=== PATIENT | female | born 1955 | race Caucasian/White ===

== ENCOUNTER 2017-09-07 23:30 | Inpatient (IN) | payer MEDICARE, OTHER ==
[~2017-09-07] VITALS: Ht 152.4 cm; Wt 50.9 kg
--- NOTE | 2017-09-07 23:50 | NUR ---
bbra 102 from home c/o "feeling weak". Pt states "while walking,I became weak and called 911". per EMS, "during transport to [facility] had 2 more episodes of feeling weakness" moving all extremities freely at this time. Able to speak in clear full sentences. States she feels "stronger now". pt able to ambulate with steady gait to restroom to give urine sample. pt is aaox4. vss. skin wnl. resp even and unlabored. no s/s of acute distress noted. pt denies n/v/d. -dizziness or blurred vission. pt safety and comfort measures in place. pt placed on residential monitor and pox. awaiting md for eval.
[2017-09-08] VITALS (9 sets, daily range): BP systolic 144–187; BP diastolic 71–76
[2017-09-08] MEDS ORDERED: IV NS 0.9% 500 ML BAG IV ONE
[2017-09-08 00:14] LABS: BASOPHILS % (AUTO) 0.5 % (0.0-2.0); HEMATOCRIT 30 % (33-45); HEMOGLOBIN 10.4 g/dL (11.5-14.8); LYMPHOCYTES # (AUTO) 0.8 /CMM (0.8-4.8); LYMPHOCYTES % (AUTO) 24.1 % (20.0-44.0); MEAN CORPUSCULAR HGB CONC 35 g/dl (31.0-36.0); MEAN CORPUSCULAR VOLUME 99 fL (82-100); MONOCYTES # (AUTO) 0.5 /CMM (0.1-1.30); MONOCYTES % (AUTO) 14.6 % (2.0-12.0); NEUTROPHILS # (AUTO) 1.3 /CMM (1.8-8.9); NEUTROPHILS % (AUTO) 36.8 % (43.0-81.0); PLATELET COUNT (AUTO) 182 /CMM (150-450); RDW COEFFICIENT OF VARIATION 13.7 (11.5-15.0); WHITE BLOOD COUNT (AUTO) 3.4 K/uL (4.3-11.0)
[2017-09-08 00:17] LABS: BILIRUBIN,URINE NEGATIVE (NEGATIVE); BLOOD, URINE TRACE-INTA Ery/uL (NEGATIVE); KETONES,URINE NEGATIVE (NEGATIVE); LEUKOCYTE ESTERASE ,URINE TRACE (NEGATIVE); NITRITE, URINE NEGATIVE (NEGATIVE); PROTEIN,URINE 3+ mg/dl (NEGATIVE); UGLUCOSE NEGATIVE (NEGATIVE); UROBILINOGEN,URINE 0.2 EU/dL (0.2)
[2017-09-08 00:23] LABS: APPEARANCE,URINE CLEAR (CLEAR); COLOR,URINE STRAW (YELLOW)
[2017-09-08 00:25] LABS: BACTERIA,URINE None seen /HPF (None Seen)
[2017-09-08 00:26] LABS: CALCIUM, SERUM 9.4 mg/dL (8.5-10.1); CARBON DIOXIDE 29 mmol/L (21-32); CHLORIDE 90 mmol/L (98-107); CREATININE 5.3 mg/dL (0.6-1.3); GLUCOSE 91 mg/dL (74-106); POTASSIUM 5.1 mmol/L (3.5-5.1); SODIUM SERUM 130 mmol/L (136-145); UREA NITROGEN, BLOOD 52 mg/dL (7-18)
[2017-09-08 00:26] LABS: SQUAMOUS EPITHELIAL CELL,UR Few /HPF (None Seen)
[2017-09-08 00:31] LABS: INR 1.06 (0.87-1.13)
--- NOTE | 2017-09-08 00:33 | NUR ---
TELE 311-2
[2017-09-08 00:36] LABS: TROPONIN I < 0.017 ng/mL (0.00-0.056)
[2017-09-08 00:39] LABS: EOSINOPHILS % (MANUAL) 25 % (0-4); LYMPHOCYTES % (MANUAL) 25 % (16-48); MONOCYTES % (MANUAL) 15 % (0-11.0); NEUTROPHILS % (MANUAL) 35 (42-76)
[2017-09-08 00:41] LABS: ALANINE AMINOTRANSFERASE 25 U/L (12-78); ALBUMIN 3.9 g/dL (3.4-5.0); ALKALINE PHOSPHATASE 201 U/L (46-116); ASPARTATE AMINOTRANSFERASE 17 U/L (15-37); BILIRUBIN,DIRECT 0.1 mg/dL (0.0-0.2); BILIRUBIN,TOTAL 0.4 mg/dL (0.2-1.0); TOTAL PROTEIN, SERUM 6.9 g/dL (6.4-8.2)
[2017-09-08] MEDS ORDERED: CEPHALEXIN MONOHYDRATE 500 MG CAPSULE PO ONE (00:51)
[2017-09-08] MEDS ORDERED: AZITHROMYCIN 500 MG in IV D5W 250 ML IV ONE (01:00)
[2017-09-08] MEDS ORDERED: CEFTRIAXONE 2 G in IV D5W 50 ML IV ONE (01:00)
[2017-09-08] MEDS ORDERED: AZITHROMYCIN 500 MG VIAL ONE (01:05)
[2017-09-08] MEDS ORDERED: CEFTRIAXONE 1GM BAG (ER ONLY) 100 ML IV ONE (01:05)
--- NOTE | 2017-09-08 01:13 | NUR ---
TELECOMMUNICATIONS SALES REPRESENTATIVE OCTAVIO BEDSIDE FOR BLOOD CULTURE DRAW.
--- NOTE | 2017-09-08 01:40 | NUR ---
REPORT GIVEN TO MEDICAL CHEMISTHERBERT CANALES FOR RICHARD
[2017-09-08] MEDS ORDERED: QUET400T PO (01:45)
[2017-09-08] MEDS ORDERED: CARV6.25 PO (01:55)
[2017-09-08] MEDS ORDERED: LOSA50TA3 PO (01:55)
[2017-09-08] MEDS ORDERED: ROSU5TAB PO (01:55)
[2017-09-08] MEDS ORDERED: CARV12.5 PO (01:55)
[2017-09-08] MEDS ORDERED: CLON1TAB PO (01:55)
[2017-09-08] MEDS ORDERED: CLON0.1T14 PO (01:55)
[2017-09-08] MEDS ORDERED: NIFE30TA2 PO (01:55)
[2017-09-08] MEDS ORDERED: FOLI1TAB16 PO (01:55)
[2017-09-08] MEDS ORDERED: ASPI-1100 PO (01:55)
[2017-09-08] MEDS ORDERED: LAMO100T2 PO (01:55)
[2017-09-08] MEDS ORDERED: ZOLPIDEM TARTRATE 5 MG TABLET PO PRN (02:00)
[2017-09-08] MEDS ORDERED: MAGNESIUM HYDROXIDE 30 ML UDC PO PRN (02:00)
[2017-09-08] MEDS ORDERED: ONDANSETRON HCL/PF 4 MG/2 ML VIAL IVP PRN (02:00)
[2017-09-08] MEDS ORDERED: Z GUARD REMEDY 2 OZ OINT TP PRN (02:00)
[2017-09-08] MEDS ORDERED: HYDROCODONE/APAP 5/325MG 1 EACH TABLET PO PRN (02:00)
--- NOTE | 2017-09-08 02:05 | NUR ---
QUALITY ASSURANCE ANALYST NOTES RECEIVED PT FROM THE ER, PT ABLE TO WALK WITH ASSISTANCE FROM LAURA OUTSIDE THE ROOM , TO THE PT'S BED. PT IS A/O X 4, VERBALLY RESPONSIVE. NO DISTRESS, NO SOB NOTED AT THIS TIME, IV SITE ON RIGHT HAND INTACT AND PATENT, NO S/S OF INFILTRATION NOTED, IV ATB INFUSING AT THIS TIME. DENIES ANY PAIN OR DISCOMFORT AT THIS TIME. BODY CHECK DONE. PT ABLE TO URINATE FREELY WITH YELLOW URINE, NO HEMATURIA NOTED. SAFETY PRECAUTIONS OBSERVED. ALL NEEDS ATTENDED AND MET. KEPT COMFORTABLE. CALL LIGHT WITHIN REACH. WILL CONT TO MONITOR.
--- NOTE | 2017-09-08 02:30 | NUR ---
PT ON SR 72 ON TELE MONITOR. DENIES ANY CHEST PAIN AT THIS TIME, ABLE TO MOVE ALL 4 EXTREMITIES FREELY, DENIES HITTING HEAD AT HOME WHEN SHE FELT WEAK WHILE WALKING AT HOME. WILL CONT TO MONITOR.
[2017-09-08 02:50] LABS: OSMOLALITY,SERUM 281 mOS/kg (278-305); OSMOLALITY,URINE 192 mOS/kg (340-1090)
--- NOTE | 2017-09-08 06:02 | NUR ---
PER PT , SHE GOES TO [facility] FOR DIALYSIS EVERY M, W, F.
--- NOTE | 2017-09-08 06:40 | NUR ---
CHIEF WARDEN NOTES PT IN BED, AWAKE, A/O X 4, VERBALLY RESPONSIVE. NO DISTRESS, NO SOB NOTED AT THIS TIME, IV SITE ON RIGHT HAND INTACT AND PATENT, NO S/S OF INFILTRATION NOTED. DENIES ANY PAIN OR DISCOMFORT AT THIS TIME. PT ABLE TO URINATE FREELY TO BEDSIDE COMMODE, WITH YELLOW URINE, NO HEMATURIA NOTED. SAFETY PRECAUTIONS OBSERVED. ALL NEEDS ATTENDED AND MET. KEPT COMFORTABLE. CALL LIGHT WITHIN REACH. WILL ENDORSE TO NEXT SHIFT FOR RICHARD.
[2017-09-08] MEDS ORDERED: AZITHROMYCIN 500 MG in IV D5W 250 ML IV SCH (08:00)
--- NOTE | 2017-09-08 08:00 | NUR ---
RN NOTES RECEIVED PATIENT THE BED A/O X4, NO ACUTE RESPIRATORY DISTRESS, NO SOB, V/S TAKEN AND FOLLOWED , SCHEDULED MEDICATION ADMINISTERED. PATIENT SELF CARE NEED MINIMALL ASSIST, PATIENT USING BED SIDE COMMODE. PATIENT HAS NO C/O PAIN AT THIS TIME. IV SHUNT ON LEFT UPPER ARM INTACT. IV ACCESS ON RIGHT HAND INTACT. NEEDS ATTENDED AND ANTICIPATED. PATIENT TURN AND REPOSTION SELF IN THE BED. CALL LIGHT WITHIN TO REACH. SAFETY PRECAUTION MAINTAINED ALL THE TIME.
[2017-09-08] MEDS ORDERED: CARVEDILOL 6.25 MG TABLET PO SCH (09:00)
[2017-09-08] MEDS ORDERED: CARVEDILOL 12.5 MG TABLET PO SCH (09:00)
--- NOTE | 2017-09-08 09:03 | NUR ---
RN NOTES PATIENT D/C TELE TO MED/SURGE PER Dr. LEÓN, CONTINUED MONITORING.
[2017-09-08 09:54] LABS: CALCIUM, SERUM 9.1 mg/dL (8.5-10.1); CREATININE 5.9 mg/dL (0.6-1.3); POTASSIUM 4.7 mmol/L (3.5-5.1)
[2017-09-08 09:55] LABS: BASOPHILS % (AUTO) 0.4 % (0.0-2.0); EOSINOPHILS % (AUTO) 16.4 % (0.0-6.0); HEMATOCRIT 30 % (33-45); HEMOGLOBIN 10.2 g/dL (11.5-14.8); LYMPHOCYTES # (AUTO) 0.6 /CMM (0.8-4.8); LYMPHOCYTES % (AUTO) 12.2 % (20.0-44.0); MEAN CORPUSCULAR HGB CONC 34 g/dl (31.0-36.0); MEAN CORPUSCULAR VOLUME 100 fL (82-100); MONOCYTES # (AUTO) 0.4 /CMM (0.1-1.30); MONOCYTES % (AUTO) 9.2 % (2.0-12.0); NEUTROPHILS # (AUTO) 2.9 /CMM (1.8-8.9); NEUTROPHILS % (AUTO) 61.8 % (43.0-81.0); PLATELET COUNT (AUTO) 162 /CMM (150-450); RDW COEFFICIENT OF VARIATION 13.6 (11.5-15.0); RED BLOOD CELL COUNT(AUTO) 2.98 MIL/uL (4.0-5.2); WHITE BLOOD COUNT (AUTO) 4.7 K/uL (4.3-11.0)
[2017-09-08 09:59] LABS: ALBUMIN 3.6 g/dL (3.4-5.0); BILIRUBIN,TOTAL 0.4 mg/dL (0.2-1.0); TOTAL PROTEIN, SERUM 6.5 g/dL (6.4-8.2)
[2017-09-08 10:13] LABS: THYROID STIMULATING HORMONE 9.296 uIU/mL (0.358-3.74)
[2017-09-08] MEDS: clonazePAM 1 MG TABLET PO SCH ×3 (10:17→18:40)
[2017-09-08] MEDS: LamoTRIgine 100 MG TABLET PO SCH (10:18)
[2017-09-08] MEDS: NIFEdipine XL (30MG) 30 MG TAB PO SCH (10:18)
[2017-09-08] MEDS: CLONIDINE HCL 0.1 MG TABLET PO SCH ×2 (10:19→18:42)
[2017-09-08] MEDS: LOSARTAN POTASSIUM 50 MG TABLET PO SCH (10:19)
[2017-09-08] MEDS: ASPIRIN EC 325 MG TABLET.DR PO SCH (10:20)
[2017-09-08] MEDS: FOLIC ACID 1 MG TABLET PO SCH (10:20)
[2017-09-08] MEDS ORDERED: hydrALAZINE HCL IV 20 MG VIAL IV PRN (11:00)
--- NOTE | 2017-09-08 11:53 | NUR ---
RN NOTES ADMINISTERED APRESOLINE 10 MG/ML IV PUSH FOR ELEVATED BP -176/80, P-72 PER PARAMETER OF >160, PATIENT TOLERATED WELL, NO ACUTE DISTRESS, CONTINUE MONITORING.
--- NOTE | 2017-09-08 12:41 | NUR ---
RN NOTES BP -148/78, P-72 . MEDICATION WERE ADMINISTERED EFFECTIVE. PATIENT ON HEMODIALYSIS AT THIS TIME, CALL LIGHT WITHIN TO REACH CONTINUED MONITORING.
--- NOTE | 2017-09-08 14:45 | NUR ---
RN NOTES HEMODIALYSIS DONE AT THIS TIME, FLUID WAS REMOVED 1000ML. V/S TAKEN STABLE BP -145/78, P-72, NO ACUTE DISTRESS AT THIS TIME. CALL LIGHT WITHIN TO REACH. UNABLE TO [id number] MEDICATION BECAUSE PATIENT WAS SLEEPING. CONTINUED MONITORING.
--- NOTE | 2017-09-08 18:45 | NUR ---
RN NOTES PATIENT IN THE BED NO ACUTE DISTRESS. SCHEDULED MEDICATION ADMINISTERED, V/S STABLE, NEEDS ATTENDED AND ANTICIPATED. CALL LIGHT WITHIN TO REACH. ENDORSED ONCOMING NURSE FOR PLAN OF CARE.
--- NOTE | 2017-09-08 19:41 | NUR ---
MS/RN OPENING NOTES PATIENT IN BED, ALERT, ORIENTED X3, RESTING COMFORTABLY IN BED, TALKING ON THE PHONE, CAN VERBALIZE NEEDS AT ALL TIMES, LEFT UA FISTULA DRESSING DRY AND INTACT, RESPIRATIONS EVEN AND UNLABORED, DENIES PAIN, SKIN WARM TO TOUCH, RECEIVED ENDORSEMENT FROM AM RN FOR RICHARD, WILL MONITOR, CALL LIGHTS WITHIN REACH, BED IN LOCK POSITION, WILL MONITOR.
--- NOTE | 2017-09-08 20:00 | NUR ---
MS/RN OPENING NOTES PATIENT IN BED, ALERT, ORIENTED X3, RESTING COMFORTABLY IN BED, DENIES PAIN, SKIN WARM TO TOUCH, B/P ELEVATED,WILL MONITOR, RECEIVED ENFORSEMENT FROM AM RN FOR RICHARD, BED IN LOCK POSITION, CALL LIGHTS WITHIN REACH, WILL CONTINUE TO MONIOR.
--- NOTE | 2017-09-08 20:04 | NUR ---
Met with patient, she is alert, stated lives alone on the second floor apartment. She ambulates with assistive device, requires assistance with adl's. Has [facility] caregiver Savita Abrams 89hrs/months [phone]. Has walker, cane and shower chair at home. Currently on service with [facility] [phone]. She gets her hemodialysis every MWF @ [facility] MWF 4:30pm . She is currently on kidney transplant list with [facility]. Caregiver Savita - [phone] will provide ride once discharge. Addendum: 09/08/17 at 2004 by RAJAN ROSADO RN Amended: Links added.
[2017-09-08] MEDS: LABETALOL HCL (100MG) 100 MG TABLET PO SCH (20:40)
[2017-09-08] MEDS: ATORVASTATIN 40 MG TABLET PO SCH (21:19)
[2017-09-08] MEDS: QUETIAPINE FUMARATE 100 MG TABLET PO SCH (21:20)
[2017-09-08] MEDS: AZITHROMYCIN 500 MG in IV D5W 250 ML IV SCH (21:47)
[2017-09-09 06:34] LABS: BASOPHILS % (AUTO) 0.6 % (0.0-2.0); HEMATOCRIT 29 % (33-45); HEMOGLOBIN 9.8 g/dL (11.5-14.8); LYMPHOCYTES # (AUTO) 0.8 /CMM (0.8-4.8); MEAN CORPUSCULAR HGB CONC 34 g/dl (31.0-36.0); MEAN CORPUSCULAR VOLUME 100 fL (82-100); MONOCYTES # (AUTO) 0.4 /CMM (0.1-1.30); NEUTROPHILS # (AUTO) 2.1 /CMM (1.8-8.9); NEUTROPHILS % (AUTO) 52.4 % (43.0-81.0); PLATELET COUNT (AUTO) 156 /CMM (150-450); RDW COEFFICIENT OF VARIATION 13.6 (11.5-15.0); RED BLOOD CELL COUNT(AUTO) 2.86 MIL/uL (4.0-5.2)
--- NOTE | 2017-09-09 06:43 | NUR ---
MS/RN CLOSING NOTES PATIENT IN BED, ALERT, ORIENTED DOING SELF CARE, COOPERATIVE TO CARE, ABLE TO SLEEP DURING THE NIGHT, RESPIRATIONS EVEN AND UNLABORED, COOPERATIVE TO CARE. DENIES PAIN, CALL LIGHTS WITHIN REACH, BED IN LOCK POSITION WILL ENDORSE TO AM RN FOR RICHARD.
[2017-09-09 06:48] LABS: ALANINE AMINOTRANSFERASE 20 U/L (12-78); ALBUMIN 3.3 g/dL (3.4-5.0); ALKALINE PHOSPHATASE 171 U/L (46-116); ASPARTATE AMINOTRANSFERASE 12 U/L (15-37); BILIRUBIN,TOTAL 0.4 mg/dL (0.2-1.0); CALCIUM, SERUM 8.9 mg/dL (8.5-10.1); CARBON DIOXIDE 29 mmol/L (21-32); CHLORIDE 95 mmol/L (98-107); CREATININE 5.4 mg/dL (0.6-1.3); GLUCOSE 88 mg/dL (74-106); MAGNESIUM 2.4 mg/dL (1.8-2.4); PHOSPHORUS 4.4 mg/dL (2.5-4.9); SODIUM SERUM 132 mmol/L (136-145); TROPONIN I < 0.017 ng/mL (0.00-0.056); UREA NITROGEN, BLOOD 44 mg/dL (7-18)
[2017-09-09 06:55] LABS: CHOLESTEROL 136 mg/dL (<200); HDL CHOLESTEROL 74 mg/dL (40-60); LDL 41 mg/dL (0-99); TRIGLYCERIDES 43 mg/dL (30-150)
[2017-09-09 08:00] VITALS: BP 180/88
[2017-09-09] MEDS: clonazePAM 1 MG TABLET PO SCH ×3 (08:19→17:18)
[2017-09-09] MEDS: FOLIC ACID 1 MG TABLET PO SCH (08:19)
[2017-09-09] MEDS: LABETALOL HCL (100MG) 100 MG TABLET PO SCH ×2 (08:20→20:55)
[2017-09-09] MEDS: LamoTRIgine 100 MG TABLET PO SCH (08:20)
[2017-09-09] MEDS: ASPIRIN EC 325 MG TABLET.DR PO SCH (08:20)
[2017-09-09] MEDS: NIFEdipine XL (30MG) 30 MG TAB PO SCH (08:21)
[2017-09-09] MEDS: CLONIDINE HCL 0.1 MG TABLET PO SCH (08:21)
[2017-09-09] MEDS: LOSARTAN POTASSIUM 50 MG TABLET PO SCH (08:21)
--- NOTE | 2017-09-09 09:30 | NUR ---
24 hr. urine started as per orders of emilia currie.
--- NOTE | 2017-09-09 10:00 | NUR ---
refused dvt pumps.
[2017-09-09] MEDS: hydrALAZINE HCL 50 MG TABLET PO SCH ×4 (10:40→19:11)
[2017-09-09] MEDS: CEFTRIAXONE 1 G in IV D5W 50 ML IV SCH (11:57)
[2017-09-09 16:00] VITALS: BP 158/71
[2017-09-09] MEDS ORDERED: CLONIDINE HCL 0.1 MG TABLET PO SCH (17:00)
--- NOTE | 2017-09-09 17:30 | NUR ---
pt. states iv looks messy and unsanitary-requests change of site. hep lock removed.restart rt. forearm #22. tolerated well.
--- NOTE | 2017-09-09 19:30 | NUR ---
RN NOTES RECEIVED PT. SLEEPING BUT AROUSABLE, DENIES PAIN, NO SOB, CALL LIGHT WITHIN REACH, SIDERAILSUPX2, BED IN LOCKED POSITION, WILL CONTINUE TO MONITOR
[2017-09-09 20:00] VITALS: BP_SYST 147; BP_SYST 157; BP_DIAS 72; BP_DIAS 77
[2017-09-09] MEDS ORDERED: SULFAMETH/TRIMETH 800/160 MG 1 UDTAB TABLET PO SCH (21:00)
[2017-09-09] MEDS: ATORVASTATIN 40 MG TABLET PO SCH (21:01)
[2017-09-09] MEDS: QUETIAPINE FUMARATE 100 MG TABLET PO SCH (22:09)
[2017-09-09] MEDS: AZITHROMYCIN 500 MG in IV D5W 250 ML IV SCH (22:09)
[2017-09-09] MEDS: ACETAMINOPHEN 325 MG TABLET PO PRN (22:36)
--- NOTE | 2017-09-09 22:39 | NUR ---
RN NOTES COMPLAINED OF HEADACHE- TYLENOL 650MG PO GIVEN ORDERED
--- NOTE | 2017-09-10 00:52 | NUR ---
RN NOTES SPOKE TO MOHIT REGARDING CLONIDINE 0.1MG PO q8H. INFORMED MOHIT EM-DECKHAND ENGINEER REGARDING PT BLOOD PRESSURE OF 131/70. MOHIT EM CHANGE IT TO PRN, ORDER NOTED AND CARRIED OUT
[2017-09-10] MEDS ORDERED: CLONIDINE HCL 0.1 MG TABLET PO PRN (01:00)
--- NOTE | 2017-09-10 06:39 | NUR ---
RN NOTES AWAKE, MORNING CARE RENDERED, DENIES PAIN, NO SOB, CALL LIGHT WITHIN REACH, SIDERAILSUPX2, PT. NEEDS ATTENDED
[2017-09-10 06:40] LABS: BASOPHILS % (AUTO) 0.4 % (0.0-2.0); EOSINOPHILS % (AUTO) 17.8 % (0.0-6.0); HEMATOCRIT 28 % (33-45); HEMOGLOBIN 9.5 g/dL (11.5-14.8); LYMPHOCYTES # (AUTO) 0.7 /CMM (0.8-4.8); MEAN CORPUSCULAR HGB CONC 34 g/dl (31.0-36.0); MEAN CORPUSCULAR VOLUME 99 fL (82-100); MONOCYTES # (AUTO) 0.6 /CMM (0.1-1.30); MONOCYTES % (AUTO) 11.3 % (2.0-12.0); NEUTROPHILS # (AUTO) 2.8 /CMM (1.8-8.9); NEUTROPHILS % (AUTO) 56.5 % (43.0-81.0); PLATELET COUNT (AUTO) 169 /CMM (150-450); RDW COEFFICIENT OF VARIATION 13.6 (11.5-15.0); RED BLOOD CELL COUNT(AUTO) 2.84 MIL/uL (4.0-5.2); WHITE BLOOD COUNT (AUTO) 4.9 K/uL (4.3-11.0)
[2017-09-10 06:41] VITALS: BP_SYST 160; BP_SYST 169; BP_SYST 173; BP_DIAS 73; BP_DIAS 74; BP_DIAS 81
[2017-09-10 07:08] LABS: CALCIUM, SERUM 9.1 mg/dL (8.5-10.1); MAGNESIUM 2.4 mg/dL (1.8-2.4); PHOSPHORUS 4.8 mg/dL (2.5-4.9); POTASSIUM 5.2 mmol/L (3.5-5.1)
--- NOTE | 2017-09-10 07:20 | NUR ---
RN OPENING NOTES PATIENT IN BED RESTING, A/OX3. NO ACUTE DISTRESS, NO SOB NOTED. DENIED PAIN OR DISCOMFORT. RCW PORTACATH INTACT AND PATENT. KEPT PATIENT SAFE AND COMFORTABLE. BED IN LOW/LOCKED POSITION, SIDERAILS UPX2, CALL LIGHT IN REACH. WILL CONTINUE TO MONITOR ACCORDINGLY Addendum: 09/10/17 at 0932 by DOUGLAS BERMAN CORRECTION: NO PORTACATH. PATIENT HAS RIGHT FOREARM IV GAUGE 22 S/L AND LEFT ARM FISTULA
[2017-09-10 08:00] VITALS: BP 166/71
[2017-09-10] MEDS: clonazePAM 1 MG TABLET PO SCH ×3 (08:24→16:28)
[2017-09-10] MEDS: LamoTRIgine 100 MG TABLET PO SCH (08:25)
[2017-09-10] MEDS: ASPIRIN EC 325 MG TABLET.DR PO SCH (08:26)
[2017-09-10] MEDS: NIFEdipine XL (30MG) 30 MG TAB PO SCH (08:28)
[2017-09-10] MEDS: LABETALOL HCL (100MG) 100 MG TABLET PO SCH ×2 (08:28→21:07)
[2017-09-10] MEDS: LOSARTAN POTASSIUM 50 MG TABLET PO SCH (08:29)
[2017-09-10] MEDS: FOLIC ACID 1 MG TABLET PO SCH (08:29)
[2017-09-10] MEDS: hydrALAZINE HCL 50 MG TABLET PO SCH ×3 (08:30→16:27)
[2017-09-10] MEDS: CEFTRIAXONE 1 G in IV D5W 50 ML IV SCH (10:16)
[2017-09-10] MEDS: ISOSORBIDE DINITRATE (20MG) 20 MG TABLET PO SCH ×2 (10:21→16:28)
[2017-09-10] MEDS: ACETAMINOPHEN 325 MG TABLET PO PRN (14:31)
[2017-09-10 14:45] VITALS: BP 134/69
--- NOTE | 2017-09-10 14:58 | NUR ---
RN NOTES PATIENT JUST FINISH HEMODIALYSIS, 200 ML OUTPUT. PATIENT IN STABLE CONDITION. JV=033/69 , HR= 73, T= 98.6
[2017-09-10 16:00] VITALS: BP 158/71
--- NOTE | 2017-09-10 17:00 | NUR ---
RN NOTES PATIENT REFUSED KLONOPIN, RETURNED TO [facility], WITNESSED BY HERBERT TOVAR
--- NOTE | 2017-09-10 19:25 | NUR ---
RN CLOSING NOTES PATIENT IN STABLE CONDITION. ALL NEEDS ATTENDED AND PROVIDED. KEPT PATIENT SAFE AND COMFORTABLE. BED IN LOW/LOCKED POSITION, SIDERAILS UPX2, CALL LIGHT IN REACH. ENDORSED TO NIGHT RN FOR RICHARD.
--- NOTE | 2017-09-10 19:30 | NUR ---
RN NOTES RECEIVED PT. AWAKE ON BED, A/OX3, COMPLAINED OF HEADACHE BUT JUST HAD TYLENOL, ASKED FOR ICE PACK INSTEAD., NO SOB, CALL LIGHT WITHIN REACH, SIDERAILSUPX2, CONTINUE TO MONITOR
[2017-09-10 20:00] VITALS: BP 155/77
[2017-09-10] MEDS: ATORVASTATIN 40 MG TABLET PO SCH (21:07)
--- NOTE | 2017-09-10 21:31 | NUR ---
RN NOTES PT. IS FEELING NAUSEOUS- ZOFRAN 4MG IV GIVEN ORDERED, V/S STABLE
[2017-09-10] MEDS: AZITHROMYCIN 500 MG in IV D5W 250 ML IV SCH (22:14)
[2017-09-10] MEDS: QUETIAPINE FUMARATE 100 MG TABLET PO SCH (22:14)
[2017-09-11 06:17] LABS: BASOPHILS % (AUTO) 0.7 % (0.0-2.0); EOSINOPHILS % (AUTO) 15.2 % (0.0-6.0); HEMATOCRIT 26 % (33-45); HEMOGLOBIN 8.9 g/dL (11.5-14.8); LYMPHOCYTES # (AUTO) 0.8 /CMM (0.8-4.8); LYMPHOCYTES % (AUTO) 19.7 % (20.0-44.0); MEAN CORPUSCULAR HGB CONC 34 g/dl (31.0-36.0); MEAN CORPUSCULAR VOLUME 100 fL (82-100); MONOCYTES # (AUTO) 0.5 /CMM (0.1-1.30); MONOCYTES % (AUTO) 12.1 % (2.0-12.0); NEUTROPHILS # (AUTO) 2.2 /CMM (1.8-8.9); NEUTROPHILS % (AUTO) 52.3 % (43.0-81.0); PLATELET COUNT (AUTO) 160 /CMM (150-450); RDW COEFFICIENT OF VARIATION 13.9 (11.5-15.0); RED BLOOD CELL COUNT(AUTO) 2.62 MIL/uL (4.0-5.2); WHITE BLOOD COUNT (AUTO) 4.3 K/uL (4.3-11.0)
[2017-09-11 06:49] LABS: CALCIUM, SERUM 8.8 mg/dL (8.5-10.1); CREATININE 4.9 mg/dL (0.6-1.3); MAGNESIUM 2.3 mg/dL (1.8-2.4); PHOSPHORUS 4.6 mg/dL (2.5-4.9)
--- NOTE | 2017-09-11 07:20 | NUR ---
RN NOTES PT IS LAYING DOWN IN BED, SLEEPING. PT ON RA, RESPIRATIONS ARE EVEN AND UNLABORED. IV ON RFA INTACT AND SL. NO SIGNS OF DISTRESS NOTED. SAFETY MEASURES ARE IN PLACE, CALL LIGHT IS IN REACH. WILL CONTINUE TO MONITOR.
[2017-09-11 08:00] VITALS: BP 157/76
[2017-09-11] MEDS: clonazePAM 1 MG TABLET PO SCH (09:00)
[2017-09-11] MEDS: hydrALAZINE HCL 50 MG TABLET PO SCH ×3 (09:03→17:05)
[2017-09-11] MEDS: LOSARTAN POTASSIUM 50 MG TABLET PO SCH (09:05)
[2017-09-11] MEDS: LamoTRIgine 100 MG TABLET PO SCH (09:05)
[2017-09-11] MEDS: ASPIRIN EC 325 MG TABLET.DR PO SCH (09:05)
[2017-09-11] MEDS: FOLIC ACID 1 MG TABLET PO SCH (09:05)
[2017-09-11] MEDS: LABETALOL HCL (100MG) 100 MG TABLET PO SCH ×2 (09:05→22:05)
[2017-09-11] MEDS: ISOSORBIDE DINITRATE (20MG) 20 MG TABLET PO SCH ×2 (09:06→17:06)
[2017-09-11] MEDS: NIFEdipine XL (30MG) 30 MG TAB PO SCH (09:06)
[2017-09-11] MEDS: CEFTRIAXONE 1 G in IV D5W 50 ML IV SCH (09:06)
--- NOTE | 2017-09-11 12:19 | NUR ---
RN NOTES 1300 APRESOLINE DOSE HELD. PT RECEIVING HEMODIALYSIS AT THIS TIME.
[2017-09-11 16:00] VITALS: BP 136/72
--- NOTE | 2017-09-11 18:44 | NUR ---
RN NOTES PT IS LAYING DOWN IN BED, RESTING COMFORTABLY. PT ON RA, RESPIRATIONS ARE EVEN AND UNLABORED. IV ON RFA INTACT AND SL. HEMODIALYSIS DONE TODAY, L ARM AV FISTULA HAS TIGHT DRESSING INTACT, NO SIGNS OF BLEEDING. ALL MEDS WERE GIVEN ORDERED AND PT NEEDS MET. NO SIGNS OF DISTRESS NOTED. SAFETY MEASURES ARE IN PLACE, CALL LIGHT IS IN REACH. WILL ENDORSE TO PROOFER BLACK AND WHITE RN FOR CONTINUITY OF CARE.
--- NOTE | 2017-09-11 19:32 | NUR ---
MS RN INITIL NOTE PT IS IN BED SLEEPING, EASILY AROUSED. NO SIGNS OF SOB OR DISTRESS, BREATHING EVENLY AND UNLABORED ON RA. DENIES PAIN AT THIS TIME. IV ACCESS IS INTACT AND PATENT. BED IS IN LOW AND LOCKED POSITION, CALL LIGHT WITHIN REACH, WILL CONTINUE TO MONITOR PT
[2017-09-11 20:00] VITALS: BP 144/72
[2017-09-11] MEDS: ACETAMINOPHEN 325 MG TABLET PO PRN (20:14)
[2017-09-11] MEDS ORDERED: clonazePAM 1 MG TABLET PO SCH (22:00)
[2017-09-11] MEDS ORDERED: POLYETHYLENE GLYCOL 3350 17 GM POWD.PACK PO SCH (22:00)
[2017-09-11] MEDS: ATORVASTATIN 40 MG TABLET PO SCH (22:04)
[2017-09-11] MEDS: QUETIAPINE FUMARATE 100 MG TABLET PO SCH (22:04)
[2017-09-11] MEDS ORDERED: AZITHROMYCIN 250 MG TABLET PO SCH (23:00)
[2017-09-12 06:18] LABS: BASOPHILS % (AUTO) 0.8 % (0.0-2.0); EOSINOPHILS % (AUTO) 17.7 % (0.0-6.0); HEMATOCRIT 25 % (33-45); HEMOGLOBIN 8.6 g/dL (11.5-14.8); LYMPHOCYTES % (AUTO) 20.6 % (20.0-44.0); MEAN CORPUSCULAR HGB CONC 34 g/dl (31.0-36.0); MEAN CORPUSCULAR VOLUME 100 fL (82-100); MONOCYTES # (AUTO) 0.6 /CMM (0.1-1.30); MONOCYTES % (AUTO) 11.5 % (2.0-12.0); NEUTROPHILS # (AUTO) 2.5 /CMM (1.8-8.9); NEUTROPHILS % (AUTO) 49.4 % (43.0-81.0); PLATELET COUNT (AUTO) 160 /CMM (150-450); RDW COEFFICIENT OF VARIATION 14.1 (11.5-15.0); RED BLOOD CELL COUNT(AUTO) 2.54 MIL/uL (4.0-5.2)
[2017-09-12 06:34] LABS: CALCIUM, SERUM 8.8 mg/dL (8.5-10.1); CREATININE 5.1 mg/dL (0.6-1.3); MAGNESIUM 2.1 mg/dL (1.8-2.4); PHOSPHORUS 4.2 mg/dL (2.5-4.9); POTASSIUM 4.9 mmol/L (3.5-5.1)
--- NOTE | 2017-09-12 06:57 | NUR ---
MS RN CLOSING NOTE PT IS IN BED SLEEPING, EASILY AROUSED. NO SIGNS OF SOB OR DISTRESS, BREATHING EVENLY AND UNLABORED ON RA. NO ACUTE CHANGES THROUGHOUT THE SHIFT. ALL NEEDS WERE ANTICIPATED AND MET. WILL ENDORSE TO DAYSHIFT
[2017-09-12 08:00] VITALS: BP 159/73
--- NOTE | 2017-09-12 08:01 | NUR ---
MS RN NOTES Patient received is bed, awake and verbally responsive. A&Ox3. AV Fistula on left upper arm noted. IV site on right distal forearm: patent and intact. Safety measures in place. Bed in lowest position. Call light within reach. Advised patient to use call light if assistance needed. Will continue to monitor.
[2017-09-12] MEDS ORDERED: LOSARTAN POTASSIUM 50 MG TABLET PO SCH (09:00)
[2017-09-12] MEDS: LamoTRIgine 100 MG TABLET PO SCH (09:00)
[2017-09-12] MEDS: LABETALOL HCL (100MG) 100 MG TABLET PO SCH (09:01)
[2017-09-12] MEDS: ISOSORBIDE DINITRATE (20MG) 20 MG TABLET PO SCH (09:01)
[2017-09-12] MEDS: FOLIC ACID 1 MG TABLET PO SCH (09:01)
[2017-09-12] MEDS: NIFEdipine XL (30MG) 30 MG TAB PO SCH (09:02)
[2017-09-12] MEDS: ASPIRIN EC 325 MG TABLET.DR PO SCH (09:04)
[2017-09-12] MEDS: hydrALAZINE HCL 50 MG TABLET PO SCH ×2 (10:29→12:22)
[2017-09-12] MEDS: CEFTRIAXONE 1 G in IV D5W 50 ML IV SCH (10:40)
[2017-09-12 12:22] VITALS: BP 129/59
[2017-09-12] MEDS ORDERED: HYDR-4077 PO (12:30)
[2017-09-12] MEDS ORDERED: NIFE30TA89 PO (12:30)
[2017-09-12] MEDS ORDERED: ISOS20TA8 PO (12:30)
[2017-09-12] MEDS ORDERED: LOSA50TA3 PO (12:30)
--- NOTE | 2017-09-12 14:30 | NUR ---
MS TAPPER BALANCE WHEEL SCREW HOLE NOTES Patient remained stable during shift. Skin intact. IV cath on right forearm removed. Gauzed applied and no bleeding noted. Patient has been cleared for discharge to home by MD. Discharge instruction given to patient with length period of time. Verbalized understanding. Patient was seen by Dr. Currie prior to discharge. Instructed patient to follow up with PCP in one week. Personal belongings and home medications given to patient upon discharge. Patient left hospital in stable condition by a private care accompanied by bullet maker.
== END 2017-09-12 15:00 | disposition home or self-care (01) | DRG 682 ==
LOC: ER 23:32 → TELE 09-08 01:02 → MED 09-08 08:47
PROVIDERS: ADMIT Nurse Practitioner Acute Care; ATTEND Nurse Practitioner Acute Care
DX: I12.0 Hypertensive chronic kidney disease with stage 5 chronic kidney disease or end stage renal disease (principal); J15.9 Unspecified bacterial pneumonia; D70.9 Neutropenia, unspecified; N18.6 End stage renal disease; N39.0 Urinary tract infection, site not specified; E87.1 Hypo-osmolality and hyponatremia; E86.0 Dehydration; E86.1 Hypovolemia; Y92.009 Unspecified place in unspecified non-institutional (private) residence as the place of occurrence of the external cause; Z99.2 Dependence on renal dialysis; Z86.73 Personal history of transient ischemic attack (TIA), and cerebral infarction without residual deficits; Z95.5 Presence of coronary angioplasty implant and graft; I25.10 Atherosclerotic heart disease of native coronary artery without angina pectoris; F31.9 Bipolar disorder, unspecified; Z79.82 Long term (current) use of aspirin; Z79.899 Other long term (current) drug therapy; R50.81 Fever presenting with conditions classified elsewhere; T43.595A Adverse effect of other antipsychotics and neuroleptics, initial encounter; M85.9 Disorder of bone density and structure, unspecified
CPT/HCPCS: 36415; 70450-TC; 71045-TC; 76770-TC; 80048-TC; 80053-TC; 80061-TC; 80076-TC; 81000-TC; 82306; 82728-TC; 83540-TC; 83605-TC; 83735-TC; 83835; 83935-TC; 84100-TC; 84300-TC; 84439-TC; 84443-TC; 84484-TC; 85025-TC; 85730-TC; 87040-TC; 87081-TC; 90935-TC; A4606; A6403; J0360; J0456; J0696; J2405; J7040; J7050; J7060; Z7610

== ENCOUNTER 2017-12-13 23:19 | Emergency (ER) | payer MEDICARE, OTHER ==
[~2017-12-13] VITALS: Ht 157.5 cm; Wt 50.8 kg
[~2017-12-13 23:19] MED LIST: ASPI-1100 PO; CLON0.1T14 PO; CLON1TAB PO; FOLI1TAB16 PO; HYDR-4077 PO; ISOS20TA8 PO; LAMO100T2 PO; LOSA50TA3 PO; NIFE30TA89 PO; QUET400T PO; ROSU5TAB PO
--- NOTE | 2017-12-13 23:34 | NUR ---
BBRA FROM HOME C/O HIGH BP AND HEADACHE X 20 MIN GRAPHIC COORDINATOR RECENTLY DIALYZED X 2 HOURS GRAPHIC COORDINATOR. PT AOX3 RR EVEN AND UNLABORED. NO SOB NOTED. PT DENIES NVD AT THIS TIME. PT PLACED ON MONITOR WAITING FOR MD REYES. PT NOTED WITH JERRY HD SITE. BRUIT AND THRILL NOTED. PT STATES COMPLETED HD AT 10PM.
--- NOTE | 2017-12-13 23:45 | NUR ---
DR. CAMARENA AT BEDSIDE FOR EVAL.
[2017-12-13] MEDS ORDERED: BUTALB/APAP/CAFFEINE 1 EACH TABLET PO STA (23:49)
--- NOTE | 2017-12-13 23:50 | NUR ---
PT TO CT.
--- NOTE | 2017-12-13 23:56 | NUR ---
PT RETURNED FROM CT.
--- NOTE | 2017-12-14 00:06 | NUR ---
CALLED RN SUP FOR MEDICATION. WAITING FOR CALL BACK.
[2017-12-14] MEDS ORDERED: BUTALB/APAP/CAFFEINE 1 EACH TABLET ONE (00:15)
--- NOTE | 2017-12-14 00:21 | NUR ---
RECEIVED MEDICATION FROM HERBERT LEONARD NIGHT LOCKER.
--- NOTE | 2017-12-14 01:02 | NUR ---
PT STATES SHE CALLED PT EXTRUDER OPERATOR, WILL PICK PT UP UPON D/C
--- NOTE | 2017-12-14 01:10 | NUR ---
DR. CAMARENA MADE AWARE OF PT CURRENT BP.
[2017-12-14] MEDS ORDERED: ONDANSETRON 4 MG TAB.RAPDIS ONE (01:42)
[2017-12-14] MEDS ORDERED: ONDANSETRON 4 MG TAB.RAPDIS SL ONE (02:00)
[2017-12-14 02:14] VITALS: BP 185/84
--- NOTE | 2017-12-14 02:14 | NUR ---
Patient discharged to home in stable condition. Written and verbal after care instructions given. Patient verbalizes understanding of instruction. ambulatory with a steady gait. Pt accompanied with student career development specialist. w/c to car per pt request.
== END 2017-12-14 02:15 | disposition home or self-care (01) ==
LOC: ER 23:22
DX: I12.0 Hypertensive chronic kidney disease with stage 5 chronic kidney disease or end stage renal disease (principal); N18.6 End stage renal disease; R51 Headache; F31.9 Bipolar disorder, unspecified; Z60.2 Problems related to living alone; Z86.73 Personal history of transient ischemic attack (TIA), and cerebral infarction without residual deficits; Z95.9 Presence of cardiac and vascular implant and graft, unspecified; Z99.2 Dependence on renal dialysis; Z79.82 Long term (current) use of aspirin
CPT/HCPCS: 70450; 99284; A4606; Q0162; Z7610

== ENCOUNTER 2017-12-17 23:40 | Emergency (ER) | payer MEDICARE, OTHER ==
[~2017-12-17] VITALS: Ht 160 cm; Wt 62.6 kg
[2017-12-17 23:42] VITALS: BP 178/91
[2017-12-18] MEDS ORDERED: HYDR100T27 PO (19:52)
[2017-12-18] MEDS ORDERED: LOSA100T15 PO (19:52)
[2017-12-18] MEDS ORDERED: LABE100T5 PO (20:51)
== END 2017-12-18 02:15 | disposition home or self-care (01) ==
LOC: ER 23:45
DX: Z00.00 Encounter for general adult medical examination without abnormal findings (principal); Z86.73 Personal history of transient ischemic attack (TIA), and cerebral infarction without residual deficits; I12.9 Hypertensive chronic kidney disease with stage 1 through stage 4 chronic kidney disease, or unspecified chronic kidney disease; N18.9 Chronic kidney disease, unspecified; Z99.2 Dependence on renal dialysis; F31.9 Bipolar disorder, unspecified; Z79.82 Long term (current) use of aspirin; Z95.9 Presence of cardiac and vascular implant and graft, unspecified; Z60.2 Problems related to living alone
CPT/HCPCS: 99283; A4606; J7030; Z7610

== ENCOUNTER 2017-12-18 16:34 | Inpatient (IN) | payer MEDICARE, OTHER ==
[~2017-12-18] VITALS: Ht 152.4 cm; Wt 52.6 kg
--- NOTE | 2017-12-18 17:23 | NUR ---
PT TO ER BED 09 ACCOMPANIED BY CAREGIVER. PER REPORT, INCREASING CONFUSION AND BLE WEAKNESS. STATES USUALLY DOES NOT USE WALKER BUT FELT REALLY WEEK THE PAST COUPLE OF DAYS. DIALYSIS PT USUALLY M/W/F. NO DIALYSIS TODAY PER PT. GOWNED AND PLACED ON MONITOR. HYPERTENSIVE ARCADE GAME TECHNICIAN. AWAITING MD REYES.
--- NOTE | 2017-12-18 17:34 | NUR ---
PAULO SANIZ AT BEDSIDE FOR EVAL.
--- NOTE | 2017-12-18 17:40 | NUR ---
DRAPERY ROD ASSEMBLER AT BEDSIDE FOR BLOOD DRAW.
[2017-12-18 18:05] LABS: BASOPHILS % (AUTO) 0.5 % (0.0-2.0); EOSINOPHILS % (AUTO) 22.1 % (0.0-6.0); HEMATOCRIT 34 % (33-45); HEMOGLOBIN 11.6 g/dL (11.5-14.8); LYMPHOCYTES # (AUTO) 0.3 /CMM (0.8-4.8); LYMPHOCYTES % (AUTO) 7.9 % (20.0-44.0); MEAN CORPUSCULAR HEMOGLOBIN 36 PG (26.0-33.0); MEAN CORPUSCULAR HGB CONC 34 g/dl (31.0-36.0); MEAN CORPUSCULAR VOLUME 106 fL (82-100); MONOCYTES # (AUTO) 0.4 /CMM (0.1-1.30); MONOCYTES % (AUTO) 8.8 % (2.0-12.0); NEUTROPHILS # (AUTO) 2.4 /CMM (1.8-8.9); NEUTROPHILS % (AUTO) 60.7 % (43.0-81.0); PLATELET COUNT (AUTO) 178 /CMM (150-450); RDW COEFFICIENT OF VARIATION 14.7 (11.5-15.0); RED BLOOD CELL COUNT(AUTO) 3.18 MIL/uL (4.0-5.2)
[2017-12-18 18:24] LABS: ALANINE AMINOTRANSFERASE 17 U/L (12-78); ALBUMIN 3.8 g/dL (3.4-5.0); ALKALINE PHOSPHATASE 172 U/L (46-116); ASPARTATE AMINOTRANSFERASE 20 U/L (15-37); BILIRUBIN,DIRECT 0.2 mg/dL (0.0-0.2); BILIRUBIN,TOTAL 0.8 mg/dL (0.2-1.0); CALCIUM, SERUM 9.1 mg/dL (8.5-10.1); CARBON DIOXIDE 29 mmol/L (21-32); CREATININE 6.9 mg/dL (0.6-1.3); GLUCOSE 116 mg/dL (74-106); LIPASE 227 U/L (73-393); POTASSIUM 5.5 mmol/L (3.5-5.1); TOTAL PROTEIN, SERUM 6.7 g/dL (6.4-8.2); UREA NITROGEN, BLOOD 67 mg/dL (7-18)
[2017-12-18 18:26] LABS: TROPONIN I < 0.017 ng/mL (0.00-0.056)
[2017-12-18] MEDS ORDERED: CLONIDINE HCL 0.1 MG TABLET PO ONE (18:30)
[2017-12-18 18:31] LABS: CHLORIDE 87 mmol/L (98-107); SODIUM SERUM 123 mmol/L (136-145)
[2017-12-18 18:32] LABS: INR 1.06 (0.85-1.15)
[2017-12-18 18:45] LABS: EOSINOPHILS % (MANUAL) 24 % (0-4); LYMPHOCYTES % (MANUAL) 1 % (16-48); MONOCYTES % (MANUAL) 1 % (0-11.0); NEUTROPHILS % (MANUAL) 74 (42-76)
[2017-12-18] MEDS ORDERED: CLONIDINE HCL 0.1 MG TABLET ONE (18:58)
--- NOTE | 2017-12-18 19:25 | NUR ---
REPORT TO YOSEF GODINEZ FOR RICHARD.
--- NOTE | 2017-12-18 19:30 | NUR ---
PT RESTING QUIETLY IN BED WITH PRIVATE CAREGIVER AT BEDSIDE; ALL NEEDS ATTENDED TO. NAD NOTED. ON MONITOR IN ER BED .
[2017-12-18] MEDS ORDERED: HYDR100T27 PO (19:52)
[2017-12-18] MEDS ORDERED: LOSA100T15 PO (19:52)
[2017-12-18] MEDS ORDERED: IV NS 0.9% 500 ML BAG IV ONE (20:00)
[2017-12-18 20:11] LABS: APPEARANCE,URINE Clear (CLEAR); BILIRUBIN,URINE Negative (NEGATIVE); BLOOD, URINE Trace-lysed Ery/uL (NEGATIVE); COLOR,URINE Yellow (YELLOW); KETONES,URINE Negative (NEGATIVE); LEUKOCYTE ESTERASE ,URINE Trace (NEGATIVE); NITRITE, URINE Negative (NEGATIVE); PH,URINE 8.5 (5.0-8.0); PROTEIN,URINE >=300 mg/dl (NEGATIVE); UGLUCOSE Negative (NEGATIVE); UROBILINOGEN,URINE 0.2 EU/dL (0.2)
--- NOTE | 2017-12-18 20:11 | NUR ---
PAGED EPIC FOR PANEL - PRINCIPAL CYBER ENGINEER SHANNA SUAZO
[2017-12-18 20:22] LABS: BACTERIA,URINE Few /HPF (None Seen)
[2017-12-18 20:23] LABS: SQUAMOUS EPITHELIAL CELL,UR Few /HPF (None Seen)
[2017-12-18 20:24] LABS: MUCUS,URINE Few /LPF (None Seen)
--- NOTE | 2017-12-18 20:26 | NUR ---
NOTIFIED EMELI VALERO OF HTN; NNO
--- NOTE | 2017-12-18 20:27 | NUR ---
CALLED NURSE SUP FOR TELE BED
[2017-12-18] MEDS ORDERED: LABE100T5 PO (20:51)
[2017-12-18] MEDS ORDERED: LABETALOL HCL (100MG) 100 MG TABLET PO ONE ×2 (21:00→22:00)
[2017-12-18] MEDS ORDERED: hydrALAZINE HCL 10 MG TABLET PO ONE (21:00)
--- NOTE | 2017-12-18 21:25 | NUR ---
PAGED EPIC FOR PANEL - SIGN HANGER SHANNA SUAZO
[2017-12-18] MEDS ORDERED: ONDANSETRON HCL/PF - ER 4 MG/2 ML VIAL IV ONE (21:30)
[2017-12-18] MEDS ORDERED: ONDANSETRON HCL/PF 4 MG/2 ML VIAL ONE (21:34)
[2017-12-18] MEDS ORDERED: LABETALOL HCL (100MG) 100 MG TABLET ONE ×2 (21:43→21:57)
[2017-12-18] MEDS ORDERED: hydrALAZINE HCL IV 20 MG VIAL IV ONE (22:00)
[2017-12-18] MEDS ORDERED: hydrALAZINE HCL IV 20 MG VIAL ONE (22:00)
--- NOTE | 2017-12-18 22:15 | NUR ---
RESTING QUIETLY, NAD NOTED. ALL NEEDS ATTENDED TO. CONTINUE TO MONITOR VS.
--- NOTE | 2017-12-18 23:45 | NUR ---
111-2, REPORT GIVEN TO JOSÉ MIGUEL GODINEZ. ALL NEEDS ATTENDED TO. NAD NOTED.
--- NOTE | 2017-12-18 23:50 | NUR ---
PT TRANSPORTED TO 111-2 IN GUARDED CONDITION VIA ACLS PROTOCOL.
[2017-12-19] VITALS (7 sets, daily range): BP systolic 157–171; BP diastolic 60–80
--- NOTE | 2017-12-19 | NUR ---
TELE/SECURITY PUBLIC SAFETY OFFICER NOTES: RECEIVED PT. IN [facility] PT. WALKED W/ WALKER W/ STEADY GAIT TO BED. A/O X 4. NO S/S OF ANY RESPIRATORY DISTRESS. DENIES ANY C/O CHEST PAIN OR SOB AT PRESENT. ON TELE MONITOR W/ ST 121. HAS JERRY AV FISTULA . PER PT. SHE HAS BEEN ON DIALYSIS FOR LAST 10 YRS MONDAY, MONDAY AND MONDAY. SHE MISSED HER MONDAY SESSION ON 12/18/17. HAS RH G 20 PATENT AND INTACT W/ NO S/S OF INFECTION/INFILTRATION NOTED. HAS NS 3% AT 20 ML/HR . CONTINENT OF B/B. CALL LIGHT W/ REACH. WILL CONTINUE TO MONITOR.
[2017-12-19] MEDS ORDERED: ACETAMINOPHEN 325 MG TABLET PO PRN (01:00)
[2017-12-19] MEDS ORDERED: ZOLPIDEM TARTRATE 5 MG TABLET PO PRN (01:00)
[2017-12-19] MEDS ORDERED: Z GUARD REMEDY 2 OZ OINT TP PRN (01:00)
[2017-12-19] MEDS ORDERED: IV Sodium Chloride 3% 500 ML 500 ML IV ONE ×2 (01:00→01:45)
[2017-12-19] MEDS: ONDANSETRON HCL/PF 4 MG/2 ML VIAL IVP PRN ×2 (01:44→20:24)
[2017-12-19] MEDS: clonazePAM 1 MG TABLET PO PRN ×2 (03:16→21:23)
[2017-12-19 07:32] LABS: BASOPHILS % (AUTO) 0.3 % (0.0-2.0); EOSINOPHILS % (AUTO) 22.6 % (0.0-6.0); HEMATOCRIT 33 % (33-45); LYMPHOCYTES # (AUTO) 0.4 /CMM (0.8-4.8); LYMPHOCYTES % (AUTO) 7.8 % (20.0-44.0); MEAN CORPUSCULAR HEMOGLOBIN 37 PG (26.0-33.0); MEAN CORPUSCULAR HGB CONC 34 g/dl (31.0-36.0); MEAN CORPUSCULAR VOLUME 109 fL (82-100); MONOCYTES # (AUTO) 0.5 /CMM (0.1-1.30); MONOCYTES % (AUTO) 9.9 % (2.0-12.0); NEUTROPHILS # (AUTO) 2.8 /CMM (1.8-8.9); NEUTROPHILS % (AUTO) 59.4 % (43.0-81.0); PLATELET COUNT (AUTO) 185 /CMM (150-450); RDW COEFFICIENT OF VARIATION 15.3 (11.5-15.0); RED BLOOD CELL COUNT(AUTO) 3.01 MIL/uL (4.0-5.2); WHITE BLOOD COUNT (AUTO) 4.7 K/uL (4.3-11.0)
[2017-12-19 07:46] LABS: ALBUMIN 3.5 g/dL (3.4-5.0); BILIRUBIN,TOTAL 0.8 mg/dL (0.2-1.0); CALCIUM, SERUM 8.9 mg/dL (8.5-10.1); CREATININE 7.3 mg/dL (0.6-1.3); MAGNESIUM 3.9 mg/dL (1.8-2.4); POTASSIUM 5.7 mmol/L (3.5-5.1); TOTAL PROTEIN, SERUM 6.4 g/dL (6.4-8.2)
--- NOTE | 2017-12-19 07:53 | NUR ---
RN/TELE NOTES: REPORT GIVEN TO AM NURSE FOR RICHARD.
--- NOTE | 2017-12-19 08:00 | NUR ---
AIR QUALITY MANAGER NOTES RECEIVED PATIENT IN BED, A&O, VERY ANXIOUS AND WORRIED ABOUT AV FISTULA ON L ARM SWOLLEN AND PROTRUDING. BRUIT AND THRILL NOTED. PATIENT ON TELE SR 65. R HAND IV HEP LOCK NO S/SX OF INFECTION. CONTINUING IVF ORDERED. ASSISTED PATIENT TO BATHROOM. ASSISTED PATIENT BACK TO BED. BED IN LOCKED AND LOWEST POSITION. CALL LIGHT IN REACH. DISCUSSED POC WITH PATIENT. WILL CONTINUE TO MONITOR.
[2017-12-19 08:49] LABS: BAND % (MANUAL) 2 % (0.0-5.0); EOSINOPHILS % (MANUAL) 22 % (0-4); LYMPHOCYTES % (MANUAL) 5 % (16-48); MONOCYTES % (MANUAL) 7 % (0-11.0); NEUTROPHILS % (MANUAL) 64 (42-76)
[2017-12-19] MEDS: LamoTRIgine 100 MG TABLET PO SCH (09:15)
[2017-12-19] MEDS: hydrALAZINE HCL 50 MG TABLET PO SCH ×3 (09:16→16:48)
[2017-12-19] MEDS: CLONIDINE HCL 0.1 MG TABLET PO SCH ×2 (09:17→16:50)
[2017-12-19] MEDS: FOLIC ACID 1 MG TABLET PO SCH (09:18)
[2017-12-19] MEDS: LABETALOL HCL (100MG) 100 MG TABLET PO SCH ×2 (09:19→16:50)
[2017-12-19] MEDS: LOSARTAN POTASSIUM 50 MG TABLET PO SCH ×2 (09:19→16:49)
--- NOTE | 2017-12-19 09:25 | NUR ---
FLAT SURFACER JEWEL NOTES DR HATCH NOTIFIED AND AWARE OF ENLARGED FISTULA.STATED WILL SEE PATIENT.
--- NOTE | 2017-12-19 11:20 | NUR ---
AUTO ELECTRICAL TECHNICIAN NOTE SEEN BY DR SCHAEFER WITH ORDER CT HEAD , ORDER CARRIED OUT, ALL NEEDS ATTENDED
--- NOTE | 2017-12-19 11:51 | NUR ---
CARPENTER APPRENTICE NOTE SPOKE WITH DR SALEEM ABOUT AV FISTULA ,STATED OK TO DO HD AWARE BUN 83 ON IVF ,NA 124 TODAY ,ON HD AT THIS MAR[place] ,WILL F\U
--- NOTE | 2017-12-19 13:14 | NUR ---
STATE COMPTROLLER NOTE PER DR STIVEN LA TO ORDER RENVELA PER PATIENT REQUEST
--- NOTE | 2017-12-19 13:45 | NUR ---
MOVER HELPER NNOTE HD COMPLETED REMOVED.1.5 L BP128/65 NOT IN ACUTE DISTRESS
--- NOTE | 2017-12-19 14:52 | NUR ---
PT. HAVING DIALYSIS, WILL TRY AGAIN AROUND 1600.
--- NOTE | 2017-12-19 16:55 | NUR ---
CHANGE COORDINATOR NOTES PT INSISTING ON GETTING AN ULTRASOUND OF FISTULA. DR EVANS SAW FISTULA. NOTIFIED PCP DR SALEEM, HE SAID NO.
--- NOTE | 2017-12-19 17:30 | NUR ---
COMPUTER SCIENCE INSTRUCTOR NOTE CALLD T DR EVANS NOTIFIED THAT PATENT LT ARM SWOLLEN IV FISTULA ORDER US LT ARM ORDER CARRIED OUT
[2017-12-19] MEDS: SEVELAMER CARBONATE 800 MG TABLET PO SCH (17:33)
--- NOTE | 2017-12-19 18:03 | NUR ---
NURSE ADMINISTRATOR NOTE TAKEN TO DO CT HEAD
--- NOTE | 2017-12-19 18:34 | NUR ---
WASTE/MATERIALS EXCHANGE SPECIALIST NOTES PATIENT EATING FOOD. ALL NEEDS ATTENDED. ON IV FLUIDS. NOT IN DISTRESS. CONTINUE TO MONITOR
[2017-12-19] MEDS: ATORVASTATIN 40 MG TABLET PO SCH (21:14)
[2017-12-19] MEDS: QUETIAPINE FUMARATE 100 MG TABLET PO SCH (21:15)
--- NOTE | 2017-12-19 21:29 | NUR ---
TELE/RN NOTES: RECEIVED PT. IN BED W/ HOB ELEVATED. A/O X 4. DENIES ANY C/O CHEST PAIN OR SOB AT PRESENT. ON TELE MONITOR W/ SR 64 W/ FIRST DEGREE AV BLOCK. HAS JERRY AV FISTULA. HAD DIALYSIS TODAY. RH G 20 PATENT AND INTACT W/ NS 3% GOING ON TOLERATING WELL. CALL LIGHT W/REACH. ALL DUE MEDS GIVEN. REPORT GIVEN TO HERBERT NEWELL TO CONTINUE RICHARD.
--- NOTE | 2017-12-19 21:30 | NUR ---
CIVIL ATTORNEY NOTES RECEIVED REPORT FROM HERBERT VALDEZ FOR CONTINUITY OF CARE. PT IN BED, IN NO ACUTE DISTRESS. PLACED CALL LIGHT WITHIN EASY REACH. WILL CONTINUE TO MONITOR.
[2017-12-19] MEDS: HYDROCODONE/APAP 5/325MG 1 EACH TABLET PO PRN (22:12)
[2017-12-20] VITALS: BP_SYST 115; BP_SYST 160; BP_DIAS 52; BP_DIAS 69
[2017-12-20 04:00] VITALS: BP 164/73
--- NOTE | 2017-12-20 06:23 | NUR ---
SERVICE CENTER COORDINATOR CLOSING NOTES PATIENT IN BED, ASLEEP THROUGHOUT THE SHIFT BUT EASILY AROUSABLE. NO NOTED SOB, BREATHING EVEN AND UNLABORED. PT IN NO ACUTE DISTRESS. ALL PATIENT'S NEEDS ATTENDED TO, IVF INFUSING ORDERED. WILL ENDORSE TO AM SHIFT NURSE FOR CONTINUITY OF CARE. ON TELE MONITORING SR @ 60S.
[2017-12-20 07:04] LABS: ALBUMIN 3.2 g/dL (3.4-5.0); BILIRUBIN,TOTAL 0.6 mg/dL (0.2-1.0); CALCIUM, SERUM 8.5 mg/dL (8.5-10.1); CREATININE 6.4 mg/dL (0.6-1.3); MAGNESIUM 3.4 mg/dL (1.8-2.4); PHOSPHORUS 4.7 mg/dL (2.5-4.9); POTASSIUM 4.7 mmol/L (3.5-5.1); TOTAL PROTEIN, SERUM 5.9 g/dL (6.4-8.2)
[2017-12-20 07:21] LABS: THYROID STIMULATING HORMONE 16.978 uIU/mL (0.358-3.74); URIC ACID 4.5 mg/dL (2.6-7.2)
[2017-12-20 08:00] VITALS: BP 177/74
--- NOTE | 2017-12-20 08:00 | NUR ---
Patient awake and alert, oriented x 4. No co pain. Left upper arm fistula is somewhat bulky looking, however has a good bruit, and thrill. SR on monitor, blood pressure increased this morning and will receive her routine bp meds. Victorino Hayes RN
[2017-12-20] MEDS: FOLIC ACID 1 MG TABLET PO SCH (08:14)
[2017-12-20] MEDS: SEVELAMER CARBONATE 800 MG TABLET PO SCH ×3 (08:14→17:47)
[2017-12-20] MEDS: CLONIDINE HCL 0.1 MG TABLET PO SCH ×2 (08:16→17:53)
[2017-12-20] MEDS: LABETALOL HCL (100MG) 100 MG TABLET PO SCH ×2 (08:16→17:50)
[2017-12-20] MEDS: LOSARTAN POTASSIUM 50 MG TABLET PO SCH ×2 (08:17→17:52)
[2017-12-20] MEDS: LamoTRIgine 100 MG TABLET PO SCH (08:18)
[2017-12-20 12:00] VITALS: BP 163/71
--- NOTE | 2017-12-20 12:00 | NUR ---
Patient resting quietly in bed, eating lunch. She has no co pain. Did get oob with family member at bedside walk the length of the cazares with assist. No distress noted. Victorino Hayes RN
[2017-12-20 12:25] LABS: BASOPHILS % (AUTO) 0.6 % (0.0-2.0); EOSINOPHILS % (AUTO) 14.3 % (0.0-6.0); HEMATOCRIT 45 % (33-45); HEMOGLOBIN 10.6 g/dL (11.5-14.8); LYMPHOCYTES # (AUTO) 0.7 /CMM (0.8-4.8); LYMPHOCYTES % (AUTO) 21.1 % (20.0-44.0); MEAN CORPUSCULAR HEMOGLOBIN 26 PG (26.0-33.0); MEAN CORPUSCULAR HGB CONC 24 g/dl (31.0-36.0); MEAN CORPUSCULAR VOLUME 109 fL (82-100); MONOCYTES # (AUTO) 0.6 /CMM (0.1-1.30); MONOCYTES % (AUTO) 18.8 % (2.0-12.0); NEUTROPHILS # (AUTO) 1.4 /CMM (1.8-8.9); NEUTROPHILS % (AUTO) 45.2 % (43.0-81.0); PLATELET COUNT (AUTO) 264 /CMM (150-450); RDW COEFFICIENT OF VARIATION 16.1 (11.5-15.0); RED BLOOD CELL COUNT(AUTO) 4.08 MIL/uL (4.0-5.2); WHITE BLOOD COUNT (AUTO) 3.2 K/uL (4.3-11.0)
[2017-12-20] MEDS: hydrALAZINE HCL 50 MG TABLET PO SCH ×3 (12:51→17:54)
[2017-12-20 13:18] LABS: EOSINOPHILS % (MANUAL) 5 % (0-4); LYMPHOCYTES % (MANUAL) 16 % (16-48); MONOCYTES % (MANUAL) 11 % (0-11.0); NEUTROPHILS % (MANUAL) 68 (42-76)
[2017-12-20 16:00] VITALS: BP 157/69
--- NOTE | 2017-12-20 18:00 | NUR ---
Patient co shortness of breath, and I called Dr Townsend, updated on present condition, and orders written. Victorino Hayes RN
[2017-12-20 20:00] VITALS: BP 129/72
--- NOTE | 2017-12-20 20:05 | NUR ---
Rn notes Received bedside report from am nurse. Patient awake, alert, oriented x 4. No co pain. Left upper arm fistula is somewhat bulky looking, however has a good bruit, and thrill. SR on monitor with 1st degree AV block. Right hand G 20 IV line is intact, patient and patient is refusing her IV fluids. all safety measures are implemented, bed is locked, lowest position, call light in reach. will cont. to monitor.
[2017-12-20 20:41] LABS: ABG BASE EXCESS 1.3 mmol/L; ABG OXYGEN SATURATION 95.5 % (92.0-98.5); ABG PH 7.514 (7.350-7.450); ABG PO2 84.3 mmHg (75.0-100.0); AaDO2 29.5 mmHg; COHb 0.3 % (0.5-1.5); MetHb 0.3 % (0.0-1.5); O2Hb 94.9 % (94.0-97.0); SITE, ABG Right Radial; VENT MODE, BG RM AIR
[2017-12-20] MEDS: ATORVASTATIN 40 MG TABLET PO SCH (22:18)
[2017-12-20] MEDS: QUETIAPINE FUMARATE 100 MG TABLET PO SCH (22:18)
[2017-12-20] MEDS: clonazePAM 1 MG TABLET PO PRN (22:23)
[2017-12-21] VITALS: BP 183/76
--- NOTE | 2017-12-21 00:45 | NUR ---
RN NOTES PATIENT 'S B/P IS 183/76 AND LEFT BREAST IS BIGGER THAN RIGHT ONE AND SHE IS CONCERNED ABOUT IT. PATIENT HAD STENT PLACEMENT AND NOW SHE IS CONCERNED THAT HER STENT IS COLLAPSING WHICH IS CAUSING LEFT BREAST SWELLING. MD AFIA STRANGE NOTIFIED. NO NEW ORDERS FOR NOW. WILL CONTINUE TO MONITOR .
[2017-12-21 04:00] VITALS: BP_SYST 145; BP_SYST 174; BP_DIAS 85; BP_DIAS 97
--- NOTE | 2017-12-21 06:20 | NUR ---
RN NOTES PATIENT IN BED, A/OX4, ON 2L O2 VIA NC WITH SPO2 >97%, AMBULATORY. NO ACUTE CHANGES DURING MY SHIFT. RIGHT HAND 20G IV LINE IS INTACT, PATIENT AND. PATIENT WILL HAVE HD TODAY MORNING.PATIENT SLEPT WELL THROUGHOUT THE NIGHT. ALL NEEDS ARE ATTENDED, BED IN LOW, LOCKED POSITION, CALL LIGHT IN REACH. PATIENT CARE WILL BE ENDORSED TO AM NURSE FOR LABORATORY CLERK.
--- NOTE | 2017-12-21 07:50 | NUR ---
RN NOTE RECEIVED PATIENT AWAKE ALERT AND ORIENTED X3. SHE IS ABLE TO MAKE THINGS KNOWN AND VERBALIZE NEEDS. BREATHING EVEN AND UNLABORED WITH NO DISTRESS NOTED. ON MACHINE CEMENTER AND FOLDER OF SINUS RHYTHM HR OF 65.VERY ANXIOUS AND WORRIED ABOUT AV FISTULA ON L ARM SWOLLEN AND PROTRUDING. BRUIT AND THRILL NOTED. ALL SAFETY MEASURES DONE. BED LOW AND LOCKED POSITION. PLACED CALL LIGHT WITH IN REACH. WILL CONTINUE TO MONITOR.
[2017-12-21 08:00] VITALS: BP 188/76
[2017-12-21] MEDS: LEVOTHYROXINE SODIUM 100 MCG TABLET PO SCH (08:19)
[2017-12-21] MEDS: FOLIC ACID 1 MG TABLET PO SCH (08:19)
[2017-12-21] MEDS: SEVELAMER CARBONATE 800 MG TABLET PO SCH ×3 (08:19→17:25)
[2017-12-21] MEDS: LamoTRIgine 100 MG TABLET PO SCH (08:20)
[2017-12-21] MEDS: LOSARTAN POTASSIUM 50 MG TABLET PO SCH ×2 (08:21→17:26)
[2017-12-21] MEDS: LABETALOL HCL (100MG) 100 MG TABLET PO SCH ×2 (08:21→17:27)
[2017-12-21] MEDS: CLONIDINE HCL 0.1 MG TABLET PO SCH ×3 (08:22→17:26)
[2017-12-21] MEDS: hydrALAZINE HCL 50 MG TABLET PO SCH ×3 (08:26→17:26)
[2017-12-21 12:00] VITALS: BP 147/70
[2017-12-21 16:00] VITALS: BP 159/77
--- NOTE | 2017-12-21 17:00 | NUR ---
RN NOTE EXPLAINED AND MADE AWARE TO PATIENT SHE MAYBE DISCHARGED HOME AFTER DIALYSIS TODAY. D/C ORDER IN PLACE.
--- NOTE | 2017-12-21 17:50 | NUR ---
RN NOTE DIALYSIS NURSE AT BEDSIDE FOR PATIENT TO BE DIALYZED
--- NOTE | 2017-12-21 18:30 | NUR ---
RN NOTE OK TO D/C HOME PATIENT AFTER DIALYSIS
--- NOTE | 2017-12-21 19:15 | NUR ---
RN NOTE PATIENT REMAINED STABLE THROUGHOUT SHIFT. NO ACUTE CHANGES OR DISTRESS NOTED. PATIENT CONTINUES TO BE DIALYZED. WILL ENDORSE TO NEXT SHIFT TO CONTINUE CONTINUITY OF CARE.
--- NOTE | 2017-12-21 19:20 | NUR ---
RN NOTES RECEIVED PATIENT IN BED, NO DISTRESS. CURRENTLY UNDERGOING HD ORDERED. VSS. HD NURSE AT BEDSIDE.
[2017-12-21 20:00] VITALS: BP_SYST 175; BP_SYST 176; BP_DIAS 80
--- NOTE | 2017-12-21 20:50 | NUR ---
RN NOTES S/P HD, VSS, 1.5L OUTPUT. JERRY AV FISTULA DRESSED BY HD NURSE, WILL MONITOR FOR ANY BLEEDING.
--- NOTE | 2017-12-21 22:00 | NUR ---
RN NOTES APPROACHED PATIENT AND REMINDED PATIENT OF THE PLAN FOR D/C ORDERED AND ENDORSED. PATIENT WITH MULTIPLE CONCERNS REGARDING HER DISCHARGE PLAN, PATIENT OBSERVED TO BE RESISTANT WITH THE PLANNED DISCHARGE. ATTEMPTED TO UPDATE PATIENT ON HER CURRENT HEALTH CONDITION AND THE PLAN OF CARE WITH F/UP WITH HER PMD, HOWEVER PATIENT WAS OBSERVED TO BE IRRITABLE, UPSET, AND HYPERVERBAL AND NURSE WAS NOT ABLE TO TALK. CHARGE NURSE AND NURSING VISUAL MERCHANDISING COORDINATOR ALSO HAS ATTEMPTED TO TALK TO THE PATIENT, HOWEVER, PATIENT JUST BECAME MORE AGITATED AND IRRITATED. DR. STRANGE, MADE AWARE OF THE PATIENT'S REFUSAL FOR DISCHARGE. WILL ENDORSE ACCORDINGLY.
[2017-12-21] MEDS: ATORVASTATIN 40 MG TABLET PO SCH (22:49)
[2017-12-21] MEDS: clonazePAM 1 MG TABLET PO PRN (22:50)
[2017-12-21] MEDS: QUETIAPINE FUMARATE 100 MG TABLET PO SCH (22:50)
[2017-12-21] MEDS: HYDROCODONE/APAP 5/325MG 1 EACH TABLET PO PRN (23:02)
[2017-12-22 04:00] VITALS: BP 157/73
--- NOTE | 2017-12-22 06:29 | NUR ---
RN NOTES NO ACUTE DISTRESS OBSERVED OVERNIGHT. NEEDS ANTICIPATED AND MET. PLAN FOR DISCHARGE THIS AM. NO ADVERSE BLEEDING ON JERRY AV FISTULA. WILL ENDORSE ACCORDINGLY FOR CONTINUITY OF CARE.
[2017-12-22] MEDS ORDERED: NIFEdipine XL 60 MG TAB PO SCH (09:00)
[2017-12-22] MEDS: LEVOTHYROXINE SODIUM 100 MCG TABLET PO SCH (09:07)
[2017-12-22] MEDS: SEVELAMER CARBONATE 800 MG TABLET PO SCH (09:07)
[2017-12-22] MEDS: FOLIC ACID 1 MG TABLET PO SCH (09:07)
[2017-12-22] MEDS: LOSARTAN POTASSIUM 50 MG TABLET PO SCH (09:08)
[2017-12-22] MEDS: LABETALOL HCL (100MG) 100 MG TABLET PO SCH (09:09)
[2017-12-22] MEDS: LamoTRIgine 100 MG TABLET PO SCH (09:10)
[2017-12-22] MEDS: hydrALAZINE HCL 50 MG TABLET PO SCH (09:10)
[2017-12-22] MEDS: CLONIDINE HCL 0.1 MG TABLET PO SCH (09:10)
[2017-12-22 10:52] VITALS: BP 181/81
[2017-12-22] MEDS ORDERED: CLONIDINE HCL 0.1 MG TABLET PO ONE (11:00)
--- NOTE | 2017-12-22 11:05 | NUR ---
RN NOTES PATIENT'S BP 181/[address] SALEEM AND GAVE AN ORDER FOR CLONIDINE 0.2MG X1 NOW. ORDER NOTED AND CARRIED OUT.
--- NOTE | 2017-12-22 11:19 | NUR ---
RN NOTES PATIENT A/OX4, NO DISTRESS NOTED, PATIENT ASYMPTOMATIC, DENIES CHEST PAIN OR DISCOMFORT. PATIENT RECEIVED DISCHARGE INSTRUCTIONS AND VERBALIZED UNDERSTANDING. PAPERWORKS SIGNED. GAVE A REMINDER FOR F/U APPT ON MONDAY. SKIN ASSESSMENT DONE, SKIN CLEAR AND INTACT. BELONGINGS RECONCILED AND COMPLETE. CAREGIVER AT BEDSIDE. PERIPHERAL IV REMOVED, APPLIED GAUZE AND TAPE. PATIENT REFUSES TO RECHECK BP, WAS JUST GIVEN CLONIDINE 0.2MG, ASYMPTOMATIC, NO COMPLAINTS. EXPLAINED RISKS, PATIENT VERBALIZED UNDERSTANDING. PER PATIENT, HER BP IS UNCONTROLLABLE FOR A FEW MONTHS NOW. DR. STIVEN PRIDE MADE AWARE, AND PER MD, NO NEW MEDICATION TO BE PRESCRIBED AT THIS TIME. PATIENT STATED SHE STILL HAVE SOME MEDICATIONS AT HOME. PATIENT LEFT THE FACILITY IN STABLE CONDITION.
--- NOTE | 2017-12-22 14:00 | NUR ---
RECEIVED A CALL FROM AMANDA, PATIENT'S CAREGIVER, PATIENT'S RECENT BP AT HOME IS 160/79.
== END 2017-12-22 11:19 | disposition home or self-care (01) | DRG 640 ==
LOC: ER 16:40 → TELE-TD 23:13 → TELE1 12-19 00:47 → MEDSG1 12-21 17:48
PROVIDERS: ADMIT Nurse Practitioner Acute Care; ATTEND Nurse Practitioner Acute Care
PROC: 5A1D70Z Performance of Urinary Filtration, Intermittent, Less than 6 Hours Per Day (ICD-10-PCS; principal; 2017-12-19)
PROC: 5A1D70Z Performance of Urinary Filtration, Intermittent, Less than 6 Hours Per Day (ICD-10-PCS; 2017-12-21)
DX: E87.1 Hypo-osmolality and hyponatremia (principal); N18.6 End stage renal disease; G92 Toxic encephalopathy; N39.0 Urinary tract infection, site not specified; I12.0 Hypertensive chronic kidney disease with stage 5 chronic kidney disease or end stage renal disease; E87.5 Hyperkalemia; D72.1 Eosinophilia; D75.89 Other specified diseases of blood and blood-forming organs; E78.5 Hyperlipidemia, unspecified; E86.0 Dehydration; F41.9 Anxiety disorder, unspecified; I25.10 Atherosclerotic heart disease of native coronary artery without angina pectoris; Z86.73 Personal history of transient ischemic attack (TIA), and cerebral infarction without residual deficits; Z99.2 Dependence on renal dialysis; Z95.5 Presence of coronary angioplasty implant and graft; F31.9 Bipolar disorder, unspecified; R53.81 Other malaise; Q78.9 Osteochondrodysplasia, unspecified
CPT/HCPCS: 36415; 36600; 70450-TC; 71045-TC; 80048-TC; 80053-TC; 80061-TC; 80076-TC; 81000-TC; 82746; 82803-TC; 83690-TC; 83735-TC; 84100-TC; 84443-TC; 84484-TC; 84550-TC; 85025-TC; 85730-TC; 87081-TC; 87086-TC; 90935-TC; 93307-TC; 93971-TC; A4606; A6402; J0360; J2405; J3490; J7040; Z7610

== ENCOUNTER 2018-04-17 00:05 | Emergency (ER) | payer OTHER ==
[~2018-04-17] VITALS: Ht 165.1 cm; Wt 55.3 kg
[~2018-04-17 00:05] MED LIST changes: -ASPI-1100 PO; +ASPI-992 PO; +DOCU-141 PO; -HYDR-4077 PO; +HYDR100T27 PO; -ISOS20TA8 PO; +LABE100T5 PO; +LACT10SO PO; +LEVO137T2 PO; +LOSA100T31 PO; -LOSA50TA3 PO; -NIFE30TA89 PO; +QUET100T PO; +SENN8.6T19 PO
[2018-04-17] MEDS ORDERED: AMOX/CLAVULANATE 875 MG TABLET PO ONE (01:30)
[2018-04-17] MEDS ORDERED: AMOX/CLAVULANATE 875 MG TABLET ONE (01:38)
[2018-04-17 02:24] VITALS: BP 148/78
== END 2018-04-17 02:24 | disposition home or self-care (01) ==
LOC: ER 00:06
DX: R04.0 Epistaxis (principal); I12.0 Hypertensive chronic kidney disease with stage 5 chronic kidney disease or end stage renal disease; N18.6 End stage renal disease; F41.9 Anxiety disorder, unspecified; E23.2 Diabetes insipidus; E03.9 Hypothyroidism, unspecified; I77.0 Arteriovenous fistula, acquired; Z86.73 Personal history of transient ischemic attack (TIA), and cerebral infarction without residual deficits; Z60.2 Problems related to living alone; Z79.82 Long term (current) use of aspirin
CPT/HCPCS: A4606; Z7610

== ENCOUNTER 2018-04-18 18:05 | Emergency (ER) | END 2018-04-18 19:06 | disposition home or self-care (01) | DX: Z48.00 Encounter for change or removal of nonsurgical wound dressing (principal); I10 Essential (primary) hypertension; N18.6 End stage renal disease; F41.9 Anxiety disorder, unspecified; E23.2 Diabetes insipidus; E03.9 Hypothyroidism, unspecified; I77.0 Arteriovenous fistula, acquired; Z60.2 Problems related to living alone; Z86.73 Personal history of transient ischemic attack (TIA), and cerebral infarction without residual deficits; Z79.82 Long term (current) use of aspirin ==

== ENCOUNTER 2018-05-15 16:30 | Emergency (ER) | payer OTHER ==
[~2018-05-15] VITALS: Ht 152.4 cm; Wt 51.7 kg
[2018-05-15] MEDS ORDERED: TDAP [DIPH/PERTUSSIS/TET] 0.5 ML VIAL IM ONE ×2 (17:00→17:13)
--- NOTE | 2018-05-15 17:00 | NUR ---
PATIENT CAME IN AFTER SUFFERING A MECHANICAL FALL AND RESULTED IN SKIN TEAR ON LEFT FA. NO KO. MINIMAL BLEEDING NOTED.
--- NOTE | 2018-05-15 17:30 | NUR ---
WOUND CARE PER MD ORDER. +CMS BELOW DRESSING. Patient discharged to home in stable condition. Written and verbal after care instructions given. Patient verbalizes understanding of instruction.
[2018-05-15 17:38] VITALS: BP 170/84
[2018-07-13] MEDS ORDERED: NIFE60TA73 PO (13:02)
== END 2018-05-15 17:39 | disposition home or self-care (01) ==
LOC: ER 16:32
DX: S51.812A Laceration without foreign body of left forearm, initial encounter (principal); I12.0 Hypertensive chronic kidney disease with stage 5 chronic kidney disease or end stage renal disease; N18.6 End stage renal disease; Z99.2 Dependence on renal dialysis; F41.9 Anxiety disorder, unspecified; E03.9 Hypothyroidism, unspecified; F31.9 Bipolar disorder, unspecified; E23.2 Diabetes insipidus; Z98.890 Other specified postprocedural states; Z60.2 Problems related to living alone; Z79.82 Long term (current) use of aspirin; Z79.899 Other long term (current) drug therapy; Z86.73 Personal history of transient ischemic attack (TIA), and cerebral infarction without residual deficits; W18.09XA Striking against other object with subsequent fall, initial encounter; Y93.89 Activity, other specified; Y92.89 Other specified places as the place of occurrence of the external cause; Y99.8 Other external cause status
CPT/HCPCS: 90715; A6402

== ENCOUNTER 2018-05-17 01:50 | Inpatient (IN) | payer OTHER ==
[~2018-05-17] VITALS: Ht 152.4 cm; Wt 57.2 kg
--- NOTE | 2018-05-17 02:02 | NUR ---
Pt BIBRA complaining of generalized weakness. PT had a witnessed ground level fall today. Pt is AAXO4. Respirations are even and unlabored. Pt put on the monitor and pending eval from ER .
--- NOTE | 2018-05-17 02:03 | NUR ---
KAMRON RENEE at bedside for eval.
[2018-05-17 02:27] LABS: BASOPHILS % (AUTO) 1.3 % (0.0-2.0); HEMATOCRIT 28 % (33-45); HEMOGLOBIN 9.7 g/dL (11.5-14.8); LYMPHOCYTES # (AUTO) 0.6 /CMM (0.8-4.8); LYMPHOCYTES % (AUTO) 20.3 % (20.0-44.0); MEAN CORPUSCULAR HGB CONC 34 g/dl (31.0-36.0); MEAN CORPUSCULAR VOLUME 114 fL (82-100); MONOCYTES # (AUTO) 0.5 /CMM (0.1-1.30); MONOCYTES % (AUTO) 15.7 % (2.0-12.0); NEUTROPHILS # (AUTO) 1.4 /CMM (1.8-8.9); NEUTROPHILS % (AUTO) 48.7 % (43.0-81.0); PLATELET COUNT (AUTO) 164 /CMM (150-450); RED BLOOD CELL COUNT(AUTO) 2.47 MIL/uL (4.0-5.2); WHITE BLOOD COUNT (AUTO) 2.9 K/uL (4.3-11.0)
[2018-05-17 02:35] LABS: CALCIUM, SERUM 9.4 mg/dL (8.5-10.1); CREATININE 3.5 mg/dL (0.6-1.3); POTASSIUM 4.9 mmol/L (3.5-5.1)
--- NOTE | 2018-05-17 02:38 | NUR ---
Pt is refusing to have a CT scan.
[2018-05-17 02:40] LABS: ALBUMIN 3.6 g/dL (3.4-5.0); BILIRUBIN,DIRECT 0.3 mg/dL (0.0-0.2); TOTAL PROTEIN, SERUM 6.8 g/dL (6.4-8.2)
--- NOTE | 2018-05-17 02:41 | NUR ---
XRAY at bedside.
--- NOTE | 2018-05-17 02:51 | NUR ---
Urine sample obtained and sent to Lab.
[2018-05-17 02:57] LABS: APPEARANCE,URINE SL CLOUDY (CLEAR); BILIRUBIN,URINE NEGATIVE (NEGATIVE); BLOOD, URINE TRACE Ery/uL (NEGATIVE); COLOR,URINE YELLOW (YELLOW); KETONES,URINE NEGATIVE (NEGATIVE); LEUKOCYTE ESTERASE ,URINE TRACE (NEGATIVE); NITRITE, URINE NEGATIVE (NEGATIVE); PH,URINE 8.5 (5.0-8.0); PROTEIN,URINE 2+ mg/dl (NEGATIVE); UGLUCOSE NEGATIVE (NEGATIVE); UROBILINOGEN,URINE 0.2 EU/dL (0.2)
[2018-05-17 03:03] LABS: BACTERIA,URINE Few /HPF (None Seen); SQUAMOUS EPITHELIAL CELL,UR Few /HPF (None Seen)
[2018-05-17] MEDS ORDERED: hydrALAZINE HCL IV 20 MG VIAL ONE ×2 (03:37→04:27)
--- NOTE | 2018-05-17 03:43 | NUR ---
Pt being monitored.
[2018-05-17 03:45] LABS: EOSINOPHILS % (MANUAL) 10 % (0-4); NEUTROPHILS % (MANUAL) 51 (42-76)
[2018-05-17 03:46] LABS: LYMPHOCYTES % (MANUAL) 26 % (16-48); MONOCYTES % (MANUAL) 13 % (0-11.0)
[2018-05-17] MEDS ORDERED: hydrALAZINE HCL IV 20 MG VIAL IV ONE (04:00)
[2018-05-17] MEDS ORDERED: CEFTRIAXONE 1GM BAG (ER ONLY) 50 ML IV ONE ×2 (04:10→04:30)
--- NOTE | 2018-05-17 04:17 | NUR ---
Family [employer] Social Work Professor at bedside drawing blood cultures.
[2018-05-17] MEDS ORDERED: AZITHROMYCIN 500 MG in IV D5W 250 ML IV ONE (04:30)
[2018-05-17] MEDS ORDERED: hydrALAZINE HCL IV 20 MG VIAL IV PRN (04:30)
--- NOTE | 2018-05-17 04:36 | NUR ---
Report given to Nazario George for RICHARD.
[2018-05-17] MEDS ORDERED: AZITHROMYCIN 500 MG VIAL ONE (04:44)
[2018-05-17 05:23] VITALS: BP 170/74
[2018-05-17] MEDS ORDERED: ONDANSETRON HCL/PF 4 MG/2 ML VIAL IVP PRN (05:30)
[2018-05-17] MEDS ORDERED: HYDROCODONE/APAP 5/325MG 1 EACH TABLET PO PRN (05:30)
[2018-05-17] MEDS ORDERED: ACETAMINOPHEN 325 MG TABLET PO PRN (05:30)
[2018-05-17] MEDS ORDERED: ZOLPIDEM TARTRATE 5 MG TABLET PO PRN (05:30)
[2018-05-17] MEDS ORDERED: Z GUARD REMEDY 2 OZ OINT TP PRN (05:30)
[2018-05-17] MEDS ORDERED: LACTULOSE 10 G/15 ML UDC (PYXIS) PO PRN (07:00)
[2018-05-17 08:00] VITALS: BP 162/82
[2018-05-17] MEDS: DOCUSATE SODIUM 100 MG CAPSULE PO SCH ×2 (08:07→16:37)
[2018-05-17] MEDS: CLONIDINE HCL 0.1 MG TABLET PO SCH ×3 (08:07→16:37)
[2018-05-17] MEDS: ASPIRIN 325 MG TABLET PO SCH (08:07)
[2018-05-17] MEDS: LOSARTAN POTASSIUM 50 MG TABLET PO SCH ×2 (08:07→16:37)
[2018-05-17] MEDS: LABETALOL HCL (100MG) 100 MG TABLET PO SCH ×3 (08:07→16:36)
[2018-05-17] MEDS: SENNOSIDES 8.6 MG TABLET PO SCH (08:08)
[2018-05-17] MEDS: LEVOTHYROXINE SODIUM 137 MCG TABLET PO SCH (08:08)
--- NOTE | 2018-05-17 09:03 | NUR ---
received pt from glass ribbon machine operator assistant, a/o x4, SR, on 2L 02 sat well, lungs partially congested, no edema, tolerates diet, anuric, HD pt, v/s stable, no pain, pt tuns and repositions by herself.
[2018-05-17 12:00] VITALS: BP 156/72
[2018-05-17] MEDS ORDERED: SEVE800T8 PO (12:55)
[2018-05-17] MEDS: hydrALAZINE HCL 50 MG TABLET PO SCH ×2 (13:01→22:15)
[2018-05-17 16:00] VITALS: BP 166/79
[2018-05-17] MEDS: QUETIAPINE FUMARATE 100 MG TABLET PO SCH ×2 (17:40→22:18)
[2018-05-17] MEDS: LamoTRIgine 100 MG TABLET PO SCH (17:40)
[2018-05-17] MEDS: NEPRO VAN 237 ML CAN PO SCH (17:53)
--- NOTE | 2018-05-17 18:45 | NUR ---
RN NOTE: PATIENT REMAINS ALERT AWAKE ORIENTED X 4. ON 2LPM O2 VIA NC, NO BREATHING DISTRESS NOTED. DENIES PAIN/DISCOMFORT. NO SIGNIFICANT CHANGES NOTED DURING SHIFT. CONTINUE WITH ANTIBIOTIC THERAPY ORDERED. ENCOURAGE PATIENT USE CALL FOR ASSISTANCE.
[2018-05-17 20:00] VITALS: BP 164/74
--- NOTE | 2018-05-17 20:00 | NUR ---
OFFICE MANAGER INITIAL NOTE: PATIENT ALERT AWAKE ORIENTED X 4. ON 2LPM O2 VIA NC, NO BREATHING DISTRESS NOTED. DENIES PAIN/DISCOMFORT. NO SIGNIFICANT CHANGES NOTED DURING SHIFT. CONTINUE WITH ANTIBIOTIC THERAPY ORDERED. ENCOURAGE PATIENT USE CALL FOR ASSISTANCE.
--- NOTE | 2018-05-17 22:00 | NUR ---
HAD TO PULL OUT AN EXTRA PILL OF SEROQUEL BECAUSE 1 FELL ON THE FLOOR TOTAL 400MG HS.
[2018-05-17] MEDS: ATORVASTATIN 10 MG TABLET PO SCH (22:16)
[2018-05-17] MEDS: FOLIC ACID 1 MG TABLET PO SCH (22:18)
[2018-05-18] VITALS (8 sets, daily range): BP systolic 122–166; BP diastolic 68–101
[2018-05-18] MEDS: AZITHROMYCIN 500 MG in IV D5W 250 ML IV SCH (03:32)
[2018-05-18] MEDS: CEFTRIAXONE 1 G in IV D5W 50 ML IV SCH (05:16)
[2018-05-18] MEDS: hydrALAZINE HCL 50 MG TABLET PO SCH ×3 (05:23→21:04)
--- NOTE | 2018-05-18 06:36 | NUR ---
WEB SITE SPECIALIST CLOSING NOTE: ENDORSED PATIENT ALERT AWAKE ORIENTED X 4. ON 2LPM O2 VIA NC, NO BREATHING DISTRESS NOTED. DENIES PAIN/DISCOMFORT. NO SIGNIFICANT CHANGES NOTED DURING SHIFT. CONTINUE WITH ANTIBIOTIC THERAPY ORDERED. ENCOURAGE PATIENT USE CALL FOR ASSISTANCE.
[2018-05-18 07:10] LABS: BASOPHILS % (AUTO) 1.1 % (0.0-2.0); EOSINOPHILS % (AUTO) 10.2 % (0.0-6.0); HEMATOCRIT 29 % (33-45); HEMOGLOBIN 9.9 g/dL (11.5-14.8); LYMPHOCYTES # (AUTO) 0.6 /CMM (0.8-4.8); LYMPHOCYTES % (AUTO) 15.5 % (20.0-44.0); MEAN CORPUSCULAR HGB CONC 34 g/dl (31.0-36.0); MEAN CORPUSCULAR VOLUME 114 fL (82-100); MONOCYTES # (AUTO) 0.5 /CMM (0.1-1.30); MONOCYTES % (AUTO) 11.8 % (2.0-12.0); NEUTROPHILS # (AUTO) 2.4 /CMM (1.8-8.9); NEUTROPHILS % (AUTO) 61.4 % (43.0-81.0); PLATELET COUNT (AUTO) 160 /CMM (150-450); RED BLOOD CELL COUNT(AUTO) 2.55 MIL/uL (4.0-5.2); WHITE BLOOD COUNT (AUTO) 3.9 K/uL (4.3-11.0)
[2018-05-18 07:25] LABS: CALCIUM, SERUM 8.9 mg/dL (8.5-10.1); MAGNESIUM 2.6 mg/dL (1.8-2.4); POTASSIUM 5.1 mmol/L (3.5-5.1)
[2018-05-18] MEDS: ASPIRIN 325 MG TABLET PO SCH (08:04)
[2018-05-18] MEDS: LEVOTHYROXINE SODIUM 137 MCG TABLET PO SCH (08:04)
[2018-05-18] MEDS: DOCUSATE SODIUM 100 MG CAPSULE PO SCH ×2 (08:04→17:22)
[2018-05-18] MEDS: LABETALOL HCL (100MG) 100 MG TABLET PO SCH ×3 (08:05→17:23)
[2018-05-18] MEDS: SENNOSIDES 8.6 MG TABLET PO SCH (08:05)
[2018-05-18] MEDS: LOSARTAN POTASSIUM 50 MG TABLET PO SCH ×2 (08:06→17:23)
[2018-05-18] MEDS: CLONIDINE HCL 0.1 MG TABLET PO SCH ×3 (08:06→17:23)
[2018-05-18] MEDS: ALBUTEROL FS 2.5 MG/0.5 ML VIAL.NEB NEB PRN (08:15)
[2018-05-18] MEDS: IPRATROPIUM NEB FS 0.5 MG/2.5 ML AMPUL.NEB NEB PRN (08:15)
--- NOTE | 2018-05-18 09:47 | NUR ---
WOUND CARE CONSULT: PT PRESENTS WITH LEFT ARM CLOSED SKIN TEAR WITH STERI STRIPS, AND SACRAL SCARRING, PRESENT ON ADMISSION. PT ABLE TO ASSIST WITH TURNING AND REPOSITIONING IN BED. RECOMMENDATIONS MADE FOR SKIN PROTECTION AND DISCUSSED WITH NURSING STAFF. WILL SEE PRN. RENEE IN AGREEMENT WITH PLAN OF CARE. CURRENT SHIRAZ SCORE IS 16. PT IS CONTINENT. Addendum: 05/18/18 at 0949 by CHANTAL MAYFIELD WNDNU Amended: Links added.
[2018-05-18] MEDS: LamoTRIgine 100 MG TABLET PO SCH (17:19)
[2018-05-18] MEDS: LACTOBACILLUS RHAMNOSUS GG 1 EACH CAP.SPRINK PO SCH (17:23)
[2018-05-18] MEDS: QUETIAPINE FUMARATE 100 MG TABLET PO SCH ×2 (17:26→22:00)
[2018-05-18] MEDS: NEPRO VAN 237 ML CAN PO SCH (17:37)
[2018-05-18] MEDS: SEVELAMER CARBONATE 800 MG TABLET PO SCH (18:32)
--- NOTE | 2018-05-18 20:17 | NUR ---
GLASS SANDER NOTES RECEIVED PT ON BED. A/O X 4. ON TELE MONITOR SB 59. ON NASAL CANNULA 2LPM NO RESPIRATORY DISTRESS NOTED. IV ACCESS ON RFA G20 PATENT AND INTACT. HD ACCESS ON JERRY AV FISTULA. HEAD OF BED ELEVATED. SIDE RAILS UP. CALL LIGHT WITHIN REACH. BED ALARM ON. WILL CONTINUE TO MONITOR PT CLOSELY.
[2018-05-18] MEDS: FOLIC ACID 1 MG TABLET PO SCH (21:04)
[2018-05-18] MEDS: ATORVASTATIN 10 MG TABLET PO SCH (21:05)
--- NOTE | 2018-05-18 22:15 | NUR ---
CAST ASSOCIATE NOTES PT NOT GIVEN SEREQUEL. PT IS SLEEPY AND HR IS ON 59-62. CN INFORMED
--- NOTE | 2018-05-18 23:52 | NUR ---
STONEWORK SUPERVISOR NOTES PAGED [employer] [place] FOR BLOOD PRESSURE OF 175/78. AWAITING ORDERS.
[2018-05-19] VITALS (7 sets, daily range): BP systolic 147–175; BP diastolic 40–86
[2018-05-19] MEDS: AMLODIPINE BESYLATE 5 MG TABLET PO ONE ×2 (00:03→00:25)
[2018-05-19] MEDS ORDERED: CLONIDINE HCL 0.1 MG TABLET PO PRN (00:30)
[2018-05-19] MEDS: AZITHROMYCIN 500 MG in IV D5W 250 ML IV SCH (02:20)
[2018-05-19] MEDS: ALBUTEROL FS 2.5 MG/0.5 ML VIAL.NEB NEB PRN (03:33)
[2018-05-19] MEDS: IPRATROPIUM NEB FS 0.5 MG/2.5 ML AMPUL.NEB NEB PRN (03:33)
[2018-05-19] MEDS: CEFTRIAXONE 1 G in IV D5W 50 ML IV SCH (03:33)
[2018-05-19] MEDS: hydrALAZINE HCL 50 MG TABLET PO SCH ×3 (04:20→20:17)
--- NOTE | 2018-05-19 04:39 | NUR ---
STRUCTURAL ENGINEERING PROJECT MANAGER NOTES PT REQUESTED CLONAZEPAM 1MG FOR ANXIETY. PAGED FUR JOINER. PER FUR JOINER 1MG KLONOPIN Q8H PRN FOR ANXIETY. WILL MONITOR PT CLOSELY .
[2018-05-19] MEDS ORDERED: clonazePAM 1 MG TABLET PO PRN (05:00)
--- NOTE | 2018-05-19 06:36 | NUR ---
OFFICE SERVICES MANAGER NOTES NO ACUTE CHANGES NOTED DURING THE SHIFT. PROVIDED COMFORT AND SAFETY. DUE MEDS GIVEN. WILL ENDORSE TO THE AM NURSE FOR CONTINUITY OF CARE.
[2018-05-19] MEDS: LEVOTHYROXINE SODIUM 137 MCG TABLET PO SCH (07:51)
[2018-05-19] MEDS: SEVELAMER CARBONATE 800 MG TABLET PO SCH ×3 (07:51→17:46)
[2018-05-19] MEDS: ASPIRIN 325 MG TABLET PO SCH (08:14)
[2018-05-19] MEDS: DOCUSATE SODIUM 100 MG CAPSULE PO SCH ×2 (08:15→17:42)
[2018-05-19] MEDS: LABETALOL HCL (100MG) 100 MG TABLET PO SCH ×3 (08:16→17:43)
[2018-05-19] MEDS: LACTOBACILLUS RHAMNOSUS GG 1 EACH CAP.SPRINK PO SCH ×2 (08:16→17:43)
[2018-05-19] MEDS: CLONIDINE HCL 0.1 MG TABLET PO SCH ×3 (08:17→17:43)
[2018-05-19] MEDS: SENNOSIDES 8.6 MG TABLET PO SCH (08:18)
[2018-05-19] MEDS: LOSARTAN POTASSIUM 50 MG TABLET PO SCH ×2 (08:18→17:44)
[2018-05-19 08:52] LABS: CALCIUM, SERUM 8.9 mg/dL (8.5-10.1); CREATININE 5.4 mg/dL (0.6-1.3); POTASSIUM 5.4 mmol/L (3.5-5.1)
[2018-05-19] MEDS ORDERED: EPOETIN ALFA (10,000 UNIT) 10,000 UNIT/ML VIAL IV ONE (15:00)
[2018-05-19] MEDS: LamoTRIgine 100 MG TABLET PO SCH (17:44)
[2018-05-19] MEDS: QUETIAPINE FUMARATE 100 MG TABLET PO SCH ×2 (17:46→21:44)
[2018-05-19] MEDS: NEPRO VAN 237 ML CAN PO SCH (17:47)
--- NOTE | 2018-05-19 19:22 | NUR ---
TILE SHADER NOTES RECEIVED PT ON BED. A/O X 4. ON TELE MONITOR SB 67. ON NASAL CANNULA 2LPM NO RESPIRATORY DISTRESS NOTED. IV ACCESS ON RFA G20 PATENT AND INTACT. HD ACCESS ON JERRY AV FISTULA. HEAD OF BED ELEVATED. SIDE RAILS UP. CALL LIGHT WITHIN REACH. BED ALARM ON. WILL CONTINUE TO MONITOR PT CLOSELY
[2018-05-19] MEDS: FOLIC ACID 1 MG TABLET PO SCH (21:40)
[2018-05-19] MEDS: clonazePAM 0.5 MG TABLET PO SCH (21:40)
[2018-05-19] MEDS: ATORVASTATIN 10 MG TABLET PO SCH (21:40)
--- NOTE | 2018-05-19 21:44 | NUR ---
PIANO TECHNICIAN NOTES PT INFORMED THAT SEREQUEL WILL BE HELD DUE TO LOW HR, PT DROWSY. PER PT SHE DOES NOT WANT TO TAKE SEREQUEL TOO. WILL MONITOR PT CLOSELY.
[2018-05-20] VITALS (8 sets, daily range): BP systolic 143–182; BP diastolic 67–96
[2018-05-20] MEDS: AZITHROMYCIN 500 MG in IV D5W 250 ML IV SCH (02:10)
[2018-05-20] MEDS: CEFTRIAXONE 1 G in IV D5W 50 ML IV SCH (03:17)
[2018-05-20] MEDS: hydrALAZINE HCL 50 MG TABLET PO SCH ×3 (04:13→21:14)
--- NOTE | 2018-05-20 06:42 | NUR ---
CUSTOMER EXPERIENCE ANALYST NOTES NO ACUTE CHANGES NOTED DURING THE SHIFT. PROVIDED COMFORT AND SAFETY. DUE MEDS GIVEN. WILL ENDORSE TO THE AM NURSE FOR CONTINUITY OF CARE.
--- NOTE | 2018-05-20 07:00 | NUR ---
RENAL TECHNICIAN OPENING NOTES RECEIVED PT LYING IN BED, WITH HOB ELEVATED, PT IS ALERT AND ORIENTED X4. PT IS ON 2L OXYGEN VIA NC, SATURATING WELL. RR EVEN AND UNLABORED, NO SOB NOTED, PT ON TELE SR WITH HR 70s, IV SITES ARE INTACT TO R FOREARM 20G AND L AU FISTULA with POSITIVE BRUIT AND THRILL, NO INFILTRATION NOTED, DRESSING KEPT CLEAN AND DRY, BED LOCKED AND LOW, CALL LIGHT WITHIN REACH, WILL MONITOR THROUGHOUT SHIFT FOR CONTINUITY OF CARE.
[2018-05-20] MEDS: ASPIRIN 325 MG TABLET PO SCH (08:07)
[2018-05-20] MEDS: LACTOBACILLUS RHAMNOSUS GG 1 EACH CAP.SPRINK PO SCH ×2 (08:07→17:34)
[2018-05-20] MEDS: LEVOTHYROXINE SODIUM 137 MCG TABLET PO SCH (08:07)
[2018-05-20] MEDS: DOCUSATE SODIUM 100 MG CAPSULE PO SCH ×2 (08:08→17:34)
[2018-05-20] MEDS: LABETALOL HCL (100MG) 100 MG TABLET PO SCH ×3 (08:08→17:36)
[2018-05-20] MEDS: LOSARTAN POTASSIUM 50 MG TABLET PO SCH ×2 (08:08→17:34)
[2018-05-20] MEDS: CLONIDINE HCL 0.1 MG TABLET PO SCH ×3 (08:09→17:35)
[2018-05-20] MEDS: SENNOSIDES 8.6 MG TABLET PO SCH (08:09)
[2018-05-20] MEDS: SEVELAMER CARBONATE 800 MG TABLET PO SCH ×3 (08:09→17:34)
[2018-05-20 11:50] LABS: BASOPHILS # (AUTO) 0.1 /CMM (0.0-0.2); BASOPHILS % (AUTO) 1.7 % (0.0-2.0); EOSINOPHILS % (AUTO) 10.1 % (0.0-6.0); HEMATOCRIT 28 % (33-45); HEMOGLOBIN 9.6 g/dL (11.5-14.8); LYMPHOCYTES # (AUTO) 0.5 /CMM (0.8-4.8); LYMPHOCYTES % (AUTO) 15.7 % (20.0-44.0); MEAN CORPUSCULAR HGB CONC 34 g/dl (31.0-36.0); MEAN CORPUSCULAR VOLUME 114 fL (82-100); MONOCYTES # (AUTO) 0.4 /CMM (0.1-1.30); MONOCYTES % (AUTO) 11.3 % (2.0-12.0); NEUTROPHILS # (AUTO) 1.9 /CMM (1.8-8.9); NEUTROPHILS % (AUTO) 61.2 % (43.0-81.0); PLATELET COUNT (AUTO) 155 /CMM (150-450); RED BLOOD CELL COUNT(AUTO) 2.45 MIL/uL (4.0-5.2); WHITE BLOOD COUNT (AUTO) 3.1 K/uL (4.3-11.0)
[2018-05-20 12:01] LABS: CALCIUM, SERUM 8.8 mg/dL (8.5-10.1); CREATININE 4.8 mg/dL (0.6-1.3); POTASSIUM 4.7 mmol/L (3.5-5.1)
[2018-05-20] MEDS: LamoTRIgine 100 MG TABLET PO SCH (17:35)
[2018-05-20] MEDS: QUETIAPINE FUMARATE 100 MG TABLET PO SCH ×2 (17:36→21:15)
[2018-05-20] MEDS: NEPRO VAN 237 ML CAN PO SCH (17:37)
--- NOTE | 2018-05-20 18:55 | NUR ---
PALM GATHERER CLOSING NOTES PT SITTING ON A CHAIR AT BEDSIDE, PT ON 2L OXYGEN VIA NC, SATURATING WELL. RR EVEN AND UNLABORED, NO SOB NOTED. IV SITES ARE INTACT TO R FOREARM 20G SALINE LOCK, NO INFILTRATION NOTED, L UPPER ARM FISTULA, BRUIT AND THRILL PRESENT AND NOTED, DRESSING KEPT CLEAN AND DRY. CALL LIGHT WITHIN REACH, VITAL SIGNS CHECKED AND RECORDED, ALL PM MEDS WERE GIVEN, WILL ENDORSE TO MACHINE STONE POLISHER APPRENTICE NURSE FOR CONTINUITY OF CARE.
--- NOTE | 2018-05-20 20:00 | NUR ---
WHISTLE PUNK NOTE PT IN BED FALLING ASLEEP. EASILY AROUSABLE. NO SOB, NO DISTRESS OR DISCOMFORT NOTED. DENIES PAIN. ON O2 2L VIA N/C O2 SAT 100%. ON TELE MONITOR SR 60 WITH 1ST DEGREE AV BLOCK. JERRY WITH AV FISTULA BRUIT AND THRILL PRESENT, RFA # 20 G S/L INTACT AND PATENT. SIDE RAILS UP X 2 AND CALL LIGHT WITHIN REACH. VSS. CONTINUE TO MONITOR HER.
[2018-05-20] MEDS: clonazePAM 0.5 MG TABLET PO SCH (21:15)
[2018-05-20] MEDS: ATORVASTATIN 10 MG TABLET PO SCH (21:15)
[2018-05-20] MEDS: FOLIC ACID 1 MG TABLET PO SCH (21:15)
[2018-05-20] MEDS: AZITHROMYCIN 250 MG TABLET PO SCH (21:18)
[2018-05-21] VITALS (8 sets, daily range): BP systolic 135–171; BP diastolic 69–82
[2018-05-21] MEDS: CEFTRIAXONE 1 G in IV D5W 50 ML IV SCH (04:09)
[2018-05-21] MEDS: hydrALAZINE HCL 50 MG TABLET PO SCH ×3 (04:10→21:18)
[2018-05-21 06:50] LABS: EOSINOPHILS % (AUTO) 12.7 % (0.0-6.0); HEMATOCRIT 28 % (33-45); HEMOGLOBIN 9.4 g/dL (11.5-14.8); LYMPHOCYTES # (AUTO) 0.6 /CMM (0.8-4.8); LYMPHOCYTES % (AUTO) 17.6 % (20.0-44.0); MEAN CORPUSCULAR HGB CONC 34 g/dl (31.0-36.0); MEAN CORPUSCULAR VOLUME 114 fL (82-100); MONOCYTES # (AUTO) 0.4 /CMM (0.1-1.30); MONOCYTES % (AUTO) 12.8 % (2.0-12.0); NEUTROPHILS # (AUTO) 1.9 /CMM (1.8-8.9); NEUTROPHILS % (AUTO) 55.9 % (43.0-81.0); PLATELET COUNT (AUTO) 144 /CMM (150-450); RED BLOOD CELL COUNT(AUTO) 2.42 MIL/uL (4.0-5.2); WHITE BLOOD COUNT (AUTO) 3.5 K/uL (4.3-11.0)
--- NOTE | 2018-05-21 06:52 | NUR ---
LINKING MACHINE OPERATOR NOTE. PT IN BED ASLEEP, AROUSABLE. NO DISTRESS OR DISCOMFORT NOTED. DENIES PAIN. KEPT HER DRY AND CLEAN. ON TELE MONITOR SR WITH 1ST DEGREE AV BLOCK HR 66. BILATERAL SIDE RAILS UP X 2 AND CALL LIGHT WITHIN REACH. WILL ENDORSE TO DAY SHIFT NURSE FOR CONTINUE TO CARE.
[2018-05-21 06:58] LABS: CALCIUM, SERUM 8.9 mg/dL (8.5-10.1); CREATININE 5.8 mg/dL (0.6-1.3); MAGNESIUM 2.5 mg/dL (1.8-2.4); PHOSPHORUS 4.4 mg/dL (2.5-4.9); POTASSIUM 5.8 mmol/L (3.5-5.1)
[2018-05-21] MEDS ORDERED: LEVOTHYROXINE SODIUM 75 MCG TABLET PO SCH (07:30)
--- NOTE | 2018-05-21 08:00 | NUR ---
CHILD CARE SUPERVISOR NOTES PATIENT IN BED RESTING NO SOB OR ACUTE DISTRESS NOTED. PATIENT ALERT, ORIENTED X3 DENIES ANY PAIN OR DISCOMFORT. PERIPHERAL IV INTACT PATENT. BED IN LOW LOCKED POSITION. CALL LIGHT WITHIN REACH. WILL CONTINUE TO MONITOR.
[2018-05-21 08:28] LABS: BAND % (MANUAL) 3 % (0.0-5.0); BASOPHILS % (MANUAL) 1 % (0.0-2.0); EOSINOPHILS % (MANUAL) 16 % (0-4); LYMPHOCYTES % (MANUAL) 19 % (16-48); MONOCYTES % (MANUAL) 10 % (0-11.0); NEUTROPHILS % (MANUAL) 51 (42-76)
[2018-05-21] MEDS: LOSARTAN POTASSIUM 50 MG TABLET PO SCH ×2 (08:38→17:19)
[2018-05-21] MEDS: DOCUSATE SODIUM 100 MG CAPSULE PO SCH (08:39)
[2018-05-21] MEDS: LABETALOL HCL (100MG) 100 MG TABLET PO SCH ×3 (08:40→17:18)
[2018-05-21] MEDS: SENNOSIDES 8.6 MG TABLET PO SCH (08:40)
[2018-05-21] MEDS: ASPIRIN 325 MG TABLET PO SCH (08:40)
[2018-05-21] MEDS: LACTOBACILLUS RHAMNOSUS GG 1 EACH CAP.SPRINK PO SCH ×2 (08:40→17:19)
[2018-05-21] MEDS: SEVELAMER CARBONATE 800 MG TABLET PO SCH ×3 (08:40→17:19)
[2018-05-21] MEDS: CLONIDINE HCL 0.1 MG TABLET PO SCH ×3 (08:42→17:19)
[2018-05-21] MEDS: DOCUSATE SODIUM 250 MG CAPSULE PO SCH ×2 (09:59→17:18)
--- NOTE | 2018-05-21 12:34 | NUR ---
CHARGE NOTES DC TELEMETRY PER DR. MASON
--- NOTE | 2018-05-21 14:00 | NUR ---
MS RN NOTES PATIENT SEEN AND EVALUATED BY DR. JOLLEY ORDERS TO BE DISCHARGED AFTER HD TODAY. ORDERS NOTED AND CARRIED OUT. HD NURSE CONTACTED WILL ARRIVE AT 1700.
--- NOTE | 2018-05-21 15:07 | NUR ---
Social work consult: carnival worker arrived to patient bedside and introduced self and role. Patient was accompanied by her IHSS caregiver, Savita. Patient provided consent for Savita to be present during consult. Patient lives at home in her apartment [[address] [place] [address]; ] and has her IHSS caregiver come Monday-Monday for 6-7 hours/day. Patient states that she wanted to speak with a addiction social worker regarding increasing her IHSS hours. carnival worker informed patient that she can do that by calling IHSS and requesting a reassessment. carnival worker offered patient IHSS number, but patient refused stating she already had the number. Patient states she will call and request a reassessment for more IHSS hours. carnival worker will remain available to patient should she need further assistance or resources.
[2018-05-21] MEDS: LamoTRIgine 100 MG TABLET PO SCH (17:18)
[2018-05-21] MEDS: QUETIAPINE FUMARATE 100 MG TABLET PO SCH ×2 (17:19→21:19)
[2018-05-21] MEDS: NEPRO VAN 237 ML CAN PO SCH (17:19)
--- NOTE | 2018-05-21 18:29 | NUR ---
MS RN NOTES PATIENT STARTED HD TOLERATING WELL WILL CONTINUE TO MONITOR.
--- NOTE | 2018-05-21 19:08 | NUR ---
MS RN NOTES PATIENT IN BED RECEIVING HD TOLERATING WELL. WILL D/C AFTER HD. ENDORSED DC TO PM NURSE. IN STABLE CONDITION. ALL MEDICATIONS ADMINISTERED. ALL NEEDS MET.
--- NOTE | 2018-05-21 19:15 | NUR ---
MS RN NOTES REPORT GIVEN BEDSIDE. PATIENT RECEIVED A/OX4 ON HEMO TREATMENT. PATIENT TOLERATING TREATMENT WELL, BP WNL. PT DENIES CHEST PAIN, NO S/S OF SOB/. D/C PLANS MADE AWARE OF. CAREGIVER CALLED TO PICK PATIENT UP POST HD. HD NURSE AT BEDSIDE. RN WILL CONTINUE TO MONITOR PATIENT.
[2018-05-21] MEDS: FOLIC ACID 1 MG TABLET PO SCH (21:18)
[2018-05-21] MEDS: clonazePAM 0.5 MG TABLET PO SCH (21:18)
[2018-05-21] MEDS: AZITHROMYCIN 250 MG TABLET PO SCH (21:18)
[2018-05-21] MEDS: ATORVASTATIN 10 MG TABLET PO SCH (21:18)
--- NOTE | 2018-05-21 22:15 | NUR ---
MS RN NOTE PATIENT COMPLETED DIALYSIS 1 L REMOVED , V/S STABLE. PATIENT HAS NO S/S OF DISTRESS OR RESP DISTRESS. PATIENT STABLE CAREGIVER AT BEDSIDE. PATIENT D/C TO HOME.
[2018-07-13] MEDS ORDERED: NIFE60TA73 PO (13:02)
== END 2018-05-21 22:30 | disposition home or self-care (01) | DRG 193 ==
LOC: ER 01:55 → TELE1 04:17 → MEDSG1 05-21 12:08
PROVIDERS: ADMIT Nurse Practitioner Acute Care
PROC: 5A1D70Z Performance of Urinary Filtration, Intermittent, Less than 6 Hours Per Day (ICD-10-PCS; principal; 2018-05-17)
PROC: 5A1D70Z Performance of Urinary Filtration, Intermittent, Less than 6 Hours Per Day (ICD-10-PCS; 2018-05-19)
PROC: 5A1D70Z Performance of Urinary Filtration, Intermittent, Less than 6 Hours Per Day (ICD-10-PCS; 2018-05-21)
DX: J15.9 Unspecified bacterial pneumonia (principal); N18.6 End stage renal disease; G93.41 Metabolic encephalopathy; N39.0 Urinary tract infection, site not specified; E44.1 Mild protein-calorie malnutrition; E87.1 Hypo-osmolality and hyponatremia; F31.64 Bipolar disorder, current episode mixed, severe, with psychotic features; N25.81 Secondary hyperparathyroidism of renal origin; I12.0 Hypertensive chronic kidney disease with stage 5 chronic kidney disease or end stage renal disease; Z99.2 Dependence on renal dialysis; Z86.73 Personal history of transient ischemic attack (TIA), and cerebral infarction without residual deficits; E03.9 Hypothyroidism, unspecified; B96.89 Other specified bacterial agents as the cause of diseases classified elsewhere; E78.5 Hyperlipidemia, unspecified; D50.9 Iron deficiency anemia, unspecified; I25.10 Atherosclerotic heart disease of native coronary artery without angina pectoris; G47.00 Insomnia, unspecified; G62.9 Polyneuropathy, unspecified; K59.00 Constipation, unspecified; W18.39XA Other fall on same level, initial encounter; Y92.89 Other specified places as the place of occurrence of the external cause; Z79.82 Long term (current) use of aspirin
CPT/HCPCS: 36415; 70450-TC; 71045-TC; 76700-TC; 80048-TC; 80061-TC; 80076-TC; 81000-TC; 82962-TC; 83605-TC; 83735-TC; 84100-TC; 84443-TC; 84484-TC; 85025-TC; 85730-TC; 87040-TC; 87081-TC; 87086-TC; 90935-TC; 94799-TC; 97110-TC; 97116-TC; 97530-TC; A6402; G0378; J0360; J0456; J0696; J0885; J3490; J7060

== ENCOUNTER 2018-05-25 17:45 | Emergency (ER) | payer OTHER ==
[~2018-05-25] VITALS: Ht 152.4 cm; Wt 56.2 kg
[~2018-05-25 17:45] MED LIST changes: +SEVE800T8 PO
[2018-05-25 17:57] VITALS: BP 156/68
--- NOTE | 2018-05-25 18:00 | NUR ---
the patient came to er for steri-strips removal - LFA
--- NOTE | 2018-05-25 18:01 | NUR ---
no acute distress; she came with her direct support professional caregiver
--- NOTE | 2018-05-25 18:01 | NUR ---
dialysis done today
[2018-05-25] MEDS ORDERED: BACI/NEOM/POLY B OINT PKT 1 UDPKT PACKET TP ONE (18:30)
[2018-05-25] MEDS ORDERED: BACI/NEOM/POLY B OINT PKT 1 UDPKT PACKET ONE (18:31)
[2018-07-13] MEDS ORDERED: NIFE60TA73 PO (13:02)
== END 2018-05-25 19:28 | disposition home or self-care (01) ==
LOC: ER 17:49
DX: S51.812D Laceration without foreign body of left forearm, subsequent encounter (principal); N18.6 End stage renal disease; E03.9 Hypothyroidism, unspecified; Z60.2 Problems related to living alone; Z99.2 Dependence on renal dialysis; Z86.73 Personal history of transient ischemic attack (TIA), and cerebral infarction without residual deficits; Z79.82 Long term (current) use of aspirin; W26.8XXD Contact with other sharp object(s), not elsewhere classified, subsequent encounter
CPT/HCPCS: 99282; A4606; A6402

== ENCOUNTER 2018-07-11 00:53 | Inpatient (IN) | payer OTHER ==
[~2018-07-11] VITALS: Ht 154.9 cm; Wt 57.2 kg
--- NOTE | 2018-07-11 01:00 | NUR ---
PT CHAPINCITO COMPLAINING OF BODY TREMORS. PT AXO4. RESPIRATIONS EVEN AND UNLABORED. PT PUT ON THE FLAT EXAMINER AND PULSE OX. PENDING EVAL FROM KAMRON RENEE. PT SATURATING 91% ON ROOM AIR, 96% ON 2LPM VIA N/C.
--- NOTE | 2018-07-11 01:09 | NUR ---
TRAIN EXAMINER AT BEDSIDE.
--- NOTE | 2018-07-11 01:15 | NUR ---
XRAY AT BESIDE.
[2018-07-11] MEDS ORDERED: clonazePAM 1 MG TABLET ONE (01:28)
[2018-07-11 01:29] LABS: BASOPHILS # (AUTO) 0.1 /CMM (0.0-0.2); BASOPHILS % (AUTO) 1.4 % (0.0-2.0); EOSINOPHILS % (AUTO) 30.2 % (0.0-6.0); HEMATOCRIT 35 % (33-45); HEMOGLOBIN 11.7 g/dL (11.5-14.8); LYMPHOCYTES # (AUTO) 0.7 /CMM (0.8-4.8); LYMPHOCYTES % (AUTO) 16.8 % (20.0-44.0); MEAN CORPUSCULAR HGB CONC 33 g/dl (31.0-36.0); MEAN CORPUSCULAR VOLUME 114 fL (82-100); MONOCYTES # (AUTO) 0.3 /CMM (0.1-1.30); MONOCYTES % (AUTO) 7.5 % (2.0-12.0); NEUTROPHILS # (AUTO) 1.8 /CMM (1.8-8.9); NEUTROPHILS % (AUTO) 44.1 % (43.0-81.0); PLATELET COUNT (AUTO) 153 /CMM (150-450); RED BLOOD CELL COUNT(AUTO) 3.08 MIL/uL (4.0-5.2)
[2018-07-11] MEDS ORDERED: clonazePAM 1 MG TABLET PO ONE ×2 (01:30)
[2018-07-11 01:33] LABS: CALCIUM, SERUM 9.5 mg/dL (8.5-10.1); POTASSIUM 4.6 mmol/L (3.5-5.1)
[2018-07-11 01:39] LABS: ALBUMIN 3.3 g/dL (3.4-5.0); BILIRUBIN,DIRECT 0.2 mg/dL (0.0-0.2); BILIRUBIN,TOTAL 0.8 mg/dL (0.2-1.0); TOTAL PROTEIN, SERUM 6.5 g/dL (6.4-8.2)
[2018-07-11 01:45] LABS: MAGNESIUM 2.4 mg/dL (1.8-2.4); PHOSPHORUS 3.7 mg/dL (2.5-4.9)
[2018-07-11] MEDS ORDERED: FUROSEMIDE 20 MG TABLET ONE (01:57)
[2018-07-11] MEDS ORDERED: CLONIDINE HCL 0.1 MG TABLET ONE ×2 (01:57→02:01)
[2018-07-11] MEDS ORDERED: CLONIDINE HCL 0.1 MG TABLET PO ONE (02:00)
[2018-07-11] MEDS ORDERED: FUROSEMIDE 20 MG TABLET PO ONE (02:00)
[2018-07-11 02:14] LABS: B-TYPE NATRIURETIC PEPTIDE 57191 PG/ML (0-125)
[2018-07-11 02:39] LABS: EOSINOPHILS % (MANUAL) 34 % (0-4); LYMPHOCYTES % (MANUAL) 19 % (16-48); MONOCYTES % (MANUAL) 5 % (0-11.0); NEUTROPHILS % (MANUAL) 42 (42-76)
--- NOTE | 2018-07-11 02:59 | NUR ---
Patient is resting comfortably in bed with eyes closed. Easily aroused. NAD NOTED.
--- NOTE | 2018-07-11 03:05 | NUR ---
REPORT GIVEN TO GABY GODINEZ FOR RICHARD.
[2018-07-11] MEDS ORDERED: MAGNESIUM HYDROXIDE 30 ML UDC PO PRN (03:30)
[2018-07-11] MEDS ORDERED: ONDANSETRON HCL/PF 4 MG/2 ML VIAL IVP PRN (03:30)
[2018-07-11] MEDS ORDERED: Z GUARD REMEDY 2 OZ OINT TP PRN (03:30)
[2018-07-11] MEDS ORDERED: HYDROCODONE/APAP 5/325MG 1 EACH TABLET PO PRN (03:30)
[2018-07-11] MEDS ORDERED: hydrALAZINE HCL 25 MG TABLET PO PRN (03:30)
[2018-07-11] MEDS ORDERED: MORPHINE SULFATE INJ 2 MG/ML DISP.SYRIN IV PRN (03:30)
[2018-07-11] MEDS ORDERED: ACETAMINOPHEN 325 MG TABLET PO PRN (03:30)
[2018-07-11] MEDS ORDERED: MAG HYDROX/AL HYDROX/SIMETH 30 ML UDC PO PRN (03:30)
[2018-07-11] MEDS ORDERED: ALBUTEROL FS 2.5 MG/3 ML VIAL.NEB NEB PRN (03:30)
[2018-07-11] MEDS ORDERED: LORAZEPAM INJ 2 MG/ML VIAL IV PRN (03:30)
[2018-07-11] MEDS ORDERED: ZOLPIDEM TARTRATE 5 MG TABLET PO PRN (03:30)
--- NOTE | 2018-07-11 03:30 | NUR ---
FIELD CHECKERBOTTOM PAINTER NOTES Received patient from ER via [facility], accompanied by 2 ER staff. Admitted to TELE 315-1 due to SOB under the service of Dr. Blunt. Assisted to bed comfortably. Admission routine done. Kept patient on O2 inhalation via NC @ 2LPM, saturating well, no SOB/respiratory distress noted. Initial skin assessment done, photos taken and documented. All nursing needs attended. Kept patient clean, dry and comfortable. Call light at bedside. On tele monitoring - SR. Will continue to monitor accordingly.
[2018-07-11 04:00] VITALS: BP 176/76
--- NOTE | 2018-07-11 06:45 | NUR ---
HUMANITIES TEACHER CLOSING NOTES Patient asleep at this time, easily awaken. With O2 inhalation via NC @ 2LPM, no SOB/respiratory distress noted. No complaints noted. Kept on NPO per protocol for consult. All nursing needs attended. Kept on bed low and locked, call light at bedside. Endorsed to the next shift.
--- NOTE | 2018-07-11 07:10 | NUR ---
RN OPENING NOTES PT RESTING IN BED, NO APPARENT S/S OF PAIN, DISTRESS OR SOB AT THIS TIME. PT ON 2L VIA NASAL CANNULA. PT TELE MONITORED AT SR WITH A RATE IN THE 60S. PT HAS A RIGHT HAND #20 INTACT AND PATENT. SAFETY PRECAUTIONS IN PLACE, BED IN LOWEST LOCKED POSITION, X2 SIDE RAILS UP AND CALL LIGHT WITHIN REACH. WILL CONTINUE TO MONITOR.
[2018-07-11 08:00] VITALS: BP 182/77
[2018-07-11] MEDS: LEVOTHYROXINE SODIUM 137 MCG TABLET PO SCH (08:30)
[2018-07-11] MEDS: SEVELAMER CARBONATE 800 MG TABLET PO SCH ×3 (08:39→17:04)
[2018-07-11] MEDS: CLONIDINE HCL 0.1 MG TABLET PO SCH ×3 (08:39→17:06)
[2018-07-11] MEDS: LOSARTAN POTASSIUM 50 MG TABLET PO SCH ×2 (08:40→17:05)
[2018-07-11] MEDS: DOCUSATE SODIUM 100 MG CAPSULE PO SCH ×2 (08:40→17:06)
[2018-07-11] MEDS: hydrALAZINE HCL 50 MG TABLET PO SCH ×3 (08:40→17:06)
[2018-07-11] MEDS: SENNOSIDES 8.6 MG TABLET PO SCH (08:40)
[2018-07-11] MEDS: ASPIRIN 325 MG TABLET PO SCH (08:41)
[2018-07-11] MEDS ORDERED: Medication Not On Formulary EA (Sevelamer Carbonate (Renvela) 1 TAB) PO SCH (09:00)
[2018-07-11] MEDS: LABETALOL HCL (100MG) 100 MG TABLET PO SCH ×3 (09:22→17:05)
--- NOTE | 2018-07-11 10:27 | NUR ---
WOUND CARE CONSULT: PT PRESENTS WITH SACRAL SCAR, PRESENT ON ADMISSION. RECOMMENDATIONS MADE FOR SKIN PROTECTION. DISCUSSED WITH NURSING STAFF. WILL SEE PRN. CURRENT SHIRAZ SCORE IS 14. Addendum: 07/11/18 at 1027 by CHANTAL MAYFIELD WNDNU Amended: Links added.
[2018-07-11] MEDS: LACTULOSE 10 G/15 ML UDC (PYXIS) PO SCH ×2 (12:49→17:04)
[2018-07-11 16:00] VITALS: BP 166/66
[2018-07-11] MEDS: QUETIAPINE FUMARATE 100 MG TABLET PO SCH ×2 (17:04→21:35)
--- NOTE | 2018-07-11 18:35 | NUR ---
RN CLOSING NOTES PT RESTING IN BED CURRENTLY UNDERGOING HEMODIALYSIS. NO APPARENT S/S OF PAIN, DISTRESS OR SOB AT THIS TIME. PT ON 2L VIA NASAL CANNULA. PT HAS A RIGHT HAND #20 INTACT AND PATENT. ALL PATIENT NEEDS MET DURING SHIFT. SAFETY PRECAUTIONS IN PLACE, BED IN LOWEST LOCKED POSITION, X2 SIDE RAILS UP AND CALL LIGHT WITHIN REACH. WILL ENDORSE TO CLINICAL MOLECULAR GENETICIST NURSE FOR CONTINUITY OF CARE.
--- NOTE | 2018-07-11 19:30 | NUR ---
MS RN INITIAL NOTES Patient in bed, awake. Dialysis treatment in progress, dialysis nurse at the bedside. Patient appears anxious, on oxygen at 2L via NC, denies shortness of breath. Call light within reach, will cont to monitor.
[2018-07-11 20:00] VITALS: BP 100/65
[2018-07-11 21:30] VITALS: BP 114/77
[2018-07-11] MEDS: clonazePAM 1 MG TABLET PO PRN (21:35)
[2018-07-11] MEDS: ATORVASTATIN 10 MG TABLET PO SCH (21:35)
[2018-07-11] MEDS: FOLIC ACID 1 MG TABLET PO SCH (21:36)
--- NOTE | 2018-07-12 06:42 | NUR ---
MS RN CLOSING NOTES Patient in bed, stable oxygen saturation on RA. Had dialysis treatment this shift with 1500ml fluid output, patient tolerated well. Patient is anxious at times, controlled with PRN Clonazepam, denies pain. Seen by Dr. Allen/Neuro this shift. Slept well, no acute events overnight. Maintained safety, will endorse to oncoming RN.
[2018-07-12 08:00] VITALS: BP 165/77
--- NOTE | 2018-07-12 08:00 | NUR ---
RN OPENING NOTES PT RECEIVED AWAKE RESTING IN BED, AOX4. PATIENT DENIES PAIN OR DISCOMFORT AT THIS TIME. BREATHING EVEN AND UNLABORED AT ROOM AIR SPO2 WNL. PT HAS A RIGHT HAND #20 INTACT, PATENT, FLUSHED. SAFETY PRECAUTIONS IN PLACE, BED IN LOWEST LOCKED POSTION, X2 SIDE RAILS UP AND CALL LIGHT WITHIN REACH. WILL CONTINUE TO MONITOR.
[2018-07-12 08:11] LABS: ALBUMIN 3.2 g/dL (3.4-5.0); BILIRUBIN,TOTAL 0.8 mg/dL (0.2-1.0); CALCIUM, SERUM 9.2 mg/dL (8.5-10.1); CREATININE 4.7 mg/dL (0.6-1.3); MAGNESIUM 2.4 mg/dL (1.8-2.4); PHOSPHORUS 3.4 mg/dL (2.5-4.9); POTASSIUM 4.6 mmol/L (3.5-5.1); TOTAL PROTEIN, SERUM 6.3 g/dL (6.4-8.2)
[2018-07-12 08:15] LABS: BASOPHILS # (AUTO) 0.1 /CMM (0.0-0.2); BASOPHILS % (AUTO) 1.4 % (0.0-2.0); EOSINOPHILS % (AUTO) 24.9 % (0.0-6.0); HEMATOCRIT 34 % (33-45); HEMOGLOBIN 11.6 g/dL (11.5-14.8); LYMPHOCYTES # (AUTO) 0.8 /CMM (0.8-4.8); LYMPHOCYTES % (AUTO) 18.4 % (20.0-44.0); MEAN CORPUSCULAR HGB CONC 34 g/dl (31.0-36.0); MEAN CORPUSCULAR VOLUME 112 fL (82-100); MONOCYTES # (AUTO) 0.3 /CMM (0.1-1.30); MONOCYTES % (AUTO) 8.1 % (2.0-12.0); NEUTROPHILS % (AUTO) 47.2 % (43.0-81.0); PLATELET COUNT (AUTO) 126 /CMM (150-450); RED BLOOD CELL COUNT(AUTO) 2.99 MIL/uL (4.0-5.2); WHITE BLOOD COUNT (AUTO) 4.2 K/uL (4.3-11.0)
[2018-07-12 08:49] LABS: EOSINOPHILS % (MANUAL) 21 % (0-4); LYMPHOCYTES % (MANUAL) 14 % (16-48); MONOCYTES % (MANUAL) 4 % (0-11.0); NEUTROPHILS % (MANUAL) 61 (42-76)
[2018-07-12] MEDS: DOCUSATE SODIUM 100 MG CAPSULE PO SCH ×2 (09:01→16:17)
[2018-07-12] MEDS: LACTULOSE 10 G/15 ML UDC (PYXIS) PO SCH ×3 (09:01→16:16)
[2018-07-12] MEDS: hydrALAZINE HCL 50 MG TABLET PO SCH ×3 (09:02→16:15)
[2018-07-12] MEDS: CLONIDINE HCL 0.1 MG TABLET PO SCH ×3 (09:02→16:15)
[2018-07-12] MEDS: SEVELAMER CARBONATE 800 MG TABLET PO SCH ×3 (09:03→18:41)
[2018-07-12] MEDS: ASPIRIN 325 MG TABLET PO SCH (09:03)
[2018-07-12] MEDS: LOSARTAN POTASSIUM 50 MG TABLET PO SCH ×2 (09:03→16:16)
[2018-07-12] MEDS: SENNOSIDES 8.6 MG TABLET PO SCH (09:04)
[2018-07-12] MEDS: LABETALOL HCL (100MG) 100 MG TABLET PO SCH ×3 (09:04→16:15)
[2018-07-12] MEDS: LEVOTHYROXINE SODIUM 137 MCG TABLET PO SCH (09:15)
--- NOTE | 2018-07-12 12:20 | NUR ---
Tube Former Operator Consult: SW received consult regarding pt wanting to speak with a Costing Analyst. SW consulted with pt's RN, Emma and Mars HYDE regarding patient's concerns. Per RN, pt did not disclose the reason for speaking with a Costing Analyst. Patient is a 62-year-old female with Past Medical History of TIA, seizures, HTN, ESRD (HD: MWF), hypothyroidism, anxiety, bipolar disorder, who presented to the ED with complains of feeling tremulous. SW presented to pt's bedside to assess needs and discuss her concerns. Pt's caregiver, Savita Abrams ([phone]) was also present. Patient expressed concerns about her frequent hospitalizations. Pt voiced frustration that she has been hospitalized 8 times over the past 8 months. SW provided opportunity for pt to express concerns and ventilate feelings. Patient is alert and oriented x3 and her mood seemed anxious and depressed with a flat affect. Patient's thought process was disorganized and required redirection throughout the interview. Patient required much prompting to state what her request is from this SW. Patient requested a letter of Hospital Verification, and stated that she plans to get her discharge papers together as well. Patient verbalized several medical complaints, and SW alerted Scot Espitia NP. Patient also reported that she is interested in receiving more care from her In-Home Supportive Services. Per pt and caregiver, the pt receives caregiving 6 hours per day. Pt stated she knows the name of her [place] Costing Analyst, and this SW encouraged her to contact [facility] to ask for re-evaluation of SS hours. SW will continue to be available to provide support to the patient throughout her stay in the hospital. SW will provide patient with Hospital Verification Letter.
[2018-07-12] MEDS ORDERED: AMLODIPINE BESYLATE 10 MG TABLET PO SCH (16:00)
[2018-07-12 16:06] VITALS: BP 191/77
[2018-07-12] MEDS ORDERED: CLONIDINE HCL 0.1 MG TABLET PO SCH (17:00)
[2018-07-12] MEDS: QUETIAPINE FUMARATE 100 MG TABLET PO SCH ×2 (18:41→21:44)
--- NOTE | 2018-07-12 19:29 | NUR ---
RN CLOSING NOTES PT REMAINS ALERT AND RESTING IN BED, AOX4. PATIENT DENIES PAIN OR DISCOMFORT AT THIS TIME. BREATHING EVEN AND UNLABORED AT ROOM AIR SPO2 WNL. PT HAS A RIGHT HAND #20 INTACT, SALINE FLUSHED PATENT. SAFETY PRECAUTIONS IN PLACE, BED IN LOWEST LOCKED POSITION, X2 SIDE RAILS UP AND CALL LIGHT WITHIN REACH. PT BP HIGH, PRODUCT ENGINEER AWARE AND MEDS ADMINISTERED, ENDORSED TO NIGHT NURSE TO RE ASSESS. ENDORSED TO NIGHT NURSE AT BEDSIDE FOR RICHARD.
--- NOTE | 2018-07-12 19:40 | NUR ---
MS RN NOTES RECEIVED ON BED A/O X4,BREATHING REGULAR,NOT IN ANY FORM OF DISTRESS.APPEARS ANXIOUS ABOUT HER POSITION,REPOSITION WITH MARY ELLEN SANCHEZ.WILL CHANGE THE BED FROM REGULAR BED TO GEL BED FOR COMFORT.NOTED RIGHT UPPER ARM HD ACCESS. SALINE LOCKRIGHT HAND INTACT AND PATENT.CALL LIGHT IN REACH,NEEDS ANTICIPATED.
[2018-07-12 20:00] VITALS: BP 158/78
[2018-07-12 20:36] VITALS: BP 158/78
[2018-07-12] MEDS: FOLIC ACID 1 MG TABLET PO SCH (21:45)
[2018-07-12] MEDS: ATORVASTATIN 10 MG TABLET PO SCH (21:45)
--- NOTE | 2018-07-13 05:57 | NUR ---
MS RN NOTES SLEPT WELL WITH GEL BED,CLAIMED SHE FEELS BETTER.POSSIBLE D/C HOME TODAY WITH CAREGIVER.IN NO ACUTE DISTRESS.WILL ENDORSE TO DAY NURSE FOR RICHARD.
[2018-07-13 07:10] LABS: BASOPHILS # (AUTO) 0.1 /CMM (0.0-0.2); BASOPHILS % (AUTO) 1.7 % (0.0-2.0); HEMATOCRIT 35 % (33-45); HEMOGLOBIN 12.1 g/dL (11.5-14.8); LYMPHOCYTES # (AUTO) 0.9 /CMM (0.8-4.8); LYMPHOCYTES % (AUTO) 19.7 % (20.0-44.0); MEAN CORPUSCULAR HGB CONC 35 g/dl (31.0-36.0); MEAN CORPUSCULAR VOLUME 111 fL (82-100); MONOCYTES # (AUTO) 0.4 /CMM (0.1-1.30); MONOCYTES % (AUTO) 8.7 % (2.0-12.0); NEUTROPHILS # (AUTO) 1.9 /CMM (1.8-8.9); NEUTROPHILS % (AUTO) 42.5 % (43.0-81.0); PLATELET COUNT (AUTO) 139 /CMM (150-450); RED BLOOD CELL COUNT(AUTO) 3.16 MIL/uL (4.0-5.2); WHITE BLOOD COUNT (AUTO) 4.5 K/uL (4.3-11.0)
[2018-07-13 07:15] LABS: EOSINOPHILS % (AUTO) 27.4 % (0.0-6.0)
[2018-07-13 07:18] LABS: CALCIUM, SERUM 9.3 mg/dL (8.5-10.1); CREATININE 5.7 mg/dL (0.6-1.3); POTASSIUM 5.1 mmol/L (3.5-5.1)
--- NOTE | 2018-07-13 07:18 | NUR ---
INITIAL PT RECEIVED AWAKE RESTING IN BED, AOX4. PATIENT DENIES PAIN OR DISCOMFORT AT THIS TIME. BREATHING EVEN AND UNLABORED AT ROOM AIR SPO2 WNL. PT HAS A RIGHT HAND #20 INTACT, PATENT, FLUSHED. SAFETY PRECAUTIONS IN PLACE, BED IN LOWEST LOCKED POSITION, X2 SIDE RAILS UP AND CALL LIGHT WITHIN REACH. WILL CONTINUE TO MONITOR.
[2018-07-13] MEDS ORDERED: LEVOTHYROXINE SODIUM 75 MCG TABLET PO SCH (07:30)
[2018-07-13] MEDS: SEVELAMER CARBONATE 800 MG TABLET PO SCH ×3 (07:49→17:23)
[2018-07-13 08:00] VITALS: BP 185/84
[2018-07-13 08:55] LABS: EOSINOPHILS % (MANUAL) 27 % (0-4); LYMPHOCYTES % (MANUAL) 20 % (16-48); MONOCYTES % (MANUAL) 9 % (0-11.0); NEUTROPHILS % (MANUAL) 44 (42-76)
[2018-07-13] MEDS: LACTULOSE 10 G/15 ML UDC (PYXIS) PO SCH ×3 (08:58→17:22)
[2018-07-13] MEDS: ASPIRIN 325 MG TABLET PO SCH (08:59)
[2018-07-13] MEDS: SENNOSIDES 8.6 MG TABLET PO SCH (08:59)
[2018-07-13] MEDS: DOCUSATE SODIUM 100 MG CAPSULE PO SCH ×2 (08:59→17:24)
[2018-07-13] MEDS: hydrALAZINE HCL 50 MG TABLET PO SCH ×3 (09:01→17:22)
[2018-07-13] MEDS: LOSARTAN POTASSIUM 50 MG TABLET PO SCH ×2 (09:01→17:24)
[2018-07-13] MEDS: CLONIDINE HCL 0.1 MG TABLET PO SCH ×3 (09:02→17:23)
[2018-07-13] MEDS: LABETALOL HCL (100MG) 100 MG TABLET PO SCH ×3 (09:02→17:23)
[2018-07-13] MEDS: NIFEdipine XL 60 MG TAB PO SCH ×2 (09:06→17:24)
[2018-07-13] MEDS ORDERED: NIFE60TA73 PO (13:02)
[2018-07-13] MEDS: clonazePAM 1 MG TABLET PO PRN ×2 (15:10→18:03)
--- NOTE | 2018-07-13 15:32 | NUR ---
AROUND 1500 PT STATES SHE IS HAVING A SEIZURE. PT WAS ALERT COHERENT ABLE TO SPEAK LOGICALLY EYES NORMAL OFFERED MEDICATION AND SHE BEGAN ASKING IF SHE WAS GOING TO GET THIS MEDICATION FOR HOME. PT CAME THROUGH EMERGENCY ROOM AND WAS NOTED TO HAVE SAME MEDICATION AT HOME. FURTHER MORE PT UNABLE TO GET A HOLD OF TURF MANAGER. THEORETICAL PHYSICS TEACHER SPOKE WITH PT ONCE WILL NOTIFY THEORETICAL PHYSICS TEACHER OF CURRENT CIRCUMSTANCES. CALLED NURSING SUPERVISOR PERSONNEL CLERKS TO SPEAK WITH PT WELL. ALL CARE AND MEDICATION HAS BEEN GIVEN PT SEIZURE PRECAUTION IMPLEMENTED UPON ADMITTANCE.
[2018-07-13 15:56] VITALS: BP 185/84
[2018-07-13 16:00] VITALS: BP 156/72
[2018-07-13] MEDS: QUETIAPINE FUMARATE 100 MG TABLET PO SCH (17:23)
--- NOTE | 2018-07-13 17:55 | NUR ---
POLITICAL SCIENCE CHAIR PRESENT TO TAKE PT HOME PT DRESSED AND PLACED IN WHEEL CHAIR PIV REMOVED WITH TIP INTACT, PT GIVEN ACI AND PRESCRIPTION PT WILL CALL PCP AND ARRANGE FOR NEUROLOGIST AND SALES COACH FOLLOW UP PT ATE 100% OF DINNER BEFORE LEAVING.
[2018-07-13 18:19] VITALS: BP 156/72
== END 2018-07-13 18:10 | disposition home health service (06) | DRG 291 ==
LOC: ER 00:55 → TELE 02:43 → MED 10:01
PROVIDERS: ADMIT Nurse Practitioner Acute Care; ATTEND Nurse Practitioner Acute Care
PROC: 5A1D70Z Performance of Urinary Filtration, Intermittent, Less than 6 Hours Per Day (ICD-10-PCS; principal; 2018-07-11)
PROC: 5A1D70Z Performance of Urinary Filtration, Intermittent, Less than 6 Hours Per Day (ICD-10-PCS; 2018-07-13)
DX: I13.2 Hypertensive heart and chronic kidney disease with heart failure and with stage 5 chronic kidney disease, or end stage renal disease (principal); J96.01 Acute respiratory failure with hypoxia; N18.6 End stage renal disease; I50.33 Acute on chronic diastolic (congestive) heart failure; J81.1 Chronic pulmonary edema; E44.1 Mild protein-calorie malnutrition; E87.1 Hypo-osmolality and hyponatremia; N25.81 Secondary hyperparathyroidism of renal origin; G25.3 Myoclonus; Z86.73 Personal history of transient ischemic attack (TIA), and cerebral infarction without residual deficits; Z99.2 Dependence on renal dialysis; E03.9 Hypothyroidism, unspecified; F31.9 Bipolar disorder, unspecified; F41.9 Anxiety disorder, unspecified; E78.5 Hyperlipidemia, unspecified; Z79.82 Long term (current) use of aspirin; D64.9 Anemia, unspecified
CPT/HCPCS: 36415; 71045-TC; 80048-TC; 80053-TC; 80076-TC; 82140-TC; 83735-TC; 83880; 84100-TC; 84443-TC; 84484-TC; 85025-TC; 86706; 87081-TC; 87340; 90935-TC; 97110-TC; 97116-TC; 97530-TC; G0378

== ENCOUNTER 2018-10-08 15:08 | Inpatient (IN) | payer MEDICARE, OTHER ==
[~2018-10-08] VITALS: Ht 154.9 cm; Wt 44.5 kg
[2018-10-08 06:00] VITALS: BP 150/63
[~2018-10-08 15:08] MED LIST changes: +NIFE60TA73 PO
--- NOTE | 2018-10-08 15:12 | NUR ---
CHAPINCITO FROM DIALYSIS FOR SOB, REPORT SOB X 1WEEK. FINISHED 1HR OF DIALYSIS. CAME IN VIA NON-REBREATHER MASK AT 15LPM. O2 SATURATION ROOM AIR AT 80%. TO ER BED 8, HOOKED TO MONITOR, PT REFUSES TO BE CHANGED TO GOWN, PROVIDED W WARM BLANKET, AWAITING MD REYES.
--- NOTE | 2018-10-08 15:20 | NUR ---
DR ELLIS AT BEDSIDE
[2018-10-08 15:34] LABS: BASOPHILS % (AUTO) 0.2 % (0.0-2.0); EOSINOPHILS % (AUTO) 1.9 % (0.0-6.0); HEMATOCRIT 25 % (33-45); HEMOGLOBIN 8.5 g/dL (11.5-14.8); LYMPHOCYTES # (AUTO) 0.3 /CMM (0.8-4.8); LYMPHOCYTES % (AUTO) 3.6 % (20.0-44.0); MEAN CORPUSCULAR HGB CONC 34 g/dl (31.0-36.0); MEAN CORPUSCULAR VOLUME 109 fL (82-100); MONOCYTES # (AUTO) 0.6 /CMM (0.1-1.30); NEUTROPHILS % (AUTO) 87.3 % (43.0-81.0); PLATELET COUNT (AUTO) 281 /CMM (150-450); RED BLOOD CELL COUNT(AUTO) 2.29 MIL/uL (4.0-5.2); WHITE BLOOD COUNT (AUTO) 9.2 K/uL (4.3-11.0)
[2018-10-08] MEDS ORDERED: LOSA50TA3 PO (15:40)
[2018-10-08] MEDS ORDERED: POLY17PO4 PO (15:40)
[2018-10-08] MEDS ORDERED: SEVE800T8 PO (15:40)
[2018-10-08] MEDS ORDERED: AMLO10TA4 PO (15:40)
[2018-10-08] MEDS ORDERED: KETO5DRO OP (15:40)
[2018-10-08] MEDS ORDERED: HYDR100T27 PO (15:40)
[2018-10-08] MEDS ORDERED: AZEL137S7 NS (15:40)
[2018-10-08] MEDS ORDERED: DOXA2TAB2 PO (15:40)
[2018-10-08] MEDS ORDERED: FLUT16SP NS (15:40)
[2018-10-08] MEDS ORDERED: CHOL400T11 PO (15:40)
[2018-10-08] MEDS ORDERED: UBID100C13 PO (15:40)
[2018-10-08] MEDS ORDERED: MAGN200T5 PO (15:40)
[2018-10-08] MEDS ORDERED: FOLI1TAB16 PO (15:40)
[2018-10-08] MEDS ORDERED: OLOP2.5D5 OP (15:40)
[2018-10-08] MEDS ORDERED: DULO30CA2 PO (15:40)
[2018-10-08] MEDS ORDERED: FOLI0.8T23 PO (15:40)
[2018-10-08] MEDS ORDERED: ZINC220C6 PO (15:40)
[2018-10-08] MEDS ORDERED: LEVO100T9 PO (15:40)
[2018-10-08 15:41] LABS: CALCIUM, SERUM 9.1 mg/dL (8.5-10.1); CARBON DIOXIDE 35 mmol/L (21-32); CHLORIDE 96 mmol/L (98-107); CREATININE 3.3 mg/dL (0.6-1.3); GLUCOSE 119 mg/dL (74-106); POTASSIUM 3.8 mmol/L (3.5-5.1); SODIUM SERUM 134 mmol/L (136-145); UREA NITROGEN, BLOOD 33 mg/dL (7-18)
[2018-10-08 15:47] LABS: ALANINE AMINOTRANSFERASE 13 U/L (12-78); ALBUMIN 2.8 g/dL (3.4-5.0); ALKALINE PHOSPHATASE 161 U/L (46-116); ASPARTATE AMINOTRANSFERASE 19 U/L (15-37); BILIRUBIN,DIRECT 0.3 mg/dL (0.0-0.2); BILIRUBIN,TOTAL 0.7 mg/dL (0.2-1.0); TOTAL PROTEIN, SERUM 6.7 g/dL (6.4-8.2)
--- NOTE | 2018-10-08 16:33 | NUR ---
CALLED NURSING SUP. FOR TELE BED
--- NOTE | 2018-10-08 16:36 | NUR ---
URINE SAMPLE SENT TO LAB
[2018-10-08 16:40] LABS: APPEARANCE,URINE Clear (CLEAR); BILIRUBIN,URINE Negative (NEGATIVE); BLOOD, URINE Negative Ery/uL (NEGATIVE); COLOR,URINE Yellow (YELLOW); KETONES,URINE Negative (NEGATIVE); LEUKOCYTE ESTERASE ,URINE Negative (NEGATIVE); NITRITE, URINE Negative (NEGATIVE); PROTEIN,URINE >=300 mg/dl (NEGATIVE); UGLUCOSE Negative (NEGATIVE); UROBILINOGEN,URINE 0.2 EU/dL (0.2)
--- NOTE | 2018-10-08 18:37 | NUR ---
REPORT GIVEN TO KARI GODINEZ OF [facility] BED
[2018-10-08 19:00] VITALS: BP 139/71
--- NOTE | 2018-10-08 19:00 | NUR ---
BULLDOZER MECHANIC NOTES RECEIVED PT FROM E.R. STAFF VIA CAITY, PT IS AWAKE, ALERT AND ORIENTED, DENIES PAIN, ASSISTED TO BED, MADE COMFORTABLE, ROOM SET UP ORIENTATION PROVIDED TO PT, VERBALIZED UNDERSTANDING, PT ON O2 MASK AT 6LPM, O2 SAT AT 96%, VITALS TAKEN AND RECORDED, NO BLEEDING NOTED AT LEFT UPPER ARM AV SHUNT, KEPT COMFORTABLE IN BED.
--- NOTE | 2018-10-08 19:35 | NUR ---
RN ADMITTING/OPENING NOTES RECEIVED REPORT FROM DAYSHIFT HERBERT CLIFTON. FOUND Pt AWAKE, RESTING IN BED. ON 6L O2 ON SIMPLE MASK. Pt IS A/OX3, VERBAL, ABLE TO MAKE NEEDS KNOWN, WITH SOME FORGETFULNESS. WHEN QUESTIONING Pt WHEN SHE LAST GOT HER DIALYSIS, SHE SAID YESTERDAY, WHEN ASKED IF SHE REMEMBERS THE DATE, SHE COULD NOT REMEMBER THE DATE, BUT WHEN ASKED WHAT CURRENT MONTH AND YEAR IT IS SHE WAS ABLE TO ANSWER CORRECTLY. UPON REPORT HOWEVER, Pt WAS GETTING DIALYSIS EARLIER TODAY, WHEN SHE WAS SHOWING SYMPTOMS OF SOB, WHICH IS WHY SHE WAS SENT TO THE ER FROM THE DIALYSIS CENTER TODAY. IV ACCESS ON RFA #20G, SL. SAFETY MEASURES IN PLACE. BED LOW, LOCKED, HOB ELEVATED, SIDE RAILS UP, CALL LIGHT AND BEDSIDE TABLE WITHIN REACH. WILL CONTINUE TO MONITOR Pt's CONDITION AND SAFETY THROUGHOUT THE NIGHT.
[2018-10-08] MEDS ORDERED: Z GUARD REMEDY 2 OZ OINT TP PRN (20:00)
--- NOTE | 2018-10-08 20:30 | NUR ---
RN NOTES Pt GETTING HD AT BEDSIDE AT THIS TIME.
[2018-10-08] MEDS ORDERED: Medication Not On Formulary EA (Rosuvastatin Calcium (Crestor) 5 MG) PO SCH (22:00)
[2018-10-08] MEDS: QUETIAPINE FUMARATE 100 MG TABLET PO SCH (22:18)
[2018-10-09] VITALS (28 sets, daily range): BP systolic 112–188; BP diastolic 47–92
[2018-10-09] MEDS ORDERED: FUROSEMIDE 20 MG/2 ML VIAL IV ONE (06:00)
--- NOTE | 2018-10-09 06:20 | NUR ---
RN NOTES ADMINISTERED LASIX 20MG IVP X1 DOSE PER PILO Seals NP ORDER.
--- NOTE | 2018-10-09 06:32 | NUR ---
RN CLOSING NOTES NO SIGNIFICANT CHANGES IN Pt's CONDITION. Pt's VS STABLE AT THIS TIME. ON 8L O2 VIA MASK SATING AT 96%. Pt IS AWAKE AT THIS TIME, RESTING IN BED. TELE READING SR 86. SAFETY MEASURES IN PLACE. BED LOW, LOCKED, HOB ELEVATED, SIDE RAILS UP, CALL LIGHT AND BEDSIDE TABLE WITHIN REACH. BSC AT BEDSIDE. WILL ENDORSE TO DAYSHIFT RN FOR Pt's RICHARD.
[2018-10-09 06:36] LABS: BASOPHILS % (AUTO) 0.2 % (0.0-2.0); EOSINOPHILS % (AUTO) 0.2 % (0.0-6.0); HEMATOCRIT 25 % (33-45); HEMOGLOBIN 8.5 g/dL (11.5-14.8); LYMPHOCYTES # (AUTO) 0.4 /CMM (0.8-4.8); MEAN CORPUSCULAR HGB CONC 34 g/dl (31.0-36.0); MEAN CORPUSCULAR VOLUME 110 fL (82-100); MONOCYTES # (AUTO) 0.8 /CMM (0.1-1.30); NEUTROPHILS # (AUTO) 7.9 /CMM (1.8-8.9); NEUTROPHILS % (AUTO) 86.6 % (43.0-81.0); PLATELET COUNT (AUTO) 266 /CMM (150-450); RED BLOOD CELL COUNT(AUTO) 2.24 MIL/uL (4.0-5.2); WHITE BLOOD COUNT (AUTO) 9.1 K/uL (4.3-11.0)
[2018-10-09 06:44] LABS: ALBUMIN 2.8 g/dL (3.4-5.0); BILIRUBIN,TOTAL 0.7 mg/dL (0.2-1.0); CALCIUM, SERUM 9.4 mg/dL (8.5-10.1); CREATININE 3.1 mg/dL (0.6-1.3); MAGNESIUM 2.3 mg/dL (1.8-2.4); PHOSPHORUS 3.4 mg/dL (2.5-4.9); POTASSIUM 3.9 mmol/L (3.5-5.1); TOTAL PROTEIN, SERUM 6.9 g/dL (6.4-8.2)
[2018-10-09 06:47] LABS: THYROID STIMULATING HORMONE 9.477 uIU/mL (0.358-3.74)
[2018-10-09] MEDS ORDERED: LEVOTHYROXINE SODIUM 100 MCG TABLET PO SCH (07:30)
[2018-10-09] MEDS: LEVOTHYROXINE INJ 100 MCG VIAL IV SCH (07:30)
--- NOTE | 2018-10-09 07:30 | NUR ---
pt. alert and oriented x3.on mask cont,when she removes mask pox to 85%.manager transportation petersen cont.rn in to rm. freq.denies pain.skin warm and dry.noc nurse stated pt. manager transportation light freq.vs stable.
[2018-10-09] MEDS: HYDROCODONE/APAP 5/325MG 1 EACH TABLET PO PRN (08:51)
--- NOTE | 2018-10-09 08:51 | NUR ---
med. for gen'l pain with norco.hooked up to cont. pox,ranging between 92% and 96%.
--- NOTE | 2018-10-09 08:59 | NUR ---
issa drawn and report to adina johnson here on floor and ordered transfer to icu rm 259.
[2018-10-09 09:02] LABS: ABG BASE EXCESS 6.3 mmol/L; ABG OXYGEN SATURATION 91.4 % (92.0-98.5); ABG PH 7.265 (7.350-7.450); ABG PO2 71.7 mmHg (75.0-100.0); AaDO2 270.3 mmHg; COHb 0.9 % (0.5-1.5); MetHb 0.4 % (0.0-1.5); O2Hb 90.2 % (94.0-97.0); SITE, ABG Right Radial; VENT MODE, BG SM
[2018-10-09] MEDS: DULOXETINE HCL 30 MG CAPSULE.DR PO SCH (09:03)
[2018-10-09] MEDS: FLUTICASONE PROPIONATE 16 GM BOTTLE NS SCH (09:03)
[2018-10-09] MEDS: AZELASTINE NASAL SPRAY 30 ML BOTTLE NS SCH (09:03)
[2018-10-09] MEDS: DOCUSATE SODIUM 100 MG CAPSULE PO SCH ×2 (09:04→19:50)
[2018-10-09] MEDS: CHOLECALCIFEROL (VITAMIN D 3) 400 UNIT TABLET PO SCH (09:04)
[2018-10-09] MEDS: VIT B CMPLX 3/FA/VIT C/BIOTIN 1 TAB TABLET PO SCH (09:05)
[2018-10-09] MEDS: AMLODIPINE BESYLATE 10 MG TABLET PO SCH (09:05)
[2018-10-09] MEDS: ASPIRIN 325 MG TABLET PO SCH (09:05)
[2018-10-09] MEDS: ZINC SULFATE 220 MG CAPSULE PO SCH (09:05)
--- NOTE | 2018-10-09 09:40 | NUR ---
transferred via bed to rm. 259 icu-report to [facility].
--- NOTE | 2018-10-09 10:00 | NUR ---
RN INITIAL NOTES RECEIVED PT FROM ROOM 306 VIA BED FOR RESPIRATORY DISTRESS. PT ON NON-REBREATHER MASK. HOB ELEVATED. PT A/OX2-3, AGITATED. C/O SOB. PT CONNECTED TO MONITOR. IV LINE IN PLACE. JERRY AV FISTULA PRESENT, POSITIVE FOR BRUIT AND THRILL. SEEN AND EXAMINED BY DR GERMAN. AWARE OF LATEST ABG RESULT. ORDERED TO PLACE ON BIPAP AND RPT ABG IN FEW HRS. PENDING EKG AND ECHO. WILL CLOSELY MONITOR.
--- NOTE | 2018-10-09 10:11 | NUR ---
PT. PLACED INTO BIPAP ORDER DUE TO INCREASED WOB WITH PARAMETERS BELOW: IPAP 15 EPAP 5 RATE 12 FIO2 30% Addendum: 10/09/18 at 1012 by ANTHONY KELLER RT Amended: Links added.
[2018-10-09] MEDS ORDERED: MINERAL OIL 133 ML (PYXIS) 1 EA ENEMA RC ONE (10:30)
[2018-10-09] MEDS: IPRATROPIUM NEB FS 0.5 MG/2.5 ML AMPUL.NEB NEB SCH ×3 (10:58→19:21)
--- NOTE | 2018-10-09 11:10 | NUR ---
PRELIMINARY RESULTS OF ECHO SHOWED EF 75%~ WITH LARGE PLEURAL EFFUSION AND LARGE CIRCUMFERENTIAL PERICARDIAL EFFUSION. ADVISED ATTENDING RN AND DR. MASON OF INITIAL FINDINGS.
--- NOTE | 2018-10-09 11:29 | NUR ---
FIO2 INCREASED FROM 30% TO 40% DUE TO 88% SPO2. Addendum: 10/09/18 at 1129 by ANTHONY KELLER RT Amended: Links added.
[2018-10-09 11:58] LABS: ABG BASE EXCESS 5.4 mmol/L; ABG OXYGEN SATURATION 87.6 % (92.0-98.5); ABG PCO2 64.9 mmHg (35.0-45.0); ABG PH 7.317 (7.350-7.450); ABG PO2 59.4 mmHg (75.0-100.0); AaDO2 151.2 mmHg; COHb 0.9 % (0.5-1.5); MetHb 0.6 % (0.0-1.5); O2Hb 86.3 % (94.0-97.0); SITE, ABG Right Radial; VENT MODE, BG BIPAP 15/5
[2018-10-09] MEDS: KETOROLAC EYE 0.5% 3 ML BOTTLE OP SCH ×2 (12:59→19:05)
[2018-10-09] MEDS: SEVELAMER CARBONATE 800 MG TABLET PO SCH ×2 (13:00→19:51)
[2018-10-09] MEDS: hydrALAZINE HCL 50 MG TABLET PO SCH ×2 (13:01→19:53)
[2018-10-09] MEDS: CLONIDINE HCL 0.1 MG TABLET PO SCH ×2 (13:01→19:52)
--- NOTE | 2018-10-09 13:30 | NUR ---
RN NOTES SEEN AND EXAMINED BY TAINA OSMAN NP. AWARE OF LAB VALUES AND IMAGING STUDIES. PT ON BIPAP. NO RESPIRATORY DISTRESS NOTED. NO SOB NOTED. HOB ELEVATED. PT A/OX3. PT FOR HD. WILL CLOSELY MONITOR
--- NOTE | 2018-10-09 14:06 | NUR ---
BIPAP CHANGES BELOW PER DR. GERMAN: IPAP 20 Addendum: 10/09/18 at 1406 by ANTHONY KELLER RT Amended: Links added.
[2018-10-09] MEDS ORDERED: BISACODYL SUPP (10 MG) 10 MG/SUPP.RECT SUPP.RECT RC PRN (16:00)
[2018-10-09 16:38] LABS: IRON, SERUM 18 ug/dl (50-175); TOTAL IRON BINDING CAPACITY 146 ug/dl (250-450)
[2018-10-09 17:14] LABS: FERRITIN 1513 ng/mL (8-388)
[2018-10-09] MEDS ORDERED: QUETIAPINE FUMARATE 100 MG TABLET PO SCH (18:00)
--- NOTE | 2018-10-09 18:39 | NUR ---
RN CLOSING NOTES PT REMAINS ON BIPAP. NO RESPIRATORY DISTRESS NOTED. NO SOB NOTED. KEPT HOB ELEVATED. PT ON HD, STARTED AT 1400. TOLERATING WELL. KEPT CLEAN AND DRY. REPOSITIONED Q2. BLE ELEVATED. KEPT COMFORTABLE.
[2018-10-09] MEDS: QUETIAPINE FUMARATE 100 MG TABLET PO SCH (19:50)
[2018-10-09] MEDS: LamoTRIgine 100 MG TABLET PO SCH (19:51)
--- NOTE | 2018-10-09 20:32 | NUR ---
OIL WELL GUN PERFORATOR OPERATOR OPENING NOTES RECEIVED REPORT FROM LEOENL GODINEZ. PATIENT A/A/O X2 W/ SOME CONFUSION & ANXIETY NOTED. BREATHING EVEN & UNLABORED W/ BIPAP IN PLACE & SATING WELL @ 97%. NO RESPIRATORY DISTRESS NOTED. ON TELE W/ SINUS RHYTHM, HR 80S. RIGHT FOREARM IV #20 INTACT & PATENT W/ DRESSING CDI, SALINE LOCKED. LEFT UPPER ARM AV FISTULA W/ NO COMPLICATIONS NOTED. DENIES ANY PAIN OR DISCOMFORT @ THIS TIME. SAFETY MEASURES IN PLACE W/ SIDE RAILS UP & BED ALARM ON. INSTRCUTED TO USE CALL LIGHT FOR ASSISTANCE. WILL CONTINUE TO MONITOR CLOSELY.
--- NOTE | 2018-10-09 20:38 | NUR ---
DIAMOND DIE MAKER NOTES ENDORSED BY AM RN LEONEL THAT 1700 & 1800 MEDS WERE HELD BECAUSE DIALYSIS WAS COMPLETED LATE & TO ADMINISTER MEDS DURING PM SHIFT. CHARGE NURSE AWARE. ALL DUE MEDS GIVEN.
[2018-10-09] MEDS: ATORVASTATIN 10 MG TABLET PO SCH (21:35)
[2018-10-09] MEDS: DOXAZOSIN MESYLATE (1 MG) 1 MG TABLET PO SCH (21:36)
[2018-10-09] MEDS: ACETAMINOPHEN 325 MG TABLET PO PRN (21:38)
--- NOTE | 2018-10-09 22:00 | NUR ---
CARD FOLDER NOTES PATIENT SEEN & EXAMINED BY AASHISH LINCOLN CHEF BROILER OR FRY. PER AASHISH, NO COLONOSCOPY @ THIS TIME UNTIL PATIENT IS CLINICALLY STABLE BUT OK TO GIVE GOLYTELY IF PATIENT CAN TOLERATE BEING OFF BIPAP. ALSO RECEIVED NEW ORDER FOR CEA SERUM STAT. NEW ORDER NOTED & CARRIED OUT.
[2018-10-10] VITALS (39 sets, daily range): BP systolic 121–177; BP diastolic 56–90
[2018-10-10] MEDS: IPRATROPIUM NEB FS 0.5 MG/2.5 ML AMPUL.NEB NEB SCH ×7 (00:01→23:29)
--- NOTE | 2018-10-10 07:30 | NUR ---
HOSPITAL MEDICAL BILLER INITIAL NOTE RECEIVED PATIENT ANXIOUS, ANSWERED ALL QUESTIONS AND REASSURED NEEDED. DENIES PAIN OR DISCOMFORT, RT AT BEDSIDE AND PLACED PATIENT ON HIGH FLOW OXYGEN VIA NC. ON MONITOR SR. WITH JERRY AVF +BRUIT AND THRILL. PATIENT HAD LARGE BM, SOFT BROWN. HOB ELEVATED. SIDE RAILS UP AND LOCKED. BED KEPT AT LOWEST POSITION. CALL LIGHT KEPT WITHIN EASY REACH. WILL CONTINUE TO MONITOR.
[2018-10-10] MEDS ORDERED: PEG 3350/NA SULF,BICARB,CL/KCL 4,000 ML BOTTLE PO ONE (08:00)
--- NOTE | 2018-10-10 08:30 | NUR ---
agricultural education instructor note dr. way at bedside, explained to patient regarding need for thoracentesis on right lung. patient verbalized understanding.
--- NOTE | 2018-10-10 08:30 | NUR ---
multicultural manager note patient anxious, md made aware, no medications at this time.
[2018-10-10] MEDS: LEVOTHYROXINE INJ 100 MCG VIAL IV SCH (08:54)
[2018-10-10] MEDS: ASPIRIN 325 MG TABLET PO SCH (08:54)
[2018-10-10] MEDS: FOLIC ACID 1 MG TABLET PO SCH ×2 (08:54→09:17)
[2018-10-10] MEDS: KETOROLAC EYE 0.5% 3 ML BOTTLE OP SCH ×2 (08:55→17:36)
[2018-10-10] MEDS: DOCUSATE SODIUM 100 MG CAPSULE PO SCH ×2 (08:55→17:36)
[2018-10-10] MEDS: SEVELAMER CARBONATE 800 MG TABLET PO SCH ×3 (08:55→17:36)
[2018-10-10] MEDS: DULOXETINE HCL 30 MG CAPSULE.DR PO SCH (08:55)
[2018-10-10] MEDS: FLUTICASONE PROPIONATE 16 GM BOTTLE NS SCH (08:55)
[2018-10-10] MEDS: CHOLECALCIFEROL (VITAMIN D 3) 400 UNIT TABLET PO SCH (08:55)
[2018-10-10] MEDS: AZELASTINE NASAL SPRAY 30 ML BOTTLE NS SCH (08:56)
[2018-10-10] MEDS: hydrALAZINE HCL 50 MG TABLET PO SCH ×3 (09:00→17:37)
[2018-10-10] MEDS: AMLODIPINE BESYLATE 10 MG TABLET PO SCH (09:00)
[2018-10-10] MEDS: CLONIDINE HCL 0.1 MG TABLET PO SCH ×3 (09:00→17:37)
[2018-10-10] MEDS: VIT B CMPLX 3/FA/VIT C/BIOTIN 1 TAB TABLET PO SCH (09:15)
[2018-10-10] MEDS: MAGNESIUM OXIDE 400 MG TABLET PO SCH ×2 (09:15→09:17)
[2018-10-10] MEDS: ZINC SULFATE 220 MG CAPSULE PO SCH (09:16)
--- NOTE | 2018-10-10 09:18 | NUR ---
GROOVING MACHINE OPERATOR NOTE HD NURSE AND PATRICIO AT BEDSIDE
--- NOTE | 2018-10-10 10:21 | NUR ---
rn cvicu note consent received by patient for thoracentesis of right lung. trustee advocate gabriel at bedside. per md patient ok to be started on clear liquid diet after thoracentesis. patient informed.
--- NOTE | 2018-10-10 11:09 | NUR ---
WOUND CARE CONSULT: UNABLE TO DO SKIN ASSESSMENT AT THIS TIME DUE TO PT HAVING DIALYSIS. PER ADMISSION PHOTO DOCUMENTATION AND NURSING REPORT, PT HAS SACRAL SCAR AND IS VERY THIN AND BONY. RECOMMENDATIONS MADE FOR SKIN PROTECTION. DISCUSSED WITH NURSING STAFF. WILL SEE PRN. RENEE IN AGREEMENT WITH PLAN OF CARE. CURRENT SHIRAZ SCORE IS 16.
--- NOTE | 2018-10-10 11:39 | NUR ---
OWNER PROFESSIONAL ENGINEER NOTE PER DR. GOOD HOLD OFF ON DOC TIL TOMORROW, PATIENT HAVING DIALYSIS AND THORACENTESIS TODAY. WILL CONTINUE TO MONITOR.
--- NOTE | 2018-10-10 11:50 | NUR ---
BLOCKER AND POLISHER NOTE HD NURSE COMPLETED DIALYSIS WITH 3L OUT, NO COMPLICATIONS NOTED. WILL CONTINUE TO MONITOR.
[2018-10-10 13:14] LABS: ABG BASE EXCESS 6.8 mmol/L; ABG OXYGEN SATURATION 92.9 % (92.0-98.5); ABG PCO2 48.9 mmHg (35.0-45.0); ABG PH 7.432 (7.350-7.450); ABG PO2 70.8 mmHg (75.0-100.0); AaDO2 194.4 mmHg; COHb 0.8 % (0.5-1.5); MetHb 0.9 % (0.0-1.5); O2Hb 91.3 % (94.0-97.0); SITE, ABG Right Radial
--- NOTE | 2018-10-10 13:40 | NUR ---
curriculum developer note US AT BEDSIDE TO DO THORACENTESIS
--- NOTE | 2018-10-10 14:32 | NUR ---
RN FIRST ASSIST NOTE S/P RIGHT THORACENTESIS 1.5L OUT, NO COMPLICATIONS NOTED, PLEURAL FLUID SENT TO LAB
--- NOTE | 2018-10-10 14:43 | NUR ---
RT POST THORACENTESES PATIENT REMOVED FROM [facility] AND PLACED ON 5L N/C MICHI WELL. TITRATE FIO2 TO MAINTAIN SPO2 ABOVE 92%. PATIENT HAS NO COMPLAINTS OF SOB AT THIS TIME.
--- NOTE | 2018-10-10 15:00 | NUR ---
EDITORIAL WRITER NOTE PATIENT MORE CALM, PRIVATE STEREOTYPER AT BEDSIDE, ON 5LPMO2 VIA NC, GRATEFUL FOR CARE. WAITING FOR DINNER TRAY. WILL CONTINUE TO MONITOR.
[2018-10-10] MEDS: LamoTRIgine 100 MG TABLET PO SCH (17:36)
[2018-10-10] MEDS: QUETIAPINE FUMARATE 100 MG TABLET PO SCH (17:36)
--- NOTE | 2018-10-10 19:10 | NUR ---
CISCO UNIFIED COMMUNICATIONS ENGINEER CLOSING NOTED NO RESPIRATORY DISTRESS NOTED. PRIVATE CAREGIVER AT BEDSIDE. DENIES SOB ON 5LPMO2 VIA NC. APPRECIATIVE WITH CARE. DENIES PAIN OR DISCOMFORT. SKIN WARM AND DRY TO TOUCH. KEPT CLEAN AND DRY. TURNED AND REPOSITIONED Q2 AND PRN. ALL NEEDS ANTICIPATED AND MET. HOB ELEVATED. SIDE RAILS UP AND LOCKED. BED KEPT AT LOWEST POSITION. CALL LIGHT KEPT WITHIN EASY REACH. CONTINUITY OF CARE ENDORSED TO PM NURSE.
--- NOTE | 2018-10-10 20:00 | NUR ---
RECEIVED PATIENT IN BED, PATIENT IS A&O X4, VERY ANXIOUS. VSS, AFEBRILE , NO DISTRESS NOTED- SATURATION 99% ON 5L VIA NC, DENIES PAIN. CALL LIGHT AT THE BED CHANELLE, INSTRUCTED TO CALL FOR ASSISTANCE
[2018-10-10] MEDS: ATORVASTATIN 10 MG TABLET PO SCH (21:25)
[2018-10-10] MEDS: DOXAZOSIN MESYLATE (1 MG) 1 MG TABLET PO SCH (21:25)
--- NOTE | 2018-10-10 21:30 | NUR ---
PATIENT HAS A PRIVATE CAREGIVER AT THE BEDSIDE. EDUCATION/ INSTRUCTIONS GIVEN TO PATIENT AND CAREGIVER BOTH VERBALIZE UNDERSTANDING. SAFETY MEASURES IMPLEMENTED. CONTINUE TO MONITOR
[2018-10-11] VITALS (23 sets, daily range): BP systolic 96–165; BP diastolic 54–76
[2018-10-11] MEDS: ACETAMINOPHEN 325 MG TABLET PO PRN ×2 (02:34→07:56)
[2018-10-11] MEDS: IPRATROPIUM NEB FS 0.5 MG/2.5 ML AMPUL.NEB NEB SCH ×6 (03:27→22:51)
[2018-10-11 04:18] LABS: BASOPHILS % (AUTO) 0.6 % (0.0-2.0); EOSINOPHILS % (AUTO) 1.1 % (0.0-6.0); HEMATOCRIT 22 % (33-45); HEMOGLOBIN 7.6 g/dL (11.5-14.8); LYMPHOCYTES # (AUTO) 0.5 /CMM (0.8-4.8); LYMPHOCYTES % (AUTO) 8.1 % (20.0-44.0); MEAN CORPUSCULAR HGB CONC 34 g/dl (31.0-36.0); MEAN CORPUSCULAR VOLUME 110 fL (82-100); MONOCYTES # (AUTO) 0.7 /CMM (0.1-1.30); MONOCYTES % (AUTO) 10.6 % (2.0-12.0); NEUTROPHILS # (AUTO) 4.9 /CMM (1.8-8.9); NEUTROPHILS % (AUTO) 79.6 % (43.0-81.0); PLATELET COUNT (AUTO) 258 /CMM (150-450); RED BLOOD CELL COUNT(AUTO) 2.03 MIL/uL (4.0-5.2); WHITE BLOOD COUNT (AUTO) 6.1 K/uL (4.3-11.0)
[2018-10-11 04:38] LABS: CALCIUM, SERUM 8.8 mg/dL (8.5-10.1); CREATININE 2.4 mg/dL (0.6-1.3); MAGNESIUM 2.3 mg/dL (1.8-2.4); POTASSIUM 4.8 mmol/L (3.5-5.1)
--- NOTE | 2018-10-11 05:49 | NUR ---
PATIENT REFUSED AM CARE INCLUDING BED BATH, WILL ENDORSE TO THE DAY SHIFT
--- NOTE | 2018-10-11 07:30 | NUR ---
VENTILATOR SPECIALIST INITIAL NOTE RECEIVED PATIENT AWAKE, A/OX4, FORGETFUL. DENIES PAIN OR DISCOMFORT, DENIES SOB, ON 2LPMO2 VIA NC DENIES N/V. SKIN WARM AND DRY TO TOUCH. ON MONITOR SR. WITH JERRY AVF +BRUIT AND THRILL. HOB ELEVATED. SIDE RAILS UP AND LOCKED. BED KEPT AT LOWEST POSITION. CALL LIGHT KEPT WITHIN EASY REACH. WILL CONTINUE TO MONITOR.
[2018-10-11] MEDS: LEVOTHYROXINE INJ 100 MCG VIAL IV SCH (07:56)
[2018-10-11] MEDS: SEVELAMER CARBONATE 800 MG TABLET PO SCH ×4 (07:56→17:39)
--- NOTE | 2018-10-11 09:00 | NUR ---
ACTIVITY ASSISTANT NOTE SEEN AND EXAMINED BY DR GERMAN
[2018-10-11] MEDS: AZELASTINE NASAL SPRAY 30 ML BOTTLE NS SCH (09:13)
[2018-10-11] MEDS: FLUTICASONE PROPIONATE 16 GM BOTTLE NS SCH (09:13)
[2018-10-11] MEDS: KETOROLAC EYE 0.5% 3 ML BOTTLE OP SCH ×2 (09:13→17:22)
[2018-10-11] MEDS: ASPIRIN 325 MG TABLET PO SCH (09:14)
[2018-10-11] MEDS: AMLODIPINE BESYLATE 10 MG TABLET PO SCH (09:14)
[2018-10-11] MEDS: CLONIDINE HCL 0.1 MG TABLET PO SCH ×3 (09:14→17:39)
[2018-10-11] MEDS: DULOXETINE HCL 30 MG CAPSULE.DR PO SCH (09:15)
[2018-10-11] MEDS: ZINC SULFATE 220 MG CAPSULE PO SCH (09:15)
[2018-10-11] MEDS: MAGNESIUM OXIDE 400 MG TABLET PO SCH (09:15)
[2018-10-11] MEDS: CHOLECALCIFEROL (VITAMIN D 3) 400 UNIT TABLET PO SCH (09:15)
[2018-10-11] MEDS: DOCUSATE SODIUM 100 MG CAPSULE PO SCH ×2 (09:15→17:39)
[2018-10-11] MEDS: FOLIC ACID 1 MG TABLET PO SCH (09:15)
[2018-10-11] MEDS: hydrALAZINE HCL 50 MG TABLET PO SCH ×3 (09:15→17:39)
[2018-10-11] MEDS: VIT B CMPLX 3/FA/VIT C/BIOTIN 1 TAB TABLET PO SCH (09:32)
--- NOTE | 2018-10-11 09:40 | NUR ---
WINDSHIELD TECHNICIAN NOTE SEEN AND EXAMINED BY CONTACT LENS BLOCKER AND CUTTER DAWSON, INFORMED BROTHER WANTS TO SPEAK WITH HIM.
--- NOTE | 2018-10-11 11:10 | NUR ---
VICE PRESIDENT COMPLIANCE NOTE SEEN AND EXAMINED BY DR. JOLLEY
[2018-10-11] MEDS: ONDANSETRON HCL/PF 4 MG/2 ML VIAL IVP PRN ×2 (11:16→17:22)
--- NOTE | 2018-10-11 11:17 | NUR ---
ESCALATOR OPERATOR NOTE PATIENT HAD ONE EPISODE OF EMESIS AFTER BREATHING TREATMENT. STILL FEELS NAUSEOUS, PRN ZOFRAN GIVEN. WILL CONTINUE TO MONITOR.
[2018-10-11] MEDS: CEFTRIAXONE 1 G in IV D5W 50 ML IV SCH (11:30)
--- NOTE | 2018-10-11 12:10 | NUR ---
WRAPPER DIPPER NOTE CALLED DIALYSIS NURSE RELL TO CONFIRM WHEN DIALYSIS WILL BE DONE. DIALYSIS WILL BE DONE TOMORROW.
--- NOTE | 2018-10-11 12:14 | NUR ---
VICE PRESIDENT BUSINESS DEVELOPMENT NOTE INFORMED PROFESSIONAL SKATER AASHISH REGARDING PATIENT REQUEST TO ADVANCE DIET AND PATIENT HAS BEEN HAVING SOFT BOWEL MOVEMENT. PER DARON OK TO ADVANCE DIET TO [facility] SOFT. NOTED AND CARRIED OUT.
[2018-10-11] MEDS: AZITHROMYCIN 500 MG in IV D5W 250 ML IV SCH (12:39)
[2018-10-11] MEDS: LABETALOL HCL (100MG) 100 MG TABLET PO SCH ×3 (12:52→17:39)
--- NOTE | 2018-10-11 13:30 | NUR ---
NAPPING MACHINE OPERATOR NOTE PATIENT REFUSED RENVELA AND LABETOLOL AT THIS TIME. STATES SHE FEELS NAUSEOUS AT THIS TIME. WILL CONTINUE TO MONITOR.
[2018-10-11] MEDS: SOD FERRIC GLUC 125 MG in IV NS 0.9% 100 ML IV SCH (15:11)
[2018-10-11] MEDS: OLOPATADINE HCL 0.1% OPHTH BOTTLE OP SCH (17:22)
[2018-10-11] MEDS: LamoTRIgine 100 MG TABLET PO SCH (17:39)
[2018-10-11] MEDS: QUETIAPINE FUMARATE 100 MG TABLET PO SCH (17:39)
--- NOTE | 2018-10-11 18:32 | NUR ---
FACTORY MAINTENANCE TECHNICIAN NOTE PATIENT C/O NAUSEA, PRN ZOFRAN WAS GIVEN, NAUSEA SLOWLY GOING AWAY, CAREGIVER SLOWLY FEEDING PATIENT REQUESTED BY PATIENT AT THIS TIME. WILL CONTINUE TO MONITOR.
--- NOTE | 2018-10-11 18:48 | NUR ---
FRAME WELDER CARGO UTILITY TRAILERS CLOSING NOTE INFORMED PATIENT AND CAREGIVER ABOUT TRANSFERRING OUT OF ICU. PATIENT STATES HER NAUSEA HAS SUBSIDED. NO C/O PAIN OR DISCOMFORT. NO C/O SOB. SKIN WARM AND DRY TO TOUCH. ALL DUE MEDS GIVEN. ALL NEEDS ANTICIPATED AND MET. KEPT CLEAN AND DRY. SEEN AND EXAMINED BY GI SCHOOL PATROL AASHISH. SIDE RAILS UP AND LOCKED. BED KEPT AT LOWEST POSITION. CALL LIGHT KEPT WITHIN EASY REACH. WILL ENDORSE CONTINUITY OF CARE TO PM NURSE.
--- NOTE | 2018-10-11 19:37 | NUR ---
ICU/BINDERY LIBRARY TECHNICAL ASSISTANT PT IS TRANSFERRED TO ROOM 117-1 WITH MONITOR AND ACLS PRECAUTIONS. REPORT WAS GIVEN TO NIGHT NURSE
[2018-10-11] MEDS: ATORVASTATIN 10 MG TABLET PO SCH (22:00)
[2018-10-11] MEDS: DOXAZOSIN MESYLATE (1 MG) 1 MG TABLET PO SCH (22:00)
[2018-10-12] VITALS: BP 115/52
[2018-10-12] MEDS: IPRATROPIUM NEB FS 0.5 MG/2.5 ML AMPUL.NEB NEB SCH ×7 (03:07→22:55)
[2018-10-12] MEDS: MAGNESIUM HYDROXIDE 30 ML UDC PO PRN (03:29)
[2018-10-12] MEDS: MAG HYDROX/AL HYDROX/SIMETH 30 ML UDC PO PRN (03:35)
[2018-10-12 04:00] VITALS: BP 137/68
--- NOTE | 2018-10-12 05:30 | NUR ---
RN NOTES' RECEIVED PT. FROM ANOTHER NURSE, AWAKE, NOT IN DISTRESS, CAREGIVER AT BEDSIDE, NO PAIN NOTED, CALL LIGHT FANNY SANTANA, SIDERAILSUPX2, CONTINUE TO MONITOR
--- NOTE | 2018-10-12 06:39 | NUR ---
RN NOTES' GOT AN ORDEROM MOHIT EM-DOROTHY, GAS X 1 TAB PO PRN , ORDER NOTED AND CARRIED OUT
--- NOTE | 2018-10-12 06:49 | NUR ---
RN NOTES AWAKE, MORNING CARE RENDERED, PT. NEEDS ATTENDED
[2018-10-12 07:05] LABS: BASOPHILS % (AUTO) 0.7 % (0.0-2.0); EOSINOPHILS % (AUTO) 3.1 % (0.0-6.0); HEMATOCRIT 23 % (33-45); HEMOGLOBIN 7.5 g/dL (11.5-14.8); LYMPHOCYTES # (AUTO) 0.5 /CMM (0.8-4.8); LYMPHOCYTES % (AUTO) 13.2 % (20.0-44.0); MEAN CORPUSCULAR HGB CONC 33 g/dl (31.0-36.0); MEAN CORPUSCULAR VOLUME 110 fL (82-100); MONOCYTES # (AUTO) 0.4 /CMM (0.1-1.30); MONOCYTES % (AUTO) 10.3 % (2.0-12.0); NEUTROPHILS # (AUTO) 2.7 /CMM (1.8-8.9); NEUTROPHILS % (AUTO) 72.7 % (43.0-81.0); PLATELET COUNT (AUTO) 252 /CMM (150-450); RED BLOOD CELL COUNT(AUTO) 2.07 MIL/uL (4.0-5.2); WHITE BLOOD COUNT (AUTO) 3.7 K/uL (4.3-11.0)
--- NOTE | 2018-10-12 07:15 | NUR ---
RN OPENING NOTES PATIENT IN BED AWAKE AND ALERT. DIALYSIS NURSE AT BEDSIDE SETTING UP THE DIALYSIS MACHINE. PER NOC SHIFT, PATIENT IS ALERT, BUT FORGETFUL. HAS A 24H CUTTING TORCH OPERATOR AT BEDSIDE. ON 2L NC, SATING WELL >90%. HAS A RIGHT FA #20 SL. AND LEFT UA FISTULA. PATIENT IS S/P THORACENTESIS ON 10/10. AND WAS DOWNGRADED FROM ICU THIS MORNING. NO COMPLAINS OF ANY PAIN OR SOB. BED LOCKED AND IN LOWEST POSITION. CALL LIGHT WITHIN REACH. WILL CONT TO MONITOR.
[2018-10-12 07:26] LABS: CALCIUM, SERUM 8.9 mg/dL (8.5-10.1); CREATININE 3.6 mg/dL (0.6-1.3); POTASSIUM 5.5 mmol/L (3.5-5.1)
[2018-10-12 08:00] VITALS: BP 136/70
[2018-10-12] MEDS: SEVELAMER CARBONATE 800 MG TABLET PO SCH ×3 (08:00→17:13)
--- NOTE | 2018-10-12 08:23 | NUR ---
RN NOTES CANDICE STEELE PHOS IS LOW 2.0 WILL ADMINISTER MEDS IN AN HOUR, PATIENT'S HAVING DIALYSIS AT THIS TIME
[2018-10-12 08:54] LABS: BAND % (MANUAL) 1 % (0.0-5.0); EOSINOPHILS % (MANUAL) 2 % (0-4); LYMPHOCYTES % (MANUAL) 10 % (16-48); MONOCYTES % (MANUAL) 9 % (0-11.0); NEUTROPHILS % (MANUAL) 78 (42-76)
[2018-10-12] MEDS: ASPIRIN EC 81 MG TABLET.DR PO SCH (09:30)
[2018-10-12] MEDS: LEVOTHYROXINE INJ 100 MCG VIAL IV SCH (09:30)
[2018-10-12] MEDS: FOLIC ACID 1 MG TABLET PO SCH (09:30)
[2018-10-12] MEDS: SIMETHICONE 80 MG TAB.CHEW PO PRN (09:30)
[2018-10-12] MEDS: VIT B CMPLX 3/FA/VIT C/BIOTIN 1 TAB TABLET PO SCH (09:30)
[2018-10-12] MEDS: MAGNESIUM OXIDE 400 MG TABLET PO SCH (09:30)
[2018-10-12] MEDS: CHOLECALCIFEROL (VITAMIN D 3) 400 UNIT TABLET PO SCH (09:30)
[2018-10-12] MEDS: ZINC SULFATE 220 MG CAPSULE PO SCH (09:30)
[2018-10-12] MEDS: DOCUSATE SODIUM 100 MG CAPSULE PO SCH ×2 (09:30→16:06)
[2018-10-12] MEDS: DULOXETINE HCL 30 MG CAPSULE.DR PO SCH (09:30)
[2018-10-12] MEDS: FLUTICASONE PROPIONATE 16 GM BOTTLE NS SCH (09:31)
[2018-10-12] MEDS: OLOPATADINE HCL 0.1% OPHTH BOTTLE OP SCH ×2 (09:31→16:07)
[2018-10-12] MEDS: KETOROLAC EYE 0.5% 3 ML BOTTLE OP SCH ×2 (09:31→16:07)
[2018-10-12] MEDS: AZELASTINE NASAL SPRAY 30 ML BOTTLE NS SCH (09:31)
[2018-10-12] MEDS: CLONIDINE HCL 0.1 MG TABLET PO SCH ×3 (09:37→16:06)
[2018-10-12] MEDS: AMLODIPINE BESYLATE 10 MG TABLET PO SCH (09:37)
[2018-10-12] MEDS: hydrALAZINE HCL 50 MG TABLET PO SCH ×3 (09:37→16:06)
[2018-10-12] MEDS: LABETALOL HCL (100MG) 100 MG TABLET PO SCH ×3 (09:37→16:06)
[2018-10-12] MEDS: CEFTRIAXONE 1 G in IV D5W 50 ML IV SCH (11:31)
[2018-10-12] MEDS: AZITHROMYCIN 500 MG in IV D5W 250 ML IV SCH (12:09)
--- NOTE | 2018-10-12 12:33 | NUR ---
ECHO STUDY SHOWED EF 60%~ W/ MODERATE TO LARGE CIRCUMFERENTIAL PERICARDIAL EFFUSION WITH LARGE LEFT PLEURAL EFFUSION. ADVSD CHARGE NURSE AND DR MASON OF RESULTS
[2018-10-12] MEDS: ONDANSETRON HCL/PF 4 MG/2 ML VIAL IVP PRN (12:34)
[2018-10-12] MEDS ORDERED: PEG 3350/NA SULF,BICARB,CL/KCL 4,000 ML BOTTLE PO ONE (15:00)
[2018-10-12] MEDS ORDERED: MAGNESIUM CITRATE 296 ML BOTTLE PO PRN (15:00)
[2018-10-12] MEDS ORDERED: MINERAL OIL 133 ML (PYXIS) 1 EA ENEMA RC ONE (15:00)
--- NOTE | 2018-10-12 15:18 | NUR ---
RN NOTES CALLED PHARMACY REGARDING FERRLECIT. WILL BRING DIDI EGD AND COLONOSCOPY SCHEDULED FOR MONDAY. MEDS TO BE GIVEN, PHARMACY AWARE. CONSENT PRINTED AND WILL BE SIGNED BY PATIENT
[2018-10-12] MEDS: SOD FERRIC GLUC 125 MG in IV NS 0.9% 100 ML IV SCH (15:55)
[2018-10-12 16:00] VITALS: BP 105/49
[2018-10-12] MEDS: QUETIAPINE FUMARATE 100 MG TABLET PO SCH (17:13)
[2018-10-12] MEDS: LamoTRIgine 100 MG TABLET PO SCH (17:14)
--- NOTE | 2018-10-12 18:39 | NUR ---
RN CLOSING NOTES PATIENT SITTING ON CHAIR, CAREGIVER AT BEDSIDE. ALERT AND ORIENTED X4. CONTINENT AND USES THE BEDSIDE COMMODE. PATIENT ANURIC, WENT TO URINATE ONCE. HAD DIALYSIS WITH 4L OUTPUT. ON CLEAR LIQUID DIET PER GI. PATIENT WILL HAVE COLONOSCOPY AND EGD ON MONDAY. CONSENT FORM SIGNED. PER DR MASON, DAILY HD UNTIL CXR CLEARS. GAVE GOLYTELY TO PATIENT, STARTING TO DRINK IT. BED LOCKED AND IN LOWEST POSITION. CALL LIGHT WITHIN REACH. WILL ENDORSE TO NOC SHIFT.
--- NOTE | 2018-10-12 19:34 | NUR ---
MS RN NOTES RECEIVED PT ON BED. WITH CAREGIVER AT BEDSIDE. A/O X 4 NO RESPIRATORY DISTRESS NOTED. IV ACCESS RFA G20 SL PATENT AND INTACT. HEAD OF BED ELEVATED. SIDE RAILS UP. CALL LIGHT WITHIN REACH. BED ALARM ON. WILL CONTINUE TO MONITOR PT CLOSELY.
[2018-10-12 20:00] VITALS: BP 131/63
[2018-10-12] MEDS: ATORVASTATIN 10 MG TABLET PO SCH (21:14)
[2018-10-12] MEDS: DOXAZOSIN MESYLATE (1 MG) 1 MG TABLET PO SCH (21:14)
--- NOTE | 2018-10-12 22:00 | NUR ---
MS RN NOTES PER AM RN, GIVE RC MED AFTER GOLYTELY IS FINISHED.
[2018-10-13] MEDS: IPRATROPIUM NEB FS 0.5 MG/2.5 ML AMPUL.NEB NEB SCH ×6 (03:14→23:26)
[2018-10-13 04:00] VITALS: BP 159/73
[2018-10-13 07:51] LABS: BASOPHILS % (AUTO) 0.9 % (0.0-2.0); HEMATOCRIT 25 % (33-45); HEMOGLOBIN 8.6 g/dL (11.5-14.8); LYMPHOCYTES # (AUTO) 0.5 /CMM (0.8-4.8); LYMPHOCYTES % (AUTO) 15.9 % (20.0-44.0); MEAN CORPUSCULAR HGB CONC 34 g/dl (31.0-36.0); MEAN CORPUSCULAR VOLUME 110 fL (82-100); MONOCYTES # (AUTO) 0.3 /CMM (0.1-1.30); MONOCYTES % (AUTO) 9.3 % (2.0-12.0); NEUTROPHILS # (AUTO) 2.3 /CMM (1.8-8.9); NEUTROPHILS % (AUTO) 69.9 % (43.0-81.0); PLATELET COUNT (AUTO) 266 /CMM (150-450); RED BLOOD CELL COUNT(AUTO) 2.31 MIL/uL (4.0-5.2); WHITE BLOOD COUNT (AUTO) 3.4 K/uL (4.3-11.0)
[2018-10-13 07:56] LABS: CALCIUM, SERUM 9.6 mg/dL (8.5-10.1); CREATININE 3.1 mg/dL (0.6-1.3)
[2018-10-13 08:00] VITALS: BP 152/74
[2018-10-13] MEDS: DOCUSATE SODIUM 100 MG CAPSULE PO SCH ×2 (08:27→17:14)
[2018-10-13] MEDS: CLONIDINE HCL 0.1 MG TABLET PO SCH ×3 (08:27→17:13)
[2018-10-13] MEDS: SEVELAMER CARBONATE 800 MG TABLET PO SCH ×4 (08:28→18:00)
[2018-10-13] MEDS: FOLIC ACID 1 MG TABLET PO SCH (08:29)
[2018-10-13] MEDS: ZINC SULFATE 220 MG CAPSULE PO SCH (08:29)
[2018-10-13] MEDS: ASPIRIN EC 81 MG TABLET.DR PO SCH (08:29)
[2018-10-13] MEDS: DULOXETINE HCL 30 MG CAPSULE.DR PO SCH (08:30)
[2018-10-13] MEDS: CHOLECALCIFEROL (VITAMIN D 3) 400 UNIT TABLET PO SCH (08:30)
[2018-10-13] MEDS: AMLODIPINE BESYLATE 10 MG TABLET PO SCH (08:31)
[2018-10-13] MEDS: hydrALAZINE HCL 50 MG TABLET PO SCH ×3 (08:32→17:14)
[2018-10-13] MEDS: MAGNESIUM OXIDE 400 MG TABLET PO SCH (08:33)
[2018-10-13] MEDS: VIT B CMPLX 3/FA/VIT C/BIOTIN 1 TAB TABLET PO SCH (08:33)
[2018-10-13] MEDS: LEVOTHYROXINE SODIUM 100 MCG TABLET PO SCH (08:33)
[2018-10-13] MEDS: LABETALOL HCL (100MG) 100 MG TABLET PO SCH ×3 (08:35→17:13)
[2018-10-13] MEDS: AZELASTINE NASAL SPRAY 30 ML BOTTLE NS SCH (08:37)
[2018-10-13] MEDS: FLUTICASONE PROPIONATE 16 GM BOTTLE NS SCH (08:39)
[2018-10-13] MEDS: KETOROLAC EYE 0.5% 3 ML BOTTLE OP SCH ×2 (08:40→17:20)
[2018-10-13] MEDS: OLOPATADINE HCL 0.1% OPHTH BOTTLE OP SCH ×2 (08:42→17:21)
[2018-10-13 09:00] LABS: BAND % (MANUAL) 3 % (0.0-5.0); EOSINOPHILS % (MANUAL) 4 % (0-4); LYMPHOCYTES % (MANUAL) 8 % (16-48); MONOCYTES % (MANUAL) 6 % (0-11.0); NEUTROPHILS % (MANUAL) 79 (42-76)
[2018-10-13] MEDS: CEFTRIAXONE 1 G in IV D5W 50 ML IV SCH (10:02)
[2018-10-13] MEDS: MAG HYDROX/AL HYDROX/SIMETH 30 ML UDC PO PRN (11:28)
[2018-10-13] MEDS: ACETYLCYSTEINE 10% SOLN 400 MG/4 ML VIAL NEB SCH ×3 (12:00→23:26)
--- NOTE | 2018-10-13 12:07 | NUR ---
MS RN NOTES REPORT GIVEN TO HERBERT MALDONADO FOR RICHARD.
--- NOTE | 2018-10-13 12:10 | NUR ---
MS RN NOTES RECEIVED PT MID SHIFT FROM HERBERT AGGARWAL. PATIENT ON BED AWAKE WITH CAREGIVER AT BEDSIDE. A/O X 4 NO, PAIN SOB OR ACUTE DISTRESS NOTED. RFA #20 INTACT AND PATENT. PATIENT ADHERING TO CLEAR LIQUID DIET ORDERED. HEAD OF BED ELEVATED. SIDE RAILS UP. BED IN LOW LOCKED POSITION, CALL LIGHT WITHIN REACH. BED ALARM ON. WILL CONTINUE TO MONITOR PT CLOSELY.
[2018-10-13] MEDS: AZITHROMYCIN 250 MG TABLET PO SCH (13:02)
[2018-10-13] MEDS: SOD FERRIC GLUC 125 MG in IV NS 0.9% 100 ML IV SCH (13:13)
[2018-10-13 16:00] VITALS: BP 145/75
[2018-10-13] MEDS: QUETIAPINE FUMARATE 100 MG TABLET PO SCH (17:11)
[2018-10-13] MEDS: LamoTRIgine 100 MG TABLET PO SCH (17:14)
--- NOTE | 2018-10-13 18:40 | NUR ---
MS RN NOTES PATIENT ADHERED TO PRE-OP CLEAR LIQUID DIET DURING DAY SHIFT. PATIENT APPROXIMATELY 2/3 FINISHED WITH GO-LYTELY SOLUTION. EGD AND COLONOSCOPY SCHEDULED FOR Monday10/15/18.
--- NOTE | 2018-10-13 18:59 | NUR ---
MS RN CLOSING NOTES PT IN BED AWAKE. A/O X 4 NO, PAIN, SOB OR ACUTE DISTRESS NOTED. RFA #20 INTACT AND PATENT. PATIENT ADHERING TO CLEAR LIQUID DIET ORDERED. HEAD OF BED ELEVATED. SIDE RAILS UP. BED IN LOW LOCKED POSITION, CALL LIGHT WITHIN REACH. BED ALARM ON. CARE ENDORSED TO DISABILITY COORDINATOR RN. .
--- NOTE | 2018-10-13 19:40 | NUR ---
MS/RN OPENING NOTES PT RECEIVED AWAKE, HOB ELEVATED FOR MAXIMUM LUNG EXPANSION. PT NOTED WITH SPO2 IN THE 80'S, PT ALERT AND ORIENTED C/O SOB. BREATHING IS EVEN AND UNLABORED. NASAL CANNULA NOTED TO BE DISCONNECTED FROM THE FLOW METER, INCREASED O2 TO 5L AND ENCOURAGED PT TO TAKE DEEP BREATHS. SPO2 INCREASED TO 93%, AND PT STATES SHE FEELS MUCH BETTER NOW. WILL TITRATE O2 PT TOLERATES. IV TO RFA PATENT AND INTACT AND JERRY FISTULA NOTED. NO NEEDS EXPRESSED AT THIS TIME. ENCOURAGED PT TO DRINK GOLYTELY, PLANNED EGD/COLONOSCOPY ON MONDAY, PT AWARE. BED IN LOW/LOCKED POSITION WITH CALL LIGHT IN REACH, BILAT. UPPER SIDE RAILS IN PLACE. WILL CONTINUE TO MONITOR
[2018-10-13 20:00] VITALS: BP 91/48
--- NOTE | 2018-10-13 20:10 | NUR ---
MS/RN NOTES AASHISH LINCOLN NP AT BEDSIDE TO ASSESS PT. WITH ORDERS FOR ANOTHER GOLYTELY JUG FOR TOMORROW IF SHE FINISHES HER CURRENT JUG TONIGHT. ORDERS NOTED AND WILL CARRY OUT.
[2018-10-13] MEDS: SIMETHICONE 80 MG TAB.CHEW PO PRN (21:48)
[2018-10-13] MEDS: ATORVASTATIN 10 MG TABLET PO SCH (21:48)
[2018-10-13] MEDS: DOXAZOSIN MESYLATE (1 MG) 1 MG TABLET PO SCH (21:56)
--- NOTE | 2018-10-13 22:15 | NUR ---
MS/RN NOTES NOTIFIED DOROTHY EM REGARDING PT C/O GAS PAIN. ABDOMEN IS DISTENDED, SOFT, NONTENDER. POSITIVE BOWEL SOUNDS. PT GIVEN 80MG OF SIMETHICONE AND PT IS REQUESTING FOR ANOTHER DOSE. INFORMED PT TO GIVE IT SOMETIME TO WORK. NO NEW ORDERS AT THIS TIME. WILL ENCOURAGE PT TO WALK.
[2018-10-13] MEDS ORDERED: PEG 3350/NA SULF,BICARB,CL/KCL 4,000 ML BOTTLE PO ONE (23:00)
--- NOTE | 2018-10-13 23:16 | NUR ---
MS/RN NOTES PT AMBULATED IN HALLWAY WITH WALKER AND STANDBY ASSIST AND PORTABLE O2. STEADY GAIT, NO C/O SOB. RETURNED TO ROOM AND SITTING IN THE CHAIR NOW, ALL LINENS CHANGED, NEW SOCKS PROVIDED. CALL LIGHT PLACED WITHIN REACH AND PT IS DRINKING GOLYTELY. NO ADDITIONAL NEEDS EXPRESSED AT THIS TIME. WILL CONTINUE TO MONITOR
--- NOTE | 2018-10-13 23:35 | NUR ---
MS/RN NOTES PT REFUSED BREATHING TX. RT AT BEDSIDE TO EXPLAIN MEDICATION ACTIONS. PT STATES IT SMELLS TERRIBLE AND DOES NOT WANT IT. ENCOURAGED ATROVENT ONLY SINCE MUCOMYST SMELLS UNPLEASANT HOWEVER PT STILL STRONGLY REFUSING BREATHING TX ALL TOGETHER. STATES SHE ALSO DOESNT WANT TO BE WAKEN UP IN THE MIDDLE OF THE NIGHT FOR BREATHING TX. PT IS NO IN RESPIRATORY DISTRESS, NO SOB. SPO2 94% ON 3L O2.
[2018-10-14] MEDS ORDERED: PEG 3350/NA SULF,BICARB,CL/KCL 4,000 ML BOTTLE ONE (00:43)
--- NOTE | 2018-10-14 02:00 | NUR ---
MS/RN NOTES PT ASLEEP, IN NO ACUTE RESPIRATORY DISTRESS. NO SOB NOTED. BREATHING EVEN AND UNLABORED. HOB ELEVATED.
[2018-10-14] MEDS: IPRATROPIUM NEB FS 0.5 MG/2.5 ML AMPUL.NEB NEB SCH ×5 (03:30→20:08)
[2018-10-14 04:00] VITALS: BP 138/62
--- NOTE | 2018-10-14 06:30 | NUR ---
MS/RN NOTES DIALYSIS NURSE AT BEDSIDE.
[2018-10-14 06:47] LABS: BASOPHILS % (AUTO) 1.3 % (0.0-2.0); EOSINOPHILS % (AUTO) 2.9 % (0.0-6.0); HEMATOCRIT 23 % (33-45); HEMOGLOBIN 7.6 g/dL (11.5-14.8); LYMPHOCYTES # (AUTO) 0.5 /CMM (0.8-4.8); LYMPHOCYTES % (AUTO) 18.1 % (20.0-44.0); MEAN CORPUSCULAR HGB CONC 33 g/dl (31.0-36.0); MEAN CORPUSCULAR VOLUME 110 fL (82-100); MONOCYTES # (AUTO) 0.3 /CMM (0.1-1.30); MONOCYTES % (AUTO) 10.7 % (2.0-12.0); NEUTROPHILS # (AUTO) 1.9 /CMM (1.8-8.9); PLATELET COUNT (AUTO) 228 /CMM (150-450); RED BLOOD CELL COUNT(AUTO) 2.08 MIL/uL (4.0-5.2); WHITE BLOOD COUNT (AUTO) 2.8 K/uL (4.3-11.0)
[2018-10-14 06:52] LABS: CALCIUM, SERUM 9.3 mg/dL (8.5-10.1); CREATININE 3.7 mg/dL (0.6-1.3); POTASSIUM 5.3 mmol/L (3.5-5.1)
--- NOTE | 2018-10-14 06:54 | NUR ---
MS/RN CLOSING NOTES PT AWAKE, RESTING IN BED. DIALYSIS ONGOING. ON 2L O2 VIA NC, BREATHING EVEN AND UNLABORED. DENIES SOB AND PAIN AT THIS TIME. NO C/O GAS PAIN AFTER SIMETHICONE AND AMBULATING IN HALLWAY WITH WALKER X2. NO N/V. USING BSC WITH ASSIST. STOOL COLLECTED AND SENT TO LAB. SECOND JUG OF GOLYTELY ENCOURAGED, PT STILL WITH LOOSE BROWN STOOL. JERRY AV FISTULA WITH POSITIVE BRUITT/THRILL. RFA PATENT AND INTACT. NO C/O SOB AT THIS TIME. CONSENTS SIGNED FOR EGD/COLONOSCOPY AND PLACED IN THE CHART. CHECKLIST TO BE COMPLETED. NO SIGNIFICANT CHANGES OVERNIGHT. ALL NEEDS MET AND ANTICIPATED. BED REMAINS IN LOW/LOCKED POSITION WITH CALL LIGHT IN REACH. HOB ELEVATED AND BILAT. UPPER SIDE RAILS IN PLACE WITH BED ALARM ON. WILL ENDORSE TO DAY SHIFT RN RICHARD.
[2018-10-14] MEDS: ACETYLCYSTEINE 10% SOLN 400 MG/4 ML VIAL NEB SCH ×3 (07:35→23:30)
--- NOTE | 2018-10-14 07:35 | NUR ---
RN NOTES RECEIVED PATIENT AWAKE, ALERT AND ABLE TO MAKE NEEDS KNOWN. NO PAIN OR ACUTE DISTRESS AT THIS TIME. RESPIRATION EVEN AND UNLABORED. SKIN IS DRY WARM TO TOUCH. PATIENT ON O2 THERAPY VIA NASAL CANNULA ABLE TO TOLERATE WELL. SAT AT 97%. PATIENT IS CURRENTLY BEING DIALIZED AT BEDSIDE. PATIENT ABLE TO TOLERATE IT WELL. IV TO RFA PATENT AND INTACT AND JERRY FISTULA NOTED. NO S/S OF INFECTION OR INFILTRATION. ENCOURAGED PT TO DRINK GOLYTELY, PLACED TO THE COMMODE IF NEEDED. PLANNED EGD/COLONOSCOPY ON MONDAY, PT AWARE. ALL NEEDS ANTICIPATED. KEPT CLEAN AND DRY. CALL LIGHT WITHIN REACHED. BED LOCKED AND IN LOWEST POSITION. SAFETY MAINTAINED. PLAN OF CARE DISCUSSED. WILL CONTINUE TO MONITOR.
[2018-10-14 08:00] VITALS: BP 142/55
[2018-10-14] MEDS: SEVELAMER CARBONATE 800 MG TABLET PO SCH ×4 (08:00→17:58)
--- NOTE | 2018-10-14 08:00 | NUR ---
RN NOTES WAS INFORMED BY THE PERSON THAT WAS DOING THE CXR THAT THE PATIENT REFUSED THE CXR AT THIS TIME. EXPLAINED RISK AND BENEFITS X3. STILL REFUSED. WILL CONTINUE TO MONITOR.
--- NOTE | 2018-10-14 08:08 | NUR ---
PT REFUSED AM CXR, HER NURSE WAS NOTIFIED.
[2018-10-14 08:19] LABS: OCCULT BLOOD STOOL NEGATIVE (NEGATIVE)
[2018-10-14] MEDS: DOCUSATE SODIUM 100 MG CAPSULE PO SCH ×2 (08:24→17:57)
[2018-10-14] MEDS: CHOLECALCIFEROL (VITAMIN D 3) 400 UNIT TABLET PO SCH (08:24)
[2018-10-14] MEDS: DULOXETINE HCL 30 MG CAPSULE.DR PO SCH (08:24)
[2018-10-14] MEDS: ASPIRIN EC 81 MG TABLET.DR PO SCH (08:24)
[2018-10-14] MEDS: LEVOTHYROXINE SODIUM 100 MCG TABLET PO SCH (08:25)
[2018-10-14] MEDS: VIT B CMPLX 3/FA/VIT C/BIOTIN 1 TAB TABLET PO SCH (08:25)
[2018-10-14] MEDS: MAGNESIUM OXIDE 400 MG TABLET PO SCH (08:25)
[2018-10-14] MEDS: ZINC SULFATE 220 MG CAPSULE PO SCH (08:25)
[2018-10-14] MEDS: FOLIC ACID 1 MG TABLET PO SCH (08:25)
[2018-10-14] MEDS: AZELASTINE NASAL SPRAY 30 ML BOTTLE NS SCH (08:26)
[2018-10-14] MEDS: FLUTICASONE PROPIONATE 16 GM BOTTLE NS SCH (08:26)
[2018-10-14] MEDS: OLOPATADINE HCL 0.1% OPHTH BOTTLE OP SCH ×2 (08:27→17:57)
[2018-10-14] MEDS: KETOROLAC EYE 0.5% 3 ML BOTTLE OP SCH ×2 (08:27→17:57)
[2018-10-14] MEDS: AMLODIPINE BESYLATE 10 MG TABLET PO SCH (08:44)
[2018-10-14] MEDS: hydrALAZINE HCL 50 MG TABLET PO SCH ×3 (08:44→17:00)
[2018-10-14] MEDS: CLONIDINE HCL 0.1 MG TABLET PO SCH ×3 (08:44→17:57)
[2018-10-14] MEDS: LABETALOL HCL (100MG) 100 MG TABLET PO SCH ×3 (08:45→17:00)
--- NOTE | 2018-10-14 08:45 | NUR ---
RN NOTES MORNING BLOOD PRESSURE MEDICATIONS HELD DUE TO PATIENT CURRENT[facility] BE[facility] AT [facility]. DIALYSIS NURSE AT BEDSIDE. PATIENT REMAINS IN STABLE CONDITION. WILL CONTINUE TO MONITOR.
[2018-10-14 09:20] LABS: EOSINOPHILS % (MANUAL) 2 % (0-4); LYMPHOCYTES % (MANUAL) 13 % (16-48); MONOCYTES % (MANUAL) 6 % (0-11.0); NEUTROPHILS % (MANUAL) 79 (42-76)
[2018-10-14] MEDS: CEFTRIAXONE 1 G in IV D5W 50 ML IV SCH (11:23)
[2018-10-14] MEDS: SIMETHICONE 80 MG TAB.CHEW PO PRN (12:05)
[2018-10-14] MEDS: AZITHROMYCIN 250 MG TABLET PO SCH (12:05)
--- NOTE | 2018-10-14 13:24 | NUR ---
RN NOTES MEDICATION RENAGEL WAS NOT GIVEN, PATIENT REFUSED X3. EXPLAINED RISK AND BENEFITS. STILL REFUSED. PATIENT REMAINS IN STABLE CONDITION. WILL CONTINUE TO MONITOR.
[2018-10-14] MEDS ORDERED: BISACODYL (5 MG) 5 MG TABLET.DR PO PRN (13:30)
[2018-10-14] MEDS: SOD FERRIC GLUC 125 MG in IV NS 0.9% 100 ML IV SCH (14:08)
[2018-10-14 16:00] VITALS: BP_SYST 133; BP_SYST 97; BP_DIAS 52; BP_DIAS 59
[2018-10-14] MEDS: QUETIAPINE FUMARATE 100 MG TABLET PO SCH (17:57)
[2018-10-14] MEDS: LamoTRIgine 100 MG TABLET PO SCH (17:57)
--- NOTE | 2018-10-14 18:07 | NUR ---
RN NOTES MEDICATION HYDRAZALINE AND LABETALOL WAS HELD DUE TO HR OF 54. PATIENT REMAINS IN STABLE CONDITION. WILL CONTINUE TO MONITOR.
--- NOTE | 2018-10-14 19:02 | NUR ---
RN CLOSING NOTES PATIENT CONTINUES TO REMAIN IN STABLE CONDITION. PROVIDED COMFORT AND SAFETY. NO PAIN OR ACUTE DISTRESS AT THIS TIME. RESPIRATION EVEN AND UNLABORED. SKIN IS DRY WARM TO TOUCH. IV ACCESS ON RFA INTACT AND PATENT. FLUSHING WELL. NO S/S OR INFECTION OR INFILTRATION. CONTINUE TO ENCOURAGE PATIENT TO DRINK HER GOLITELY. PATIENT WAS ABLE TO TOLERATE IT WELL. PATIENT WELL AWARE OF HER PROCEDURE TOMORROW. PATIENT WAS ABLE TO TOLERATE MEDS WELL. NO ADVERSE REACTIONS AT THIS TIME. ALL NEEDS ANTICIPATED. KEPT CLEAN AND DRY. CALL LIGHT WITHIN REACHED. PLAN OF CARE DISCUSSED. WILL CONTINUE TO MONITOR. ENDORSED TO PM NURSE FOR RICHARD.
--- NOTE | 2018-10-14 19:55 | NUR ---
RN INITIAL NOTES: RECEIVED REPORT FROM MARZENA GODINEZ. PT IN BED, AWAKE, A/O X3 ON 4L OXYGEN VIA NC. PT VERY PARTICULAR AND SPECIFIC, PER REPORT FROM DAY SHIFT. IV ACCESS PATENT AND FLUSHING WELL, ON HL. JERRY HD ACCESS IN PLACED. NO ACTIVE BLEEDING NOTED ON ARM. PT ON PREP, DRINKING GOLYTELY, FOR EGD AND COLONOSCOPY TOMORROW PER DIE PRESS OPERATOR AASHISH, CONSENT SECURED BY DAY RN. PT BEEN PREP FOR 2DAYS.? DISCUSSED PLAN OF CARE TO PT. SAFETY PRECAUTIONS FOR FALL INITIATED, CALL LIGHT IN REACH, WILL CONTINUE MONITORING PT.
[2018-10-14 20:00] VITALS: BP 147/65
--- NOTE | 2018-10-14 20:54 | NUR ---
RN NOTES: PT STATED SHE SPOKED WITH HIPOLITO DE LA CRUZ AND INFORMED SHE'S GOING TO RECEIVE ENEMA TONIGHT, BUT NO ORDERS IN CHART NOTED, EVEN ON GI'S NOTES. MEDICATION FOR PO AND SUPPOSIROTY IN CASE PT ISN'T CLEAR YET FOR PROCEDURE IN AM ARE POSTED IN ER, BUT PT DOESNT WANT IT, CONTACTED AASHISH DE LA CRUZ RELAYED SITUATION. AWAITING RESPONSE.
[2018-10-14] MEDS ORDERED: NA PHOS,M-B/NA PHOS,DI-BA 1 EA ENEMA RC STA (21:21)
--- NOTE | 2018-10-14 21:38 | NUR ---
RN NOTES: TRANSFERRED PT TO ROOM 120-1 WITH ALL BELONGINGS SENT WITH PT UPON TRANSFER. NOW PT WILL RECEIVED FLEET ENEMA REQUESTED BY PT
--- NOTE | 2018-10-14 21:58 | NUR ---
RN NOTES: PER PT SHE'S ALREADY EXHAUSTED WITH EVERYTHING GOING ON, JUST BY TAKING GOLYTELEY AND HAVE BEEN PREP FOR 2 DAYS, NOW ENEMA AND OTHER PO LAXATIVES,. PRIVACY ATTORNEY MADE AWARE. JUST FINISHED GIVING ENEMA (1) AND PER PT SHE WANTS TO HOLD OFF FROM THE OTHER ONE BECAUSE SHE WANTS TO KNOW FIRST IF SHE CAN BE CLEAR WITH ONE ENEMA, WILL MONITOR PT'S STOOL. SITTER AT BED SIDE. DOROTHY ZENDEJAS MADE AWARE OF PT'S BEHAVIOR AND RESPONSE, SITUATION
[2018-10-14] MEDS ORDERED: Z GUARD REMEDY 4 OZ OINT TP ONE (22:23)
[2018-10-14] MEDS ORDERED: Z GUARD REMEDY 4 OZ OINT TP PRN (22:30)
[2018-10-14 23:06] VITALS: BP 165/79
[2018-10-14] MEDS: DOXAZOSIN MESYLATE (1 MG) 1 MG TABLET PO SCH (23:07)
[2018-10-14] MEDS: ATORVASTATIN 10 MG TABLET PO SCH (23:07)
--- NOTE | 2018-10-14 23:08 | NUR ---
rn notes: offered bisacodyl dulcolax po but pt refused, also pt refused the other enema, education provided to pt, remelt furnace expediter made aware
[2018-10-15] MEDS: IPRATROPIUM NEB FS 0.5 MG/2.5 ML AMPUL.NEB NEB SCH ×7 (00:02→23:56)
--- NOTE | 2018-10-15 00:02 | NUR ---
RN NOTES: PT STATED SHE DOESNT WANT TO GO TO THE PROCEDURE IN AM, SHE SAID SHE'S WILLING TO TALK TO THE DOCTOR, SHE CLAIMED SHE'S TIRED OF GOING THRU ENEMA, GOLYTELY, AND SHE WILL JUST GO BACK TO REHAB IN AM, AND COME BACK OUTPT TO DO THE EGD COLONOSCOPY. ALSO SHE'S COMPLAINING OF SOB, RT AT BEDSIDE TO GIVE TREATMENT, ALSO PT WANTS HER DIALYSIS TO BE IN THE MORNING, AND WOULD LIKE TO EAT OATMEAL IN AM FOR BREAKFAST, ALL RELAYED TO IVÁN MCCURDY.
--- NOTE | 2018-10-15 00:15 | NUR ---
RN NOTES: BUILDING CONTRACTOR CALLI WENT TO SPEAK WITH THE PT, PT DECIDED TO NOT DO THE EGD AND COLONOSCOPY AND NOW REQUESTING TO EAT SHE CLAIMED SHE'S STARVING. ALSO PT HAS NO SCHEDULE HD TODAY BASED ON ORDER HISTORY IN CHART, NEPHRO FOLLOWING PT. PT KEPT CALLING [id number], COMPLAINING OF EVERYTHING, ASSIGNED RN AND BUILDING CONTRACTOR FOR TONIGHT KEPT GOING TO THE ROOM, ASSISTING PT, ANSWERING QUESTIONS AND CONCERN, EXPLAINING RISK AND BENEFITS, AND PT KEPT GOING ONTO SAME DISCUSSION/ISSUES OVER AGAIN.
--- NOTE | 2018-10-15 01:49 | NUR ---
RN NOTES: PT CALLED AGAIN AND WANTING TO HAVE HD IN EARLY AM, RELAYED TO STUDY LEAD CALLI, NO ORDERS FOR HD IN PT'S CHART,
[2018-10-15 03:54] LABS: ABG BASE EXCESS 3.9 mmol/L; ABG PCO2 47.6 mmHg (35.0-45.0); ABG PH 7.405 (7.350-7.450); ABG PO2 67.6 mmHg (75.0-100.0); AaDO2 133.9 mmHg; COHb 1.3 % (0.5-1.5); MetHb 0.7 % (0.0-1.5); O2Hb 89.2 % (94.0-97.0); SITE, ABG Left Radial; VENT MODE, BG Nasal Cannula
--- NOTE | 2018-10-15 03:58 | NUR ---
RN NOTES: RESULT OF ABG CAME BACK, PER RT NO INDICATIONS FOR BIPAP AT THIS TIME. PT IS ANXIOUS VS 96% ON 4L, STILL COMPLAINING SHE'S NOT FEELING WELL, AND WHAT SHE WANTED WAS HER DIALYSIS, NO ORDERS FOR HD NOTED, RELAYED TO MD SKI TOW OPERATOR, RELAYED SENIOR APPLICATION SOFTWARE ENGINEER CALLI, PT HAD DIALYSIS YESTERDAY 10/14 NO OUTPUT REMOVED, JUST CLEANING
[2018-10-15 04:00] VITALS: BP 184/80
--- NOTE | 2018-10-15 04:13 | NUR ---
RN NOTES: RELAYED PT'S REQUEST FOR ANXIETY PILL, AND REQUEST FOR HD, PER PROCESS SAFETY MANAGEMENT ENGINEER "HD CAN BE ORDER LATER THIS AM, AND PER PRN ANXIETY PILL, MD WILL PUT IN ORDER. ALSO PER MD TO MONITOR PT'S RESPIRATORY STATUS WHEN SLEEPING, CONNECT TO CONTINUOS PULSE OX.
--- NOTE | 2018-10-15 04:14 | NUR ---
RN NOTES: RELAYED PT'S REQUEST FOR ANXIETY PILL, AND REQUEST FOR HD, PER RETAIL FIELD REPRESENTATIVE "HD CAN BE ORDER LATER THIS AM, AND PER PRN ANXIETY PILL, MD WILL PUT IN ORDER. ALSO PER MD TO MONITOR PT'S RESPIRATORY STATUS WHEN SLEEPING, CONNECT TO CONTINUOS PULSE OX. ORDERED READ BACK AND VERIFIED, NOTED AND CARRIED OUT.
--- NOTE | 2018-10-15 04:20 | NUR ---
ONE TIME ORDER FOR XANAX: PT ANXIOUS, PER OKAY TO GIVE XANAX 1MG TAB PO, CONNECTED PT TO CONTINUOS PULSE OXIMETRY SPO2 NOW 97% ON 4L OXYGEN.
--- NOTE | 2018-10-15 04:25 | NUR ---
RN NOTES: NOTIFIED GI CURRICULUM DEVELOPER AASHISH FRASER THAT PT IS REFUSING EGD AND COLONOSCOPY
[2018-10-15] MEDS ORDERED: ALPRAZOLAM 1 MG TABLET PO ONE (04:30)
--- NOTE | 2018-10-15 05:28 | NUR ---
RN NOTES: PT REFUSED BP RECHECK STATED LET HER REST, EDUCATION PROVIDED TO PT. PT NOW CALM AND CONNECTED TO SPO2 MONITOR, SPO2 98%
--- NOTE | 2018-10-15 06:24 | NUR ---
RN NOTES: PT WROTE DOWN HER OWN MENU FOR EACH MEAL, CONTACTED DIETARY SPOKED WITH ROSIBEL RELAYED SITUATION, SENT PT'S OWN CHOICE OF MENU HANDED TO MS GLEASON.
--- NOTE | 2018-10-15 06:25 | NUR ---
RN NOTES: INFORMED MS GLEASON FROM DIETARY THAT PT CURRENTLY ON NPO SHE SUPPOSED TO GO FOR EGD COLONOSCOPY BUT SINCE SHE'S REFUSING TO DO IT AND REQUESTING IF SHE COULD EAT, PT WROTE DOWN HER OWN MENU FOR EACH MEAL. PT HANDWRITING IS NOT CLEAR AND DIFFICULT TO UNDERSTAND, ASSIGNED RN RE-WRITE WHAT PATIENT WISHES TO HAVE FOR EACH MEAL, READ BACK TO PT AND VERIFIED. PT AGREED EVERYTHING IS CORRECT. MARY ELLEN AGUAYO BROUGHT PAPER DOWN TO DIETARY AREA, CONTACTED MS GLEASON, STATED SHE RECEIVED THE PAPER.
--- NOTE | 2018-10-15 06:34 | NUR ---
RN CLOSING NOTES: PT REMAINS FIRM WITH HER DECISION OF NOT TO UNDERGO EGD AND COLONOSCOPY TODAY, EVEN WROTE DOWN HER WISHES TO HAVE FOR BREAKFAST. BASEBALL PITCHER CALLI SPOKED WITH PT TRY TO CONVINCE HER AND REEDUCATION PROVIDED, BUT PT STAND FIRM ON REFUSING FOR THE PROCEDURE. IV ACCESS REMAINS PATENT AND FLUSHING WELL, ON HL. BLE OFFLOADED. STOOL ISN'T CLEAR. VS REMAINS STABLE, NEEDS ATTENDED. SAFETY PRECAUTIONS FOR FALL INITIATED, CALL LIGHT IN REACH, WILL ENDORSE TO DAY RN FOR CONTINUITY OF CARE.
[2018-10-15 06:47] LABS: BASOPHILS % (AUTO) 1.5 % (0.0-2.0); EOSINOPHILS % (AUTO) 3.3 % (0.0-6.0); HEMATOCRIT 24 % (33-45); HEMOGLOBIN 8.2 g/dL (11.5-14.8); LYMPHOCYTES # (AUTO) 0.5 /CMM (0.8-4.8); LYMPHOCYTES % (AUTO) 19.2 % (20.0-44.0); MEAN CORPUSCULAR HGB CONC 34 g/dl (31.0-36.0); MEAN CORPUSCULAR VOLUME 109 fL (82-100); MONOCYTES # (AUTO) 0.3 /CMM (0.1-1.30); MONOCYTES % (AUTO) 9.9 % (2.0-12.0); NEUTROPHILS # (AUTO) 1.9 /CMM (1.8-8.9); NEUTROPHILS % (AUTO) 66.1 % (43.0-81.0); PLATELET COUNT (AUTO) 266 /CMM (150-450); RED BLOOD CELL COUNT(AUTO) 2.23 MIL/uL (4.0-5.2); WHITE BLOOD COUNT (AUTO) 2.8 K/uL (4.3-11.0)
[2018-10-15 07:15] LABS: CALCIUM, SERUM 9.1 mg/dL (8.5-10.1); POTASSIUM 3.6 mmol/L (3.5-5.1)
[2018-10-15 08:00] VITALS: BP 170/77
--- NOTE | 2018-10-15 08:00 | NUR ---
PATIENT HAS REFUSED TO CONTINUE HER BOWEL PREP FOR THE SCHEDULED PROCEDURES AND WANTS TO EAT, DESPITE EDUCATION ON THE RISKS. "I DON'T NEED A LECTURE, I WANT TO EAT OATMEAL, PEACHES AND NEPRO". LICENSING COORDINATOR AASHISH WITH GI AND LICENSING COORDINATOR TAINA OSMAN AWARE.
[2018-10-15] MEDS: ACETYLCYSTEINE 10% SOLN 400 MG/4 ML VIAL NEB SCH ×3 (08:25→23:30)
[2018-10-15] MEDS: LEVOTHYROXINE SODIUM 100 MCG TABLET PO SCH (12:05)
[2018-10-15] MEDS: LABETALOL HCL (100MG) 100 MG TABLET PO SCH ×3 (12:05→19:54)
[2018-10-15] MEDS: FOLIC ACID 1 MG TABLET PO SCH (12:05)
[2018-10-15] MEDS: CHOLECALCIFEROL (VITAMIN D 3) 400 UNIT TABLET PO SCH (12:05)
[2018-10-15] MEDS: ASPIRIN EC 81 MG TABLET.DR PO SCH (12:06)
[2018-10-15] MEDS: hydrALAZINE HCL 50 MG TABLET PO SCH ×3 (12:06→19:55)
[2018-10-15] MEDS: MAGNESIUM OXIDE 400 MG TABLET PO SCH (12:06)
[2018-10-15] MEDS: CLONIDINE HCL 0.1 MG TABLET PO SCH ×3 (12:06→19:55)
[2018-10-15] MEDS: AMLODIPINE BESYLATE 10 MG TABLET PO SCH (12:07)
[2018-10-15] MEDS: DULOXETINE HCL 30 MG CAPSULE.DR PO SCH (12:14)
[2018-10-15] MEDS: DOCUSATE SODIUM 100 MG CAPSULE PO SCH ×2 (12:14→19:53)
[2018-10-15] MEDS: SEVELAMER CARBONATE 800 MG TABLET PO SCH ×3 (12:22→19:54)
[2018-10-15] MEDS: CEFTRIAXONE 1 G in IV D5W 50 ML IV SCH (12:22)
[2018-10-15] MEDS: VIT B CMPLX 3/FA/VIT C/BIOTIN 1 TAB TABLET PO SCH (12:22)
[2018-10-15] MEDS: ZINC SULFATE 220 MG CAPSULE PO SCH (12:22)
[2018-10-15] MEDS: AZITHROMYCIN 250 MG TABLET PO SCH (12:22)
--- NOTE | 2018-10-15 13:00 | NUR ---
NO PROCEDURE TODAY PATIENT IS REFUSING. DIET ORDERED, TRAY AT BEDSIDE REQUESTED BY PATIENT. TUTORIAL LABORATORY SUPERVISOR TAINA OSMAN AWARE.
[2018-10-15] MEDS: ALPRAZOLAM 0.25 MG TABLET PO PRN ×2 (13:19→21:49)
[2018-10-15] MEDS: KETOROLAC EYE 0.5% 3 ML BOTTLE OP SCH ×2 (13:21→19:56)
[2018-10-15] MEDS: FLUTICASONE PROPIONATE 16 GM BOTTLE NS SCH (13:21)
[2018-10-15] MEDS: OLOPATADINE HCL 0.1% OPHTH BOTTLE OP SCH ×2 (13:21→19:56)
[2018-10-15] MEDS: AZELASTINE NASAL SPRAY 30 ML BOTTLE NS SCH (13:21)
--- NOTE | 2018-10-15 14:00 | NUR ---
REFUSED PICTURE OF SACRUM STATING SHE IS TOO SHORT OF BREATH Addendum: 10/15/18 at 1930 by LUBA DAMICO RN ENCOURAGED PATIENT TO TURN Q2HRS TO PREVENT SKIN BREAKDOWN. PATIENT ABLE TO TURN SELF.
[2018-10-15 16:00] VITALS: BP 110/82
--- NOTE | 2018-10-15 16:12 | NUR ---
PROOFER BLACK AND WHITE AT BEDSIDE. PATIENT'S BP BEFORE STARTING 143/65. A/OX4, NO SOB.
--- NOTE | 2018-10-15 18:31 | NUR ---
DIALYSIS COMPLETED. 2000 ML OUT. SBP 120'S PER [facility].
[2018-10-15] MEDS: QUETIAPINE FUMARATE 100 MG TABLET PO SCH (19:53)
[2018-10-15] MEDS: LamoTRIgine 100 MG TABLET PO SCH (19:55)
--- NOTE | 2018-10-15 20:00 | NUR ---
MS RN NOTE: PATIENT RESTING IN BED, NO ACUTE DISTRESS NOTED. BREATHING EVEN AND UNLABORED, NO SOB NOTED. IV TO RFA IN PLACE. HD SITE TO JERRY IN PLACE, NO BLEEDING NOTED. PATIENT JUST FINISHED HD WITH 20O0ML OUT. AFTERNOON MEDICATIONS GIVEN ORDERED. BED LOCKED AND IN LOWEST POSITION, CALL LIGHT IN REACH. WILL CONTINUE TO MONITOR.
[2018-10-15] MEDS: SIMETHICONE 80 MG TAB.CHEW PO PRN (20:12)
[2018-10-15 20:20] VITALS: BP 134/64
[2018-10-15] MEDS: SOD FERRIC GLUC 125 MG in IV NS 0.9% 100 ML IV SCH (20:37)
[2018-10-15] MEDS: ATORVASTATIN 10 MG TABLET PO SCH (21:49)
--- NOTE | 2018-10-15 21:55 | NUR ---
MS RN NOTE: PATIENT ANXIOUS AND REQUESTING FROM XANAX, XANAX 0.5MG ORAL GIVEN PER MD ORDER. WILL CONTINUE TO MONITOR.
[2018-10-15] MEDS: DOXAZOSIN MESYLATE (1 MG) 1 MG TABLET PO SCH (22:33)
[2018-10-16] MEDS: IPRATROPIUM NEB FS 0.5 MG/2.5 ML AMPUL.NEB NEB SCH ×5 (03:30→19:55)
[2018-10-16 04:30] VITALS: BP 142/67
[2018-10-16] MEDS: ALPRAZOLAM 0.25 MG TABLET PO PRN (05:45)
--- NOTE | 2018-10-16 06:15 | NUR ---
MS RN NOTE: PATIENT RESTING IN BED, NO ACUTE DISTRESS NOTED. BREATHING EVEN AND UNLABORED, NO SOB NOTED. IV TO RFA IN PLACE. HD SITE TO JERRY IN PLACE. PATIENT ANXIOUS AND REQUESTING MEDICATION, XANAX 0.5MG ORAL GIVEN PER MD ORDER. BED LOCKED AND IN LOWEST POSITION, CALL LIGHT IN REACH. WILL ENDORSE TO DAY NURSE TO CONTINUE WITH PLAN OF CARE.
--- NOTE | 2018-10-16 07:00 | NUR ---
MS RN OPENING NOTES RECEIVED PT LYING ON BED.ALERT/ORIENTED X3 WITH ANXIOUS BEHAVIOR.HEMODIALYSIS IS GOING ON.ON NC 4 L CONTINUOUSLY,NO SOB AND ACUTE DISTRESS NOTED FOR NOW.IV LINE IS ON RIGHT FA G20,SL AND LEFT UA FISTULA PRESENT.SITE IS CLEAN,DRY AND INTACT.SAFETY IS MAINTAINED AT ALL TIMES.BED IS IN LOW POSITION AND LOCKED.CALL LIGHT IS WITHIN REACH.WILL CONTINUE TO MONITOR THE PT CLOSELY.
[2018-10-16 07:09] LABS: BASOPHILS % (AUTO) 0.9 % (0.0-2.0); EOSINOPHILS % (AUTO) 4.7 % (0.0-6.0); HEMATOCRIT 24 % (33-45); HEMOGLOBIN 7.9 g/dL (11.5-14.8); LYMPHOCYTES # (AUTO) 0.6 /CMM (0.8-4.8); LYMPHOCYTES % (AUTO) 19.2 % (20.0-44.0); MEAN CORPUSCULAR HGB CONC 33 g/dl (31.0-36.0); MEAN CORPUSCULAR VOLUME 109 fL (82-100); MONOCYTES # (AUTO) 0.3 /CMM (0.1-1.30); MONOCYTES % (AUTO) 10.1 % (2.0-12.0); NEUTROPHILS % (AUTO) 65.1 % (43.0-81.0); PLATELET COUNT (AUTO) 261 /CMM (150-450); RED BLOOD CELL COUNT(AUTO) 2.18 MIL/uL (4.0-5.2); WHITE BLOOD COUNT (AUTO) 3.1 K/uL (4.3-11.0)
[2018-10-16] MEDS: ACETYLCYSTEINE 10% SOLN 400 MG/4 ML VIAL NEB SCH ×3 (07:19→23:30)
[2018-10-16 07:20] LABS: CALCIUM, SERUM 8.3 mg/dL (8.5-10.1); CREATININE 2.8 mg/dL (0.6-1.3); POTASSIUM 3.9 mmol/L (3.5-5.1)
[2018-10-16 08:00] VITALS: BP 147/72
[2018-10-16] MEDS: LEVOTHYROXINE SODIUM 100 MCG TABLET PO SCH (09:45)
[2018-10-16] MEDS: DULOXETINE HCL 30 MG CAPSULE.DR PO SCH (09:46)
[2018-10-16] MEDS: ASPIRIN EC 81 MG TABLET.DR PO SCH (09:46)
[2018-10-16] MEDS: DOCUSATE SODIUM 100 MG CAPSULE PO SCH ×2 (09:47→17:17)
[2018-10-16] MEDS: MAGNESIUM OXIDE 400 MG TABLET PO SCH (09:47)
[2018-10-16] MEDS: VIT B CMPLX 3/FA/VIT C/BIOTIN 1 TAB TABLET PO SCH (09:47)
[2018-10-16] MEDS: CHOLECALCIFEROL (VITAMIN D 3) 400 UNIT TABLET PO SCH (09:47)
[2018-10-16] MEDS: SEVELAMER CARBONATE 800 MG TABLET PO SCH ×3 (09:47→17:17)
[2018-10-16] MEDS: ZINC SULFATE 220 MG CAPSULE PO SCH (09:47)
[2018-10-16] MEDS: FOLIC ACID 1 MG TABLET PO SCH (09:47)
[2018-10-16] MEDS: KETOROLAC EYE 0.5% 3 ML BOTTLE OP SCH ×2 (09:48→17:15)
[2018-10-16] MEDS: OLOPATADINE HCL 0.1% OPHTH BOTTLE OP SCH ×2 (09:48→17:16)
[2018-10-16] MEDS: FLUTICASONE PROPIONATE 16 GM BOTTLE NS SCH (09:49)
[2018-10-16] MEDS: hydrALAZINE HCL 50 MG TABLET PO SCH ×3 (09:54→17:17)
[2018-10-16] MEDS: LABETALOL HCL (100MG) 100 MG TABLET PO SCH ×3 (09:55→17:16)
[2018-10-16] MEDS: CLONIDINE HCL 0.1 MG TABLET PO SCH ×3 (09:55→17:17)
[2018-10-16] MEDS: AZELASTINE NASAL SPRAY 30 ML BOTTLE NS SCH (10:05)
[2018-10-16] MEDS: AMLODIPINE BESYLATE 10 MG TABLET PO SCH (10:05)
[2018-10-16] MEDS: CEFTRIAXONE 1 G in IV D5W 50 ML IV SCH (11:37)
[2018-10-16] MEDS: AZITHROMYCIN 250 MG TABLET PO SCH (12:37)
[2018-10-16] MEDS: SIMETHICONE 80 MG TAB.CHEW PO PRN (14:42)
[2018-10-16 16:00] VITALS: BP 126/58
--- NOTE | 2018-10-16 16:00 | NUR ---
MS RN NOTES PT REFUSED TO GIVE CONSENT FOR CT ABDOMEN W CONTRAST FOR ABDOMINAL PAIN.DISTENTION.PT IS TELLING BEFORE GET SIGN SHE WANTS TO KNOW ABOUT THE CONTRAST IS DOING WELL FOR THE DIALYSIS.
--- NOTE | 2018-10-16 17:07 | NUR ---
MS RN NOTES PER PT REQUEST [facility]ERRY GROWER ANA Wells ORDERED PSYCH CONSULTATION FOR ANXIETY.NEW ORDERS NOTED AND CARRIED OUT.
[2018-10-16] MEDS: LACTOBACILLUS RHAMNOSUS GG 1 EACH CAP.SPRINK PO SCH (17:16)
[2018-10-16] MEDS: LamoTRIgine 100 MG TABLET PO SCH (17:16)
[2018-10-16] MEDS: QUETIAPINE FUMARATE 100 MG TABLET PO SCH (17:16)
--- NOTE | 2018-10-16 18:36 | NUR ---
MS RN CLOSING NOTES PT IS ON BED WITH O2 4L VIA NC CONTINUOUSLY,TOLERATING WELL.IV SITE IS CLEAN DRY AND INTACT.ALL DUE MEDS ARE GIVEN.RESPIRATION IS EVEN AND NONLABORED.ENDORSED TO STORE PERSON RN FOR RICHARD.
[2018-10-16 20:00] VITALS: BP 88/45
[2018-10-16] MEDS: ATORVASTATIN 10 MG TABLET PO SCH (21:03)
[2018-10-16] MEDS: DOXAZOSIN MESYLATE (1 MG) 1 MG TABLET PO SCH (21:03)
--- NOTE | 2018-10-16 22:30 | NUR ---
RN NOTES, endorsed patient in stable condition for continuation of care to [facility] espana.
--- NOTE | 2018-10-16 22:30 | NUR ---
RECEIVED REPORT FROM ELOISA GODINEZ,. PT STABLE AND COMFORTABLE, WILL CONTINUE CARE.
[2018-10-17] VITALS: BP 88/45
[2018-10-17] MEDS: IPRATROPIUM NEB FS 0.5 MG/2.5 ML AMPUL.NEB NEB SCH ×7 (00:16→22:40)
--- NOTE | 2018-10-17 06:18 | NUR ---
RN MS CLOSING NOTES PT REMAINS IN BED, AWAKE ALERT ORIENTEDX4, BREATHING EVEN AND UNLABORED ON ROOM AIR, NO SOB. NO COMPLAINT OF PAIN OR DISCOMFORT AT THIS TIME. R FA 20G. BED IN LOWEST LOCKED POSITION, CALL LIGHT WITHIN REACH AT ALL TIMES, MEPILEX PLACED ON THE SACRUM PER PT'S REQUEST. WILL ENDORSE TO DAY NURSE FOR RICHARD
[2018-10-17 06:56] LABS: BASOPHILS % (AUTO) 0.7 % (0.0-2.0); EOSINOPHILS % (AUTO) 5.1 % (0.0-6.0); HEMATOCRIT 23 % (33-45); HEMOGLOBIN 7.6 g/dL (11.5-14.8); LYMPHOCYTES # (AUTO) 0.6 /CMM (0.8-4.8); LYMPHOCYTES % (AUTO) 16.5 % (20.0-44.0); MEAN CORPUSCULAR HGB CONC 34 g/dl (31.0-36.0); MEAN CORPUSCULAR VOLUME 108 fL (82-100); MONOCYTES # (AUTO) 0.3 /CMM (0.1-1.30); NEUTROPHILS # (AUTO) 2.3 /CMM (1.8-8.9); NEUTROPHILS % (AUTO) 68.7 % (43.0-81.0); PLATELET COUNT (AUTO) 256 /CMM (150-450); RED BLOOD CELL COUNT(AUTO) 2.09 MIL/uL (4.0-5.2); WHITE BLOOD COUNT (AUTO) 3.4 K/uL (4.3-11.0)
[2018-10-17 07:07] LABS: CALCIUM, SERUM 8.3 mg/dL (8.5-10.1); CREATININE 3.6 mg/dL (0.6-1.3); POTASSIUM 4.5 mmol/L (3.5-5.1)
[2018-10-17] MEDS: ACETYLCYSTEINE 10% SOLN 400 MG/4 ML VIAL NEB SCH ×3 (07:35→22:41)
[2018-10-17 08:00] VITALS: BP 114/54
[2018-10-17] MEDS: KETOROLAC EYE 0.5% 3 ML BOTTLE OP SCH ×2 (08:24→16:19)
[2018-10-17] MEDS: OLOPATADINE HCL 0.1% OPHTH BOTTLE OP SCH ×2 (08:24→16:19)
[2018-10-17] MEDS: FOLIC ACID 1 MG TABLET PO SCH (08:25)
[2018-10-17] MEDS: FLUTICASONE PROPIONATE 16 GM BOTTLE NS SCH (08:25)
[2018-10-17] MEDS: VIT B CMPLX 3/FA/VIT C/BIOTIN 1 TAB TABLET PO SCH (08:25)
[2018-10-17] MEDS: AZELASTINE NASAL SPRAY 30 ML BOTTLE NS SCH (08:25)
[2018-10-17] MEDS: LEVOTHYROXINE SODIUM 100 MCG TABLET PO SCH (08:26)
[2018-10-17] MEDS: ZINC SULFATE 220 MG CAPSULE PO SCH (08:26)
[2018-10-17] MEDS: DOCUSATE SODIUM 100 MG CAPSULE PO SCH ×2 (08:26→16:18)
[2018-10-17] MEDS: CLONIDINE HCL 0.1 MG TABLET PO SCH ×3 (08:26→16:14)
[2018-10-17] MEDS: SEVELAMER CARBONATE 800 MG TABLET PO SCH ×3 (08:26→17:53)
[2018-10-17] MEDS: ASPIRIN EC 81 MG TABLET.DR PO SCH (08:26)
[2018-10-17] MEDS: CHOLECALCIFEROL (VITAMIN D 3) 400 UNIT TABLET PO SCH (08:27)
[2018-10-17] MEDS: DULOXETINE HCL 30 MG CAPSULE.DR PO SCH (08:27)
[2018-10-17] MEDS: LACTOBACILLUS RHAMNOSUS GG 1 EACH CAP.SPRINK PO SCH ×2 (08:27→16:18)
[2018-10-17] MEDS: LABETALOL HCL (100MG) 100 MG TABLET PO SCH ×4 (08:27→16:13)
[2018-10-17] MEDS: AMLODIPINE BESYLATE 10 MG TABLET PO SCH (08:27)
[2018-10-17] MEDS: MAGNESIUM OXIDE 400 MG TABLET PO SCH (08:27)
[2018-10-17] MEDS: hydrALAZINE HCL 50 MG TABLET PO SCH ×3 (08:28→16:14)
[2018-10-17 09:12] LABS: EOSINOPHILS % (MANUAL) 4 % (0-4); LYMPHOCYTES % (MANUAL) 19 % (16-48); MONOCYTES % (MANUAL) 6 % (0-11.0); NEUTROPHILS % (MANUAL) 71 (42-76)
[2018-10-17] MEDS ORDERED: CT SWABBABLE VALVE TRANS SET 1 EA INFUS.SET MC ONE (10:28)
[2018-10-17] MEDS ORDERED: IOHEXOL-300 100 ML VIAL IV ONE (10:28)
[2018-10-17] MEDS ORDERED: IV NS 0.9% 250 ML IV ONE (10:28)
[2018-10-17] MEDS: CEFTRIAXONE 1 G in IV D5W 50 ML IV SCH (11:14)
[2018-10-17] MEDS: AZITHROMYCIN 250 MG TABLET PO SCH (11:42)
--- NOTE | 2018-10-17 12:56 | NUR ---
RN NOTE PATIENT SCHEDULED FOR DIALYSIS, BLOOD PRESSURE MEDICATIONS HELD
[2018-10-17] MEDS ORDERED: PEG 3350/NA SULF,BICARB,CL/KCL 4,000 ML BOTTLE PO STA (13:59)
--- NOTE | 2018-10-17 14:37 | NUR ---
AT 1425 ATTEMPTED PROCEDURE, PATIENT STATED SHE HAS NOT SPOKEN TO DR. GERMAN, SHE WOULD LIKE TO SPEAK TO HIM BEFORE PROCEEDING WITH PROCEDURE. INFORMED CHARGE NURSE MARIA DE JESUS WILL F/U TOMORROW MORNING
--- NOTE | 2018-10-17 14:41 | NUR ---
PASTRY COOK HELPER AT BEDSIDE AND PATIENT WANTS TO TALK TO MUSIC JOURNALIST FIRST PRIOR TO THORACENTESIS ,PER DR. GERMAN HE WILL TALK TO PATIENT IN AM,AWARE THORACENTESIS ON HOLD FOR NOW.
[2018-10-17 16:00] VITALS: BP 115/55
[2018-10-17] MEDS: LamoTRIgine 100 MG TABLET PO SCH (16:18)
[2018-10-17] MEDS: QUETIAPINE FUMARATE 100 MG TABLET PO SCH (16:18)
--- NOTE | 2018-10-17 19:30 | NUR ---
MS RN NOTE FOLLOWED UP WITH PHARMACY ABOUT THE PATIENTS MISSING GOLYTELY, PATIENT WAS SUPPOSED TO START AT 1700. PHARMACY STATED THEY WILL BRING THE GOLYTELY TO THE MED ROOM.
[2018-10-17 19:50] VITALS: BP 112/45
--- NOTE | 2018-10-17 20:00 | NUR ---
MS RN NOTE MTLY JA.
--- NOTE | 2018-10-17 21:30 | NUR ---
MS RN NOTE KEY ATTENDANT AT BEDSIDE STARTING TREATMENT. UF GOAL IS 2700 ML
[2018-10-17] MEDS: DOXAZOSIN MESYLATE (1 MG) 1 MG TABLET PO SCH (22:00)
[2018-10-17] MEDS: ATORVASTATIN 10 MG TABLET PO SCH (22:00)
--- NOTE | 2018-10-17 22:35 | NUR ---
MS RN NOTE HOLD THE CARDURA PATIENT BP 128/56 WHILE ONE DIALYSIS PATIENT STILL HAD 2 L UF TO GO,FOR PATIENT SAFETY TO PREVENT HYPOTENSION, HOLDING CARDURA.
--- NOTE | 2018-10-17 23:39 | NUR ---
MS RN NOTE PATIENT COMPLETED DIALYSIS PATIENT BP STABLE 144/65 AFTER 300 ML RINSE BACK, AVF PATIENT BRUIT AND THRILL PRESENT NO S.S OF BLEEDING AT THIS TIME.
[2018-10-18] VITALS: BP 124/55
--- NOTE | 2018-10-18 01:30 | NUR ---
MS RN NOTE PATIENT COMPLETED ALL GOLYTELY AND WILL NPO FOR 8 HOURS BY 0930 THE TIME OF THE PROCEDURE.
[2018-10-18] MEDS: IPRATROPIUM NEB FS 0.5 MG/2.5 ML AMPUL.NEB NEB SCH ×6 (03:17→23:32)
[2018-10-18 04:00] VITALS: BP_SYST 154; BP_SYST 162; BP_DIAS 58; BP_DIAS 71
[2018-10-18] MEDS ORDERED: LEVOTHYROXINE SODIUM 100 MCG TABLET PO SCH (06:30)
--- NOTE | 2018-10-18 06:47 | NUR ---
MS RN NOTE PATIENT TOLERATED THE NIGHT WELL WITH MANY MULTIPLE BOWEL MOVEMENTS EXPECTED. ALL CONSENTS FOR R SIDED THORACENTESIS/ EGD/ COLONOSCOPY OBTAINED AND CHECKED FOR WILL ENDORSE POC TO AM FOR RICHARD.
[2018-10-18] MEDS: ACETYLCYSTEINE 10% SOLN 400 MG/4 ML VIAL NEB SCH ×3 (07:20→23:32)
[2018-10-18] MEDS: LEVOTHYROXINE SODIUM 100 MCG TABLET PO SCH (07:30)
--- NOTE | 2018-10-18 07:35 | NUR ---
RN OPENING NOTES RECEIVED PATIENT IN BED SLEEPING COMFORTABLY . EASILY AROUSABLE. PATIENT IS ALERT AND ORIENTED X3 WITH ANXIOUS BEHAVIOR. PATIENT ON NC 4 L CONTINUOUSLY, NO SOB. RESPIRATION EVEN AND UNLABORED. SKIN IS DRY WARM TO TOUCH. PATIENT NOTED WITH IV ACCESS ON RIGHT FA G20. INTACT AND PATENT. NO S/S OR INFILTRATION AND INFECTION. NOTED WITH LEFT UA FISTULA PRESENT. SITE IS CLEAN,DRY AND INTACT. ALL NEEDS ANTICIPATED. KEPT CLEAN AND DRY. BED LOCKED AND IN LOWEST POSITION. SAFETY IS MAINTAINED AT ALL TIMES. WILL CONTINUE TO MONITOR THE PATIENT CLOSELY.
[2018-10-18 08:00] VITALS: BP_SYST 108; BP_SYST 167; BP_DIAS 66; BP_DIAS 76
[2018-10-18] MEDS: SEVELAMER CARBONATE 800 MG TABLET PO SCH ×3 (08:00→17:59)
--- NOTE | 2018-10-18 08:29 | NUR ---
RN NOTES RECEIVED A CALL FROM MICKY AMIN REGARDING PATIENT FOR THORACENTESIS. SPOKE TO THE PATIENT IF SHE WOULD BE WILLING TO GO THRU THE PROCEDURE. PATIENT CONTINUES TO REFUSE. ULTRASOUND AWARE OF THE REFUSAL. WILL CONTINUE TO MONITOR PATIENT CLOSELY.
[2018-10-18] MEDS: MAGNESIUM OXIDE 400 MG TABLET PO SCH (09:00)
[2018-10-18] MEDS: hydrALAZINE HCL 50 MG TABLET PO SCH ×3 (09:00→17:00)
[2018-10-18] MEDS: ASPIRIN EC 81 MG TABLET.DR PO SCH (09:00)
[2018-10-18] MEDS: ZINC SULFATE 220 MG CAPSULE PO SCH (09:00)
[2018-10-18] MEDS: DULOXETINE HCL 30 MG CAPSULE.DR PO SCH (09:00)
[2018-10-18] MEDS: AZELASTINE NASAL SPRAY 30 ML BOTTLE NS SCH (09:00)
[2018-10-18] MEDS: CHOLECALCIFEROL (VITAMIN D 3) 400 UNIT TABLET PO SCH (09:00)
[2018-10-18] MEDS: DOCUSATE SODIUM 100 MG CAPSULE PO SCH ×2 (09:00→17:00)
[2018-10-18] MEDS: LACTOBACILLUS RHAMNOSUS GG 1 EACH CAP.SPRINK PO SCH ×2 (09:00→17:00)
[2018-10-18] MEDS: FOLIC ACID 1 MG TABLET PO SCH (09:00)
[2018-10-18] MEDS: VIT B CMPLX 3/FA/VIT C/BIOTIN 1 TAB TABLET PO SCH (09:00)
[2018-10-18] MEDS: AMLODIPINE BESYLATE 10 MG TABLET PO SCH (09:00)
[2018-10-18] MEDS: FLUTICASONE PROPIONATE 16 GM BOTTLE NS SCH (09:00)
[2018-10-18] MEDS: OLOPATADINE HCL 0.1% OPHTH BOTTLE OP SCH ×2 (09:00→17:52)
[2018-10-18] MEDS: LABETALOL HCL (100MG) 100 MG TABLET PO SCH ×3 (09:00→17:00)
[2018-10-18] MEDS: CLONIDINE HCL 0.1 MG TABLET PO SCH ×3 (09:00→17:00)
[2018-10-18] MEDS: KETOROLAC EYE 0.5% 3 ML BOTTLE OP SCH ×2 (09:00→17:52)
[2018-10-18] MEDS ORDERED: ETOMIDATE 2 MG/ML VIAL ONE (09:39)
[2018-10-18] MEDS ORDERED: MIDAZOLAM HCL 2 MG/2ML VIAL ONE (09:39)
--- NOTE | 2018-10-18 09:46 | NUR ---
RN NOTES PATIENT WAS PICKED UP BY NURSES FROM THE OR FOR HER PROCEDURE. PATIENT REMAINED IN STABLE CONDITION UPON LEAVING THE UNIT. AWAITING FOR PATIENT RETURN FROM EGD/COLONOSCOPY.
--- NOTE | 2018-10-18 11:30 | NUR ---
RN NOTES PATIENT CAME BACK TO THE UNIT AFTER HER PROCEDURE. ACCORDING TO HERBERT SALEEM THAT BROUGHT THE PATIENT BACK, PATIENT TOLERATED THE PROCEDURE WELL. PATIENT CAME BACK WITH ORDERS FROM DR. GREENE, ALL ORDER NOTED AND CARRIED. PATIENT REMAINS IN STABLE CONDITION. WILL CONTINUE TO MONITOR CLOSELY.
[2018-10-18] MEDS ORDERED: IV NS 0.9% 1,000 ML BAG IV PRN (12:30)
[2018-10-18] MEDS ORDERED: IV NS 0.9% 1,000 ML IV PRN (12:30)
[2018-10-18] MEDS: AZITHROMYCIN 250 MG TABLET PO SCH (12:47)
[2018-10-18 13:14] LABS: BASOPHILS % (AUTO) 0.7 % (0.0-2.0); EOSINOPHILS % (AUTO) 5.3 % (0.0-6.0); HEMATOCRIT 25 % (33-45); HEMOGLOBIN 8.4 g/dL (11.5-14.8); LYMPHOCYTES # (AUTO) 0.6 /CMM (0.8-4.8); LYMPHOCYTES % (AUTO) 20.1 % (20.0-44.0); MEAN CORPUSCULAR HGB CONC 34 g/dl (31.0-36.0); MEAN CORPUSCULAR VOLUME 107 fL (82-100); MONOCYTES # (AUTO) 0.3 /CMM (0.1-1.30); MONOCYTES % (AUTO) 8.6 % (2.0-12.0); NEUTROPHILS # (AUTO) 1.9 /CMM (1.8-8.9); NEUTROPHILS % (AUTO) 65.3 % (43.0-81.0); PLATELET COUNT (AUTO) 294 /CMM (150-450); RED BLOOD CELL COUNT(AUTO) 2.35 MIL/uL (4.0-5.2); WHITE BLOOD COUNT (AUTO) 2.9 K/uL (4.3-11.0)
[2018-10-18 13:24] LABS: CALCIUM, SERUM 8.5 mg/dL (8.5-10.1); CREATININE 3.3 mg/dL (0.6-1.3); POTASSIUM 4.5 mmol/L (3.5-5.1)
[2018-10-18 14:10] LABS: EOSINOPHILS % (MANUAL) 5 % (0-4); LYMPHOCYTES % (MANUAL) 26 % (16-48); MONOCYTES % (MANUAL) 3 % (0-11.0); NEUTROPHILS % (MANUAL) 66 (42-76)
--- NOTE | 2018-10-18 15:02 | NUR ---
SW received a call from pt's HERBERT Kellogg stating that pt. would like to speak with the SW. SW met with pt. bedside. Pt. is alert and oriented x 4. Pt. appears anxious. Pt. recently came back from a colonoscopy procedure. Pt. informed SW that she has been waiting to see a psychiatrist for the past few days and has not seen one as of yet. Per pt. she has psychotropic medications she takes on a regular basis but has not been given any since hospitalization. RAUL provided pt. with active listening and emotional support and informed her she will notify her HERBERT Kellogg to notify DOROTHY Kaplan regarding her request for her psychotropic medications. RAUL informed pt's HERBERT Kellogg along with pt. bedside regarding pt's concerns. HERBERT Kellogg informed pt. and SW he will contact pt's doctor Eusebio and follow up with the pt. No other social service needs are requested at this time. SW is available, if needed.
--- NOTE | 2018-10-18 15:10 | NUR ---
RN NOTES AFTER THE SW TALK TO THE PATIENT SHE INFORMED US ABOUT HER REQUEST TO SEE A PSYCHIATRISTS. CALLED [employer] AND THE [employer]UNDR[employer] HELPER DOCTOR WAS DR. ROLLE. CHARGE NURSE SOON WAS MADE AWARE WELL AND AN ORDER FOR PSYCH CONSULT WAS PLACED. PATIENT REMAINS IN STABLE CONDITION. WILL CONTINUE PLAN OF CARE.
[2018-10-18 16:00] VITALS: BP 119/56
[2018-10-18] MEDS: SUCRALFATE 1 G/10 ML UDC GT SCH ×2 (17:30→22:36)
[2018-10-18] MEDS: LamoTRIgine 100 MG TABLET PO SCH (17:58)
[2018-10-18] MEDS: QUETIAPINE FUMARATE 100 MG TABLET PO SCH (17:59)
--- NOTE | 2018-10-18 19:25 | NUR ---
RN CLOSING NOTES PATIENT IN BED RESTING COMFORTABLY. EASILY AROUSABLE. PATIENT IS A/O X3. NO PAIN OR ACUTE DISTRESS AT THIS TIME. RESPIRATION EVEN AND UNLABORED. PATIENT ON O2 THERAPY CONTINUOUSLY VIA NASAL CANNULA. NO SOB. SKIN IS DRY WARM TO TOUCH. PATIENT IS NPO FOR THE XR BARIUM ENEMA W/ AIR CONTRAST IN AM. PATIENT WILL ALSO HAVE DIALYSIS @ 7PM TONIGHT PER DIALYSIS NURSE CHAPIS. PATIENT NOTED WITH IV ACCESS ON RIGHT FA G20. INTACT AND PATENT. NO S/S OR INFILTRATION AND INFECTION. NOTED WITH LEFT UA FISTULA PRESENT. SITE IS CLEAN,DRY AND INTACT. ALL NEEDS ANTICIPATED. KEPT CLEAN AND DRY. BED LOCKED AND IN LOWEST POSITION. SAFETY IS MAINTAINED AT ALL TIMES. WILL CONTINUE TO MONITOR THE PATIENT CLOSELY.
[2018-10-18 20:00] VITALS: BP 139/61
[2018-10-18] MEDS: ATORVASTATIN 10 MG TABLET PO SCH (22:36)
[2018-10-18] MEDS: DOXAZOSIN MESYLATE (1 MG) 1 MG TABLET PO SCH (22:36)
--- NOTE | 2018-10-19 01:10 | NUR ---
[address] DUNCAN REGARDING PATIENT'S ANXIETY ATTACK BUT UNABLE TO GIVE XANAX ORDER DUE TO PATIENT NPO STATUS FOR COLONOSCOPY IN AM, PER DR. DUNCAN MAY GIVE XANAX PO ORDERED. ORDER NOTED AND CARRIED OUT.
[2018-10-19] MEDS: ALPRAZOLAM 0.25 MG TABLET PO PRN (01:16)
[2018-10-19] MEDS: IPRATROPIUM NEB FS 0.5 MG/2.5 ML AMPUL.NEB NEB SCH ×6 (03:27→23:30)
[2018-10-19 04:00] VITALS: BP 128/61
[2018-10-19 07:10] LABS: BASOPHILS # (AUTO) 0.1 /CMM (0.0-0.2); BASOPHILS % (AUTO) 2.5 % (0.0-2.0); EOSINOPHILS % (AUTO) 4.2 % (0.0-6.0); HEMATOCRIT 26 % (33-45); HEMOGLOBIN 8.5 g/dL (11.5-14.8); LYMPHOCYTES # (AUTO) 0.6 /CMM (0.8-4.8); LYMPHOCYTES % (AUTO) 18.3 % (20.0-44.0); MEAN CORPUSCULAR HGB CONC 33 g/dl (31.0-36.0); MEAN CORPUSCULAR VOLUME 109 fL (82-100); MONOCYTES # (AUTO) 0.2 /CMM (0.1-1.30); MONOCYTES % (AUTO) 6.6 % (2.0-12.0); NEUTROPHILS # (AUTO) 2.2 /CMM (1.8-8.9); NEUTROPHILS % (AUTO) 68.4 % (43.0-81.0); PLATELET COUNT (AUTO) 276 /CMM (150-450); RED BLOOD CELL COUNT(AUTO) 2.36 MIL/uL (4.0-5.2); WHITE BLOOD COUNT (AUTO) 3.2 K/uL (4.3-11.0)
[2018-10-19] MEDS: SUCRALFATE 1 G/10 ML UDC GT SCH ×5 (07:30→22:45)
[2018-10-19] MEDS: LEVOTHYROXINE SODIUM 100 MCG TABLET PO SCH (07:30)
[2018-10-19] MEDS: ACETYLCYSTEINE 10% SOLN 400 MG/4 ML VIAL NEB SCH ×3 (07:35→23:30)
[2018-10-19 07:41] LABS: CALCIUM, SERUM 8.5 mg/dL (8.5-10.1); POTASSIUM 4.7 mmol/L (3.5-5.1)
[2018-10-19 08:00] VITALS: BP 175/76
[2018-10-19] MEDS: SEVELAMER CARBONATE 800 MG TABLET PO SCH ×3 (08:00→18:00)
[2018-10-19] MEDS: LACTOBACILLUS RHAMNOSUS GG 1 EACH CAP.SPRINK PO SCH ×2 (09:00→17:00)
[2018-10-19] MEDS: CHOLECALCIFEROL (VITAMIN D 3) 400 UNIT TABLET PO SCH (09:00)
[2018-10-19] MEDS: hydrALAZINE HCL 50 MG TABLET PO SCH ×3 (09:00→17:00)
[2018-10-19] MEDS: ZINC SULFATE 220 MG CAPSULE PO SCH (09:00)
[2018-10-19] MEDS: NEXIUM 40 MG VIAL IV SCH ×2 (09:00→17:00)
[2018-10-19] MEDS: DOCUSATE SODIUM 100 MG CAPSULE PO SCH ×2 (09:00→17:00)
[2018-10-19] MEDS: AMLODIPINE BESYLATE 10 MG TABLET PO SCH (09:00)
[2018-10-19] MEDS: VIT B CMPLX 3/FA/VIT C/BIOTIN 1 TAB TABLET PO SCH (09:00)
[2018-10-19] MEDS: CLONIDINE HCL 0.1 MG TABLET PO SCH ×3 (09:00→17:00)
[2018-10-19] MEDS: FOLIC ACID 1 MG TABLET PO SCH (09:00)
[2018-10-19] MEDS: LABETALOL HCL (100MG) 100 MG TABLET PO SCH ×3 (09:00→17:00)
[2018-10-19] MEDS: MAGNESIUM OXIDE 400 MG TABLET PO SCH (09:00)
--- NOTE | 2018-10-19 09:00 | NUR ---
PATIENT REFUSING THORACENTESIS
[2018-10-19] MEDS ORDERED: OLANZAPINE 10 MG VIAL IM ONE (11:00)
--- NOTE | 2018-10-19 11:53 | NUR ---
BP 175/76, PATIENT NPO STATUS. TAINA OSMAN AWARE. NO FURTHER ORDERS.
[2018-10-19] MEDS: AZITHROMYCIN 250 MG TABLET PO SCH (12:00)
[2018-10-19] MEDS ORDERED: DIATR MEGLU/DIATRIZOATE SODIUM 120 ML BOTTLE (GASTROGRAPHIN) ONE ×5 (12:15→12:24)
--- NOTE | 2018-10-19 14:15 | NUR ---
PATIENT BACK FROM BARIUM STUDY. CURRENTLY ON COMMODE HAVING A BOWEL MOVEMENT. REQUESTING FOOD. BP 143/76.
[2018-10-19] MEDS: AZELASTINE NASAL SPRAY 30 ML BOTTLE NS SCH (14:38)
[2018-10-19] MEDS: FLUTICASONE PROPIONATE 16 GM BOTTLE NS SCH (14:38)
[2018-10-19] MEDS: KETOROLAC EYE 0.5% 3 ML BOTTLE OP SCH ×2 (14:39→17:00)
[2018-10-19] MEDS: OLOPATADINE HCL 0.1% OPHTH BOTTLE OP SCH ×2 (14:39→17:00)
--- NOTE | 2018-10-19 15:00 | NUR ---
PER DIALYSIS NURSE, WILL GET DIALYZED IN AFTERNOON.
--- NOTE | 2018-10-19 15:45 | NUR ---
PATIENT HAS REFUSED THORACENTESIS HERBERT DUVAL
[2018-10-19 16:00] VITALS: BP 153/74
[2018-10-19] MEDS: LamoTRIgine 100 MG TABLET PO SCH (17:00)
[2018-10-19] MEDS: ASPIRIN EC 81 MG TABLET.DR PO SCH (18:41)
--- NOTE | 2018-10-19 19:08 | NUR ---
RECEIVED CALL FROM SCRAP SEPARATOR WHO SAID SHE WILL BE HERE IN 30 MIN. NO MEDS WERE GIVEN DUE TO COMMUNICATION THAT DIALYSIS WAS GOING TO HAPPEN IN AFTERNOON.
--- NOTE | 2018-10-19 19:35 | NUR ---
MS RN NOTES RECEIVED PT ON BED. A/O X 3. ON NASAL CANNULA 3LPM NO RESPIRATORY DISTRESS NOTED. IV ACCESS ON RFA G20 PATENT AND INTACT SL. SITTER AT BEDSIDE. HEAD OF BED ELEVATED. SIDE RAILS UP. CALL LIGHT WITHIN REACH. BED ALARM ON. WILL CONT TO MONITOR PT CLOSELY.
[2018-10-19 19:37] VITALS: BP 153/74
[2018-10-19 20:00] VITALS: BP 164/78
--- NOTE | 2018-10-19 20:31 | NUR ---
MS RN NOTES ON GOING HD, HD NURSE @ BEDSIDE.
--- NOTE | 2018-10-19 22:38 | NUR ---
MS RN NOTES HD DONE, BLOOD PRESSURE 154/78. NO RESPIRATORY DISTRESS NOTED.
[2018-10-19] MEDS: clonazePAM 0.5 MG TABLET PO SCH (22:45)
[2018-10-19] MEDS: ATORVASTATIN 10 MG TABLET PO SCH (22:45)
[2018-10-19] MEDS: DOXAZOSIN MESYLATE (1 MG) 1 MG TABLET PO SCH (22:45)
[2018-10-19] MEDS: QUETIAPINE FUMARATE 100 MG TABLET PO SCH (22:45)
[2018-10-20] MEDS: IPRATROPIUM NEB FS 0.5 MG/2.5 ML AMPUL.NEB NEB SCH ×6 (03:30→23:24)
--- NOTE | 2018-10-20 07:02 | NUR ---
MS RN NOTES NO ACUTE CHANGES NOTED DURING THE SHIFT. NO RESPIRATORY DISTRESS NOTED. PROVIDED COMFORT AND SAFETY. WILL ENDORSE TO THE AM NURSE FOR CONTINUITY OF CARE.
[2018-10-20 07:17] LABS: BASOPHILS % (AUTO) 1.3 % (0.0-2.0); EOSINOPHILS % (AUTO) 3.2 % (0.0-6.0); HEMATOCRIT 24 % (33-45); LYMPHOCYTES # (AUTO) 0.7 /CMM (0.8-4.8); LYMPHOCYTES % (AUTO) 21.6 % (20.0-44.0); MEAN CORPUSCULAR HGB CONC 34 g/dl (31.0-36.0); MEAN CORPUSCULAR VOLUME 107 fL (82-100); MONOCYTES # (AUTO) 0.3 /CMM (0.1-1.30); MONOCYTES % (AUTO) 9.1 % (2.0-12.0); NEUTROPHILS # (AUTO) 2.2 /CMM (1.8-8.9); NEUTROPHILS % (AUTO) 64.8 % (43.0-81.0); PLATELET COUNT (AUTO) 295 /CMM (150-450); WHITE BLOOD COUNT (AUTO) 3.4 K/uL (4.3-11.0)
[2018-10-20 07:29] LABS: CALCIUM, SERUM 8.6 mg/dL (8.5-10.1); CREATININE 3.1 mg/dL (0.6-1.3); POTASSIUM 4.1 mmol/L (3.5-5.1)
[2018-10-20] MEDS: LEVOTHYROXINE SODIUM 100 MCG TABLET PO SCH (07:29)
[2018-10-20] MEDS: SUCRALFATE 1 G/10 ML UDC GT SCH ×5 (07:29→21:47)
[2018-10-20] MEDS: SEVELAMER CARBONATE 800 MG TABLET PO SCH ×3 (07:29→17:05)
[2018-10-20] MEDS: ACETYLCYSTEINE 10% SOLN 400 MG/4 ML VIAL NEB SCH ×3 (07:29→23:24)
[2018-10-20 08:00] VITALS: BP 165/81
--- NOTE | 2018-10-20 08:00 | NUR ---
PER MATERIAL CUTTER, PATIENT WILL BE DIALYZED IN A COUPLE HOURS.
[2018-10-20] MEDS: AZELASTINE NASAL SPRAY 30 ML BOTTLE NS SCH (08:54)
[2018-10-20] MEDS: FLUTICASONE PROPIONATE 16 GM BOTTLE NS SCH (08:54)
[2018-10-20] MEDS: LABETALOL HCL (100MG) 100 MG TABLET PO SCH ×3 (09:00→17:07)
[2018-10-20] MEDS: LamoTRIgine 100 MG TABLET PO SCH ×2 (09:00→17:06)
[2018-10-20] MEDS: KETOROLAC EYE 0.5% 3 ML BOTTLE OP SCH ×2 (09:00→17:04)
[2018-10-20] MEDS: AMLODIPINE BESYLATE 10 MG TABLET PO SCH (09:00)
[2018-10-20] MEDS: CLONIDINE HCL 0.1 MG TABLET PO SCH ×3 (09:00→17:07)
[2018-10-20] MEDS: hydrALAZINE HCL 50 MG TABLET PO SCH ×3 (09:00→17:06)
[2018-10-20] MEDS: DOCUSATE SODIUM 100 MG CAPSULE PO SCH ×2 (09:00→17:06)
[2018-10-20] MEDS: LACTOBACILLUS RHAMNOSUS GG 1 EACH CAP.SPRINK PO SCH ×2 (09:00→17:06)
[2018-10-20] MEDS: OLOPATADINE HCL 0.1% OPHTH BOTTLE OP SCH ×2 (09:00→17:04)
[2018-10-20] MEDS ORDERED: POLYETHYLENE GLYCOL 3350 17 GM POWD.PACK PO PRN (11:00)
--- NOTE | 2018-10-20 11:52 | NUR ---
BLACKJACK PIT BOSS AT BEDSIDE.
--- NOTE | 2018-10-20 15:00 | NUR ---
DR. GREENE AT BEDSIDE, PATIENT STATES SHE WANTS TO DO COLONOSCOPY OUTPATIENT. Addendum: 10/20/18 at 1629 by LUBA DAMICO RN DR. GREENE IN AGREEMENT.
[2018-10-20 16:00] VITALS: BP 161/81
--- NOTE | 2018-10-20 16:00 | NUR ---
PATIENT FINISHED WITH DIALYSIS. 3L OUT
[2018-10-20] MEDS: ASPIRIN EC 81 MG TABLET.DR PO SCH (17:05)
[2018-10-20] MEDS: ZINC SULFATE 220 MG CAPSULE PO SCH (17:05)
[2018-10-20] MEDS: CHOLECALCIFEROL (VITAMIN D 3) 400 UNIT TABLET PO SCH (17:05)
[2018-10-20] MEDS: PANTOPRAZOLE 40 MG TABLET.DR PO SCH (17:05)
[2018-10-20] MEDS: VIT B CMPLX 3/FA/VIT C/BIOTIN 1 TAB TABLET PO SCH (17:06)
[2018-10-20] MEDS: QUETIAPINE FUMARATE 100 MG TABLET PO SCH ×2 (17:06→21:49)
[2018-10-20] MEDS: MAGNESIUM OXIDE 400 MG TABLET PO SCH (17:07)
[2018-10-20] MEDS: FOLIC ACID 1 MG TABLET PO SCH (17:07)
[2018-10-20] MEDS: clonazePAM 0.5 MG TABLET PO SCH (21:47)
[2018-10-20] MEDS: LORAZEPAM 1 MG TABLET PO PRN (21:47)
[2018-10-20] MEDS: ATORVASTATIN 10 MG TABLET PO SCH (21:47)
[2018-10-20] MEDS: MAGNESIUM HYDROXIDE 30 ML UDC PO PRN (21:47)
[2018-10-20] MEDS: DOXAZOSIN MESYLATE (1 MG) 1 MG TABLET PO SCH (21:48)
--- NOTE | 2018-10-20 22:50 | NUR ---
RECEIVED REPORT FROM HERBERT MAYORGA FOR RICHARD.
[2018-10-21 00:39] VITALS: BP 130/53
[2018-10-21] MEDS: IPRATROPIUM NEB FS 0.5 MG/2.5 ML AMPUL.NEB NEB SCH ×6 (03:25→23:30)
--- NOTE | 2018-10-21 06:28 | NUR ---
RN MS INITIAL NOTES RECEIVED PATIENT ALERT AND ORIENTED X3 WITH ANXIOUS BEHAVIOR. PATIENT ON NC 4 L CONTINUOUSLY, NO SOB. RESPIRATION EVEN AND UNLABORED. SKIN IS DRY WARM TO TOUCH. PATIENT NOTED WITH IV ACCESS ON RIGHT FA G20. INTACT AND PATENT. NO S/S OR INFILTRATION AND INFECTION. NOTED WITH LEFT UA FISTULA PRESENT. SITE IS CLEAN,DRY AND INTACT. ALL NEEDS ANTICIPATED. KEPT CLEAN AND DRY. BED LOCKED AND IN LOWEST POSITION. SAFETY IS MAINTAINED AT ALL TIMES. WILL CONTINUE TO MONITOR THE PATIENT CLOSELY.
--- NOTE | 2018-10-21 06:31 | NUR ---
RN MS CLOSING NOTES ENDORSE PATIENT ALERT AND ORIENTED X3 WITH ANXIOUS BEHAVIOR. PATIENT ON NC 4 L CONTINUOUSLY, NO SOB. RESPIRATION EVEN AND UNLABORED. SKIN IS DRY WARM TO TOUCH. PATIENT NOTED WITH IV ACCESS ON RIGHT FA G20. INTACT AND PATENT. NO S/S OR INFILTRATION AND INFECTION. NOTED WITH LEFT UA FISTULA PRESENT. SITE IS CLEAN,DRY AND INTACT. ALL NEEDS ANTICIPATED. KEPT CLEAN AND DRY. BED LOCKED AND IN LOWEST POSITION. SAFETY IS MAINTAINED AT ALL TIMES. WILL CONTINUE TO MONITOR THE PATIENT CLOSELY.
[2018-10-21] MEDS: ACETYLCYSTEINE 10% SOLN 400 MG/4 ML VIAL NEB SCH ×3 (07:08→23:30)
[2018-10-21] MEDS: PANTOPRAZOLE 40 MG TABLET.DR PO SCH ×3 (07:30→15:16)
[2018-10-21] MEDS: SUCRALFATE 1 G/10 ML UDC GT SCH ×7 (07:30→22:05)
[2018-10-21 08:00] VITALS: BP 129/76
[2018-10-21] MEDS: SEVELAMER CARBONATE 800 MG TABLET PO SCH ×5 (08:00→16:57)
[2018-10-21] MEDS: KETOROLAC EYE 0.5% 3 ML BOTTLE OP SCH ×3 (08:36→15:15)
[2018-10-21] MEDS: OLOPATADINE HCL 0.1% OPHTH BOTTLE OP SCH ×3 (08:36→15:16)
[2018-10-21] MEDS: FLUTICASONE PROPIONATE 16 GM BOTTLE NS SCH ×2 (08:38→15:16)
[2018-10-21] MEDS: VIT B CMPLX 3/FA/VIT C/BIOTIN 1 TAB TABLET PO SCH ×2 (08:39→15:16)
[2018-10-21] MEDS: ASPIRIN EC 81 MG TABLET.DR PO SCH ×2 (08:39→15:18)
[2018-10-21] MEDS: AZELASTINE NASAL SPRAY 30 ML BOTTLE NS SCH ×2 (08:39→15:15)
[2018-10-21] MEDS: ZINC SULFATE 220 MG CAPSULE PO SCH ×2 (08:39→15:17)
[2018-10-21] MEDS: FOLIC ACID 1 MG TABLET PO SCH ×2 (08:39→15:18)
[2018-10-21] MEDS: LACTOBACILLUS RHAMNOSUS GG 1 EACH CAP.SPRINK PO SCH ×3 (08:39→15:17)
[2018-10-21] MEDS: MAGNESIUM OXIDE 400 MG TABLET PO SCH ×2 (08:39→15:17)
[2018-10-21] MEDS: SENNOSIDES/DOCUSATE SODIUM 1 TAB TABLET PO SCH ×2 (08:39→15:17)
[2018-10-21] MEDS: CHOLECALCIFEROL (VITAMIN D 3) 400 UNIT TABLET PO SCH ×2 (08:40→15:18)
[2018-10-21] MEDS: DOCUSATE SODIUM 100 MG CAPSULE PO SCH ×3 (08:40→15:17)
[2018-10-21] MEDS: LEVOTHYROXINE SODIUM 100 MCG TABLET PO SCH ×2 (08:40→15:18)
[2018-10-21] MEDS: hydrALAZINE HCL 50 MG TABLET PO SCH ×3 (09:00→16:57)
[2018-10-21] MEDS: AMLODIPINE BESYLATE 10 MG TABLET PO SCH (09:00)
[2018-10-21] MEDS: CLONIDINE HCL 0.1 MG TABLET PO SCH ×3 (09:00→16:56)
[2018-10-21] MEDS: LamoTRIgine 100 MG TABLET PO SCH ×2 (09:00→16:57)
[2018-10-21] MEDS: QUETIAPINE FUMARATE 100 MG TABLET PO SCH ×2 (09:00→22:05)
[2018-10-21] MEDS: LABETALOL HCL (100MG) 100 MG TABLET PO SCH ×3 (09:00→16:56)
--- NOTE | 2018-10-21 12:02 | NUR ---
RISK MANAGEMENT ANALYST AT BEDSIDE
--- NOTE | 2018-10-21 14:20 | NUR ---
DIALYSIS COMPLETE. 2L OUT, BP 130/68, HR 76 PER AUTOMOTIVE GLASS INSTALLER
--- NOTE | 2018-10-21 15:30 | NUR ---
PATIENT REFUSED PULSE OX
[2018-10-21 16:00] VITALS: BP 133/75
[2018-10-21 20:00] VITALS: BP 159/64
[2018-10-21] MEDS: clonazePAM 0.5 MG TABLET PO SCH (22:05)
[2018-10-21] MEDS: ATORVASTATIN 10 MG TABLET PO SCH (22:05)
[2018-10-21] MEDS: DOXAZOSIN MESYLATE (1 MG) 1 MG TABLET PO SCH (22:06)
--- NOTE | 2018-10-21 23:16 | NUR ---
MS RN NOTE PATIENT REFUSES TO TAKE PICTURES TONIGHT, BUT STATES SHE IS WILLING TO TAKE PHOTOS TOMORROW. PATIENT ALSO STATES SHE TOOK OFF HER MEPILEX ON HER SACRUM BECAUSE IT IS UNCOMFORTABLE IN HER SLEEP. RN EDUCATED PATIENT ON IMPORTANCE OF PROTECTING BONY PROMINENCES AND PREVENTING BED SORES. PATIENT VERBALIZES UNDERSTANDING AND STILL REFUSES. RN WILL ENDORSE TO DAY SHIFT.
[2018-10-22] VITALS (10 sets, daily range): BP systolic 117–156; BP diastolic 53–73
[2018-10-22] MEDS: IPRATROPIUM NEB FS 0.5 MG/2.5 ML AMPUL.NEB NEB SCH ×6 (03:30→23:11)
[2018-10-22 06:58] LABS: CALCIUM, SERUM 8.6 mg/dL (8.5-10.1); CREATININE 2.8 mg/dL (0.6-1.3); POTASSIUM 4.4 mmol/L (3.5-5.1)
--- NOTE | 2018-10-22 07:05 | NUR ---
MS RN OPENING NOTES RECEIVED PT LYING ON BED.ALERT/ORIENTED X4 WITH ANXIETY.ON 4L O2 VIA NC CONTINUOUSLY,NO SOB AND ACUTE DISTRESS NOTED.IV LINE IS ON RIGHT FA G20 AND LEFT UA FISTULA PRESENT,SITE IS CLEAN,DRY AND INTACT.NO INFILTRATION NOTED.BED IS IN LOW POSITION AND LOCKED,CALL LIGHT IS WITHIN REACH.WILL CONTINUE TO MONITOR THE PT CLOSELY.
[2018-10-22] MEDS: SUCRALFATE 1 G/10 ML UDC GT SCH ×5 (07:30→22:00)
[2018-10-22] MEDS: ACETYLCYSTEINE 10% SOLN 400 MG/4 ML VIAL NEB SCH ×3 (07:35→19:43)
[2018-10-22] MEDS: PANTOPRAZOLE 40 MG TABLET.DR PO SCH ×2 (07:35→17:31)
[2018-10-22] MEDS: SEVELAMER CARBONATE 800 MG TABLET PO SCH ×3 (07:35→17:31)
[2018-10-22] MEDS: LEVOTHYROXINE SODIUM 100 MCG TABLET PO SCH (07:35)
[2018-10-22 07:57] LABS: EOSINOPHILS % (AUTO) 6.8 % (0.0-6.0); LYMPHOCYTES # (AUTO) 0.8 /CMM (0.8-4.8); LYMPHOCYTES % (AUTO) 21.4 % (20.0-44.0); MEAN CORPUSCULAR HGB CONC 33 g/dl (31.0-36.0); MEAN CORPUSCULAR VOLUME 107 fL (82-100); MONOCYTES # (AUTO) 0.3 /CMM (0.1-1.30); MONOCYTES % (AUTO) 8.6 % (2.0-12.0); NEUTROPHILS # (AUTO) 2.4 /CMM (1.8-8.9); NEUTROPHILS % (AUTO) 62.2 % (43.0-81.0); PLATELET COUNT (AUTO) 218 /CMM (150-450); WHITE BLOOD COUNT (AUTO) 3.8 K/uL (4.3-11.0)
[2018-10-22 08:00] LABS: RED BLOOD CELL COUNT(AUTO) 1.78 MIL/uL (4.0-5.2)
[2018-10-22 08:03] LABS: HEMATOCRIT 19 % (33-45); HEMOGLOBIN 6.3 g/dL (11.5-14.8)
[2018-10-22 08:43] LABS: EOSINOPHILS % (MANUAL) 6 % (0-4); LYMPHOCYTES % (MANUAL) 27 % (16-48); MONOCYTES % (MANUAL) 5 % (0-11.0); NEUTROPHILS % (MANUAL) 62 (42-76)
[2018-10-22] MEDS: VIT B CMPLX 3/FA/VIT C/BIOTIN 1 TAB TABLET PO SCH (09:18)
[2018-10-22] MEDS: CHOLECALCIFEROL (VITAMIN D 3) 400 UNIT TABLET PO SCH (09:18)
[2018-10-22] MEDS: ASPIRIN EC 81 MG TABLET.DR PO SCH (09:18)
[2018-10-22] MEDS: LamoTRIgine 100 MG TABLET PO SCH ×2 (09:18→17:33)
[2018-10-22] MEDS: SENNOSIDES/DOCUSATE SODIUM 1 TAB TABLET PO SCH (09:18)
[2018-10-22] MEDS: FOLIC ACID 1 MG TABLET PO SCH (09:18)
[2018-10-22] MEDS: ZINC SULFATE 220 MG CAPSULE PO SCH (09:19)
[2018-10-22] MEDS: DOCUSATE SODIUM 100 MG CAPSULE PO SCH ×2 (09:19→17:31)
[2018-10-22] MEDS: LABETALOL HCL (100MG) 100 MG TABLET PO SCH ×3 (09:19→17:31)
[2018-10-22] MEDS: MAGNESIUM OXIDE 400 MG TABLET PO SCH (09:19)
[2018-10-22] MEDS: LACTOBACILLUS RHAMNOSUS GG 1 EACH CAP.SPRINK PO SCH ×2 (09:19→17:31)
[2018-10-22] MEDS: QUETIAPINE FUMARATE 100 MG TABLET PO SCH ×2 (09:19→22:37)
[2018-10-22] MEDS: CLONIDINE HCL 0.1 MG TABLET PO SCH ×3 (09:20→17:31)
[2018-10-22] MEDS: AMLODIPINE BESYLATE 10 MG TABLET PO SCH (09:20)
[2018-10-22] MEDS: hydrALAZINE HCL 50 MG TABLET PO SCH ×3 (09:20→17:32)
[2018-10-22] MEDS: KETOROLAC EYE 0.5% 3 ML BOTTLE OP SCH ×2 (09:21→17:32)
[2018-10-22] MEDS: OLOPATADINE HCL 0.1% OPHTH BOTTLE OP SCH ×2 (09:21→17:32)
[2018-10-22] MEDS: FLUTICASONE PROPIONATE 16 GM BOTTLE NS SCH (09:21)
[2018-10-22] MEDS: AZELASTINE NASAL SPRAY 30 ML BOTTLE NS SCH (09:23)
[2018-10-22] MEDS: SIMETHICONE 80 MG TAB.CHEW PO PRN (13:45)
--- NOTE | 2018-10-22 16:00 | NUR ---
MS RN NOTES SAID TO DO US GUIDED THORACENTESIS TOMORROW.PT MADE AWARE.
--- NOTE | 2018-10-22 17:24 | NUR ---
MS RN NOTES BLOOD TRANSFUSION HAS DONE,PT TOLERATING WELL.NO SIDE EFFECTS NOTED.VITAL SIGNS ARE CHECKED AND RECORDED.
--- NOTE | 2018-10-22 18:48 | NUR ---
MS RN CLOSING NOTES PT IS LYING ON BED.BLOOD TRANSFUSION HAS DONE.ALL DUE MEDS ARE GIVEN.RESPIRATION IS EVEN AND NONLABORED.ENDORSED TO ENGINE TEST CELL TECHNICIAN RN FOR RICHARD
[2018-10-22 19:16] LABS: HEMOGLOBIN 7.7 g/dL (11.5-14.8)
--- NOTE | 2018-10-22 19:31 | NUR ---
MS RN NOTE PATIENT IN BED SLEEP EASILY ABLE TO BE AWOKEN, NO S/S OF DISTRESS. LAB RESULTS POST BLOOD TRANSFUSION PENDING. PATIENT A/OX 3 NO S/S OF RESP OR CARDIAC DISTRESS. PATIENT ON 2 L TOLERATING WELL. BREATHING EVEN AND UNLABORED. 20 G IN RFA PATIENT INTACT.HOB HIGH, PATIENT REQUESTING TO SLEEP. AWARE PATIENT HAS HD TODAY SCHEDULED AT 10PM RN WILL CONTINUE TO MONITOR. SAFETY PRECAUTIONS IN PLACE.
[2018-10-22] MEDS: DOXAZOSIN MESYLATE (1 MG) 1 MG TABLET PO SCH (22:00)
[2018-10-22] MEDS: clonazePAM 0.5 MG TABLET PO SCH (22:36)
[2018-10-22] MEDS: ATORVASTATIN 10 MG TABLET PO SCH (22:36)
[2018-10-23] VITALS: BP 108/66
[2018-10-23] MEDS: IPRATROPIUM NEB FS 0.5 MG/2.5 ML AMPUL.NEB NEB SCH ×6 (03:30→23:30)
[2018-10-23] MEDS: LORAZEPAM 1 MG TABLET PO PRN (05:17)
[2018-10-23] MEDS: SUCRALFATE 1 G/10 ML UDC GT SCH ×4 (06:41→22:07)
[2018-10-23 07:21] LABS: BASOPHILS % (AUTO) 0.9 % (0.0-2.0); HEMATOCRIT 22 % (33-45); HEMOGLOBIN 7.8 g/dL (11.5-14.8); LYMPHOCYTES # (AUTO) 0.7 /CMM (0.8-4.8); LYMPHOCYTES % (AUTO) 17.7 % (20.0-44.0); MEAN CORPUSCULAR HGB CONC 35 g/dl (31.0-36.0); MEAN CORPUSCULAR VOLUME 102 fL (82-100); MONOCYTES # (AUTO) 0.3 /CMM (0.1-1.30); MONOCYTES % (AUTO) 8.3 % (2.0-12.0); NEUTROPHILS # (AUTO) 2.6 /CMM (1.8-8.9); NEUTROPHILS % (AUTO) 66.1 % (43.0-81.0); PLATELET COUNT (AUTO) 195 /CMM (150-450); RED BLOOD CELL COUNT(AUTO) 2.17 MIL/uL (4.0-5.2); WHITE BLOOD COUNT (AUTO) 3.9 K/uL (4.3-11.0)
[2018-10-23 07:28] LABS: CALCIUM, SERUM 8.7 mg/dL (8.5-10.1); CREATININE 2.6 mg/dL (0.6-1.3); POTASSIUM 4.6 mmol/L (3.5-5.1)
[2018-10-23] MEDS: ACETYLCYSTEINE 10% SOLN 400 MG/4 ML VIAL NEB SCH ×3 (07:35→23:30)
[2018-10-23] MEDS: SEVELAMER CARBONATE 800 MG TABLET PO SCH ×3 (07:39→17:47)
[2018-10-23] MEDS: PANTOPRAZOLE 40 MG TABLET.DR PO SCH ×2 (07:39→17:46)
[2018-10-23] MEDS: LEVOTHYROXINE SODIUM 100 MCG TABLET PO SCH (07:39)
[2018-10-23 08:00] VITALS: BP 120/54
[2018-10-23] MEDS: AMLODIPINE BESYLATE 10 MG TABLET PO SCH (09:00)
[2018-10-23] MEDS: CLONIDINE HCL 0.1 MG TABLET PO SCH ×3 (09:00→17:47)
[2018-10-23] MEDS: LABETALOL HCL (100MG) 100 MG TABLET PO SCH ×3 (09:00→17:46)
[2018-10-23] MEDS: hydrALAZINE HCL 50 MG TABLET PO SCH ×3 (09:00→17:47)
[2018-10-23] MEDS: FLUTICASONE PROPIONATE 16 GM BOTTLE NS SCH (09:03)
[2018-10-23] MEDS: AZELASTINE NASAL SPRAY 30 ML BOTTLE NS SCH (09:03)
[2018-10-23] MEDS: OLOPATADINE HCL 0.1% OPHTH BOTTLE OP SCH ×2 (09:04→17:48)
[2018-10-23] MEDS: KETOROLAC EYE 0.5% 3 ML BOTTLE OP SCH ×2 (09:04→17:48)
[2018-10-23] MEDS: ASPIRIN EC 81 MG TABLET.DR PO SCH (09:05)
[2018-10-23] MEDS: CHOLECALCIFEROL (VITAMIN D 3) 400 UNIT TABLET PO SCH (09:05)
[2018-10-23] MEDS: DOCUSATE SODIUM 100 MG CAPSULE PO SCH ×2 (09:05→17:46)
[2018-10-23] MEDS: QUETIAPINE FUMARATE 100 MG TABLET PO SCH ×2 (09:05→22:07)
[2018-10-23] MEDS: LACTOBACILLUS RHAMNOSUS GG 1 EACH CAP.SPRINK PO SCH ×2 (09:05→17:46)
[2018-10-23] MEDS: VIT B CMPLX 3/FA/VIT C/BIOTIN 1 TAB TABLET PO SCH (09:05)
[2018-10-23] MEDS: SENNOSIDES/DOCUSATE SODIUM 1 TAB TABLET PO SCH (09:05)
[2018-10-23] MEDS: ZINC SULFATE 220 MG CAPSULE PO SCH (09:05)
[2018-10-23] MEDS: FOLIC ACID 1 MG TABLET PO SCH (09:06)
[2018-10-23] MEDS: LamoTRIgine 100 MG TABLET PO SCH ×2 (09:06→17:47)
[2018-10-23] MEDS: MAGNESIUM OXIDE 400 MG TABLET PO SCH (09:06)
--- NOTE | 2018-10-23 11:31 | NUR ---
RN NOTE HELP BP MEDICATION. PATIENT IS TO RECEIVE HD TODAY. B/P 120/54 : HR ; 69
[2018-10-23 16:00] VITALS: BP 128/63
--- NOTE | 2018-10-23 19:19 | NUR ---
MS RN NOTE: RECEIVED PT ON BED ALERT AND ORIENTED X2. ABLE TO MAKE NEEDS KNOWN. NO ACUTE DISTRESS NOTED. NO COMPLAINTS OF PAIN OR DISCOMFORT AT THIS TIME. ON ROOM AIR, NO SOB NOTED. IV ON RIGHT FOREARM #20 INTACT AND PATENT, FLUSHING WELL. KEPT CLEAN, DRY AND COMFORTABLE. SIDE RAILS UP X3. BED ALARM ON. BED LOCKED AND IN LOWEST POSITION. WILL CONTINUE TO MONITOR PT.
[2018-10-23 20:00] VITALS: BP 135/61
[2018-10-23] MEDS: DOXAZOSIN MESYLATE (1 MG) 1 MG TABLET PO SCH (22:00)
--- NOTE | 2018-10-23 22:06 | NUR ---
MS RN NOTE: CARDURA DUE AT 2200 NOT GIVEN, ONGOING HD AT THIS TIME.
[2018-10-23] MEDS: ATORVASTATIN 10 MG TABLET PO SCH (22:07)
[2018-10-23] MEDS: clonazePAM 0.5 MG TABLET PO SCH (22:07)
[2018-10-24] MEDS: IPRATROPIUM NEB FS 0.5 MG/2.5 ML AMPUL.NEB NEB SCH ×6 (03:12→23:28)
[2018-10-24 04:00] VITALS: BP 115/56
--- NOTE | 2018-10-24 06:31 | NUR ---
MS RN NOTE: NO CHANGES NOTED THROUGHOUT THE SHIFT. NO APPARENT DISTRESS NOTED. DENIES PAIN AND DISCOMFORT AT THIS TIME. ON 4LPM NASAL CANNULA, NO SOB NOTED AT THIS TIME. IV ON RIGHT FOREARM #20 INTACT AND PATENT, FLUSHING WELL. CALL LIGHT PLACED WITHIN REACH. KEPT CLEAN, DRY AND COMFORTABLE. SAFETY AND FALL PRECAUTIONS OBSERVED AND MAINTAINED. WILL ENDORSE TO DAY SHIFT RN FOR CONTINUITY OF CARE.
[2018-10-24 07:32] LABS: BASOPHILS % (AUTO) 0.6 % (0.0-2.0); EOSINOPHILS % (AUTO) 4.6 % (0.0-6.0); HEMATOCRIT 23 % (33-45); HEMOGLOBIN 7.7 g/dL (11.5-14.8); LYMPHOCYTES # (AUTO) 0.7 /CMM (0.8-4.8); LYMPHOCYTES % (AUTO) 13.4 % (20.0-44.0); MEAN CORPUSCULAR HGB CONC 34 g/dl (31.0-36.0); MEAN CORPUSCULAR VOLUME 102 fL (82-100); MONOCYTES # (AUTO) 0.4 /CMM (0.1-1.30); MONOCYTES % (AUTO) 7.4 % (2.0-12.0); NEUTROPHILS # (AUTO) 3.9 /CMM (1.8-8.9); PLATELET COUNT (AUTO) 212 /CMM (150-450); WHITE BLOOD COUNT (AUTO) 5.3 K/uL (4.3-11.0)
[2018-10-24] MEDS: ACETYLCYSTEINE 10% SOLN 400 MG/4 ML VIAL NEB SCH ×3 (07:35→23:29)
[2018-10-24 07:49] LABS: CALCIUM, SERUM 8.9 mg/dL (8.5-10.1); CREATININE 2.4 mg/dL (0.6-1.3); MAGNESIUM 2.1 mg/dL (1.8-2.4); PHOSPHORUS 1.4 mg/dL (2.5-4.9); POTASSIUM 4.6 mmol/L (3.5-5.1)
[2018-10-24 08:00] VITALS: BP 127/55
--- NOTE | 2018-10-24 08:30 | NUR ---
PT REFUSED RESP TX ATT. NO S/S OF SOB NOTED. WILL CONT TO MONITOR
[2018-10-24] MEDS: SUCRALFATE 1 G/10 ML UDC GT SCH ×4 (08:44→21:19)
[2018-10-24] MEDS: SENNOSIDES/DOCUSATE SODIUM 1 TAB TABLET PO SCH (08:44)
[2018-10-24] MEDS: ZINC SULFATE 220 MG CAPSULE PO SCH (08:44)
[2018-10-24] MEDS: LEVOTHYROXINE SODIUM 100 MCG TABLET PO SCH (08:45)
[2018-10-24] MEDS: LABETALOL HCL (100MG) 100 MG TABLET PO SCH ×3 (08:45→18:03)
[2018-10-24] MEDS: FOLIC ACID 1 MG TABLET PO SCH (08:45)
[2018-10-24] MEDS: LACTOBACILLUS RHAMNOSUS GG 1 EACH CAP.SPRINK PO SCH ×2 (08:46→18:05)
[2018-10-24] MEDS: ASPIRIN EC 81 MG TABLET.DR PO SCH (08:46)
[2018-10-24] MEDS: CHOLECALCIFEROL (VITAMIN D 3) 400 UNIT TABLET PO SCH (08:46)
[2018-10-24] MEDS: DOCUSATE SODIUM 100 MG CAPSULE PO SCH ×2 (08:46→18:03)
[2018-10-24] MEDS: SEVELAMER CARBONATE 800 MG TABLET PO SCH ×3 (08:46→18:05)
[2018-10-24] MEDS: MAGNESIUM OXIDE 400 MG TABLET PO SCH (08:46)
[2018-10-24] MEDS: PANTOPRAZOLE 40 MG TABLET.DR PO SCH ×2 (08:46→18:04)
[2018-10-24] MEDS: VIT B CMPLX 3/FA/VIT C/BIOTIN 1 TAB TABLET PO SCH (08:46)
[2018-10-24] MEDS: AMLODIPINE BESYLATE 10 MG TABLET PO SCH (08:47)
[2018-10-24] MEDS: LamoTRIgine 100 MG TABLET PO SCH ×2 (08:53→18:03)
[2018-10-24] MEDS: QUETIAPINE FUMARATE 100 MG TABLET PO SCH ×2 (09:00→21:23)
[2018-10-24] MEDS: CLONIDINE HCL 0.1 MG TABLET PO SCH ×3 (09:00→18:05)
[2018-10-24] MEDS: hydrALAZINE HCL 50 MG TABLET PO SCH ×3 (09:00→18:03)
[2018-10-24] MEDS: AZELASTINE NASAL SPRAY 30 ML BOTTLE NS SCH (09:02)
[2018-10-24] MEDS: FLUTICASONE PROPIONATE 16 GM BOTTLE NS SCH (09:03)
[2018-10-24] MEDS: KETOROLAC EYE 0.5% 3 ML BOTTLE OP SCH ×2 (09:03→17:00)
[2018-10-24] MEDS: OLOPATADINE HCL 0.1% OPHTH BOTTLE OP SCH ×2 (09:03→17:00)
[2018-10-24] MEDS ORDERED: K PHOS NEUTRAL 250 MG TABLET PO ONE (12:30)
[2018-10-24] MEDS ORDERED: NEUTRA PHOS 1 POWD.PACKET PO ONE (14:00)
--- NOTE | 2018-10-24 15:58 | NUR ---
PT RESTING WHILE ON DIALYSIS. NO S/S OF SOB NOTED
[2018-10-24 16:00] VITALS: BP 128/63
--- NOTE | 2018-10-24 19:34 | NUR ---
MS RN OPENING NOTES RECEIVED PT A/O X 3. ON NASAL CANNULA NO RESPIRATORY DISTRESS NOTED. IV ACCESS ON RFA G20 PATENT AND INTACT SL.. SIDE RAILS UP. CALL LIGHT WITHIN REACH. BED ALARM ON. WILL CONT TO MONITOR PT CLOSELY. GOT ENDOSEMENT THAT DOCTOR IS AWARE OF LOW H &H OF 7.7 AND 23. WILL CONTINUE TO MONITER AND CARRY OUT PLAN OF CARE.
[2018-10-24 20:00] VITALS: BP 117/49
[2018-10-24] MEDS: MAG HYDROX/AL HYDROX/SIMETH 30 ML UDC PO PRN (21:20)
[2018-10-24] MEDS: DOXAZOSIN MESYLATE (1 MG) 1 MG TABLET PO SCH (21:21)
[2018-10-24] MEDS: clonazePAM 0.5 MG TABLET PO SCH (21:23)
[2018-10-24] MEDS: ATORVASTATIN 10 MG TABLET PO SCH (21:23)
--- NOTE | 2018-10-24 23:15 | NUR ---
PT REFUSED PRN BREATHING TREATMENTS FROM RT AND STATES SHE DOES NOT WANT TO BE DISTURBED.
[2018-10-25] MEDS: IPRATROPIUM NEB FS 0.5 MG/2.5 ML AMPUL.NEB NEB SCH ×6 (03:21→23:30)
[2018-10-25 04:00] VITALS: BP 118/56
[2018-10-25] MEDS: HYDROCODONE/APAP 5/325MG 1 EACH TABLET PO PRN (04:30)
[2018-10-25 06:38] LABS: BASOPHILS % (AUTO) 0.7 % (0.0-2.0); EOSINOPHILS % (AUTO) 5.1 % (0.0-6.0); HEMATOCRIT 21 % (33-45); LYMPHOCYTES # (AUTO) 0.8 /CMM (0.8-4.8); LYMPHOCYTES % (AUTO) 17.4 % (20.0-44.0); MEAN CORPUSCULAR HGB CONC 34 g/dl (31.0-36.0); MEAN CORPUSCULAR VOLUME 103 fL (82-100); MONOCYTES # (AUTO) 0.5 /CMM (0.1-1.30); MONOCYTES % (AUTO) 11.5 % (2.0-12.0); NEUTROPHILS # (AUTO) 2.9 /CMM (1.8-8.9); NEUTROPHILS % (AUTO) 65.3 % (43.0-81.0); PLATELET COUNT (AUTO) 186 /CMM (150-450); WHITE BLOOD COUNT (AUTO) 4.5 K/uL (4.3-11.0)
[2018-10-25 06:40] LABS: RED BLOOD CELL COUNT(AUTO) 1.99 MIL/uL (4.0-5.2)
--- NOTE | 2018-10-25 06:57 | NUR ---
MS RN CLOSING NOTES ALERT/ORIENTED X4 WITH PAIN OVERNIGHT FROM THE THOROCENTIS SITE. 4L O2 VIA NC CONTINUOUSLY,NO SOB AND ACUTE DISTRESS NOTED.IV LINE IS ON RIGHT FA G20 AND LEFT UA FISTULA PRESENT,SITE IS CLEAN,DRY AND INTACT. RECIEVED PHONE CALL FROM LAB THAT H/H IS LOW 7.0 &21. WILL ENDORSE TO AM SHIFT BED IS IN LOW POSITION AND LOCKED,CALL LIGHT IS WITHIN REACH.
[2018-10-25 07:02] LABS: CALCIUM, SERUM 8.8 mg/dL (8.5-10.1); CREATININE 2.6 mg/dL (0.6-1.3); MAGNESIUM 2.2 mg/dL (1.8-2.4); PHOSPHORUS 1.2 mg/dL (2.5-4.9); POTASSIUM 4.9 mmol/L (3.5-5.1)
[2018-10-25] MEDS: LEVOTHYROXINE SODIUM 100 MCG TABLET PO SCH (07:27)
[2018-10-25] MEDS: SUCRALFATE 1 G/10 ML UDC GT SCH ×4 (07:27→22:34)
[2018-10-25] MEDS: PANTOPRAZOLE 40 MG TABLET.DR PO SCH ×2 (07:27→18:12)
[2018-10-25] MEDS: SEVELAMER CARBONATE 800 MG TABLET PO SCH ×3 (07:27→18:12)
[2018-10-25] MEDS: ACETYLCYSTEINE 10% SOLN 400 MG/4 ML VIAL NEB SCH ×3 (07:35→23:30)
[2018-10-25 08:00] VITALS: BP 127/56
--- NOTE | 2018-10-25 08:25 | NUR ---
PT RESTING COMFORTABLY ON DIALYSIS. NO S/S OF SOB NOTED. WILL CONT TO MONITOR
[2018-10-25] MEDS: AZELASTINE NASAL SPRAY 30 ML BOTTLE NS SCH (08:30)
[2018-10-25] MEDS: FLUTICASONE PROPIONATE 16 GM BOTTLE NS SCH (08:31)
[2018-10-25] MEDS: KETOROLAC EYE 0.5% 3 ML BOTTLE OP SCH ×2 (08:31→18:14)
[2018-10-25] MEDS: ASPIRIN EC 81 MG TABLET.DR PO SCH (08:36)
[2018-10-25] MEDS: OLOPATADINE HCL 0.1% OPHTH BOTTLE OP SCH ×2 (08:36→18:14)
[2018-10-25] MEDS: hydrALAZINE HCL 50 MG TABLET PO SCH ×3 (08:36→17:00)
[2018-10-25] MEDS: LACTOBACILLUS RHAMNOSUS GG 1 EACH CAP.SPRINK PO SCH ×2 (08:37→18:12)
[2018-10-25] MEDS: ZINC SULFATE 220 MG CAPSULE PO SCH (08:37)
[2018-10-25] MEDS: VIT B CMPLX 3/FA/VIT C/BIOTIN 1 TAB TABLET PO SCH (08:37)
[2018-10-25] MEDS: CLONIDINE HCL 0.1 MG TABLET PO SCH ×3 (08:37→17:00)
[2018-10-25] MEDS: DOCUSATE SODIUM 100 MG CAPSULE PO SCH ×2 (08:37→18:11)
[2018-10-25] MEDS: MAGNESIUM OXIDE 400 MG TABLET PO SCH (08:37)
[2018-10-25] MEDS: SENNOSIDES/DOCUSATE SODIUM 1 TAB TABLET PO SCH (08:37)
[2018-10-25] MEDS: FOLIC ACID 1 MG TABLET PO SCH (08:38)
[2018-10-25] MEDS: CHOLECALCIFEROL (VITAMIN D 3) 400 UNIT TABLET PO SCH (08:38)
[2018-10-25] MEDS: LamoTRIgine 100 MG TABLET PO SCH ×2 (08:38→18:12)
[2018-10-25] MEDS: QUETIAPINE FUMARATE 100 MG TABLET PO SCH ×2 (08:38→22:34)
[2018-10-25] MEDS: AMLODIPINE BESYLATE 10 MG TABLET PO SCH (08:39)
[2018-10-25] MEDS: LABETALOL HCL (100MG) 100 MG TABLET PO SCH ×3 (08:39→17:00)
--- NOTE | 2018-10-25 09:00 | NUR ---
RN NOTES BLOOD PRESSURE MEDICATION NOT GIVEN DUE TO DIALYSIS. ASPIRIN NOT GIVEN DUE TO GASTRITIS
[2018-10-25] MEDS ORDERED: NEUTRA PHOS 1 POWD.PACKET PO ONE (11:30)
[2018-10-25 12:00] VITALS: BP 137/60
--- NOTE | 2018-10-25 15:51 | NUR ---
PT REFUSED RESP TX ATT. NO S/S OF SOB NOTED. WILL CONT TO MONITOR
[2018-10-25 16:00] VITALS: BP 94/61
--- NOTE | 2018-10-25 17:00 | NUR ---
RN NOTES BLOOD PRESSURE MEDICATION NOT GIVEN DUE TO BLOOD PRESSURE 94/61MMHG
--- NOTE | 2018-10-25 19:36 | NUR ---
MS RN NOTE PATIENT REPORT GIVEN BEDSIDE. PATIENT SITTING UP IN CHAIR WATCHING TV. PATIENT APPEARS IN NO S/S OF ACUTE DISTRESS. PATIENT DENIES PAIN OR DISCOMFORT AT THIS TIME. PATIENT JUST REQUESTS A COMB. COMB GIVEN. PATIENT WATCHING TV. CALL LIGHT IN HAND. RN WILL CONTINUE TO MONITOR FOR CHANGES. SAFETY PRECAUTIONS IN PLACE.
--- NOTE | 2018-10-25 19:50 | NUR ---
RN NOTES ENDORSED FOR CONTINUITY OF CARE. NOT ON ANY FORM OF DISTRESS. NO ACUTE CHANGES WITHIN THE SHIFT. ALL NURSING NEEDS ATTENDED AND MET. SAFETY MEASURES IN PLACE. CALL LIGHT WITHIN REACH
[2018-10-25 20:00] VITALS: BP 107/57
[2018-10-25] MEDS: clonazePAM 0.5 MG TABLET PO SCH (22:33)
[2018-10-25] MEDS: ATORVASTATIN 10 MG TABLET PO SCH (22:34)
[2018-10-25] MEDS: DOXAZOSIN MESYLATE (1 MG) 1 MG TABLET PO SCH (22:34)
[2018-10-25] MEDS: SIMETHICONE 80 MG TAB.CHEW PO PRN (22:47)
[2018-10-26] MEDS: IPRATROPIUM NEB FS 0.5 MG/2.5 ML AMPUL.NEB NEB SCH ×6 (03:30→22:56)
[2018-10-26 04:00] VITALS: BP 143/37
--- NOTE | 2018-10-26 07:20 | NUR ---
RN OPENING NOTES RECEIVED PATIENT SITTING BT THE EDGE OF THE BED.A/A/OX3, ABLE TO MAKE NEEDS KNOWN. NO ACUTE DISTRESS NOTED. NO COMPLAINTS OF PAIN OR DISCOMFORT AT THIS TIME. ON ROOM AIR, BREATHING EVEN AND UNLABORED. IV ON RIGHT FOREARM #20 INTACT PATENT AND FLUSHES WELL. PATIENT ENCOURAGE TO CALL FOR HELP OR ASSISTANCE. CALL LIGHT PLACED WITHIN REACH. SAFETY MEASURES ENSURES IN PLACE. BED ALARM ON. BED LOCKED AND IN LOWEST POSITION. WILL CONTINUE TO MONITOR AND ANTICIPATE NEEDS
[2018-10-26] MEDS: ACETYLCYSTEINE 10% SOLN 400 MG/4 ML VIAL NEB SCH ×3 (07:35→22:56)
[2018-10-26 08:00] VITALS: BP 144/70
[2018-10-26] MEDS: SUCRALFATE 1 G/10 ML UDC GT SCH ×4 (08:26→22:35)
[2018-10-26] MEDS: LEVOTHYROXINE SODIUM 100 MCG TABLET PO SCH (08:27)
[2018-10-26] MEDS: PANTOPRAZOLE 40 MG TABLET.DR PO SCH ×2 (08:27→17:21)
[2018-10-26] MEDS: SEVELAMER CARBONATE 800 MG TABLET PO SCH (09:19)
[2018-10-26] MEDS: LACTOBACILLUS RHAMNOSUS GG 1 EACH CAP.SPRINK PO SCH ×2 (09:19→17:22)
[2018-10-26] MEDS: DOCUSATE SODIUM 100 MG CAPSULE PO SCH ×2 (09:19→17:22)
[2018-10-26] MEDS: SENNOSIDES/DOCUSATE SODIUM 1 TAB TABLET PO SCH (09:19)
[2018-10-26] MEDS: LamoTRIgine 100 MG TABLET PO SCH ×2 (09:20→17:22)
[2018-10-26] MEDS: QUETIAPINE FUMARATE 100 MG TABLET PO SCH ×2 (09:20→22:35)
[2018-10-26] MEDS: CHOLECALCIFEROL (VITAMIN D 3) 400 UNIT TABLET PO SCH (09:20)
[2018-10-26] MEDS: ZINC SULFATE 220 MG CAPSULE PO SCH (09:20)
[2018-10-26] MEDS: MAGNESIUM OXIDE 400 MG TABLET PO SCH (09:20)
[2018-10-26] MEDS: ASPIRIN EC 81 MG TABLET.DR PO SCH (09:21)
[2018-10-26] MEDS: FOLIC ACID 1 MG TABLET PO SCH (09:21)
[2018-10-26] MEDS: VIT B CMPLX 3/FA/VIT C/BIOTIN 1 TAB TABLET PO SCH (09:21)
[2018-10-26] MEDS: CLONIDINE HCL 0.1 MG TABLET PO SCH ×3 (09:22→17:23)
[2018-10-26] MEDS: hydrALAZINE HCL 50 MG TABLET PO SCH ×3 (09:23→17:23)
[2018-10-26] MEDS: LABETALOL HCL (100MG) 100 MG TABLET PO SCH ×3 (09:24→17:23)
[2018-10-26] MEDS: AZELASTINE NASAL SPRAY 30 ML BOTTLE NS SCH (09:24)
[2018-10-26] MEDS: AMLODIPINE BESYLATE 10 MG TABLET PO SCH (09:24)
[2018-10-26] MEDS: OLOPATADINE HCL 0.1% OPHTH BOTTLE OP SCH ×2 (09:25→17:21)
[2018-10-26] MEDS: FLUTICASONE PROPIONATE 16 GM BOTTLE NS SCH (09:25)
[2018-10-26] MEDS: KETOROLAC EYE 0.5% 3 ML BOTTLE OP SCH ×2 (09:25→17:21)
[2018-10-26 14:00] LABS: BASOPHILS % (AUTO) 0.7 % (0.0-2.0); EOSINOPHILS % (AUTO) 6.6 % (0.0-6.0); HEMATOCRIT 21 % (33-45); HEMOGLOBIN 7.3 g/dL (11.5-14.8); LYMPHOCYTES # (AUTO) 0.6 /CMM (0.8-4.8); LYMPHOCYTES % (AUTO) 18.1 % (20.0-44.0); MEAN CORPUSCULAR HGB CONC 34 g/dl (31.0-36.0); MEAN CORPUSCULAR VOLUME 103 fL (82-100); MONOCYTES # (AUTO) 0.5 /CMM (0.1-1.30); MONOCYTES % (AUTO) 14.2 % (2.0-12.0); NEUTROPHILS # (AUTO) 2.2 /CMM (1.8-8.9); NEUTROPHILS % (AUTO) 60.4 % (43.0-81.0); PLATELET COUNT (AUTO) 190 /CMM (150-450); RED BLOOD CELL COUNT(AUTO) 2.07 MIL/uL (4.0-5.2); WHITE BLOOD COUNT (AUTO) 3.6 K/uL (4.3-11.0)
[2018-10-26 14:15] LABS: CALCIUM, SERUM 8.7 mg/dL (8.5-10.1); CREATININE 1.9 mg/dL (0.6-1.3); MAGNESIUM 1.9 mg/dL (1.8-2.4); PHOSPHORUS 1.5 mg/dL (2.5-4.9)
[2018-10-26 14:26] LABS: THYROID STIMULATING HORMONE 76.108 uIU/mL (0.358-3.74)
[2018-10-26 16:00] VITALS: BP 128/80
--- NOTE | 2018-10-26 19:46 | NUR ---
RN CLOSING NOTES GAVE REPORT TO BUSINESS CONTROLLER RN. PATIENT LAYING IN THE BED.A/OX3, ABLE TO MAKE NEEDS KNOWN. NO ACUTE DISTRESS NOTED. NO COMPLAINTS OF PAIN OR DISCOMFORT AT THIS TIME. ON ROOM AIR, BREATHING EVEN AND UNLABORED. IV ON RIGHT FOREARM #20 INTACT PATENT AND FLUSHES WELL. PATIENT ENCOURAGE TO CALL FOR HELP OR ASSISTANCE. CALL LIGHT PLACED WITHIN REACH. SAFETY MEASURES ENSURES IN PLACE. BED ALARM ON. BED LOCKED AND IN LOWEST POSITION. WILL ENDORSE CONTINUITY OF CARE TO BUSINESS CONTROLLER RN.
[2018-10-26 20:00] VITALS: BP 119/56
--- NOTE | 2018-10-26 20:15 | NUR ---
MS RN OPENING NOTES RECEIVED REPORT FROM SHON GODINEZ. PATIENT A/A/O X4, ABLE TO MAKE NEEDS KNOWN. BREATHING EVEN & UNLABORED, TOLERATING O2 @ 2LPM VIA NC. DENIES ANY SOB OR DIFFICULTY BREATHING. RADIAL PULSES PRESENT. RIGHT FOREARM IV #20 INTACT & PATENT W/ DRESSING CDI, SALINE LOCKED. LEFT UPPER ARM AV FISTULA W/ NO SIGNS INFECTION NOTED, BRUIT/THRILL PRESENT. DENIES ANY PAIN OR DISCOMFORT @ THIS TIME. SAFETY MEASURES IN PLACE W/ SIDE RAILS UP & BED ALARM ON. CALL LIGHT PLACE WITHIN REACH & INSTRUCTED TO CALL FOR ASSISTANCE. WILL CONTINUE TO MONITOR.
[2018-10-26] MEDS: ATORVASTATIN 10 MG TABLET PO SCH (22:35)
[2018-10-26] MEDS: clonazePAM 0.5 MG TABLET PO SCH (22:35)
[2018-10-26] MEDS: DOXAZOSIN MESYLATE (1 MG) 1 MG TABLET PO SCH (22:43)
[2018-10-27] MEDS: IPRATROPIUM NEB FS 0.5 MG/2.5 ML AMPUL.NEB NEB SCH ×6 (03:05→23:28)
[2018-10-27 04:00] VITALS: BP 115/60
[2018-10-27] MEDS: SIMETHICONE 80 MG TAB.CHEW PO PRN (04:47)
--- NOTE | 2018-10-27 07:10 | NUR ---
RN MS OPENING NOTES RECEIVED PATIENT SITTING BT THE EDGE OF THE BED.A/A/OX3, ABLE TO MAKE NEEDS KNOWN. NO ACUTE DISTRESS NOTED. NO COMPLAINTS OF PAIN OR DISCOMFORT AT THIS TIME. ON 2L O2 VIA NC, BREATHING EVEN AND UNLABORED. IV ON RIGHT FOREARM #20 INTACT PATENT AND FLUSHES WELL. PATIENT ENCOURAGE TO CALL FOR HELP OR ASSISTANCE. CALL LIGHT PLACED WITHIN REACH. SAFETY MEASURES ENSURES IN PLACE. BED ALARM ON. BED LOCKED AND IN LOWEST POSITION. WILL CONTINUE TO MONITOR.
[2018-10-27] MEDS: ACETYLCYSTEINE 10% SOLN 400 MG/4 ML VIAL NEB SCH ×3 (07:35→23:28)
[2018-10-27 08:00] VITALS: BP 109/58
[2018-10-27] MEDS: SUCRALFATE 1 G/10 ML UDC GT SCH ×4 (08:00→21:46)
[2018-10-27] MEDS: PANTOPRAZOLE 40 MG TABLET.DR PO SCH ×2 (08:00→17:25)
[2018-10-27] MEDS: LEVOTHYROXINE SODIUM 100 MCG TABLET PO SCH (08:00)
[2018-10-27] MEDS: LEVOTHYROXINE INJ 100 MCG VIAL IV SCH (08:30)
[2018-10-27] MEDS: LABETALOL HCL (100MG) 100 MG TABLET PO SCH ×3 (09:00→17:00)
[2018-10-27] MEDS: AMLODIPINE BESYLATE 10 MG TABLET PO SCH (09:00)
[2018-10-27] MEDS: CLONIDINE HCL 0.1 MG TABLET PO SCH ×3 (09:00→17:00)
[2018-10-27] MEDS: hydrALAZINE HCL 50 MG TABLET PO SCH ×3 (09:00→17:26)
[2018-10-27 09:48] LABS: CALCIUM, SERUM 8.3 mg/dL (8.5-10.1); CREATININE 2.4 mg/dL (0.6-1.3); MAGNESIUM 1.9 mg/dL (1.8-2.4); PHOSPHORUS 1.5 mg/dL (2.5-4.9); POTASSIUM 4.3 mmol/L (3.5-5.1)
[2018-10-27 10:21] LABS: BASOPHILS % (AUTO) 0.9 % (0.0-2.0); EOSINOPHILS % (AUTO) 8.9 % (0.0-6.0); LYMPHOCYTES # (AUTO) 0.6 /CMM (0.8-4.8); LYMPHOCYTES % (AUTO) 21.2 % (20.0-44.0); MEAN CORPUSCULAR HGB CONC 34 g/dl (31.0-36.0); MEAN CORPUSCULAR VOLUME 103 fL (82-100); MONOCYTES # (AUTO) 0.4 /CMM (0.1-1.30); MONOCYTES % (AUTO) 13.2 % (2.0-12.0); NEUTROPHILS # (AUTO) 1.6 /CMM (1.8-8.9); NEUTROPHILS % (AUTO) 55.8 % (43.0-81.0); PLATELET COUNT (AUTO) 175 /CMM (150-450); WHITE BLOOD COUNT (AUTO) 2.9 K/uL (4.3-11.0)
[2018-10-27 10:23] LABS: RED BLOOD CELL COUNT(AUTO) 1.75 MIL/uL (4.0-5.2)
[2018-10-27 10:27] LABS: HEMATOCRIT 18 % (33-45); HEMOGLOBIN 6.1 g/dL (11.5-14.8)
--- NOTE | 2018-10-27 10:30 | NUR ---
NOTIFIED SHANNA SUAZO OF CRITICAL VALUES. ORDERS RECEIVED AND CARRIED OUT.
[2018-10-27 11:38] LABS: BAND % (MANUAL) 2 % (0.0-5.0); EOSINOPHILS % (MANUAL) 8 % (0-4); LYMPHOCYTES % (MANUAL) 18 % (16-48); MONOCYTES % (MANUAL) 13 % (0-11.0); NEUTROPHILS % (MANUAL) 59 (42-76)
[2018-10-27] MEDS: FOLIC ACID 1 MG TABLET PO SCH (11:50)
[2018-10-27] MEDS: ZINC SULFATE 220 MG CAPSULE PO SCH (11:50)
[2018-10-27] MEDS: LACTOBACILLUS RHAMNOSUS GG 1 EACH CAP.SPRINK PO SCH ×2 (11:50→17:24)
[2018-10-27] MEDS: DOCUSATE SODIUM 100 MG CAPSULE PO SCH ×2 (11:50→17:25)
[2018-10-27] MEDS: SENNOSIDES/DOCUSATE SODIUM 1 TAB TABLET PO SCH (11:50)
[2018-10-27] MEDS: LamoTRIgine 100 MG TABLET PO SCH ×2 (11:51→17:25)
[2018-10-27] MEDS: OLOPATADINE HCL 0.1% OPHTH BOTTLE OP SCH ×2 (11:51→17:00)
[2018-10-27] MEDS: KETOROLAC EYE 0.5% 3 ML BOTTLE OP SCH ×2 (11:51→17:00)
[2018-10-27] MEDS: ASPIRIN EC 81 MG TABLET.DR PO SCH (11:51)
[2018-10-27] MEDS: VIT B CMPLX 3/FA/VIT C/BIOTIN 1 TAB TABLET PO SCH (11:51)
[2018-10-27] MEDS: QUETIAPINE FUMARATE 100 MG TABLET PO SCH ×2 (11:51→21:47)
[2018-10-27] MEDS: CHOLECALCIFEROL (VITAMIN D 3) 400 UNIT TABLET PO SCH (11:51)
[2018-10-27] MEDS: FLUTICASONE PROPIONATE 16 GM BOTTLE NS SCH (11:52)
[2018-10-27] MEDS: AZELASTINE NASAL SPRAY 30 ML BOTTLE NS SCH (11:52)
[2018-10-27] MEDS ORDERED: EPOETIN ALFA (20,000 UNIT) 20,000 UNIT/ML VIAL SQ ONE (13:00)
[2018-10-27] MEDS: SOD FERRIC GLUC 125 MG in IV NS 0.9% 100 ML IV SCH (14:20)
[2018-10-27 16:00] VITALS: BP 118/55
[2018-10-27] MEDS ORDERED: FERROUS SULFATE (325 MG) 325 MG/TAB TABLET PO SCH (18:00)
--- NOTE | 2018-10-27 18:35 | NUR ---
RN CLOSING NOTES PATIENT SITTING IN THE CHAIR. A/OX3, ABLE TO MAKE NEEDS KNOWN. NO ACUTE DISTRESS NOTED. NO COMPLAINTS OF PAIN OR DISCOMFORT AT THIS TIME. ON 2L O2 VIA NC, BREATHING EVEN AND UNLABORED. IV ON RIGHT FOREARM #20 INTACT PATENT AND FLUSHES WELL. PATIENT ENCOURAGE TO CALL FOR HELP OR ASSISTANCE. CALL LIGHT PLACED WITHIN REACH. SAFETY MEASURES ENSURES IN PLACE. BED ALARM ON. BED LOCKED AND IN LOWEST POSITION. WILL ENDORSE CONTINUITY OF CARE TO EQUINE VET RN.
--- NOTE | 2018-10-27 19:45 | NUR ---
RN OPENING NOTES: RECIEVED PT IN BED WITH FAMILY AT BEDSIDE A/OX2, . NO ACUTE DISTRESS NOTED. NO COMPLAINTS OF PAIN OR DISCOMFORT AT THIS TIME. E. BED ALARM ON. BED LOCKED AND IN LOWEST POSITION. WILL ENDORSE CONTINUITY OF CARE TO FIXER SUPERVISOR RN. AT THIS TIME. ON 2L O2 VIA NC, BREATHING EVEN AND UNLABORED. IV ON RIGHT FOREARM #20 INTACT PATENT AND FLUSHES WELL. CALL LIGHT IN PLACE, WILL CALL CONT TO MONITER. Addendum: 10/27/18 at 1953 by TYRA WHITING RN RN OPENING NOTES: RECIEVED PT IN BED A0*2, . NO ACUTE DISTRESS NOTED. NO COMPLAINTS OF PAIN OR DISCOMFORT AT THIS TIME. E. BED ALARM ON. BED LOCKED AND IN LOWEST POSITION. WILL ENDORSE CONTINUITY OF CARE TO FIXER SUPERVISOR RN. AT THIS TIME. ON 2L O2 VIA NC, BREATHING EVEN AND UNLABORED. IV ON RIGHT FOREARM #20 INTACT PATENT AND FLUSHES WELL. FISTULA IN TACT.SAFETY PRECAUTIONS IN PLACE. WILL CARRY OUT PLAN OF CARE AND WILL CALL CONT TO MONITER.
[2018-10-27] MEDS: clonazePAM 0.5 MG TABLET PO SCH (21:46)
[2018-10-27] MEDS: ATORVASTATIN 10 MG TABLET PO SCH (21:46)
[2018-10-27] MEDS: DOXAZOSIN MESYLATE (1 MG) 1 MG TABLET PO SCH (22:04)
[2018-10-28] VITALS: BP 138/68
[2018-10-28] MEDS: SIMETHICONE 80 MG TAB.CHEW PO PRN ×2 (00:29→12:21)
[2018-10-28] MEDS: IPRATROPIUM NEB FS 0.5 MG/2.5 ML AMPUL.NEB NEB SCH ×6 (03:01→22:37)
[2018-10-28 06:24] LABS: BASOPHILS # (AUTO) 0.1 /CMM (0.0-0.2); BASOPHILS % (AUTO) 2.6 % (0.0-2.0); EOSINOPHILS % (AUTO) 11.2 % (0.0-6.0); LYMPHOCYTES # (AUTO) 0.7 /CMM (0.8-4.8); LYMPHOCYTES % (AUTO) 24.6 % (20.0-44.0); MEAN CORPUSCULAR HGB CONC 34 g/dl (31.0-36.0); MEAN CORPUSCULAR VOLUME 104 fL (82-100); MONOCYTES # (AUTO) 0.4 /CMM (0.1-1.30); MONOCYTES % (AUTO) 13.8 % (2.0-12.0); NEUTROPHILS # (AUTO) 1.4 /CMM (1.8-8.9); NEUTROPHILS % (AUTO) 47.8 % (43.0-81.0); PLATELET COUNT (AUTO) 192 /CMM (150-450)
[2018-10-28 06:31] LABS: RED BLOOD CELL COUNT(AUTO) 1.92 MIL/uL (4.0-5.2)
[2018-10-28 06:37] LABS: HEMATOCRIT 20 % (33-45); HEMOGLOBIN 6.8 g/dL (11.5-14.8)
[2018-10-28 06:41] LABS: CALCIUM, SERUM 8.6 mg/dL (8.5-10.1); CREATININE 2.7 mg/dL (0.6-1.3); MAGNESIUM 2.1 mg/dL (1.8-2.4); PHOSPHORUS 1.8 mg/dL (2.5-4.9); POTASSIUM 4.9 mmol/L (3.5-5.1)
[2018-10-28] MEDS: ACETYLCYSTEINE 10% SOLN 400 MG/4 ML VIAL NEB SCH ×3 (07:23→23:30)
--- NOTE | 2018-10-28 07:35 | NUR ---
SENIOR SOFTWARE QA ANALYST NOTES PT ON 4 LTRS NASAL CANNULA. NO C/O PAIN. A/O X 3. NO ACUTE DISTRESS NOTED. NO BM DURING SHIFT.L . KEPT CLEAN AND DRY REPOSITIONED Q2 HRS. CRITICAL LAB VALUES OF H&H 6.8 NOTED AND - PT REFUSED BLOOD TRANSFUSION. MD AWARE. OF SAFETY PRECAUTIONS IN PLACE BED IN LOW POSITION CALL LIGHT WITHIN REACH. WILL ENDORSE TO AM NURSE TO CARRY OUT PLAN OF CARE.
--- NOTE | 2018-10-28 07:56 | NUR ---
RN NOTE RECEIVED PATIENT SLEEPING IN BED. RESPONSIE TO VERBAL STIMULI. A/A/OX3, ABLE TO MAKE NEEDS KNOWN. NO ACUTE DISTRESS NOTED. NO COMPLAINTS OF PAIN OR DISCOMFORT AT THIS TIME. ON ROOM AIR, BREATHING EVEN AND UNLABORED. IV ON RIGHT FOREARM #20 INTACT PATENT AND FLUSHES WELL. JERRY AV SHUNT. PATIENT ENCOURAGE TO CALL FOR HELP OR ASSISTANCE. CALL LIGHT PLACED WITHIN REACH. SAFETY MEASURES ENSURED IN PLACE. BED ALARM ON. BED LOCKED AND IN LOWEST POSITION. WILL CONTINUE TO MONITOR AND ANTICIPATE NEEDS
[2018-10-28 08:00] VITALS: BP_SYST 147; BP_DIAS 61; BP_DIAS 65
[2018-10-28] MEDS: LEVOTHYROXINE INJ 100 MCG VIAL IV SCH (08:03)
[2018-10-28] MEDS: PANTOPRAZOLE 40 MG TABLET.DR PO SCH ×2 (08:04→16:33)
[2018-10-28] MEDS: SUCRALFATE 1 G/10 ML UDC GT SCH ×4 (08:04→22:55)
[2018-10-28 08:46] LABS: BAND % (MANUAL) 1 % (0.0-5.0); EOSINOPHILS % (MANUAL) 11 % (0-4); LYMPHOCYTES % (MANUAL) 27 % (16-48); MONOCYTES % (MANUAL) 12 % (0-11.0); NEUTROPHILS % (MANUAL) 49 (42-76)
[2018-10-28] MEDS: AZELASTINE NASAL SPRAY 30 ML BOTTLE NS SCH (08:57)
[2018-10-28] MEDS: OLOPATADINE HCL 0.1% OPHTH BOTTLE OP SCH ×2 (08:58→16:33)
[2018-10-28] MEDS: KETOROLAC EYE 0.5% 3 ML BOTTLE OP SCH ×2 (08:58→16:32)
[2018-10-28] MEDS: FLUTICASONE PROPIONATE 16 GM BOTTLE NS SCH (08:58)
[2018-10-28] MEDS: LamoTRIgine 100 MG TABLET PO SCH ×2 (08:59→16:33)
[2018-10-28] MEDS: DOCUSATE SODIUM 100 MG CAPSULE PO SCH ×2 (08:59→16:33)
[2018-10-28] MEDS: LACTOBACILLUS RHAMNOSUS GG 1 EACH CAP.SPRINK PO SCH ×2 (08:59→16:33)
[2018-10-28] MEDS: QUETIAPINE FUMARATE 100 MG TABLET PO SCH ×2 (08:59→22:55)
[2018-10-28] MEDS: FOLIC ACID 1 MG TABLET PO SCH (08:59)
[2018-10-28] MEDS: CHOLECALCIFEROL (VITAMIN D 3) 400 UNIT TABLET PO SCH (09:00)
[2018-10-28] MEDS: ASPIRIN EC 81 MG TABLET.DR PO SCH (09:00)
[2018-10-28] MEDS: VIT B CMPLX 3/FA/VIT C/BIOTIN 1 TAB TABLET PO SCH (09:00)
[2018-10-28] MEDS: ZINC SULFATE 220 MG CAPSULE PO SCH (09:00)
[2018-10-28] MEDS: SENNOSIDES/DOCUSATE SODIUM 1 TAB TABLET PO SCH (09:00)
[2018-10-28] MEDS: AMLODIPINE BESYLATE 10 MG TABLET PO SCH (09:01)
[2018-10-28] MEDS: CLONIDINE HCL 0.1 MG TABLET PO SCH ×3 (09:02→16:34)
[2018-10-28] MEDS: LABETALOL HCL (100MG) 100 MG TABLET PO SCH ×3 (09:02→16:34)
[2018-10-28] MEDS: hydrALAZINE HCL 50 MG TABLET PO SCH ×3 (09:09→16:33)
--- NOTE | 2018-10-28 12:00 | NUR ---
RN NOTES BLOOD PRESSURE HELD DUE TO PATIENT ON DIALYSIS SCHEDULE FOR TODAY
--- NOTE | 2018-10-28 13:34 | NUR ---
RN NOTES SEEN AND EXAMINED BY DR. SHANNA SUAZO WITH ORDERS FOR ENEMA. ORDER NOTED AND CARRIED OUT
--- NOTE | 2018-10-28 14:00 | NUR ---
RN NOTES WENT TO BEDSIDE TO OFFER THE ENEMA ORDERED BY DR. SUAZO BUT PATIENT REFUSE "I'VE ALREADY USE THE RESTROOM TWICE TODAY MY PROBLEM IS THE GAS. INFORMED PATIENT I WILL CHECK IF THERE IS ANYTHING ORDERED AND ADMINISTER IF NEEDED. DR. OTERO MADE AWARE.
[2018-10-28] MEDS: SOD FERRIC GLUC 125 MG in IV NS 0.9% 100 ML IV SCH (15:22)
[2018-10-28 16:00] VITALS: BP 119/54
--- NOTE | 2018-10-28 18:15 | NUR ---
RN NOTES INFORMED DR. ANAHI FAITH THAT PATIENT IS ASKING FOR EPOGEN FOR CURRENT HGB LEVEL AT 6.8 BUT NO STANDING ORDER. ALSO INFORMED LATER THAT PATIENT REFUSED BLOOD TRANSFUSION YESTERDAY. OBTAINED ORDER FOR EPOGEN 90715 UNITS SQ ONE TIME DOSE. ORDER NOTED AND CARRIED OUT
--- NOTE | 2018-10-28 18:30 | NUR ---
RN NOTES PATIENT WITH TELEPHONE ORDER FOR DISCHARGE FROM DR. OTERO BUT PATIENT PREFERS TO BE DISCHARGE TOMORROW DUE TO " I STILL HAVE CONCERNS AND THAT I WANTED TO TALK TO THE DONOR RECRUITER" DR OTERO MADE AWARE AND LEANDRO WITH IT. FISCAL CLERK (MARIA ALEJANDRA) ALSO INFORMED
--- NOTE | 2018-10-28 19:30 | NUR ---
RN NOTES ENDORSED PATIENT FOR CONTINUITY OF CARE. CURRENTLY ON DIALYSIS TREATMENT. NO ACUTE CHANGES WITHIN THE SHIFT. PATIENT NOT ON ANY KIND OF DISTRESS. SAFETY MEASURES IN PLACE AT ALL TIMES. CALL LIGHT WITHIN REACH. ALL NURSING NEEDS ATTENDED AND MET
--- NOTE | 2018-10-28 19:31 | NUR ---
MS/RN OPENING NOTES PT RECEIVED ASLEEP, RESPONSIVE TO NAME. A/OX3. ON 2L O2 VIA NC, BREATHING EVEN AND UNLABORED. NO C/O PAIN OR SOB AT THIS TIME. ONGOING HEMODIALYSIS, SHOULD BE COMPLETED IN THE NEXT 40MINS. JERRY AV SHUNT. IV TO RFA PATENT AND INTACT. BED IN LOW/LOCKED POSITION WITH CALL LIGHT IN REACH. HOB ELEVATED. SIDE RAILS UPX3. BED ALARM ON FOR SAFETY. WILL CONTINUE TO MONITOR
[2018-10-28 19:51] VITALS: BP 107/54
[2018-10-28 20:00] VITALS: BP 107/54
--- NOTE | 2018-10-28 20:23 | NUR ---
MS/RN NOTES HD COMPLETED. 1700CC OUT. VITAL SIGNS STABLE. NO BLEEDING FROM HD SITE NOTED
[2018-10-28] MEDS: ATORVASTATIN 10 MG TABLET PO SCH (22:55)
[2018-10-28] MEDS: clonazePAM 0.5 MG TABLET PO SCH (22:55)
[2018-10-28] MEDS: DOXAZOSIN MESYLATE (1 MG) 1 MG TABLET PO SCH (22:56)
[2018-10-29] MEDS: IPRATROPIUM NEB FS 0.5 MG/2.5 ML AMPUL.NEB NEB SCH ×6 (03:31→23:05)
[2018-10-29] MEDS: LORAZEPAM 1 MG TABLET PO PRN (03:31)
[2018-10-29 04:00] VITALS: BP 140/54
--- NOTE | 2018-10-29 07:02 | NUR ---
MS/RN CLOSING NOTES PT ASLEEP, RESPONSIVE TO NAME. A/OX3. ON 3L O2 VIA NC, BREATHING EVEN AND UNLABORED. DENIES SOB AND PAIN AT THIS TIME. HD DONE YESTERDAY WITH 1700CC OUT FROM JERRY AV SHUNT. NO BLEEDING TO SITE. IV TO RFA PATENT AND INTACT. NO SIGNIFICANT CHANGES OVERNIGHT. ENCOURAGED TURNING/REPOSITIONING Q2H. BED REMAINS IN LOW/LOCKED POSITION WITH CALL LIGHT IN REACH. HOB ELEVATED. SIDE RAILS UPX2. WILL ENDORSE TO DAY SHIFT RN RICHARD.
--- NOTE | 2018-10-29 07:19 | NUR ---
MS/RN NOTES PT REFUSED AM LAB DRAW. WANTS IT TO BE DRAWN WITH HD THIS MORNING. DAY SHIFT RN INFORMED
--- NOTE | 2018-10-29 07:30 | NUR ---
RN NOTES RECEIVED PATIENT IN BED, COMFORTABLY SLEEPING IN BED. NOT ON ANY FORM OF DISTRESS. NO ACUTE CHANGES WITHIN SHIFT. WILL CONTINUE TO MONITOR AND ANTICIPATE NEEDS
[2018-10-29] MEDS: ACETYLCYSTEINE 10% SOLN 400 MG/4 ML VIAL NEB SCH ×3 (07:35→23:05)
[2018-10-29 08:00] VITALS: BP 155/75
[2018-10-29] MEDS: SUCRALFATE 1 G/10 ML UDC GT SCH ×4 (08:29→21:39)
[2018-10-29] MEDS: LACTOBACILLUS RHAMNOSUS GG 1 EACH CAP.SPRINK PO SCH ×2 (08:29→16:33)
[2018-10-29] MEDS: LamoTRIgine 100 MG TABLET PO SCH ×2 (08:29→16:33)
[2018-10-29] MEDS: ASPIRIN EC 81 MG TABLET.DR PO SCH (08:29)
[2018-10-29] MEDS: LEVOTHYROXINE SODIUM 125 MCG TABLET PO SCH (08:29)
[2018-10-29] MEDS: FOLIC ACID 1 MG TABLET PO SCH (08:30)
[2018-10-29] MEDS: PANTOPRAZOLE 40 MG TABLET.DR PO SCH ×2 (08:30→16:30)
[2018-10-29] MEDS: SENNOSIDES/DOCUSATE SODIUM 1 TAB TABLET PO SCH (08:30)
[2018-10-29] MEDS: VIT B CMPLX 3/FA/VIT C/BIOTIN 1 TAB TABLET PO SCH (08:30)
[2018-10-29] MEDS: FLUTICASONE PROPIONATE 16 GM BOTTLE NS SCH (08:30)
[2018-10-29] MEDS: DOCUSATE SODIUM 100 MG CAPSULE PO SCH ×2 (08:30→16:30)
[2018-10-29] MEDS: CHOLECALCIFEROL (VITAMIN D 3) 400 UNIT TABLET PO SCH (08:30)
[2018-10-29] MEDS: QUETIAPINE FUMARATE 100 MG TABLET PO SCH ×2 (08:30→21:40)
[2018-10-29] MEDS: ZINC SULFATE 220 MG CAPSULE PO SCH (08:30)
[2018-10-29] MEDS: AZELASTINE NASAL SPRAY 30 ML BOTTLE NS SCH (08:31)
[2018-10-29] MEDS: KETOROLAC EYE 0.5% 3 ML BOTTLE OP SCH ×2 (08:31→16:28)
[2018-10-29] MEDS: OLOPATADINE HCL 0.1% OPHTH BOTTLE OP SCH ×2 (08:31→16:29)
[2018-10-29] MEDS: LABETALOL HCL (100MG) 100 MG TABLET PO SCH ×3 (09:00→16:30)
[2018-10-29] MEDS: hydrALAZINE HCL 50 MG TABLET PO SCH ×3 (09:00→16:33)
[2018-10-29] MEDS: AMLODIPINE BESYLATE 10 MG TABLET PO SCH (09:00)
[2018-10-29] MEDS: CLONIDINE HCL 0.1 MG TABLET PO SCH ×3 (09:00→16:30)
[2018-10-29] MEDS: LIOTHYRONINE SODIUM (5 MCG/TA 5 MCG TABLET PO SCH (09:15)
[2018-10-29] MEDS: SIMETHICONE 80 MG TAB.CHEW PO PRN (09:15)
[2018-10-29 10:00] VITALS: BP 155/75
[2018-10-29 11:57] LABS: BASOPHILS # (AUTO) 0.1 /CMM (0.0-0.2); EOSINOPHILS % (AUTO) 11.6 % (0.0-6.0); LYMPHOCYTES # (AUTO) 0.6 /CMM (0.8-4.8); MEAN CORPUSCULAR HGB CONC 34 g/dl (31.0-36.0); MEAN CORPUSCULAR VOLUME 103 fL (82-100); MONOCYTES # (AUTO) 0.3 /CMM (0.1-1.30); MONOCYTES % (AUTO) 12.6 % (2.0-12.0); NEUTROPHILS # (AUTO) 1.4 /CMM (1.8-8.9); NEUTROPHILS % (AUTO) 50.8 % (43.0-81.0); PLATELET COUNT (AUTO) 181 /CMM (150-450); WHITE BLOOD COUNT (AUTO) 2.7 K/uL (4.3-11.0)
[2018-10-29 12:02] LABS: RED BLOOD CELL COUNT(AUTO) 1.84 MIL/uL (4.0-5.2)
[2018-10-29 12:04] LABS: HEMATOCRIT 19 % (33-45); HEMOGLOBIN 6.4 g/dL (11.5-14.8)
[2018-10-29 12:15] LABS: CALCIUM, SERUM 8.3 mg/dL (8.5-10.1); CREATININE 2.6 mg/dL (0.6-1.3); MAGNESIUM 2.1 mg/dL (1.8-2.4); PHOSPHORUS 1.8 mg/dL (2.5-4.9); POTASSIUM 4.1 mmol/L (3.5-5.1)
[2018-10-29] MEDS: EPOETIN ALFA (20,000 UNIT) 20,000 UNIT/ML VIAL IV SCH (12:35)
[2018-10-29 12:42] LABS: EOSINOPHILS % (MANUAL) 9 % (0-4); LYMPHOCYTES % (MANUAL) 23 % (16-48); MONOCYTES % (MANUAL) 5 % (0-11.0); NEUTROPHILS % (MANUAL) 63 (42-76)
[2018-10-29] MEDS: ONDANSETRON HCL/PF 4 MG/2 ML VIAL IVP PRN (12:48)
[2018-10-29] MEDS ORDERED: EPOETIN ALFA (20,000 UNIT) 20,000 UNIT/ML VIAL SQ SCH (13:00)
--- NOTE | 2018-10-29 13:00 | NUR ---
RN NOTES DR MASON SEEN AND EXAMINED PATIENT. PATIENT WITH CLAIMS THAT DR. MASON HAS VERBALIZED THAT SHE IS NOT READY TO GET DISCHARGE TODAY. PATIENT'S CLAIMED CONFIRMED WITH DR. MASON. INFORMED PATIENT AND CASE MANAGEMENT
--- NOTE | 2018-10-29 13:30 | NUR ---
RN NOTES PATIENT SEEN AND EXAMINED BY DR. MARTIN AFTER THE LATER HAD A BRIEF CONVERSATION WITH DR. MASON. WITH DR. MARTIN GIVING ORDERS FOR BOWEL PREPARATIONS FOR SCHEDULE COLONOSCOPY IN AM. ORDERS NOTED AND CARRIED OUT.
[2018-10-29] MEDS: SOD FERRIC GLUC 125 MG in IV NS 0.9% 100 ML IV SCH (14:47)
[2018-10-29 16:00] VITALS: BP 155/64
[2018-10-29] MEDS ORDERED: NEUTRA PHOS 1 POWD.PACKET PO ONE (16:30)
--- NOTE | 2018-10-29 18:00 | NUR ---
RN NOTES PATIENT WITH REQUEST TO HAVE THE PSYCHIATRIST BE INFORMED ABOUT HER INCOMING PROCEDURE AND THAT SHE'S GETTING ANXIOUS. I TRIED TO ADDRESSED PATIENT'S CONCERNS BUT STILL PREFER TO HAVE PSYCHIATRIST INFORMED. PAGED DR. ROLLE, AWAITING CALL BACK
--- NOTE | 2018-10-29 19:20 | NUR ---
RN NOTES ENDORSED PATIENT FOR CONTINUITY OF CARE. NO ACUTE CHANGES WITHIN THE SHIFT. PATIENT NOT ON ANY KIND OF DISTRESS. SAFETY MEASURES IN PLACE AT ALL TIMES. CALL LIGHT WITHIN REACH. ALL NURSING NEEDS ATTENDED AND MET
--- NOTE | 2018-10-29 19:30 | NUR ---
MS/RN OPENING NOTES PT RECEIVED, AWAKE. SITTING UP IN BED. AOX4. ON 3L O2 VIA NC, BREATHING EVEN AND UNLABORED. FRIEND AT BEDSIDE. DENIES SOB AND PAIN AT THIS TIME. IV TO RFA PATENT AND INTACT. JERRY + BRUIT/THRILL. BED IN LOW/LOCKED POSITION WITH CALL LIGHT IN REACH. HOB ELEVATED AND BILAT. UPPER SIDE RAILS IN PLACE. FOR BOWEL PREP TONIGHT FOR COLONOSCOPY. WILL CONTINUE TO MONITOR
[2018-10-29 20:00] VITALS: BP 162/66
[2018-10-29] MEDS ORDERED: PEG 3350/NA SULF,BICARB,CL/KCL 4,000 ML BOTTLE PO ONE (20:00)
--- NOTE | 2018-10-29 20:35 | NUR ---
MS/RN NOTES STILL WAITING FOR CXR RESULT FOR PLACEMENT OF NGT. PT WANTS TO START TAKING GOLYTELY PO UNTIL CXR RESULTS
--- NOTE | 2018-10-29 20:50 | NUR ---
MS/RN NOTES PAGED DR. ROLLE AND LEFT VOICEMAIL TO CALL BACK. PT WANTS TO SPEAK TO HIM STATING THIS IS AN "EMERGENCY SITUATION". EMOTIONAL SUPPORT PROVIDED, ANSWERED ALL QUESTIONS/CONCERNS. INFORMED PT AND CREATED PLAN TO GIVE SCHEDULE 2200 MEDS EARLY AND GIVE PRN ATIVAN BEFORE PT BECOMES NPO. PT AGREED.
--- NOTE | 2018-10-29 21:00 | NUR ---
MS/RN NOTES PAGED RADIOLOGY TO HAVE CXR READ. STILL WAITING FOR RESULT NO ANSWER. WILL TRY AGAIN SOON.
--- NOTE | 2018-10-29 21:15 | NUR ---
MS/RN NOTES CAME TO GIVE PT HER MEDICATIONS EARLY PT REQUESTED. NO PT DOES NOT WANT TO TAKE THEM NOW. WANTS TO WAIT ANOTHER 30 MINS TO SEE IF SHE CAN SPEAK TO THE PSYCHIATRIST. INFORMED HER THAT STEPHANIE CALLED TWICE ALREADY AND WAITING FOR A CALL BACK. STILL WANTS TO WAIT.
--- NOTE | 2018-10-29 21:20 | NUR ---
MS/RN NOTES ABLE TO GET IN TOUCH WITH DR. ROLLE. EXPLAINED SITUATION. WITH ORDER FOR ADDITIONAL 100MG SEROQUEL PO X1. ORDERS READBACK AND NOTED, WILL CARRY OUT
--- NOTE | 2018-10-29 21:30 | NUR ---
MS/RN NOTES CXR RESULTED. RECOMMENDS TO ADVANCE 10CM. ADVANCED NGT AT THE LEFT NARE TO THE 60CM LEON. PT TOLERATED WELL. SECURED NGT. POSITIVE PLACEMENT CONFIRMED WITH ANOTHER RN. WILL BEGIN GOLYTELY SOLUTION VIA NGT.
[2018-10-29] MEDS: ATORVASTATIN 10 MG TABLET PO SCH (21:40)
[2018-10-29] MEDS: clonazePAM 0.5 MG TABLET PO SCH (21:40)
[2018-10-29] MEDS: DOXAZOSIN MESYLATE (1 MG) 1 MG TABLET PO SCH (21:41)
[2018-10-29] MEDS: METOCLOPRAMIDE HCL 10 MG/2 ML VIAL IV PRN (21:55)
[2018-10-29] MEDS ORDERED: QUETIAPINE FUMARATE 100 MG TABLET PO ONE (22:00)
--- NOTE | 2018-10-29 22:10 | NUR ---
MS/RN NOTES ADDITIONAL 100MG SEROQUEL OFFERED TO PT. DOES NOT WANT TO TAKE IT RIGHT NOW. WANTS TO WAIT ANOTHER 30MINS.
[2018-10-30 01:33] LABS: THYROID STIMULATING HORMONE 61.699 uIU/mL (0.358-3.74)
[2018-10-30] MEDS: IPRATROPIUM NEB FS 0.5 MG/2.5 ML AMPUL.NEB NEB SCH ×6 (03:24→23:13)
[2018-10-30 04:00] VITALS: BP 175/76
[2018-10-30] MEDS: METOCLOPRAMIDE HCL 10 MG/2 ML VIAL IV PRN (05:50)
[2018-10-30] MEDS ORDERED: SORBITOL SOLUTION 30 ML PO ONE (06:00)
[2018-10-30] MEDS: ACETYLCYSTEINE 10% SOLN 400 MG/4 ML VIAL NEB SCH ×3 (07:00→23:13)
[2018-10-30 07:08] LABS: BASOPHILS # (AUTO) 0.1 /CMM (0.0-0.2); BASOPHILS % (AUTO) 2.4 % (0.0-2.0); EOSINOPHILS % (AUTO) 13.1 % (0.0-6.0); LYMPHOCYTES # (AUTO) 0.6 /CMM (0.8-4.8); MEAN CORPUSCULAR HGB CONC 34 g/dl (31.0-36.0); MEAN CORPUSCULAR VOLUME 105 fL (82-100); MONOCYTES # (AUTO) 0.5 /CMM (0.1-1.30); MONOCYTES % (AUTO) 14.6 % (2.0-12.0); NEUTROPHILS # (AUTO) 1.7 /CMM (1.8-8.9); NEUTROPHILS % (AUTO) 51.9 % (43.0-81.0); PLATELET COUNT (AUTO) 186 /CMM (150-450); WHITE BLOOD COUNT (AUTO) 3.3 K/uL (4.3-11.0)
[2018-10-30 07:21] LABS: ALBUMIN 2.5 g/dL (3.4-5.0); BILIRUBIN,TOTAL 0.5 mg/dL (0.2-1.0); CALCIUM, SERUM 8.8 mg/dL (8.5-10.1); CREATININE 2.6 mg/dL (0.6-1.3); MAGNESIUM 1.9 mg/dL (1.8-2.4); PHOSPHORUS 1.9 mg/dL (2.5-4.9); POTASSIUM 5.7 mmol/L (3.5-5.1); TOTAL PROTEIN, SERUM 6.5 g/dL (6.4-8.2)
[2018-10-30 07:26] LABS: RED BLOOD CELL COUNT(AUTO) 1.93 MIL/uL (4.0-5.2)
--- NOTE | 2018-10-30 07:30 | NUR ---
MS/RN CLOSING NOTES PT AWAKE, ON 4L O2 VIA NC, BREATHING EVEN AND UNLABORED. DENIES SOB AND PAIN AT THIS TIME. IV TO RFA PATENT AND INTACT. JERRY AV SHUNT WITH + BRUIT/THRILL, NO ACTIVE BLEEDING NOTED. NPO FOR EGD/COLONOSCOPY TODAY. PT IS NOT YET CLEAR, SURGERY AWARE. CONSENTS/CHECKLIST COMPLETED AND IN THE CHART. WITH EPISODES OF ANXIETY AND FRUSTRATION, EMOTIONAL SUPPORT PROVIDED AND ALL QUESTIONS/CONCERNS ANSWERED. ALL NEEDS MET AND ANTICIPATED. BED IN LOW/LOCKED POSITION WITH CALL LIGHT IN REACH. HOB ELEVATED AND BILAT. UPPER SIDE RAILS IN PLACE. ENDORSED TO DAY SHIFT RN RICHARD
[2018-10-30 07:33] LABS: HEMATOCRIT 20 % (33-45); HEMOGLOBIN 6.9 g/dL (11.5-14.8)
--- NOTE | 2018-10-30 07:56 | NUR ---
INITIAL RN NOTE RCVD PT AWAKE AND ALERT, SHOWING NO SIGNS OF DISTRESS, TOLERATING O2 VIA NASAL CANNULA, SOILED THIS AM, BED BATH WAS GIVEN. PT FINISHED PREP FOR COLONOSCOPY, STOOL NOT CLEAR YET. LAB CALLED FOR HGB 6.9 WHICH IS IMPROVED FROM BEFORE. WILL CONTINUE TO MONITOR PT FOR SAFETY AND COMFORT. BED IN LOW AND LOCKED POSITION, CALL LIGHT WITHIN REACH, HEAD OF BED ELEVATED.
[2018-10-30 08:00] VITALS: BP 141/72
[2018-10-30 08:54] LABS: EOSINOPHILS % (MANUAL) 15 % (0-4); LYMPHOCYTES % (MANUAL) 21 % (16-48); MONOCYTES % (MANUAL) 13 % (0-11.0); NEUTROPHILS % (MANUAL) 51 (42-76)
[2018-10-30] MEDS: hydrALAZINE HCL 50 MG TABLET PO SCH ×3 (10:30→17:00)
[2018-10-30] MEDS: SUCRALFATE 1 G/10 ML UDC GT SCH ×4 (10:30→22:34)
[2018-10-30] MEDS: CLONIDINE HCL 0.1 MG TABLET PO SCH ×3 (10:30→17:00)
--- NOTE | 2018-10-30 10:50 | NUR ---
RN NOTE PT'S CARE ENDORSED TO HERBERT CASTORENA FOR CONTINUITY OF CARE, BED IN LOW AND LOCKED POSITION, CALL LIGHT WITHIN REACH, HEAD OF BED ELEVATED. PT REFUSED ASSESSMENT OF LEFT UPPER ARM FISTULA.
[2018-10-30] MEDS: SENNOSIDES/DOCUSATE SODIUM 1 TAB TABLET PO SCH (12:41)
[2018-10-30] MEDS: LACTOBACILLUS RHAMNOSUS GG 1 EACH CAP.SPRINK PO SCH ×2 (12:41→18:26)
[2018-10-30] MEDS: QUETIAPINE FUMARATE 100 MG TABLET PO SCH ×2 (12:41→22:34)
[2018-10-30] MEDS: VIT B CMPLX 3/FA/VIT C/BIOTIN 1 TAB TABLET PO SCH (12:41)
[2018-10-30] MEDS: DOCUSATE SODIUM 100 MG CAPSULE PO SCH ×2 (12:41→18:26)
[2018-10-30] MEDS: LamoTRIgine 100 MG TABLET PO SCH ×2 (12:42→18:26)
[2018-10-30] MEDS: FOLIC ACID 1 MG TABLET PO SCH (12:42)
[2018-10-30] MEDS: PANTOPRAZOLE 40 MG TABLET.DR PO SCH ×2 (12:43→18:28)
[2018-10-30] MEDS: LEVOTHYROXINE SODIUM 125 MCG TABLET PO SCH (12:43)
[2018-10-30] MEDS: CHOLECALCIFEROL (VITAMIN D 3) 400 UNIT TABLET PO SCH (12:44)
[2018-10-30] MEDS: ZINC SULFATE 220 MG CAPSULE PO SCH (12:44)
[2018-10-30] MEDS: LIOTHYRONINE SODIUM (5 MCG/TA 5 MCG TABLET PO SCH (12:45)
[2018-10-30] MEDS: AZELASTINE NASAL SPRAY 30 ML BOTTLE NS SCH (12:46)
[2018-10-30] MEDS: FLUTICASONE PROPIONATE 16 GM BOTTLE NS SCH (12:46)
[2018-10-30] MEDS: KETOROLAC EYE 0.5% 3 ML BOTTLE OP SCH ×2 (12:46→18:27)
[2018-10-30] MEDS: OLOPATADINE HCL 0.1% OPHTH BOTTLE OP SCH ×2 (12:47→18:27)
[2018-10-30] MEDS: LABETALOL HCL (100MG) 100 MG TABLET PO SCH ×3 (13:00→17:00)
[2018-10-30] MEDS: ASPIRIN EC 81 MG TABLET.DR PO SCH (13:04)
[2018-10-30] MEDS: AMLODIPINE BESYLATE 10 MG TABLET PO SCH (13:05)
[2018-10-30] MEDS ORDERED: K PHOS NEUTRAL 250 MG TABLET PO ONE (13:30)
[2018-10-30] MEDS: SOD FERRIC GLUC 125 MG in IV NS 0.9% 100 ML IV SCH (14:30)
[2018-10-30 16:00] VITALS: BP_SYST 111; BP_SYST 127; BP_DIAS 57; BP_DIAS 68
--- NOTE | 2018-10-30 18:40 | NUR ---
RN NOTE: PATIENT REMAINS ALERT AWAKE ORIENTED X 4. ON 4LPM O2 VIA NC, NO BREATHING DISTRESS NOTED. DENIES PAIN & DISCOMFORT. NO FALL/INJURY NOTED. HD DONE TODAY, TOLERATED WELL. SAFETY MEASURES OBSERVED. CONTINUE WITH PLAN OF CARE. ENCOURAGE TO USE CALL LIGHT FOR ASSISTANCE.
--- NOTE | 2018-10-30 19:35 | NUR ---
MS RN NOTE: RECEIVED PT ON BED ALERT AND ORIENTED X3. ABLE TO MAKE NEEDS KNOWN. NO APPARENT DISTRESS NOTED. DENIES PAIN AND DISCOMFORT AT THIS TIME. ON 4LPM NASAL CANNULA, BREATHING EVEN AND UNLABORED WITH NORMAL RESPIRATIONS. IV ON RIGHT FOREARM #20 INTACT AND PATENT, FLUSHING WELL. CALL LIGHT PLACED WITHIN REACH. KEPT CLEAN, DRY AND COMFORTABLE. SAFETY AND FALL PRECAUTIONS OBSERVED AND MAINTAINED. WILL CONTINUE TO MONITOR PT.
[2018-10-30 20:00] VITALS: BP 135/58
[2018-10-30] MEDS: DOXAZOSIN MESYLATE (1 MG) 1 MG TABLET PO SCH (22:34)
[2018-10-30] MEDS: ATORVASTATIN 10 MG TABLET PO SCH (22:34)
[2018-10-30] MEDS: clonazePAM 0.5 MG TABLET PO SCH (22:34)
[2018-10-31] MEDS: IPRATROPIUM NEB FS 0.5 MG/2.5 ML AMPUL.NEB NEB SCH ×6 (03:14→23:24)
[2018-10-31 04:00] VITALS: BP 157/64
--- NOTE | 2018-10-31 06:51 | NUR ---
MS RN NOTE: NO CHANGES NOTED THROUGHOUT THE SHIFT. NO APPARENT DISTRESS NOTED. DENIES PAIN AND DISCOMFORT AT THIS TIME. ON 3.5LPM NASAL CANNULA, NO SOB NOTED AT THIS TIME. IV ON RIGHT FOREARM #20 INTACT AND PATENT, FLUSHING WELL. CALL LIGHT PLACED WITHIN REACH. KEPT CLEAN, DRY AND COMFORTABLE. SAFETY AND FALL PRECAUTIONS OBSERVED AND MAINTAINED. WILL ENDORSE TO DAY SHIFT RN FOR CONTINUITY OF CARE.
--- NOTE | 2018-10-31 07:30 | NUR ---
INITIAL PT AWAKE AND ALERT ORIENTED X 4, SHOWING NO SIGNS OF DISTRESS, TOLERATING O2 VIA NASAL CANNULA, BREAKSFAST WAS GIVEN. LAB CALLED FOR HGB 6.7 WHICH IS SLIGHTLY LESS THAN YESTERDAY MD LIMON AWARE. WILL CONTINUE TO MONITOR PT FOR SAFETY AND COMFORT. BED IN LOW AND LOCKED POSITION, CALL LIGHT WITHIN REACH, HEAD OF BED ELEVATED.
[2018-10-31] MEDS: ACETYLCYSTEINE 10% SOLN 400 MG/4 ML VIAL NEB SCH ×3 (07:35→23:24)
[2018-10-31] MEDS: SUCRALFATE 1 G/10 ML UDC GT SCH ×4 (07:46→22:35)
[2018-10-31] MEDS: PANTOPRAZOLE 40 MG TABLET.DR PO SCH ×2 (07:46→16:30)
[2018-10-31] MEDS: LEVOTHYROXINE SODIUM 125 MCG TABLET PO SCH (07:47)
[2018-10-31] MEDS: LIOTHYRONINE SODIUM (5 MCG/TA 5 MCG TABLET PO SCH (07:47)
[2018-10-31 08:00] VITALS: BP 137/65
[2018-10-31 08:00] LABS: BASOPHILS # (AUTO) 0.1 /CMM (0.0-0.2); BASOPHILS % (AUTO) 1.8 % (0.0-2.0); LYMPHOCYTES # (AUTO) 0.8 /CMM (0.8-4.8); LYMPHOCYTES % (AUTO) 21.6 % (20.0-44.0); MEAN CORPUSCULAR HGB CONC 34 g/dl (31.0-36.0); MEAN CORPUSCULAR VOLUME 104 fL (82-100); MONOCYTES # (AUTO) 0.5 /CMM (0.1-1.30); NEUTROPHILS # (AUTO) 1.9 /CMM (1.8-8.9); NEUTROPHILS % (AUTO) 50.6 % (43.0-81.0); PLATELET COUNT (AUTO) 203 /CMM (150-450); WHITE BLOOD COUNT (AUTO) 3.7 K/uL (4.3-11.0)
[2018-10-31 08:02] LABS: RED BLOOD CELL COUNT(AUTO) 1.92 MIL/uL (4.0-5.2)
[2018-10-31 08:06] LABS: HEMATOCRIT 20 % (33-45); HEMOGLOBIN 6.7 g/dL (11.5-14.8)
[2018-10-31 08:21] LABS: CREATININE 2.6 mg/dL (0.6-1.3); PHOSPHORUS 2.8 mg/dL (2.5-4.9); POTASSIUM 4.4 mmol/L (3.5-5.1)
[2018-10-31 09:08] LABS: EOSINOPHILS % (MANUAL) 16 % (0-4); LYMPHOCYTES % (MANUAL) 18 % (16-48); MONOCYTES % (MANUAL) 10 % (0-11.0); NEUTROPHILS % (MANUAL) 56 (42-76)
[2018-10-31] MEDS: ZINC SULFATE 220 MG CAPSULE PO SCH (09:10)
[2018-10-31] MEDS: hydrALAZINE HCL 50 MG TABLET PO SCH ×3 (09:11→17:00)
[2018-10-31] MEDS: SENNOSIDES/DOCUSATE SODIUM 1 TAB TABLET PO SCH (09:11)
[2018-10-31] MEDS: LACTOBACILLUS RHAMNOSUS GG 1 EACH CAP.SPRINK PO SCH ×2 (09:12→17:00)
[2018-10-31] MEDS: DOCUSATE SODIUM 100 MG CAPSULE PO SCH ×2 (09:13→17:00)
[2018-10-31] MEDS: AMLODIPINE BESYLATE 10 MG TABLET PO SCH (09:13)
[2018-10-31] MEDS: FOLIC ACID 1 MG TABLET PO SCH (09:14)
[2018-10-31] MEDS: ASPIRIN EC 81 MG TABLET.DR PO SCH (09:14)
[2018-10-31] MEDS: QUETIAPINE FUMARATE 100 MG TABLET PO SCH ×2 (09:14→22:35)
[2018-10-31] MEDS: CHOLECALCIFEROL (VITAMIN D 3) 400 UNIT TABLET PO SCH (09:14)
[2018-10-31] MEDS: LABETALOL HCL (100MG) 100 MG TABLET PO SCH ×3 (09:15→17:00)
[2018-10-31] MEDS: CLONIDINE HCL 0.1 MG TABLET PO SCH ×3 (09:15→17:00)
[2018-10-31] MEDS: LamoTRIgine 100 MG TABLET PO SCH ×2 (09:15→17:00)
[2018-10-31] MEDS: VIT B CMPLX 3/FA/VIT C/BIOTIN 1 TAB TABLET PO SCH (09:15)
--- NOTE | 2018-10-31 09:15 | NUR ---
HERBERT MS OPENING NOTES RECEIVED REPORT FROM BRANDON GODINEZ PT AWAKE AND ALERT ORIENTED X 4, NO SIGNS OR SYMPTOMS OF RESPIRATORY DISTRESS, TOLERATING O2 VIA NASAL CANNULA, PER REPORT LAB CALLED FOR HGB 6.7 WHICH IS SLIGHTLY LESS THAN YESTERDAY MD LIMON AWARE. TRANSFUSION CONSENT SIGNED BY PATIENT JERRY AV SHUNT RIGHT WRIST IV SL # 20 GAUGE. SAFETY AND FALL PRECAUTIONS IN PLACE WILL CONTINUE TO MONITOR . BED IN LOW AND LOCKED POSITION, CALL LIGHT WITHIN REACH, HEAD OF BED ELEVATED.
[2018-10-31] MEDS: FLUTICASONE PROPIONATE 16 GM BOTTLE NS SCH (09:16)
[2018-10-31] MEDS: OLOPATADINE HCL 0.1% OPHTH BOTTLE OP SCH ×2 (09:17→17:00)
[2018-10-31] MEDS: KETOROLAC EYE 0.5% 3 ML BOTTLE OP SCH ×2 (09:18→17:00)
[2018-10-31] MEDS: AZELASTINE NASAL SPRAY 30 ML BOTTLE NS SCH (09:19)
[2018-10-31] MEDS: EPOETIN ALFA (20,000 UNIT) 20,000 UNIT/ML VIAL IV SCH (12:50)
--- NOTE | 2018-10-31 13:51 | NUR ---
B/P MEDS HELD D/T HEMODIALYSIS
[2018-10-31] MEDS: SOD FERRIC GLUC 125 MG in IV NS 0.9% 100 ML IV SCH (14:59)
[2018-10-31 16:00] VITALS: BP 135/64
[2018-10-31] MEDS: LORAZEPAM 1 MG TABLET PO PRN (16:22)
[2018-10-31 16:57] VITALS: BP 134/60
--- NOTE | 2018-10-31 17:00 | NUR ---
ALL MEDS HELD D/T HD AND PT REFUSING
[2018-10-31 17:25] VITALS: BP 139/70
--- NOTE | 2018-10-31 17:29 | NUR ---
1 PRBC GIVEN VIA HD.
--- NOTE | 2018-10-31 19:49 | NUR ---
RN MS NOTES ALERT ORIENTED X 4, NO SIGNS OR SYMPTOMS OF RESPIRATORY DISTRESS, TOLERATING O2 VIA NASAL CANNULA NO C/O PAIN. HD DONE AND 2800 ML OUT.PER PILO SALINAS PATIENT OK TO DISCHARGE IF STABLE AFTER HD. WILL ENDORSE TO NOC. PATIENT JERRY AV SHUNT RIGHT WRIST IV SL # 20 GAUGE PATIENT C/O OF FEELING NOT WELL AND RELATED TO SYNTHROID INCREASE MD AWARE . ALSO STATES SHE NOW WANTS TO HAVE COLONOSCOPY DONE IN HOSPITAL BUT WAS INFORMED IT WILL BE DONE OUTPATIENT. SAFETY AND FALL PRECAUTIONS IN PLACE . BED IN LOW AND LOCKED POSITION, CALL LIGHT WITHIN REACH, HEAD OF BED ELEVATED WILL ENDORSE TO NOC.
[2018-10-31 20:00] VITALS: BP 142/82
--- NOTE | 2018-10-31 20:30 | NUR ---
MS RN OPENING NOTES RECEIVED REPORT FROM CHUN GODINEZ. PATIENT A/A/O X4, ABLE TO MAKE NEEDS KNOWN. BREATHING EVEN & UNLABORED, TOLERATING O2 @ 2LPM VIA NC. DENIES ANY SOB OR DIFFICULTY BREATHING. RADIAL PULSES PRESENT. RIGHT FOREARM IV #20 INTACT & PATENT W/ DRESSING CDI, SALINE LOCKED. LEFT UPPER ARM AV FISTULA W/ NO SIGNS INFECTION NOTED, BRUIT/THRILL PRESENT. DENIES ANY PAIN OR DISCOMFORT @ THIS TIME. SAFETY MEASURES IN PLACE W/ SIDE RAILS UP & BED ALARM ON. CALL LIGHT PLACE WITHIN REACH & INSTRUCTED TO CALL FOR ASSISTANCE. WILL CONTINUE TO MONITOR.
[2018-10-31] MEDS: ATORVASTATIN 10 MG TABLET PO SCH (22:35)
[2018-10-31] MEDS: clonazePAM 0.5 MG TABLET PO SCH (22:35)
[2018-10-31] MEDS: DOXAZOSIN MESYLATE (1 MG) 1 MG TABLET PO SCH (22:44)
[2018-11-01] MEDS: IPRATROPIUM NEB FS 0.5 MG/2.5 ML AMPUL.NEB NEB SCH ×4 (03:30→14:56)
[2018-11-01 04:00] VITALS: BP 173/80
[2018-11-01] MEDS: ACETYLCYSTEINE 10% SOLN 400 MG/4 ML VIAL NEB SCH ×2 (07:24→14:56)
[2018-11-01 07:34] LABS: CALCIUM, SERUM 9.5 mg/dL (8.5-10.1); CREATININE 0.7 mg/dL (0.6-1.3); PHOSPHORUS 2.7 mg/dL (2.5-4.9); POTASSIUM 3.8 mmol/L (3.5-5.1)
[2018-11-01 07:51] LABS: BASOPHILS # (AUTO) 0.1 /CMM (0.0-0.2); BASOPHILS % (AUTO) 2.3 % (0.0-2.0); EOSINOPHILS % (AUTO) 15.6 % (0.0-6.0); HEMATOCRIT 22 % (33-45); HEMOGLOBIN 7.6 g/dL (11.5-14.8); LYMPHOCYTES # (AUTO) 0.7 /CMM (0.8-4.8); LYMPHOCYTES % (AUTO) 18.3 % (20.0-44.0); MEAN CORPUSCULAR HGB CONC 34 g/dl (31.0-36.0); MEAN CORPUSCULAR VOLUME 101 fL (82-100); MONOCYTES # (AUTO) 0.5 /CMM (0.1-1.30); MONOCYTES % (AUTO) 13.1 % (2.0-12.0); NEUTROPHILS # (AUTO) 2.1 /CMM (1.8-8.9); NEUTROPHILS % (AUTO) 50.7 % (43.0-81.0); PLATELET COUNT (AUTO) 209 /CMM (150-450); RED BLOOD CELL COUNT(AUTO) 2.19 MIL/uL (4.0-5.2); WHITE BLOOD COUNT (AUTO) 4.1 K/uL (4.3-11.0)
[2018-11-01 08:00] VITALS: BP 162/85
[2018-11-01] MEDS: LACTOBACILLUS RHAMNOSUS GG 1 EACH CAP.SPRINK PO SCH (09:02)
[2018-11-01] MEDS: SUCRALFATE 1 G/10 ML UDC GT SCH ×2 (09:02→14:09)
[2018-11-01] MEDS: FOLIC ACID 1 MG TABLET PO SCH (09:02)
[2018-11-01] MEDS: QUETIAPINE FUMARATE 100 MG TABLET PO SCH (09:02)
[2018-11-01] MEDS: LEVOTHYROXINE SODIUM 125 MCG TABLET PO SCH (09:02)
[2018-11-01] MEDS: LABETALOL HCL (100MG) 100 MG TABLET PO SCH ×2 (09:03→14:11)
[2018-11-01] MEDS: CHOLECALCIFEROL (VITAMIN D 3) 400 UNIT TABLET PO SCH (09:04)
[2018-11-01] MEDS: CLONIDINE HCL 0.1 MG TABLET PO SCH ×2 (09:04→14:12)
[2018-11-01] MEDS: LamoTRIgine 100 MG TABLET PO SCH (09:04)
[2018-11-01] MEDS: SENNOSIDES/DOCUSATE SODIUM 1 TAB TABLET PO SCH (09:04)
[2018-11-01] MEDS: AMLODIPINE BESYLATE 10 MG TABLET PO SCH (09:04)
[2018-11-01] MEDS: ASPIRIN EC 81 MG TABLET.DR PO SCH (09:04)
[2018-11-01] MEDS: VIT B CMPLX 3/FA/VIT C/BIOTIN 1 TAB TABLET PO SCH (09:04)
[2018-11-01] MEDS: ZINC SULFATE 220 MG CAPSULE PO SCH (09:04)
[2018-11-01] MEDS: DOCUSATE SODIUM 100 MG CAPSULE PO SCH (09:04)
[2018-11-01] MEDS: hydrALAZINE HCL 50 MG TABLET PO SCH ×2 (09:05→14:12)
[2018-11-01] MEDS: LIOTHYRONINE SODIUM (5 MCG/TA 5 MCG TABLET PO SCH (09:05)
[2018-11-01] MEDS: FLUTICASONE PROPIONATE 16 GM BOTTLE NS SCH (09:06)
[2018-11-01] MEDS: KETOROLAC EYE 0.5% 3 ML BOTTLE OP SCH (09:06)
[2018-11-01] MEDS: AZELASTINE NASAL SPRAY 30 ML BOTTLE NS SCH (09:06)
[2018-11-01] MEDS: OLOPATADINE HCL 0.1% OPHTH BOTTLE OP SCH (09:07)
[2018-11-01] MEDS: PANTOPRAZOLE 40 MG TABLET.DR PO SCH (09:08)
[2018-11-01] MEDS: LORAZEPAM 1 MG TABLET PO PRN (09:25)
[2018-11-01] MEDS ORDERED: ATOR10TA PO (11:14)
[2018-11-01] MEDS ORDERED: LEVO125T PO (11:14)
[2018-11-01] MEDS ORDERED: SUCR1ORA6 GT (11:14)
[2018-11-01] MEDS ORDERED: LACT1CAP72 PO (11:14)
[2018-11-01] MEDS ORDERED: PANT40TA2 PO (11:14)
[2018-11-01] MEDS ORDERED: LIOT5TAB7 PO (11:14)
[2018-11-01] MEDS ORDERED: QUET100T PO (11:14)
[2018-11-01] MEDS ORDERED: EPOE200011 IV (11:14)
[2018-11-01] MEDS ORDERED: LAMO100T2 PO (11:14)
[2018-11-01] MEDS ORDERED: CLON0.5T12 PO (11:14)
[2018-11-01] MEDS ORDERED: ASPI-1152 PO (11:14)
[2018-11-01] MEDS ORDERED: [UNRECOGNIZED DRUG - CODE] PO (12:22)
[2018-11-01] MEDS ORDERED: SIME80TA15 PO (12:22)
[2018-11-01 14:00] VITALS: BP 154/84
[2018-11-01 14:12] VITALS: BP 154/84
[2018-11-01] MEDS ORDERED: CALCIUM CARBONATE 500 MG TAB.CHEW PO PRN (15:00)
--- NOTE | 2018-11-01 15:30 | NUR ---
RN D/C NOTE RECEIVED D/C ORDER TO SNF. PATIENT STABLE. NO SHORTNESS OF BREATH, ON 3L O2 VIA NC, REPORTS ANXIETY. REPORT GIVEN TO HOLLY GODINEZ AT [facility]. OUTPATIENT EGD & COLONOSCOPY, FOLLOW UP WITH PMD. DOCTOR'S OFFICE NUMBERS GIVEN. MEDICATION AND D/C EDUCATION PROVIDED. WOUND PICTURES TAKEN. BELONGINGS CHECKLIST SIGNED, BELONGINGS WITH PATIENT. IV CATHETER REMOVED, NO S/S BLEEDING NOTED. AMBULANCE PERSONNEL TOOK PATIENT @[id number].
--- NOTE | 2018-11-02 07:55 | NUR ---
ECHO REPORT IS DONE AWAITING FOR REPORT TO CROSS OVER TO [facility]
== END 2018-11-01 16:05 | DRG 291 ==
LOC: ER 15:08 → TELE 17:56 → ICU 10-09 09:38 → TELE1 10-11 19:40 → MEDSG1 10-12 09:50
PROVIDERS: ADMIT Internal Medicine; ATTEND Registered Nurse
PROC: 5A1D70Z Performance of Urinary Filtration, Intermittent, Less than 6 Hours Per Day (ICD-10-PCS; principal; 2018-10-08)
PROC: 5A09357 Assistance with Respiratory Ventilation, Less than 24 Consecutive Hours, Continuous Positive Airway Pressure (ICD-10-PCS; 2018-10-08)
PROC: 0W9930Z Drainage of Right Pleural Cavity with Drainage Device, Percutaneous Approach (ICD-10-PCS; 2018-10-10)
PROC: 0DB78ZX Excision of Stomach, Pylorus, Via Natural or Artificial Opening Endoscopic, Diagnostic (ICD-10-PCS; 2018-10-18)
PROC: 0DBN8ZZ Excision of Sigmoid Colon, Via Natural or Artificial Opening Endoscopic (ICD-10-PCS; 2018-10-18)
PROC: 30233N1 Transfusion of Nonautologous Red Blood Cells into Peripheral Vein, Percutaneous Approach (ICD-10-PCS; 2018-10-22)
DX: I13.2 Hypertensive heart and chronic kidney disease with heart failure and with stage 5 chronic kidney disease, or end stage renal disease (principal); J15.9 Unspecified bacterial pneumonia; J96.21 Acute and chronic respiratory failure with hypoxia; I50.33 Acute on chronic diastolic (congestive) heart failure; N18.6 End stage renal disease; J96.22 Acute and chronic respiratory failure with hypercapnia; K29.71 Gastritis, unspecified, with bleeding; E44.0 Moderate protein-calorie malnutrition; E87.1 Hypo-osmolality and hyponatremia; J90 Pleural effusion, not elsewhere classified; E87.2 Acidosis; I31.3 Pericardial effusion (noninflammatory); K56.7 Ileus, unspecified; I32 Pericarditis in diseases classified elsewhere; J98.11 Atelectasis; R18.8 Other ascites; F31.60 Bipolar disorder, current episode mixed, unspecified; G93.40 Encephalopathy, unspecified; E78.5 Hyperlipidemia, unspecified; Z99.2 Dependence on renal dialysis; F41.9 Anxiety disorder, unspecified; E03.9 Hypothyroidism, unspecified; Z86.73 Personal history of transient ischemic attack (TIA), and cerebral infarction without residual deficits; Z91.19 Patient's noncompliance with other medical treatment and regimen; Z79.82 Long term (current) use of aspirin; R56.9 Unspecified convulsions; D50.9 Iron deficiency anemia, unspecified; Z98.61 Coronary angioplasty status; G47.00 Insomnia, unspecified; Z79.899 Other long term (current) drug therapy; D63.8 Anemia in other chronic diseases classified elsewhere; F31.9 Bipolar disorder, unspecified; K59.00 Constipation, unspecified; Z90.5 Acquired absence of kidney; E83.39 Other disorders of phosphorus metabolism; I70.0 Atherosclerosis of aorta; K20.9 Esophagitis, unspecified; K44.9 Diaphragmatic hernia without obstruction or gangrene; N28.1 Cyst of kidney, acquired; K63.5 Polyp of colon; G25.3 Myoclonus
CPT/HCPCS: 36415; 36600; 71045-TC; 71250-TC; 74018; 74280-TC; 76604-TC; 76942-TC; 80048-TC; 80053-TC; 80061-TC; 80076-TC; 81000-TC; 82272-TC; 82378; 82728-TC; 82803-TC; 83540-TC; 83605-TC; 83615-TC; 83735-TC; 83880; 84100-TC; 84155-TC; 84439-TC; 84443-TC; 84484-TC; 85025-TC; 85027-TC; 85385-TC; 85610-TC; 85652-TC; 85730-TC; 86704; 86706; 86850-TC; 86921-TC; 87040-TC; 87045-TC; 87070-TC; 87075-TC; 87081-TC; 87086-TC; 87102-TC; 87340; 88112-TC; 88305-TC; 88312-TC; 88313-TC; 88342; 89051-TC; 89055; 90935-TC; 93307-TC; 94760-TC; 94762-TC; 94799-TC; 95819-TC; 97110-TC; 97116-TC; 97530-TC; A6402; A6403; G0378; J0456; J0696; J0885; J1940; J2250; J2405; J2704; J2765; J2916; J3490; J7030; J7050; J7060; P9016-BL; Q9963; Q9967

== ENCOUNTER 2019-05-29 14:51 | Emergency (ER) | payer MEDICARE, OTHER ==
[~2019-05-29] VITALS: Ht 152.4 cm; Wt 51.7 kg
[~2019-05-29 14:51] MED LIST changes: +AMLO10TA4 PO; +ASPI-1152 PO; +ATOR10TA PO; +AZEL137S7; +CHOL400T11 PO; +CLON0.5T4 PO; -CLON1TAB PO; +DOXA2TAB2 PO; +DULO30CA2 PO; +EPOE200011 IV; +FLUT16SP; +FOLI0.8T23 PO; +KETO5DRO OP; -LACT10SO PO; +LACT1CAP72 PO; +LEVO100T9 PO; +LEVO125T PO; -LEVO137T2 PO; +LIOT5TAB7 PO; -LOSA100T31 PO; +LOSA50TA3 PO; +MAGN200T5 PO; -NIFE60TA73 PO; +OLOP2.5D5 OP; +PANT40TA2 PO; +POLY17PO4 PO; -SENN8.6T19 PO; +SIME80TA15 PO; +SUCR1ORA6 GT; +UBID100C13 PO; +ZINC220C6 PO; +[UNRECOGNIZED DRUG - CODE] PO
--- NOTE | 2019-05-29 15:10 | NUR ---
bibcaregiver, c/o abd pain,"feels like im bloated and affects my breathing" x 2 weeks, worse today. Patient alert and oriented x4, breathing even and unlabored, no sob noted, kept comfortable.
[2019-05-29] MEDS ORDERED: DIATR MEGLU/DIATRIZOATE SODIUM 30 ML BOTTLE (GASTROGRAPHIN) PO ONE (15:30)
[2019-05-29] MEDS ORDERED: DIATR MEGLU/DIATRIZOATE SODIUM 30 ML BOTTLE (GASTROGRAPHIN) ONE (15:46)
[2019-05-29 15:51] LABS: BASOPHILS % (AUTO) 0.6 % (0.0-2.0); EOSINOPHILS % (AUTO) 11.2 % (0.0-6.0); HEMATOCRIT 27 % (33-45); HEMOGLOBIN 9.2 g/dL (11.5-14.8); LYMPHOCYTES # (AUTO) 0.3 /CMM (0.8-4.8); LYMPHOCYTES % (AUTO) 12.1 % (20.0-44.0); MEAN CORPUSCULAR HGB CONC 35 g/dl (31.0-36.0); MEAN CORPUSCULAR VOLUME 109 fL (82-100); MONOCYTES # (AUTO) 0.2 /CMM (0.1-1.30); MONOCYTES % (AUTO) 8.5 % (2.0-12.0); NEUTROPHILS # (AUTO) 1.8 /CMM (1.8-8.9); NEUTROPHILS % (AUTO) 67.6 % (43.0-81.0); PLATELET COUNT (AUTO) 206 /CMM (150-450); RED BLOOD CELL COUNT(AUTO) 2.46 MIL/uL (4.0-5.2); WHITE BLOOD COUNT (AUTO) 2.6 K/uL (4.3-11.0)
[2019-05-29 15:59] LABS: CARBON DIOXIDE 34 mmol/L (21-32); CHLORIDE 97 mmol/L (98-107); CREATININE 2.4 mg/dL (0.6-1.3); GLUCOSE 131 mg/dL (74-106); POTASSIUM 3.5 mmol/L (3.5-5.1); SODIUM SERUM 137 mmol/L (136-145); UREA NITROGEN, BLOOD 21 mg/dL (7-18)
[2019-05-29 16:04] LABS: ALANINE AMINOTRANSFERASE 16 U/L (12-78); ALBUMIN 3.4 g/dL (3.4-5.0); ALKALINE PHOSPHATASE 280 U/L (46-116); ASPARTATE AMINOTRANSFERASE 20 U/L (15-37); BILIRUBIN,DIRECT 0.2 mg/dL (0.0-0.2); BILIRUBIN,TOTAL 0.6 mg/dL (0.2-1.0); LIPASE 196 U/L (73-393); TOTAL PROTEIN, SERUM 7.4 g/dL (6.4-8.2)
[2019-05-29 16:15] LABS: BAND % (MANUAL) 1 % (0.0-5.0); EOSINOPHILS % (MANUAL) 9 % (0-4); LYMPHOCYTES % (MANUAL) 7 % (16-48); MONOCYTES % (MANUAL) 11 % (0-11.0); NEUTROPHILS % (MANUAL) 72 (42-76)
[2019-05-29 16:29] LABS: ABG BASE EXCESS 8.3 mmol/L; ABG OXYGEN SATURATION 91.7 % (92.0-98.5); ABG PCO2 40.8 mmHg (35.0-45.0); ABG PH 7.512 (7.350-7.450); ABG PO2 64.2 mmHg (75.0-100.0); AaDO2 36.7 mmHg; COHb 0.6 % (0.5-1.5); MetHb 0.2 % (0.0-1.5); SITE, ABG Right Radial; VENT MODE, BG RA
[2019-05-29] MEDS ORDERED: INUL1TAB4 PO (17:40)
[2019-05-29] MEDS ORDERED: [UNRECOGNIZED DRUG - CODE] PO (17:40)
[2019-05-29] MEDS ORDERED: ASPI1TAB2 PO (17:40)
[2019-05-29] MEDS ORDERED: LINA290C PO (17:40)
[2019-05-29] MEDS ORDERED: ZINC50TA65 PO (17:40)
[2019-05-29] MEDS ORDERED: KETO5DRO OP (17:40)
[2019-05-29] MEDS ORDERED: ATOR10TA PO (17:40)
[2019-05-29] MEDS ORDERED: OMEP20CA15 PO (17:40)
[2019-05-29] MEDS ORDERED: BISA5TAB10 PO (17:40)
[2019-05-29] MEDS ORDERED: CYCL30DR OP (17:40)
[2019-05-29] MEDS ORDERED: SIME80TA15 PO (17:40)
[2019-05-29] MEDS ORDERED: ONDA4TAB5 PO (17:40)
[2019-05-29] MEDS ORDERED: DEXT155P PO (17:40)
[2019-05-29] MEDS ORDERED: LACT1CAP72 PO (17:40)
[2019-05-29] MEDS ORDERED: SENN-261 PO (17:40)
[2019-05-29] MEDS ORDERED: CLON0.5T4 PO (17:40)
[2019-05-29] MEDS ORDERED: CLONIDINE HCL 0.1 MG TABLET ONE (17:55)
[2019-05-29] MEDS ORDERED: CLONIDINE HCL 0.1 MG TABLET PO ONE (18:00)
[2019-05-29 18:02] VITALS: BP 176/81
--- NOTE | 2019-05-29 18:02 | NUR ---
IV removed. Catheter intact and site benign. Pressure and 4x4 applied to site. No bleeding noted.Patient discharged to home in stable condition. Written and verbal after care instructions given. Patient verbalizes understanding of instruction.
== END 2019-05-29 18:03 | disposition home or self-care (01) ==
LOC: ER 15:00
DX: K59.00 Constipation, unspecified (principal); I13.2 Hypertensive heart and chronic kidney disease with heart failure and with stage 5 chronic kidney disease, or end stage renal disease; E11.22 Type 2 diabetes mellitus with diabetic chronic kidney disease; N18.6 End stage renal disease; R18.8 Other ascites; R56.9 Unspecified convulsions; E78.5 Hyperlipidemia, unspecified; G47.00 Insomnia, unspecified; E03.9 Hypothyroidism, unspecified; Z99.2 Dependence on renal dialysis; Z86.73 Personal history of transient ischemic attack (TIA), and cerebral infarction without residual deficits; Z95.5 Presence of coronary angioplasty implant and graft; Z98.890 Other specified postprocedural states; Z91.011 Allergy to milk products; Z60.2 Problems related to living alone; Z79.82 Long term (current) use of aspirin; Z79.4 Long term (current) use of insulin; Z79.899 Other long term (current) drug therapy
CPT/HCPCS: 36415; 36600; 71045; 74176; 80048; 80076; 82962; 83690; 84484; 85025; 85730; 93005; 99284; Q9963

== ENCOUNTER 2019-06-29 17:23 | Emergency (ER) | payer MEDICARE, OTHER ==
[~2019-06-29] VITALS: Ht 152.4 cm; Wt 54.0 kg
[~2019-06-29 17:23] MED LIST changes: +ASPI1TAB2 PO; +BISA5TAB10 PO; +CYCL30DR OP; +DEXT155P PO; -DOCU-141 PO; -DOXA2TAB2 PO; -DULO30CA2 PO; -EPOE200011 IV; +INUL1TAB4 PO; -LEVO125T PO; +LINA290C PO; +OMEP20CA15 PO; +ONDA4TAB5 PO; -PANT40TA2 PO; -ROSU5TAB PO; +SENN-261 PO; -ZINC220C6 PO; +ZINC50TA65 PO; +[UNRECOGNIZED DRUG - CODE] PO; -[UNRECOGNIZED DRUG - CODE] PO
[2019-06-29 17:25] VITALS: BP 139/68
--- NOTE | 2019-06-29 17:43 | NUR ---
SEEN AND EXAMINED BY .
--- NOTE | 2019-06-29 17:54 | NUR ---
CLIMATOLOGY PROFESSOR AT BEDSIDE FOR XRAY.
--- NOTE | 2019-06-29 19:05 | NUR ---
Patient discharged to home in stable condition. Written and verbal after care instructions given. Patient verbalizes understanding of instruction.
== END 2019-06-29 19:08 | disposition home or self-care (01) ==
LOC: ER 17:23
DX: M19.032 Primary osteoarthritis, left wrist (principal); M19.031 Primary osteoarthritis, right wrist; E11.22 Type 2 diabetes mellitus with diabetic chronic kidney disease; I13.2 Hypertensive heart and chronic kidney disease with heart failure and with stage 5 chronic kidney disease, or end stage renal disease; N18.6 End stage renal disease; R56.9 Unspecified convulsions; E78.5 Hyperlipidemia, unspecified; G47.00 Insomnia, unspecified; E03.9 Hypothyroidism, unspecified; Z99.2 Dependence on renal dialysis; Z86.73 Personal history of transient ischemic attack (TIA), and cerebral infarction without residual deficits; Z95.5 Presence of coronary angioplasty implant and graft; Z98.890 Other specified postprocedural states; Z60.2 Problems related to living alone; Z91.011 Allergy to milk products; Z79.82 Long term (current) use of aspirin; Z79.899 Other long term (current) drug therapy; Z79.4 Long term (current) use of insulin
CPT/HCPCS: 29125; 73110 ×2; 99283; L3763 ×2

== ENCOUNTER 2019-07-04 19:37 | Emergency (ER) | payer MEDICARE, OTHER ==
[~2019-07-04] VITALS: Ht 152.4 cm; Wt 52.2 kg
[~2019-07-04 19:37] MED LIST changes: +SENN-168 PO; -SENN-261 PO
--- NOTE | 2019-07-04 20:02 | NUR ---
AT THE BED SIDE
[2019-07-04 20:19] LABS: BASOPHILS % (AUTO) 0.3 % (0.0-2.0); EOSINOPHILS % (AUTO) 4.4 % (0.0-6.0); HEMATOCRIT 33 % (33-45); LYMPHOCYTES # (AUTO) 0.4 /CMM (0.8-4.8); LYMPHOCYTES % (AUTO) 10.5 % (20.0-44.0); MEAN CORPUSCULAR HGB CONC 33 g/dl (31.0-36.0); MEAN CORPUSCULAR VOLUME 110 fL (82-100); MONOCYTES # (AUTO) 0.1 /CMM (0.1-1.30); NEUTROPHILS # (AUTO) 2.9 /CMM (1.8-8.9); NEUTROPHILS % (AUTO) 80.8 % (43.0-81.0); PLATELET COUNT (AUTO) 246 /CMM (150-450); RED BLOOD CELL COUNT(AUTO) 2.99 MIL/uL (4.0-5.2); WHITE BLOOD COUNT (AUTO) 3.5 K/uL (4.3-11.0)
[2019-07-04] MEDS ORDERED: KETOROLAC TROMETHAMINE 15 MG/ML VIAL ONE (20:21)
[2019-07-04] MEDS ORDERED: LACTULOSE 10 G/15 ML UDC (PYXIS) ONE (20:22)
[2019-07-04] MEDS ORDERED: ONDANSETRON HCL/PF 4 MG/2 ML VIAL ONE (20:22)
[2019-07-04] MEDS ORDERED: METOCLOPRAMIDE HCL 10 MG/2 ML VIAL ONE (20:22)
[2019-07-04 20:29] LABS: CALCIUM, SERUM 9.7 mg/dL (8.5-10.1); CREATININE 4.2 mg/dL (0.6-1.3); POTASSIUM 4.6 mmol/L (3.5-5.1)
[2019-07-04] MEDS ORDERED: ONDANSETRON HCL/PF 4 MG/2 ML VIAL IVP ONE (20:30)
[2019-07-04] MEDS ORDERED: METOCLOPRAMIDE HCL 10 MG/2 ML VIAL IV ONE (20:30)
[2019-07-04] MEDS ORDERED: LACTULOSE 10 G/15 ML UDC (PYXIS) PO ONE (20:30)
[2019-07-04] MEDS ORDERED: IV NS 0.9% 500 ML BAG IV ONE (20:30)
[2019-07-04] MEDS ORDERED: IV NS 0.9% 1,000 ML BAG IV ONE (20:30)
[2019-07-04] MEDS ORDERED: KETOROLAC TROMETHAMINE INJ 30 MG/ML VIAL IV ONE (20:30)
--- NOTE | 2019-07-04 20:34 | NUR ---
URINE COLLECTED AND SENT TO THE LAB
[2019-07-04 20:35] LABS: ALBUMIN 3.3 g/dL (3.4-5.0); BILIRUBIN,DIRECT 0.2 mg/dL (0.0-0.2); BILIRUBIN,TOTAL 0.8 mg/dL (0.2-1.0); TOTAL PROTEIN, SERUM 7.8 g/dL (6.4-8.2)
--- NOTE | 2019-07-04 20:36 | NUR ---
PT WAS PICKED UP FOR CT
[2019-07-04 20:38] LABS: APPEARANCE,URINE Clear (CLEAR); BILIRUBIN,URINE Negative (NEGATIVE); BLOOD, URINE Trace-lysed Ery/uL (NEGATIVE); COLOR,URINE Yellow (YELLOW); KETONES,URINE Negative (NEGATIVE); LEUKOCYTE ESTERASE ,URINE Trace (NEGATIVE); NITRITE, URINE Negative (NEGATIVE); PH,URINE 8.5 (5.0-8.0); PROTEIN,URINE >=300 mg/dl (NEGATIVE); UGLUCOSE Negative (NEGATIVE); UROBILINOGEN,URINE 0.2 EU/dL (0.2)
[2019-07-04 20:53] LABS: EOSINOPHILS % (MANUAL) 4 % (0-4); LYMPHOCYTES % (MANUAL) 11 % (16-48); MONOCYTES % (MANUAL) 5 % (0-11.0); NEUTROPHILS % (MANUAL) 80 (42-76)
[2019-07-04 21:16] LABS: BACTERIA,URINE Few /HPF (None Seen); SQUAMOUS EPITHELIAL CELL,UR Few /HPF (None Seen)
--- NOTE | 2019-07-04 21:37 | NUR ---
IV removed. Catheter intact and site benign. Pressure and 4x4 applied to site. No bleeding noted.Patient discharged to home in stable condition. Rx and Written and verbal after care instructions given. Patient verbalizes understanding of instruction. CG provided ride to the pt.
[2019-07-04 22:20] VITALS: BP 145/70
== END 2019-07-04 21:37 | disposition home or self-care (01) ==
LOC: ER 19:43
DX: R10.12 Left upper quadrant pain (principal); K59.00 Constipation, unspecified; I13.2 Hypertensive heart and chronic kidney disease with heart failure and with stage 5 chronic kidney disease, or end stage renal disease; E11.22 Type 2 diabetes mellitus with diabetic chronic kidney disease; N18.6 End stage renal disease; I50.9 Heart failure, unspecified; E78.5 Hyperlipidemia, unspecified; G47.00 Insomnia, unspecified; F41.9 Anxiety disorder, unspecified; E03.9 Hypothyroidism, unspecified; Z99.2 Dependence on renal dialysis; Z98.890 Other specified postprocedural states; Z91.048 Other nonmedicinal substance allergy status; Z60.2 Problems related to living alone; Z79.899 Other long term (current) drug therapy; Z79.82 Long term (current) use of aspirin
CPT/HCPCS: 36415; 71045; 74176; 80048; 80076; 81001; 83690; 85025; 96374; 96375; 99285; J1885; J2405; J2765; J7040; 81000-TC

== ENCOUNTER 2019-09-03 06:20 | Emergency (ER) | payer MEDICARE, OTHER ==
[~2019-09-03] VITALS: Ht 154.9 cm; Wt 53.5 kg
[~2019-09-03 06:20] MED LIST changes: -SENN-168 PO; +SENN-261 PO
--- NOTE | 2019-09-03 06:40 | NUR ---
BIBS FOR C/O BLEEDING FROM FISTULA ON JERRY S/P HD ON MONDAY MORNING TO ER BED 2 AWAITNG MD REYES
--- NOTE | 2019-09-03 07:03 | NUR ---
PRESSURE DRESSING PLACED
[2019-09-03 07:09] LABS: BASOPHILS % (AUTO) 0.8 % (0.0-2.0); EOSINOPHILS % (AUTO) 1.1 % (0.0-6.0); HEMATOCRIT 35 % (33-45); LYMPHOCYTES # (AUTO) 0.7 /CMM (0.8-4.8); LYMPHOCYTES % (AUTO) 14.1 % (20.0-44.0); MEAN CORPUSCULAR HGB CONC 34 g/dl (31.0-36.0); MEAN CORPUSCULAR VOLUME 108 fL (82-100); MONOCYTES # (AUTO) 0.4 /CMM (0.1-1.30); NEUTROPHILS # (AUTO) 3.5 /CMM (1.8-8.9); PLATELET COUNT (AUTO) 227 /CMM (150-450); RED BLOOD CELL COUNT(AUTO) 3.27 MIL/uL (4.0-5.2); WHITE BLOOD COUNT (AUTO) 4.7 K/uL (4.3-11.0)
--- NOTE | 2019-09-03 07:10 | NUR ---
REPORT TO JOHN GODINEZ FOR RICHARD
--- NOTE | 2019-09-03 08:13 | NUR ---
CALLED Nathanael Tang Md [facility].
--- NOTE | 2019-09-03 08:18 | NUR ---
Undressed the lolly bandage, dressing still saturated but minimal. Addendum: 09/03/19 at 0820 by ROALCANCES addendum: Dr. Keys aware, waiting for Dr. Tang.
--- NOTE | 2019-09-03 08:30 | NUR ---
DRESSING RE-INFORCED.
[2019-09-03] MEDS ORDERED: GELATIN SPONGE,ABSORBABLE 1 SPONGE SPONGE TP ONE (09:03)
--- NOTE | 2019-09-03 09:22 | NUR ---
[facility] [phone] ETA IS 1020 PER BARRERA.
--- NOTE | 2019-09-03 10:51 | NUR ---
DRESSING RE-INFORCED, STILL NOTED WITH MINIMAL BLEEDING. DR. TAMEZ AWARE. REPORT GIVEN TO EMT. PATIENT A/OX4, BREATHING EVEN AND UNLABORED, NO SOB NOTED. NEEDS ATTENDED. Patient discharged to home in stable condition. Written and verbal after care instructions given. Patient verbalizes understanding of instruction.
[2019-09-03 10:55] VITALS: BP 167/65
== END 2019-09-03 10:55 | disposition home or self-care (01) ==
LOC: ER 06:25
DX: T82.511A Breakdown (mechanical) of surgically created arteriovenous shunt, initial encounter (principal); I13.2 Hypertensive heart and chronic kidney disease with heart failure and with stage 5 chronic kidney disease, or end stage renal disease; E11.22 Type 2 diabetes mellitus with diabetic chronic kidney disease; N18.6 End stage renal disease; R56.9 Unspecified convulsions; E78.5 Hyperlipidemia, unspecified; G47.00 Insomnia, unspecified; E03.9 Hypothyroidism, unspecified; Z99.2 Dependence on renal dialysis; Z86.73 Personal history of transient ischemic attack (TIA), and cerebral infarction without residual deficits; Z95.5 Presence of coronary angioplasty implant and graft; Z98.890 Other specified postprocedural states; Z60.2 Problems related to living alone; Z79.899 Other long term (current) drug therapy; Z79.82 Long term (current) use of aspirin; Z79.4 Long term (current) use of insulin; Z91.011 Allergy to milk products
CPT/HCPCS: 36415; 85025-TC; 85730-TC

== ENCOUNTER 2019-10-20 03:42 | Inpatient (IN) | payer MEDICARE, OTHER ==
[~2019-10-20] VITALS: Ht 152.4 cm; Wt 59.0 kg
[2019-10-20] VITALS (9 sets, daily range): BP systolic 130–198; BP diastolic 61–94
[~2019-10-20 03:42] MED LIST changes: +CYCL30DR EACHEYE; -CYCL30DR OP
[2019-10-20] MEDS ORDERED: ONDANSETRON HCL/PF 4 MG/2 ML VIAL IVP PRN (06:00)
[2019-10-20] MEDS ORDERED: Z GUARD REMEDY 2 OZ OINT TP PRN (06:00)
[2019-10-20] MEDS ORDERED: ACETAMINOPHEN 325 MG TABLET PO PRN (06:00)
[2019-10-20] MEDS ORDERED: SIMETHICONE 80 MG TAB.CHEW PO PRN (06:00)
--- NOTE | 2019-10-20 07:20 | NUR ---
warehouse helper: End of shift report 64 y/o female direct admit from [facility]. Patient is A/O x4, skin checked done. Left wrist skin tear, initiated dressing, place wound consult. Patient denies pain, 94% on RA but patient wants to be placed on oxygen. Sinus Tach in the Tele monitor, denies chest pain. Home medication send to pharmacy. Patient missed dialysis treatment last Monday per report, endorsed to HERBERT Matt/am primary nurse to follow up. Fall;skin; seizure precaution.
[2019-10-20] MEDS ORDERED: LEVOTHYROXINE SODIUM 125 MCG TABLET PO SCH (07:30)
--- NOTE | 2019-10-20 07:46 | NUR ---
ROCKET SCIENTIST OPENING NOTE RECEIVED PATIENT IN BED SLEEPING, RESTING COMFORTABLY. PATIENT IN NO ACUTE DISTRESS. NO SOB NOTED. PATIENT BREATHING IS EVEN AND UNLABORED. PATIENT ON CARDIAC MONITORING READING SINUS RHYTHM HR 86 WITH PVCS. PATIENT BED ALARM IS ON. PATIENT SAFETY PRECAUTIONS IN PLACE. PATIENT BED IS LOCKED AND IN LOWEST POSITION. CALL LIGHT WITHIN REACH. WILL CONTINUE TO MONITOR.
[2019-10-20] MEDS: OLOPATADINE HCL 0.1% OPHTH BOTTLE EACHEYE SCH (08:16)
[2019-10-20] MEDS: KETOROLAC EYE 0.5% 3 ML BOTTLE OP SCH ×2 (08:16→21:18)
[2019-10-20] MEDS: FLUTICASONE PROPIONATE 16 GM BOTTLE NS SCH (08:17)
[2019-10-20] MEDS: POLYETHYLENE GLYCOL 3350 17 GM POWD.PACK PO SCH (08:17)
[2019-10-20] MEDS: LIOTHYRONINE SODIUM (5 MCG/TA 5 MCG TABLET PO SCH (08:18)
[2019-10-20] MEDS: ASPIRIN EC 81 MG TABLET.DR PO SCH (08:18)
[2019-10-20] MEDS: FOLIC ACID 1 MG TABLET PO SCH (08:18)
[2019-10-20] MEDS: LABETALOL HCL (100MG) 100 MG TABLET PO SCH ×3 (08:19→16:33)
[2019-10-20] MEDS: SEVELAMER CARBONATE 800 MG TABLET PO SCH ×3 (08:19→17:25)
[2019-10-20] MEDS: SENNOSIDES 8.6 MG TABLET PO SCH (08:19)
[2019-10-20] MEDS: CHOLECALCIFEROL (VITAMIN D 3) 400 UNIT TABLET PO SCH (08:20)
[2019-10-20] MEDS: LOSARTAN POTASSIUM 50 MG TABLET PO SCH ×2 (08:20→16:33)
[2019-10-20] MEDS: QUETIAPINE FUMARATE 100 MG TABLET PO SCH ×2 (08:20→21:10)
[2019-10-20] MEDS: LACTOBACILLUS RHAMNOSUS GG 1 EACH CAP.SPRINK PO SCH ×2 (08:20→17:26)
[2019-10-20] MEDS: SUCRALFATE 1 G/10 ML UDC GT SCH ×4 (08:21→21:08)
[2019-10-20] MEDS: PANTOPRAZOLE 40 MG TABLET.DR PO SCH (08:21)
--- NOTE | 2019-10-20 08:42 | NUR ---
DIRECT MARKETING COORDINATOR NOTE PATIENT REFUSING AMLODIPINE AND HYDRALAZINE AM DOSE. EDUCATED RISKS VS BENEFITS BUT PATIENT CONTINUED TO REFUSE AND STATED " HYDRALAZINE GAVE ME MEDICATION INDUCED LUPUS AND AMLODIPINE MAKES MY LEGS SWELL, I DONT WANT TO TAKE THOSE MEDS".
[2019-10-20] MEDS ORDERED: hydrALAZINE HCL 50 MG TABLET PO SCH (09:00)
[2019-10-20] MEDS ORDERED: AMLODIPINE BESYLATE 10 MG TABLET PO SCH (09:00)
[2019-10-20] MEDS ORDERED: LamoTRIgine 100 MG TABLET PO SCH (09:00)
--- NOTE | 2019-10-20 11:37 | NUR ---
MS RN NOTE PATIENT SEEN AND EVALUATED BY DR. OLIVARES. INFORMED DR. OLIVARES THAT ON PATIENT MED RECON LIST SHE HAS AT BEDSIDE THAT SHE HAS BEEN TAKING LEVOTHYROXINE 225 MCG PO EVEN THOUGH HER LIST STATES 125MCG. PER DR. OLIVARES ORDER TO CHANGE CURRENT DOSE OF LEVOTHYROXINE 125MCG TO 200MCG PO. PER MD TO REMOVE MEDICATIONS IF NOT LISTED IN HER CURRENT LIST. AMLODIPINE NOT CURRENTLY LISTED AND DISCONTINUED MD MADE AWARE. PER MD PATIENT TO HAVE DIALYSIS TODAY.
--- NOTE | 2019-10-20 12:26 | NUR ---
MS RN NOTE SPOKE WITH DR. OLIVARES ABOUT PATIENT NOT WANTING TO TAKE HYDRALAZINE DUE TO HISTORY OF MEDICATION INDUCED LUPUS PER PATIENT. PER MD ORDER TO DISCONTINUE HYDRALAZINE. INFORMED DR. OLIVARES OF HISTORY WITH DIABETES, PER MD ORDER TO PLACE ON MODERATE SLIDING SCALE.
[2019-10-20] MEDS ORDERED: DEXTROSE 50%-WATER 50 ML DISP.SYRIN IV PRN (14:00)
--- NOTE | 2019-10-20 16:33 | NUR ---
MS RN NOTE PATIENT UNDERGOING DIALYSIS. HELD 1700 DOSE BP MEDICATIONS LOSARTAN AND LABETALOL.
--- NOTE | 2019-10-20 16:37 | NUR ---
MS RN NOTE PATIENT BLOOD SUGAR IS 93. NO INSULIN COVERAGE NEEDED PER PROTOCOL.
[2019-10-20] MEDS: BLOOD SUGAR DIAGNOSTIC 1 EACH STRIP VI SCH ×2 (16:38→21:21)
[2019-10-20] MEDS: LamoTRIgine 25 MG TABLET PO SCH (17:24)
[2019-10-20] MEDS: LamoTRIgine 100 MG TABLET PO SCH (17:24)
[2019-10-20] MEDS: AZELASTINE NASAL SPRAY 30 ML BOTTLE NS SCH (17:24)
--- NOTE | 2019-10-20 18:55 | NUR ---
MS RN CLOSING NOTE PATIENT IN BED RESTING COMFORTABLY. PATIENT IN NO ACUTE DISTRESS. NO SOB NOTED. PATIENT BREATHING IS EVEN AND UNLABORED. PATIENT STILL UNDERGOING DIALYSIS AT THIS TIME. PATIENT KEPT CLEAN, DRY AND COMFORTABLE THROUGHOUT SHIFT. PATIENT NEEDS AND CONCERNS ADDRESSED. PATIENT BED ALARM IS ON. SAFETY PRECAUTIONS IN PLACE. PATIENT BED IS LOCKED AND IN LOWEST POSITION. CALL LIGHT WITHIN REACH. WILL ENDORSE CARE TO PM SHIFT FOR RICHARD.
--- NOTE | 2019-10-20 20:00 | NUR ---
MS RN OPENING NOTE: Received patient laying in bed comfortably. She is AOx4. IV site noted at Right AC, 20 gauge. IV is patent, no redness, and no infiltration. Patient breathing is unlabored and even. No SOB. Safety precaution is in place, bed alarm is on, bed is locked, in lowest position, side rails x 2 are up, and call light within reach. Will continue care of plan.
--- NOTE | 2019-10-20 20:30 | NUR ---
rn notes: hd completed, 3L output
[2019-10-20] MEDS: ATORVASTATIN 10 MG TABLET PO SCH (21:10)
[2019-10-20] MEDS: CLONIDINE HCL 0.1 MG TABLET PO PRN (21:10)
--- NOTE | 2019-10-20 21:10 | NUR ---
MS RN NOTE: Patient blood pressure 198/70, heart rate 66. Administered PRN catapress per order. Will continue to monitor BP.
[2019-10-20] MEDS: *INSULIN REGULAR(HUMULIN R)HUM 100 UNIT/ML VIAL SQ PRN (21:22)
[2019-10-20] MEDS: clonazePAM 0.5 MG TABLET PO SCH (22:54)
--- NOTE | 2019-10-21 00:06 | NUR ---
MS RN NOTE: Rechecked blood pressure. Blood pressure is still elevated. Notified Epic contractor field hauling. No new orders at this time.
--- NOTE | 2019-10-21 06:00 | NUR ---
RN NOTES/AM CARE: ASSISTED EXTERMINATION INSPECTOR IN PROVIDING COMPLETE BED BATH AND LINEN CHANGE.
[2019-10-21] MEDS: CLONIDINE HCL 0.1 MG TABLET PO PRN ×3 (06:03→22:26)
--- NOTE | 2019-10-21 06:30 | NUR ---
RN NOTES/REFUSAL FOR ACCU CHECK: PT REFUSED BLOOD GLUCOSE CHECK SHE STATED SHE IS NOT DIABETIC. EDUCATION PROVIDED TO PT REGARDING RISK AND BENEFITS.
[2019-10-21] MEDS: LEVOTHYROXINE SODIUM 100 MCG TABLET PO SCH (06:33)
[2019-10-21] MEDS: LIOTHYRONINE SODIUM (5 MCG/TA 5 MCG TABLET PO SCH (06:33)
[2019-10-21] MEDS: SUCRALFATE 1 G/10 ML UDC GT SCH ×4 (06:33→21:22)
[2019-10-21] MEDS: PANTOPRAZOLE 40 MG TABLET.DR PO SCH (06:33)
--- NOTE | 2019-10-21 06:39 | NUR ---
MS RN CLOSING NOTE: Patient in bed sleeping comfortably. Patient does not show signs of pain or discomfort. Patient breathing is unlabored and even. No SOB. Safety precaution is in place, bed alarm is on, bed is locked, in lowest position, side rails x 2 are up, and call light within reach. Will endorse to next shift.
[2019-10-21] MEDS: BLOOD SUGAR DIAGNOSTIC 1 EACH STRIP VI SCH ×4 (06:55→21:56)
[2019-10-21 07:16] LABS: BASOPHILS % (AUTO) 1.2 % (0.0-2.0); EOSINOPHILS % (AUTO) 3.1 % (0.0-6.0); HEMATOCRIT 32 % (33-45); HEMOGLOBIN 10.9 g/dL (11.5-14.8); LYMPHOCYTES # (AUTO) 0.5 /CMM (0.8-4.8); LYMPHOCYTES % (AUTO) 16.4 % (20.0-44.0); MEAN CORPUSCULAR HGB CONC 34 g/dl (31.0-36.0); MEAN CORPUSCULAR VOLUME 106 fL (82-100); MONOCYTES # (AUTO) 0.4 /CMM (0.1-1.30); MONOCYTES % (AUTO) 12.7 % (2.0-12.0); NEUTROPHILS # (AUTO) 2.1 /CMM (1.8-8.9); NEUTROPHILS % (AUTO) 66.6 % (43.0-81.0); PLATELET COUNT (AUTO) 183 /CMM (150-450); RED BLOOD CELL COUNT(AUTO) 3.06 MIL/uL (4.0-5.2); WHITE BLOOD COUNT (AUTO) 3.2 K/uL (4.3-11.0)
--- NOTE | 2019-10-21 07:22 | NUR ---
MS/RN Opening note Patient received from night shift supervisor. A/O X4, no shortness of breath at this time, room air saturation 94%. Stating current plan level is 5/10 due to external hemorrhoid and friction from rubbing due to being in bed. Will inform MD and request cream. Heplock to left wrist flushing well with normal saline, no signs of infiltration. Call light within reach, side rails X2 in upright position, brakes locked. Will continue to monitor and ensure safety.
[2019-10-21 07:43] LABS: CALCIUM, SERUM 8.9 mg/dL (8.5-10.1); CREATININE 5.1 mg/dL (0.6-1.3); MAGNESIUM 2.2 mg/dL (1.8-2.4); PHOSPHORUS 5.3 mg/dL (2.5-4.9); POTASSIUM 4.4 mmol/L (3.5-5.1)
[2019-10-21 07:47] LABS: THYROID STIMULATING HORMONE 4.253 uIU/mL (0.358-3.74)
[2019-10-21 08:00] VITALS: BP_SYST 190; BP_DIAS 61; BP_DIAS 79
[2019-10-21] MEDS: LACTOBACILLUS RHAMNOSUS GG 1 EACH CAP.SPRINK PO SCH ×2 (08:24→17:02)
[2019-10-21] MEDS: POLYETHYLENE GLYCOL 3350 17 GM POWD.PACK PO SCH (08:24)
[2019-10-21] MEDS: SENNOSIDES 8.6 MG TABLET PO SCH (08:24)
[2019-10-21] MEDS: CHOLECALCIFEROL (VITAMIN D 3) 400 UNIT TABLET PO SCH (08:25)
[2019-10-21] MEDS: FOLIC ACID 1 MG TABLET PO SCH (08:25)
[2019-10-21] MEDS: ASPIRIN EC 81 MG TABLET.DR PO SCH (08:25)
[2019-10-21] MEDS: QUETIAPINE FUMARATE 100 MG TABLET PO SCH ×2 (08:26→21:22)
[2019-10-21] MEDS: LOSARTAN POTASSIUM 50 MG TABLET PO SCH ×2 (08:26→17:03)
[2019-10-21] MEDS: SEVELAMER CARBONATE 800 MG TABLET PO SCH ×3 (08:26→17:02)
[2019-10-21] MEDS: LABETALOL HCL (100MG) 100 MG TABLET PO SCH ×3 (08:27→17:03)
--- NOTE | 2019-10-21 08:30 | NUR ---
MS/RN Hypertension Blood pressure 190/70, will administered morning medications and recheck.
[2019-10-21] MEDS: FLUTICASONE PROPIONATE 16 GM BOTTLE NS SCH (08:44)
[2019-10-21] MEDS: KETOROLAC EYE 0.5% 3 ML BOTTLE OP SCH ×2 (08:44→21:22)
[2019-10-21] MEDS: OLOPATADINE HCL 0.1% OPHTH BOTTLE EACHEYE SCH (08:45)
[2019-10-21] MEDS ORDERED: HYDROCORTISONE CR 30 GM TUBE RC PRN (09:00)
[2019-10-21] MEDS ORDERED: NEPRO VAN 237 ML CAN PO PRN (09:00)
--- NOTE | 2019-10-21 09:08 | NUR ---
MS/RN S/B Dr Monsivais Seen by MD - hydrocortisone 1% ordered for external hemorrhoid, physical therapy evaluation for strength training and nephro protein drinks ordered.
[2019-10-21 10:00] VITALS: BP 152/76
--- NOTE | 2019-10-21 10:36 | NUR ---
WOUND CARE CONSULT: PT PRESENTS WITH LEFT WRIST SKIN TEAR AND SACRAL SCAR, PRESENT ON ADMISSION. RECOMMENDATIONS MADE FOR SKIN PROTECTION AND WOUND CARE. DISCUSSED WITH NURSING STAFF. WILL SEE PRN. RENEE IN AGREEMENT WITH PLAN OF CARE. CURRENT SHIRAZ SCORE IS 14. PT IS ON [facility] BED. Addendum: 10/21/19 at 1037 by CHANTAL MAYFIELD WNDNU Amended: Links added.
[2019-10-21] MEDS: ASPIRIN/ACETAMINOPHEN/CAFFEINE 1 EACH TABLET PO PRN (15:06)
--- NOTE | 2019-10-21 15:17 | NUR ---
MS/RN Hypertension Patient complaining of feeling light headed and dizzy. BP checked and found to be 189/82. Clonidine 0.1mg administered. Will recjeck.
--- NOTE | 2019-10-21 15:41 | NUR ---
MS/RN Bleeding fistula Fistula to left upper arm noted to be bleeding. Pressure dressing applied, will re-evaluate.
[2019-10-21 16:00] VITALS: BP 189/82
--- NOTE | 2019-10-21 16:30 | NUR ---
MS/RN Reassessment No further bleeding noted from fistula, dressing dry and intact.
[2019-10-21] MEDS: LamoTRIgine 100 MG TABLET PO SCH (17:02)
[2019-10-21] MEDS: LamoTRIgine 25 MG TABLET PO SCH (17:02)
[2019-10-21] MEDS: AZELASTINE NASAL SPRAY 30 ML BOTTLE NS SCH (17:10)
[2019-10-21 17:15] VITALS: BP 149/74
--- NOTE | 2019-10-21 18:36 | NUR ---
MS/RN End note Patient remains in stable condition. No new concerns. Seen by YARIEL Ryan to be arranged for this evening. All medications administered as ordered. Blood pressure now 149/76. Will endorse to alligator hunter.
--- NOTE | 2019-10-21 19:30 | NUR ---
MS/RN OPENING NOTES RECEIVED PATIENT IS BED RESTING ALERT AND ORIENTED X 3. PATIENT SHOWS NO SIGNS OF SOB, RESPIRATIONS ARE UNLABORED AND EQUAL. PATIENT IS COMPLAINING OF HEADACHE AT THE MOMENT. PATIENT IS ON ROOM AIR TOLERATING WELL. PATIENT HAS IV ACCESS ON RIGHT AC #22 G INTACT AND PATENT, JERRY AV FISTULA INTACT. SAFETY MEASURERS ARE IN PLACE, BED LOCKED AND PLACED IN LOW POSITION, WITH SIDE RAILS UP X 3, CALL LIGHT IS WITHIN REACH. WILL CONTINUE TO MONITOR PATIENT THROUGH OUT SHIFT.
[2019-10-21] MEDS: HYDROCODONE/APAP 5/325MG 1 EACH TABLET PO PRN ×2 (19:55→20:04)
[2019-10-21 20:00] VITALS: BP 209/78
[2019-10-21] MEDS: HYDROCORTISONE SOD SUCCINATE 100 MG/2 ML VIAL IV SCH (20:06)
[2019-10-21] MEDS: ATORVASTATIN 10 MG TABLET PO SCH (21:22)
[2019-10-21] MEDS: clonazePAM 0.5 MG TABLET PO SCH (21:22)
[2019-10-21] MEDS ORDERED: hydrALAZINE HCL IV 20 MG VIAL IV PRN (23:00)
[2019-10-21] MEDS: METOPROLOL TARTRATE INJ 5 MG/5 ML AMPUL IV PRN (23:17)
--- NOTE | 2019-10-21 23:17 | NUR ---
MS/RN NOTES PATIENT HAD SBP > 180, METOPROLOL 5 MG IV WAS GIVEN. WILL REASSESS BLOOD PRESSURE. PATIENT IS STABLE IN NO DISTRESS. WILL CONTINUE TO MONITOR.
[2019-10-22] VITALS (9 sets, daily range): BP systolic 192–213; BP diastolic 74–90
--- NOTE | 2019-10-22 06:27 | NUR ---
MS/RN CLOSING NOTES PATIENT IS IN BED SLEEPING, ALERT AND ORIENTED X 3. PATIENT SHOWS NO SIGNS OF SOB, RESPIRATIONS ARE UNLABORED AND EQUAL. PATIENT IS ON 2L OXYGEN SATURATING AT 100%. PATIENT HAS IV ACCESS ON RIGHT AC #22 G INTACT AND PATENT, JERRY AV FISTULA INTACT. SAFETY MEASURERS ARE IN PLACE, BED LOCKED AND PLACED IN LOW POSITION, WITH SIDE RAILS UP X 3, CALL LIGHT IS WITHIN REACH. WILL ENDORSE CARE TO DAY SHIFT NURSE.
[2019-10-22] MEDS: METOPROLOL TARTRATE INJ 5 MG/5 ML AMPUL IV PRN ×3 (06:46→20:54)
[2019-10-22] MEDS: BLOOD SUGAR DIAGNOSTIC 1 EACH STRIP VI SCH ×4 (07:55→22:00)
--- NOTE | 2019-10-22 08:00 | NUR ---
MS RN OPENING NOTES RECEIVED PT IN BED. AWAKE ALERT AND ORIENTED X4. NO CARDIAC OR RESPIRATORY DISTRESS NOTED AT THIS TIME. HOWEVER, DRY GOODS CLERK NURSES INFORMED ME THAT PT BP WAS HIGH LAST NIGHT. LAST BP TAKE ACCORDING TO THEM WAS 203/92. AND THAT METOPROLOL WAS ADMINISTERED AT 630 THIS MORNING. BP RECHECKED, NOTED AT 195/78. PT HAS NO COMPLAINTS OF CHEST PAIN OR HEADACHE AT THIS TIME. NO CARDIAC OR RESPIRATORY DISTRESS NOTED. NO SOB NOTED. PT IS SATURATING WELL ON ROOM AIR. BREATHING IS EVEN AND UNLABORED. IV ACCESS NOTED ON R AC G20. INTACT AND PATENT AND FLUSHING WELL. NO S/S OF INFECTION OR INFILTRATION NOTED. PT ALSO NOTED WITH A L UPPER ARM AV SHUNT. POSITIVE FOR BRUIT AND THRILL. SAFETY PRECAUTIONS IN PLACE. BED LOCKED AND IN LOW POSITION. SIDE RAILS UP X2. BED ALARM ON. CALL LIGHT WITHIN REACH. WILL CONT TO MONITOR.
[2019-10-22] MEDS: LOSARTAN POTASSIUM 50 MG TABLET PO SCH ×2 (08:29→17:10)
[2019-10-22] MEDS: SEVELAMER CARBONATE 800 MG TABLET PO SCH ×3 (08:29→17:09)
[2019-10-22] MEDS: HYDROCODONE/APAP 5/325MG 1 EACH TABLET PO PRN ×2 (08:29→17:42)
[2019-10-22] MEDS: SENNOSIDES 8.6 MG TABLET PO SCH (08:29)
[2019-10-22] MEDS: SUCRALFATE 1 G/10 ML UDC GT SCH ×4 (08:29→21:24)
[2019-10-22] MEDS: POLYETHYLENE GLYCOL 3350 17 GM POWD.PACK PO SCH (08:29)
[2019-10-22] MEDS: LACTOBACILLUS RHAMNOSUS GG 1 EACH CAP.SPRINK PO SCH ×2 (08:30→17:10)
[2019-10-22] MEDS: PANTOPRAZOLE 40 MG TABLET.DR PO SCH (08:30)
[2019-10-22] MEDS: HYDROCORTISONE SOD SUCCINATE 100 MG/2 ML VIAL IV SCH ×2 (08:30→17:10)
--- NOTE | 2019-10-22 08:30 | NUR ---
SEEN BY HOSPITALIST PT WAS SEEN BY DR. DUNCAN THIS AM. I ALSO INFORMED HIM OF PTS BP TRENDS LAST NIGHT. I ALSO INFORMED MD THAT PT HAD INFORMED ME THAT SHE USED TO BE ON THE FOLLOWING BP MEDS PRIOR TO ADMISSION TO HOSPITAL AND THIS WAS WHAT WAS CONTROLLING HER BP. ACCORDING TO PT SHE USED TO BE ON: LOSARTAN 50MG BOD, CLONIDINE0.1MG TID ROUTINELY, LABETALOL 400MG TID ROUTINELY, DOXASOSIN 2MG BID AND MINOXIDIL 2.5MG BID. PER PT ALREADY ON THE CORRECT DOSE OF LOSARTAN AND LABETALOL. PER DR. DUNCAN, TO GO AHEAD AND CHANGE CLONIDINE 0.1MG TID ROUTINE AND ADD DOXASOSIN 2MG BID AND MINOXIDIL 2.5MG BID AND TO D/C THE NORVASC THAT HE JUST ADDED. ORDERS WERE ALL NOTED AND CARRIED OUT.
[2019-10-22] MEDS: LABETALOL HCL (100MG) 100 MG TABLET PO SCH ×3 (08:31→17:09)
[2019-10-22] MEDS: CHOLECALCIFEROL (VITAMIN D 3) 400 UNIT TABLET PO SCH (08:31)
[2019-10-22] MEDS: LEVOTHYROXINE SODIUM 100 MCG TABLET PO SCH (08:31)
[2019-10-22] MEDS: CLONIDINE HCL 0.1 MG TABLET PO PRN (08:31)
[2019-10-22] MEDS: LIOTHYRONINE SODIUM (5 MCG/TA 5 MCG TABLET PO SCH (08:31)
[2019-10-22] MEDS: QUETIAPINE FUMARATE 100 MG TABLET PO SCH ×2 (08:31→22:39)
[2019-10-22] MEDS: ASPIRIN EC 81 MG TABLET.DR PO SCH (08:32)
[2019-10-22] MEDS: FOLIC ACID 1 MG TABLET PO SCH (08:32)
[2019-10-22] MEDS ORDERED: AMLODIPINE BESYLATE 5 MG TABLET PO SCH (09:00)
[2019-10-22] MEDS: OLOPATADINE HCL 0.1% OPHTH BOTTLE EACHEYE SCH (09:04)
[2019-10-22] MEDS: FLUTICASONE PROPIONATE 16 GM BOTTLE NS SCH (09:04)
[2019-10-22] MEDS: KETOROLAC EYE 0.5% 3 ML BOTTLE OP SCH ×2 (09:05→21:24)
[2019-10-22] MEDS: DOXAZOSIN MESYLATE (1 MG) 1 MG TABLET PO SCH ×2 (10:25→17:10)
[2019-10-22] MEDS: MINOXIDIL (2.5MG) 2.5 MG TABLET PO SCH ×3 (10:25→17:11)
[2019-10-22] MEDS: INSULIN REGULAR, HUMAN 100 UNIT/ML 3 ML VIAL SQ PRN (11:55)
--- NOTE | 2019-10-22 12:30 | NUR ---
CXRAY DR. MASON WAS NOTIFIED OF PTS C-XRAY RESULTS. NO NEW ORDERS GIVEN.
[2019-10-22] MEDS ORDERED: CLONIDINE HCL 0.1 MG TABLET PO SCH ×2 (13:00→14:46)
--- NOTE | 2019-10-22 14:30 | NUR ---
ELEVATED BP DR. DUNCAN CURRENTLY IN THE UNIT. MD WAS INFORMED OF PTS BLOOD PRESSURE TRENDS THIS SHIFT. CURRENT BP IS AT 199/74 AFTER PRN AND ROUTINE BP MEDS WERE ALREADY ADMINISTERED. PT HAS NO C/O OF CHEST PAIN, NO NOSE BLEED, NO HEADACHES NOTED. INFORMED MD THAT PT IS ALSO SCHEDULED TO HAVE A DIALYSIS TODAY. PER MD, RE-CHECK BP AFTER PT IS DIALYZED.
[2019-10-22] MEDS ORDERED: MINOXIDIL (2.5MG) 2.5 MG TABLET PO SCH (17:00)
[2019-10-22] MEDS ORDERED: DOXAZOSIN MESYLATE (1 MG) 1 MG TABLET PO SCH (17:00)
[2019-10-22] MEDS: LamoTRIgine 100 MG TABLET PO SCH (17:09)
[2019-10-22] MEDS: LamoTRIgine 25 MG TABLET PO SCH (17:10)
[2019-10-22] MEDS: AZELASTINE NASAL SPRAY 30 ML BOTTLE NS SCH (17:14)
--- NOTE | 2019-10-22 18:00 | NUR ---
DIALYSIS PT CURRENTLY BEING DIALYZED AT THIS TIME WITH THE DIALYSIS NURSE.
--- NOTE | 2019-10-22 18:51 | NUR ---
MS RN CLOSING NOTES MS RN OPENING NOTES PT IN BED. AWAKE ALERT AND ORIENTED X4. NO CARDIAC OR RESPIRATORY DISTRESS NOTED AT THIS TIME. PT HAS NO COMPLAINTS OF CPAIN AT THIS TIME. NO CARDIAC OR RESPIRATORY DISTRESS NOTED. NO SOB NOTED. PT IS SATURATING WELL ON ROOM AIR. BREATHING IS EVEN AND UNLABORED. DIALYSIS NURSE IS BY BEDSIDE. CURRENTLY BEING DIALYZED. WILL ENDORSE TO NEXT SHIFT TO RE-CHECK BP AFTER DIALYSIS IS DONE AND COMPLETED AND DETERMINE OF PRN BP MEDS MAY NEED TO BE ADMINISTERED. IV ACCESS NOTED ON R AC G20. INTACT AND PATENT AND FLUSHING WELL. NO S/S OF INFECTION OR INFILTRATION NOTED. PT ALSO NOTED WITH A L UPPER ARM AV SHUNT. POSITIVE FOR BRUIT AND THRILL. SAFETY PRECAUTIONS IN PLACE. BED LOCKED AND IN LOW POSITION. SIDE RAILS UP X2. BED ALARM ON. CALL LIGHT WITHIN REACH. WILL ENDORSE TO NEXT SHIFT.
--- NOTE | 2019-10-22 19:55 | NUR ---
RN NOTES RECEIVED PATIENT IN BED. AWAKE ALERT AND ORIENTED X4. ONGOING HEMODIALYSIS. NO CARDIAC OR RESPIRATORY DISTRESS NOTED AT THIS TIME. BREATHING IS EVEN AND UNLABORED. IV ACCESS NOTED ON R AC G20. INTACT AND PATENT AND FLUSHING WELL. NO S/S OF INFECTION OR INFILTRATION NOTED. PT ALSO NOTED WITH A L UPPER ARM AV SHUNT. POSITIVE FOR BRUIT AND THRILL. SAFETY MEASURES IN PLACE. BED LOCKED AND IN LOW POSITION. SIDE RAILS UP X2. BED ALARM ON. CALL LIGHT WITHIN REACH.KEEP CLEAN WARM AND DRY. WILL CONTINUE TO MONITOR ACCORDINGLY.
[2019-10-22] MEDS: ATORVASTATIN 10 MG TABLET PO SCH (21:24)
--- NOTE | 2019-10-22 22:00 | NUR ---
rn notes re assessed BP 194/86 HR 64. no sob, denies pain at this time.
[2019-10-22] MEDS: clonazePAM 0.5 MG TABLET PO SCH (22:38)
[2019-10-22] MEDS: CLONIDINE HCL 0.1 MG TABLET PO SCH (22:38)
--- NOTE | 2019-10-23 00:05 | NUR ---
rn notes re checked BP 217/85 HR 67. safety measures in place,denies any pain / discomfort at this time.
[2019-10-23] MEDS: CLONIDINE HCL 0.1 MG TABLET PO SCH ×4 (05:20→22:06)
--- NOTE | 2019-10-23 06:48 | NUR ---
RN NOTES ALL NEEDS ATTENDED AND MET, ABLE TO REST AND SLEPT AT INTERVALS, S/P HEMODIALYSIS 3,500 ML OUTPUT NOTED. SAFETY MEASURES IN PLACE, ASPIRATION PRECAUTION EMPHASIZED. LATEST BP 171/79 HR 68. SAFETY MEASURES INPLACE, WILL ENDORSE TO AM NURSE FOR CONTINUITY OF CARE.
[2019-10-23] MEDS: BLOOD SUGAR DIAGNOSTIC 1 EACH STRIP VI SCH ×4 (07:25→22:23)
[2019-10-23] MEDS: SUCRALFATE 1 G/10 ML UDC GT SCH ×4 (07:48→22:06)
[2019-10-23] MEDS: SEVELAMER CARBONATE 800 MG TABLET PO SCH ×3 (07:49→17:57)
[2019-10-23] MEDS: LEVOTHYROXINE SODIUM 100 MCG TABLET PO SCH (07:50)
[2019-10-23] MEDS: LIOTHYRONINE SODIUM (5 MCG/TA 5 MCG TABLET PO SCH (07:51)
[2019-10-23] MEDS: PANTOPRAZOLE 40 MG TABLET.DR PO SCH (07:51)
[2019-10-23 08:00] VITALS: BP 210/85
--- NOTE | 2019-10-23 08:00 | NUR ---
MS/RN - Assessment Patient in bed, A/O x 4, afebrile, no c/o SOB, denies pain, calm and cooperative with care. Patient verbalized concern regarding her uncontrolled blood pressure that started 2 days ago. Reviewed with patient the list of medications that she provided on admission and she told me that it was not the updated one. Home medications updated and copy placed in the chart. Will notify MD to review medications. Cardio/nephro is following. No labs ordered for today. Discussed plan of care with pt regarding BP management and in agreement. Will continue to monitor closely.
[2019-10-23] MEDS: FOLIC ACID 1 MG TABLET PO SCH (08:13)
[2019-10-23] MEDS: LABETALOL HCL (100MG) 100 MG TABLET PO SCH ×3 (08:14→16:19)
[2019-10-23] MEDS: SENNOSIDES 8.6 MG TABLET PO SCH (08:15)
[2019-10-23] MEDS: DOXAZOSIN MESYLATE (1 MG) 1 MG TABLET PO SCH ×2 (08:16→16:14)
[2019-10-23] MEDS: LACTOBACILLUS RHAMNOSUS GG 1 EACH CAP.SPRINK PO SCH ×2 (08:17→16:19)
[2019-10-23] MEDS: ASPIRIN EC 81 MG TABLET.DR PO SCH (08:18)
[2019-10-23] MEDS: LOSARTAN POTASSIUM 50 MG TABLET PO SCH ×2 (08:19→16:19)
[2019-10-23] MEDS: CHOLECALCIFEROL (VITAMIN D 3) 400 UNIT TABLET PO SCH (08:19)
[2019-10-23] MEDS: QUETIAPINE FUMARATE 100 MG TABLET PO SCH ×2 (08:20→21:57)
[2019-10-23] MEDS: MINOXIDIL (2.5MG) 2.5 MG TABLET PO SCH (08:21)
[2019-10-23] MEDS: POLYETHYLENE GLYCOL 3350 17 GM POWD.PACK PO SCH (08:28)
[2019-10-23] MEDS: HYDROCORTISONE SOD SUCCINATE 100 MG/2 ML VIAL IV SCH ×2 (08:36→16:22)
[2019-10-23] MEDS: OLOPATADINE HCL 0.1% OPHTH BOTTLE EACHEYE SCH (08:44)
[2019-10-23] MEDS: FLUTICASONE PROPIONATE 16 GM BOTTLE NS SCH (08:45)
[2019-10-23] MEDS: KETOROLAC EYE 0.5% 3 ML BOTTLE OP SCH ×2 (09:00→22:09)
[2019-10-23 09:08] VITALS: BP 210/85
--- NOTE | 2019-10-23 09:12 | NUR ---
MS RN OPENING NOTES Patient is AOx4. No signs of SOB or distress. Patient denies pain, N/V/C. Bilateral lung sounds clear, unlabored. Nasal cannula 2 L/min. Pulses 2+. No JVD. Patient c/o of blood pressure management regimen. Hospitalist notified and spoke with patient. Will follow up.
[2019-10-23] MEDS ORDERED: MINO2.5T PO (10:28)
[2019-10-23] MEDS ORDERED: OMEG1CAP PO (10:28)
[2019-10-23] MEDS ORDERED: DOXA2TAB2 PO (10:28)
[2019-10-23] MEDS ORDERED: FOLI0.8C PO (10:28)
[2019-10-23] MEDS ORDERED: PRED2.5T PO (10:28)
[2019-10-23 10:30] VITALS: BP 179/78
--- NOTE | 2019-10-23 12:35 | NUR ---
MS/RN - Notes Patient with BP 204/83, Clonidine 0.3 mg po and Labetalol Hcl 400 mg po given. Will reassess BP after one hour and will administer Lopressor IVP if needed.
[2019-10-23] MEDS ORDERED: CLONIDINE HCL 0.1 MG TABLET PO SCH (13:00)
[2019-10-23] MEDS ORDERED: LABETALOL HCL (100MG) 100 MG TABLET PO SCH (13:00)
[2019-10-23 13:45] VITALS: BP 175/82
[2019-10-23] MEDS: HYDROCODONE/APAP 5/325MG 1 EACH TABLET PO PRN ×2 (13:58→20:46)
[2019-10-23 16:00] VITALS: BP 195/74
--- NOTE | 2019-10-23 16:00 | NUR ---
MS/RN - Notes BP 195/74, Lopressor 5 mg IVP PRN for >SBP 180 not administered due to patient is scheduled for HD treatment today.
[2019-10-23] MEDS ORDERED: MINOXIDIL (2.5MG) 2.5 MG TABLET PO SCH (17:00)
--- NOTE | 2019-10-23 17:40 | NUR ---
MS/RN - Notes Called to the room, patient provided me the list of the blood pressure medications that she wants to take at a specific time. Spoke with Mike (pharmacy) and he'll adjust the time per pt's request.
[2019-10-23] MEDS: LamoTRIgine 100 MG TABLET PO SCH (17:58)
[2019-10-23] MEDS: LamoTRIgine 25 MG TABLET PO SCH (17:58)
[2019-10-23] MEDS: AZELASTINE NASAL SPRAY 30 ML BOTTLE NS SCH (18:02)
--- NOTE | 2019-10-23 18:19 | NUR ---
MS/RN - End of shift summary Patient in no acute distress, HD ongoing, per HD RN plan to remove 3 liters if able to tolerate. Blood pressure with minimal improvement but patient is happy at this time that it is trending down a little bit. All needs attended. Will endorse to night RN accordingly.
[2019-10-23] MEDS: INSULIN REGULAR, HUMAN 100 UNIT/ML 3 ML VIAL SQ PRN (18:51)
--- NOTE | 2019-10-23 19:30 | NUR ---
MS/RN OPENING NOTES RECEIVED PATIENT IN BED AWAKE, ALERT AND ORIENTED X 4. PATIENT IS RECEIVING HD AT THIS TIME. PATIENT IS IN NO SIGNS OF DISTRESS NO SOB NOTED. PATIENT STATES PAIN IN HEAD AT THE MOMENT. IV ACCESS IS ON THE RIGHT AC # 20 G SL AND AV SHUNT ON JERRY. SAFETY MEASURES ARE IN PLACE, BED IS LOCKED AND IN LOW POSITION SIDE RAILS UP X 2, WITH CALL LIGHT IN REACH. WILL CONTINUE TO MONITOR PATIENT THROUGH OUT SHIFT.
[2019-10-23 20:00] VITALS: BP 187/76
--- NOTE | 2019-10-23 20:00 | NUR ---
MS/RN NOTES CALLED PHARMACY IN REGARDS TO PATIENT TAKING SUCRALFATE 1G AT 1800 HRS IF IT IS OKAY TO GIVE PATIENT AT 2100HRS. PHARMACY SAID OKAY TO GIVEN SHOULD BE GIVEN FOUR TIMES A DAY.
--- NOTE | 2019-10-23 20:46 | NUR ---
MS/RN NOTES PATIENT WAS COMPLAINING OF HEAD PAIN 12/01, NOCRO 3-325 PO WAS GIVEN. PATIENT BP AT 163/69 HR 68. WILL CONTINUE TO MONITOR PATIENT.
[2019-10-23] MEDS: clonazePAM 0.5 MG TABLET PO SCH (22:06)
[2019-10-23] MEDS: ATORVASTATIN 10 MG TABLET PO SCH (22:06)
--- NOTE | 2019-10-23 22:15 | NUR ---
MS/RN NOTES PATIENT DID NOT EAT AT DINNER TIME DUE TO HD. PATIENT ATE LATE DINNER AT TIME OF ACCU CHECK AT 2214 PATIENT HAD JUST FINISHED EATING. GLUCOSE LEVEL AT 149, DID NOT ADMINISTER INSULIN SINCE PATIENT JUST ATE.
--- NOTE | 2019-10-24 06:10 | NUR ---
MS/RN CLOSING NOTES PATIENT IN BED RESTING, ALERT AND ORIENTED X 4. PATIENT IS RECEIVING HD 10/23/19 2300ML REMOVED. PATIENT IS IN NO SIGNS OF DISTRESS NO SOB NOTED.PATIENT ON 2L OF OXYGEN TOLERATING WELL. IV ACCESS IS ON THE RIGHT AC # 20 G SL AND AVF ON JERRY. SAFETY MEASURES ARE IN PLACE, BED IS LOCKED AND IN LOW POSITION SIDE RAILS UP X 2, WITH CALL LIGHT IN REACH. WILL ENDORSE CARE TO DAY SHIFT NURSE.
--- NOTE | 2019-10-24 07:42 | NUR ---
MS RN OPENING NOTES Patient is awake in bed. AO x 4. Breath sounds clear, even, unlabored. No signs of SOB of distress. Heart sounds S1s2. No JVD. Pedal pulses 2+. AV shunt in JERRY. IV in RAC 20g S/L. IV is clean, dry, intact. No signs of infiltration. Bed in low position, wheels locked, side rails up x2, call light within reach.
[2019-10-24] MEDS: BLOOD SUGAR DIAGNOSTIC 1 EACH STRIP VI SCH ×4 (07:43→22:31)
[2019-10-24 08:00] VITALS: BP 164/79
[2019-10-24] MEDS: PANTOPRAZOLE 40 MG TABLET.DR PO SCH (08:04)
[2019-10-24] MEDS: SEVELAMER CARBONATE 800 MG TABLET PO SCH ×3 (08:04→17:00)
[2019-10-24] MEDS: LIOTHYRONINE SODIUM (5 MCG/TA 5 MCG TABLET PO SCH (08:04)
[2019-10-24] MEDS: LEVOTHYROXINE SODIUM 100 MCG TABLET PO SCH (08:04)
[2019-10-24] MEDS: SUCRALFATE 1 G/10 ML UDC GT SCH ×4 (08:04→20:34)
[2019-10-24] MEDS: CLONIDINE HCL 0.1 MG TABLET PO SCH ×3 (08:15→20:37)
[2019-10-24] MEDS: LACTOBACILLUS RHAMNOSUS GG 1 EACH CAP.SPRINK PO SCH ×2 (08:15→17:00)
[2019-10-24] MEDS: FOLIC ACID 1 MG TABLET PO SCH (08:15)
[2019-10-24] MEDS: CHOLECALCIFEROL (VITAMIN D 3) 400 UNIT TABLET PO SCH (08:16)
[2019-10-24] MEDS: HYDROCORTISONE SOD SUCCINATE 100 MG/2 ML VIAL IV SCH ×2 (08:16→09:00)
[2019-10-24] MEDS: ASPIRIN EC 81 MG TABLET.DR PO SCH (08:16)
[2019-10-24] MEDS: LOSARTAN POTASSIUM 50 MG TABLET PO SCH ×2 (08:16→20:37)
[2019-10-24] MEDS: POLYETHYLENE GLYCOL 3350 17 GM POWD.PACK PO SCH (08:20)
[2019-10-24] MEDS: SENNOSIDES 8.6 MG TABLET PO SCH (08:20)
[2019-10-24] MEDS: LABETALOL HCL (100MG) 100 MG TABLET PO SCH ×3 (08:21→20:40)
[2019-10-24] MEDS: FLUTICASONE PROPIONATE 16 GM BOTTLE NS SCH (08:53)
[2019-10-24] MEDS: KETOROLAC EYE 0.5% 3 ML BOTTLE OP SCH ×2 (08:53→21:17)
[2019-10-24] MEDS: OLOPATADINE HCL 0.1% OPHTH BOTTLE EACHEYE SCH (08:53)
[2019-10-24] MEDS ORDERED: MINOXIDIL (2.5MG) 2.5 MG TABLET PO SCH (09:00)
[2019-10-24] MEDS ORDERED: DOXAZOSIN MESYLATE (1 MG) 1 MG TABLET PO SCH (09:00)
[2019-10-24] MEDS: QUETIAPINE FUMARATE 100 MG TABLET PO SCH ×2 (09:29→20:35)
[2019-10-24] MEDS: SPIRONOLACTONE 25 MG TABLET PO SCH (09:31)
[2019-10-24 09:55] LABS: CREATININE 5.2 mg/dL (0.6-1.3); POTASSIUM 5.2 mmol/L (3.5-5.1)
[2019-10-24 10:00] VITALS: BP 179/69
[2019-10-24 10:06] LABS: ALBUMIN 3.4 g/dL (3.4-5.0); BILIRUBIN,TOTAL 0.9 mg/dL (0.2-1.0); CALCIUM, SERUM 9.3 mg/dL (8.5-10.1); TOTAL PROTEIN, SERUM 6.9 g/dL (6.4-8.2)
[2019-10-24 11:42] VITALS: BP 158/77
[2019-10-24 16:00] VITALS: BP 172/75
--- NOTE | 2019-10-24 16:00 | NUR ---
MS RN NOTE BP 172/75 after given blood pressure medications. Hemodialysis began @ 1610. HD nurse will try to dialyze 2L.
[2019-10-24] MEDS: LamoTRIgine 100 MG TABLET PO SCH (17:00)
[2019-10-24] MEDS: LamoTRIgine 25 MG TABLET PO SCH (17:00)
[2019-10-24] MEDS: AZELASTINE NASAL SPRAY 30 ML BOTTLE NS SCH (17:06)
--- NOTE | 2019-10-24 18:17 | NUR ---
MS RN CLOSING NOTE Patient awake in bed. No SOB or acute distress. Patient denies pain, N/V/C. Continuing HD, per HD RN plan to remove 3 liters if able to tolerate. Minimal improvement in blood pressure but patient states she is happy at this time that it is trending down. Bed in low position, wheels locked, side rails up x2, call light within reach. Will endorse to night RN. Addendum: 10/24/19 at 1836 by EUGENIO UPTON RN HD output 2.5 L BP 154/67
--- NOTE | 2019-10-24 19:30 | NUR ---
MS/RN OPENING NOTES RECEIVED PATIENT IN BED RESTING, ALERT AND ORIENTED X 4. PATIENT RECEIVED HD TODAY 2.5L REMOVED. PATIENT IS IN NO SIGNS OF DISTRESS NO SOB NOTED.PATIENT ON 2L OF OXYGEN TOLERATING WELL. IV ACCESS IS ON THE RIGHT FA # 22 G SL AND AVF ON JERRY. SAFETY MEASURES ARE IN PLACE, BED IS LOCKED AND IN LOW POSITION SIDE RAILS UP X 2, WITH CALL LIGHT IN REACH. WILL CONTINUE TO MONITOR DURING SHIFT.
[2019-10-24 20:00] VITALS: BP 179/74
[2019-10-24] MEDS: ATORVASTATIN 10 MG TABLET PO SCH (20:33)
[2019-10-24] MEDS: MINOXIDIL (2.5MG) 2.5 MG TABLET PO SCH (20:34)
[2019-10-24] MEDS: DOXAZOSIN MESYLATE (1 MG) 1 MG TABLET PO SCH (20:36)
[2019-10-24] MEDS: clonazePAM 0.5 MG TABLET PO SCH (22:19)
[2019-10-25] MEDS: HYDROCODONE/APAP 5/325MG 1 EACH TABLET PO PRN (05:17)
--- NOTE | 2019-10-25 05:17 | NUR ---
MS/RN NOTES PATIENT WAS COMPLAINING OF BACK PAIN 12/01. PATIENT WAS GIVEN NORCO 5-325 PO. WILL CONTINUE TO MONITOR PATIENT.
--- NOTE | 2019-10-25 06:40 | NUR ---
MS/RN CLOSING NOTES PATIENT IN BED RESTING, ALERT AND ORIENTED X 4. PATIENT RECEIVED HD 10/24/19 2.5L REMOVED. PATIENT IN NO SIGN OF DISTRESS NO SOB NOTED. PATIENT ON 2L OF OXYGEN TOLERATING WELL. IV ACCESS IS ON THE RIGHT FA # 22 G SL AND AVF ON JERRY. PATIENTS NEEDS HAVE BEEN MET DURING SHIFT. SAFETY MEASURES ARE IN PLACE, BED IS LOCKED AND IN LOW POSITION SIDE RAILS UP X 2, WITH CALL LIGHT IN REACH. WILL ENDORSE CARE TO DAY SHIFT.
[2019-10-25] MEDS: BLOOD SUGAR DIAGNOSTIC 1 EACH STRIP VI SCH ×4 (07:30→21:24)
[2019-10-25 08:00] VITALS: BP 187/76
--- NOTE | 2019-10-25 08:00 | NUR ---
MS RN OPENING NOTE Pt awake in bed. A/O x4. Breath sounds clear, even, and unlabored. On 2 L/min. Heart sounds S1S2. No JVD. AV shunt on JERRY. IV site 22g RFA patent, intact. Thrill and bruit +. Bowel sounds hypoactive. Pulses 2+. No edema noted. Skin color warm, pink, dry, appropriate for ethnicity. Wound noted on left forearm wrapped with kerlix and silvadene. Redness on sacral region covered with mepilex. Bed in low position, wheels locked, side rails up x2, call light within reach.
[2019-10-25] MEDS: LACTOBACILLUS RHAMNOSUS GG 1 EACH CAP.SPRINK PO SCH ×2 (08:34→17:05)
[2019-10-25] MEDS: CLONIDINE HCL 0.1 MG TABLET PO SCH ×3 (08:36→21:01)
[2019-10-25] MEDS: FOLIC ACID 1 MG TABLET PO SCH (08:37)
[2019-10-25] MEDS: ASPIRIN EC 81 MG TABLET.DR PO SCH (08:37)
[2019-10-25] MEDS: LEVOTHYROXINE SODIUM 100 MCG TABLET PO SCH (08:37)
[2019-10-25] MEDS: MINOXIDIL (2.5MG) 2.5 MG TABLET PO SCH ×2 (08:38→21:01)
[2019-10-25] MEDS: SENNOSIDES 8.6 MG TABLET PO SCH (08:39)
[2019-10-25] MEDS: PANTOPRAZOLE 40 MG TABLET.DR PO SCH (08:39)
[2019-10-25] MEDS: DOXAZOSIN MESYLATE (1 MG) 1 MG TABLET PO SCH ×2 (08:40→21:02)
[2019-10-25] MEDS: LABETALOL HCL (100MG) 100 MG TABLET PO SCH ×3 (08:41→21:02)
[2019-10-25] MEDS: LOSARTAN POTASSIUM 50 MG TABLET PO SCH ×2 (08:42→21:00)
[2019-10-25] MEDS: SEVELAMER CARBONATE 800 MG TABLET PO SCH ×3 (08:43→17:05)
[2019-10-25] MEDS: QUETIAPINE FUMARATE 100 MG TABLET PO SCH ×2 (08:43→21:03)
[2019-10-25] MEDS: LIOTHYRONINE SODIUM (5 MCG/TA 5 MCG TABLET PO SCH (08:43)
[2019-10-25] MEDS: CHOLECALCIFEROL (VITAMIN D 3) 400 UNIT TABLET PO SCH (08:44)
[2019-10-25] MEDS: SPIRONOLACTONE 25 MG TABLET PO SCH (08:44)
[2019-10-25] MEDS: SUCRALFATE 1 G/10 ML UDC GT SCH ×4 (08:44→21:01)
[2019-10-25] MEDS: HYDROCORTISONE SOD SUCCINATE 100 MG/2 ML VIAL IV SCH (08:47)
[2019-10-25] MEDS: POLYETHYLENE GLYCOL 3350 17 GM POWD.PACK PO SCH ×2 (08:52→17:09)
[2019-10-25] MEDS: OLOPATADINE HCL 0.1% OPHTH BOTTLE EACHEYE SCH (08:55)
[2019-10-25] MEDS: KETOROLAC EYE 0.5% 3 ML BOTTLE OP SCH ×2 (08:56→21:24)
[2019-10-25] MEDS: FLUTICASONE PROPIONATE 16 GM BOTTLE NS SCH (08:56)
[2019-10-25 09:00] VITALS: BP 132/57
--- NOTE | 2019-10-25 09:46 | NUR ---
MS/RN NOTE PATIENT REFUSED 0730 BLOOD SUGAR CHECK STATING THAT HER BLOOD SUGAR WAS ALREADY CHECKED IN THE MORNING AND THE READING WAS 92. CHECKED THE RECORDS AND NOTED THAT THE PATIENT`S BLOOD SUGAR WAS CHECKED AT 0542 AND IT WAS 92. THE PATIENT IS IN NO APPARENT DISTRESS AT THIS TIME. WILL CONTINUE TO MONITOR THE PATIENT.
[2019-10-25 11:38] LABS: CALCIUM, SERUM 9.4 mg/dL (8.5-10.1); CREATININE 4.4 mg/dL (0.6-1.3); POTASSIUM 4.1 mmol/L (3.5-5.1)
[2019-10-25 11:45] LABS: ALBUMIN 3.3 g/dL (3.4-5.0); BILIRUBIN,TOTAL 0.9 mg/dL (0.2-1.0); MAGNESIUM 2.2 mg/dL (1.8-2.4); PHOSPHORUS 3.9 mg/dL (2.5-4.9); TOTAL PROTEIN, SERUM 6.8 g/dL (6.4-8.2)
[2019-10-25] MEDS: INSULIN REGULAR, HUMAN 100 UNIT/ML 3 ML VIAL SQ PRN ×2 (12:19→18:43)
[2019-10-25] MEDS: BISACODYL (5 MG) 5 MG TABLET.DR PO PRN (12:35)
--- NOTE | 2019-10-25 15:18 | NUR ---
MS RN NOTE Dr. Monsivais notified of patient c/o of constipation. Per patient - she did not have bowel movement for 4 days. Received order for dulcolax 10mg PO x1 PRN and miralax BID PO. Orders read back and verified. Noted and carried out.
[2019-10-25] MEDS ORDERED: BISACODYL (5 MG) 5 MG TABLET.DR PO PRN (15:30)
[2019-10-25 16:00] VITALS: BP 106/56
[2019-10-25] MEDS: ASPIRIN/ACETAMINOPHEN/CAFFEINE 1 EACH TABLET PO PRN (16:26)
[2019-10-25 17:00] VITALS: BP 102/50
[2019-10-25] MEDS: LamoTRIgine 100 MG TABLET PO SCH (17:04)
[2019-10-25] MEDS: LamoTRIgine 25 MG TABLET PO SCH (17:05)
[2019-10-25] MEDS: AZELASTINE NASAL SPRAY 30 ML BOTTLE NS SCH (17:12)
--- NOTE | 2019-10-25 19:07 | NUR ---
MS/RN NOTE THE PATIENT IS ALERT AND ORIENTED X4. IN ROOM AIR AND SATURATION IS AT 92%. DENIES SOB. RESPIRATION REGULAR AND UNLABORED. DENIES PAIN. NO BM DURING THE SHIFT YET. RFA G 22 PATENT AND SALINE LOCKED. JERRY AV SHUNT PRESENT. GOT DIALYSIS TODAY WITH 1000 ML OUTPUT. BED LOW AND LOCKED. SIDE RAILS UP X3. CALL LIGHT WITHIN REACH. WILL ENDORSE TO DIRECTOR OF USER EXPERIENCE.
[2019-10-25 20:00] VITALS: BP 161/56
[2019-10-25 20:18] VITALS: BP 161/56
--- NOTE | 2019-10-25 20:20 | NUR ---
RN NOTES RECEIVED PATIENT UP ON CHAIR, NO SOB, DENIES PAIN AT THIS TIME, JUST HAD DINNER, COMPLAINING OF CONSTIPATION, WAS GIVEN MIRALAX AND DULCOLAX PART OF ROUTINE MEDICATIONS. JERRY AV SHUNT WITH DRESSING, BRUIT AND THRILL NOTED, S/P HD WITH 1 LITER OUT, BP IS MUCH BETTER. WILL CONTINUE TO MONITOR.
[2019-10-25] MEDS: clonazePAM 0.5 MG TABLET PO SCH (21:01)
[2019-10-25] MEDS: ATORVASTATIN 10 MG TABLET PO SCH (21:03)
[2019-10-26] MEDS ORDERED: BISACODYL SUPP (10 MG) 10 MG/SUPP.RECT SUPP.RECT RC PRN (01:00)
[2019-10-26] MEDS: *INSULIN REGULAR(HUMULIN R)HUM 100 UNIT/ML VIAL SQ PRN (03:11)
[2019-10-26] MEDS: HYDROCODONE/APAP 5/325MG 1 EACH TABLET PO PRN (03:34)
--- NOTE | 2019-10-26 06:21 | NUR ---
RN NOTES Alert and oriented x4, room air, given [place] x1, complaining of constipation, requested suppository, given x1, mushy and mucoid stool in the morning. Hyperkalemia resolved, fluid overload resolving, in patient HD, PT in AM, spinal surgical eval with Dr. Holliday, can be done as outpatient.
[2019-10-26] MEDS: BLOOD SUGAR DIAGNOSTIC 1 EACH STRIP VI SCH ×5 (06:32→21:50)
[2019-10-26] MEDS: INSULIN REGULAR, HUMAN 100 UNIT/ML 3 ML VIAL SQ PRN (06:33)
[2019-10-26 07:48] LABS: ALBUMIN 3.4 g/dL (3.4-5.0); BILIRUBIN,TOTAL 0.8 mg/dL (0.2-1.0); CALCIUM, SERUM 9.2 mg/dL (8.5-10.1); CREATININE 3.9 mg/dL (0.6-1.3); MAGNESIUM 2.2 mg/dL (1.8-2.4); PHOSPHORUS 3.6 mg/dL (2.5-4.9); POTASSIUM 4.4 mmol/L (3.5-5.1); TOTAL PROTEIN, SERUM 6.8 g/dL (6.4-8.2)
--- NOTE | 2019-10-26 07:50 | NUR ---
ms rn received on bed, awake,alert,oriented x4,not in any form of distress, respirations even and unlabored,no sob noted, lungs are diminished,abdomen soft,positive bowel sounds,denies pain at this time, will monitor patient's condition.
[2019-10-26 08:00] VITALS: BP 151/73
[2019-10-26] MEDS: FOLIC ACID 1 MG TABLET PO SCH (08:49)
[2019-10-26] MEDS: LACTOBACILLUS RHAMNOSUS GG 1 EACH CAP.SPRINK PO SCH ×2 (08:49→17:34)
[2019-10-26] MEDS: ASPIRIN EC 81 MG TABLET.DR PO SCH (08:49)
[2019-10-26] MEDS: LEVOTHYROXINE SODIUM 100 MCG TABLET PO SCH (08:49)
[2019-10-26] MEDS: SENNOSIDES 8.6 MG TABLET PO SCH (08:50)
[2019-10-26] MEDS: HYDROCORTISONE SOD SUCCINATE 100 MG/2 ML VIAL IV SCH (08:50)
[2019-10-26] MEDS: SEVELAMER CARBONATE 800 MG TABLET PO SCH ×3 (08:50→17:34)
[2019-10-26] MEDS: PANTOPRAZOLE 40 MG TABLET.DR PO SCH (08:50)
[2019-10-26] MEDS: QUETIAPINE FUMARATE 100 MG TABLET PO SCH ×2 (08:50→21:15)
[2019-10-26] MEDS: CHOLECALCIFEROL (VITAMIN D 3) 400 UNIT TABLET PO SCH (08:51)
[2019-10-26] MEDS: POLYETHYLENE GLYCOL 3350 17 GM POWD.PACK PO SCH ×3 (08:51→17:35)
[2019-10-26] MEDS: SUCRALFATE 1 G/10 ML UDC GT SCH ×4 (08:51→21:50)
[2019-10-26] MEDS: LIOTHYRONINE SODIUM (5 MCG/TA 5 MCG TABLET PO SCH (08:52)
[2019-10-26] MEDS: LOSARTAN POTASSIUM 50 MG TABLET PO SCH ×2 (08:52→21:10)
[2019-10-26] MEDS: DOXAZOSIN MESYLATE (1 MG) 1 MG TABLET PO SCH ×2 (08:53→21:12)
[2019-10-26] MEDS: LABETALOL HCL (100MG) 100 MG TABLET PO SCH ×3 (08:54→21:13)
[2019-10-26] MEDS: CLONIDINE HCL 0.1 MG TABLET PO SCH ×3 (08:55→21:10)
[2019-10-26] MEDS: MINOXIDIL (2.5MG) 2.5 MG TABLET PO SCH ×2 (09:00→21:11)
--- NOTE | 2019-10-26 09:00 | NUR ---
ms amrtins breakfast served,due meds given,tolerated well.
[2019-10-26] MEDS: FLUTICASONE PROPIONATE 16 GM BOTTLE NS SCH (09:29)
[2019-10-26] MEDS: OLOPATADINE HCL 0.1% OPHTH BOTTLE EACHEYE SCH (09:30)
[2019-10-26] MEDS: KETOROLAC EYE 0.5% 3 ML BOTTLE OP SCH ×2 (09:30→21:23)
--- NOTE | 2019-10-26 11:00 | NUR ---
ms rn was seen by dr. landers w/ order for ct neck w/ contrast, patient refusing it not unless w/ hd after.
--- NOTE | 2019-10-26 12:00 | NUR ---
ms rn patient is becoming not reasonable, a lot of complain about her meds, asking her b/p meds but cannot remember the name,patient is manipulative,will monitor patient's condition.
--- NOTE | 2019-10-26 12:10 | NUR ---
ms rn called anshul huffman that patient refused, convince her but still refusing.
--- NOTE | 2019-10-26 12:30 | NUR ---
ms rn refused meds and accucheck.
[2019-10-26 16:00] VITALS: BP 154/74
--- NOTE | 2019-10-26 16:00 | NUR ---
ms rn gave due meds and patient is so impossible to deal w/.
--- NOTE | 2019-10-26 17:00 | NUR ---
ms rn went to the room to give pain meds but was told to step out of the room and wants another nurse to attend to her.charge nurse is aware, and asked angel to give meds.
[2019-10-26] MEDS: ASPIRIN/ACETAMINOPHEN/CAFFEINE 1 EACH TABLET PO PRN (17:14)
[2019-10-26] MEDS: BISACODYL (5 MG) 5 MG TABLET.DR PO PRN (17:34)
[2019-10-26] MEDS: LamoTRIgine 25 MG TABLET PO SCH (17:35)
[2019-10-26] MEDS: LamoTRIgine 100 MG TABLET PO SCH (17:35)
[2019-10-26] MEDS: AZELASTINE NASAL SPRAY 30 ML BOTTLE NS SCH (18:00)
[2019-10-26 19:59] VITALS: BP 148/68
[2019-10-26 20:00] VITALS: BP 148/68
--- NOTE | 2019-10-26 21:00 | NUR ---
RN NOTES PATIENT IN BED, ANXIOUS, HAS ISSUES WITH MEDICATION, SHE HAS BEEN TAKING THESE SAME MEDICATIONS FOR ONE WEEK AND NOW SHE HAS QUESTIONS. PER PATIENT CLAIMED SHE HAS NO DIABETES, WANTS TO DISCONTINUE ACCUCHECK. COMPLAINING OF CONSTIPATION, NOW SHE WANTED MINERAL ENEMA. PATIENT ON MULTIPLE ROUTINE BM MANAGEMENT MEDICATION. DEMANDS TO SPEAK TO THE CHARGE NURSE.
[2019-10-26] MEDS: ATORVASTATIN 10 MG TABLET PO SCH (21:12)
[2019-10-26] MEDS: clonazePAM 0.5 MG TABLET PO SCH (21:12)
[2019-10-26] MEDS ORDERED: MINERAL OIL 133 ML (PYXIS) 1 EA ENEMA RC ONE (22:30)
[2019-10-27] MEDS: BLOOD SUGAR DIAGNOSTIC 1 EACH STRIP VI SCH ×4 (06:36→22:00)
[2019-10-27] MEDS: INSULIN REGULAR, HUMAN 100 UNIT/ML 3 ML VIAL SQ PRN (06:36)
[2019-10-27] MEDS: HYDROCODONE/APAP 5/325MG 1 EACH TABLET PO PRN (06:51)
--- NOTE | 2019-10-27 07:40 | NUR ---
MS RN NOTES RECEIVED PT IN BED, ASLEEP, EASILY AROUSED, A/O X4. PT TOLERATING RA WITH NO ACUTE RESPIRATORY DISTRESS NOTED. PT DENIES ANY PAIN OF DISCOMFORT AT THIS TIME. PT HAS CONCERNS ABOUT MEDICINES AND WANTS TO GO OVER WITH IT WITH A DOCTOR--RN TO FOLLOW UP WITH MD. PT KEPT COMFORTABLE. CALL LIGHT KEPT WITHIN REACH. PT'S BED IN LOWEST, LOCKED POSITION WITH SRX3. WILL CONTINUE PLAN OF CARE.
[2019-10-27 08:20] VITALS: BP 171/76
--- NOTE | 2019-10-27 08:30 | NUR ---
MS RN NOTES SEEN AND EVALUATED BY DR. BRIAN MD REVIEWED AND EDUCATED REGARDING ALL MEDS WITH THE PT D/T CONCERNS ABOUT THE DOSAGES OF HER BP MEDS MOST SPECIALLY. NEW ORDERS PLACED BY PT MADE AWARE. ALSO, RN INFORMED MD REGARDING REQUEST OF TSH AND PTH LVL, PER MD NO NEED TO CHECK AT THIS TIME. WILL CONTINUE TO MONITOR.
[2019-10-27] MEDS: ASPIRIN EC 81 MG TABLET.DR PO SCH (08:59)
[2019-10-27] MEDS: FOLIC ACID 1 MG TABLET PO SCH (08:59)
[2019-10-27] MEDS: QUETIAPINE FUMARATE 100 MG TABLET PO SCH ×2 (08:59→22:33)
[2019-10-27] MEDS: SEVELAMER CARBONATE 800 MG TABLET PO SCH ×3 (08:59→18:35)
[2019-10-27] MEDS ORDERED: BISACODYL (5 MG) 5 MG TABLET.DR PO PRN (09:00)
[2019-10-27] MEDS: LACTOBACILLUS RHAMNOSUS GG 1 EACH CAP.SPRINK PO SCH ×2 (09:00→18:35)
[2019-10-27] MEDS: CHOLECALCIFEROL (VITAMIN D 3) 400 UNIT TABLET PO SCH (09:00)
[2019-10-27] MEDS: CLONIDINE HCL 0.1 MG TABLET PO SCH ×3 (09:00→20:46)
[2019-10-27] MEDS: SENNOSIDES 8.6 MG TABLET PO SCH (09:00)
[2019-10-27] MEDS: LOSARTAN POTASSIUM 50 MG TABLET PO SCH ×2 (09:00→20:47)
[2019-10-27] MEDS: POLYETHYLENE GLYCOL 3350 17 GM POWD.PACK PO SCH ×3 (09:00→18:35)
[2019-10-27] MEDS: LABETALOL HCL (100MG) 100 MG TABLET PO SCH ×3 (09:01→20:48)
[2019-10-27] MEDS: HYDROCORTISONE SOD SUCCINATE 100 MG/2 ML VIAL IV SCH (09:04)
[2019-10-27] MEDS: FLUTICASONE PROPIONATE 16 GM BOTTLE NS SCH (09:05)
[2019-10-27] MEDS: KETOROLAC EYE 0.5% 3 ML BOTTLE OP SCH ×2 (09:06→20:43)
[2019-10-27] MEDS: OLOPATADINE HCL 0.1% OPHTH BOTTLE EACHEYE SCH (09:06)
[2019-10-27] MEDS: LIOTHYRONINE SODIUM (5 MCG/TA 5 MCG TABLET PO SCH (09:48)
[2019-10-27] MEDS: DOXAZOSIN MESYLATE (1 MG) 1 MG TABLET PO SCH ×2 (09:49→20:46)
[2019-10-27] MEDS: MINOXIDIL (2.5MG) 2.5 MG TABLET PO SCH ×2 (09:49→20:47)
[2019-10-27] MEDS: LEVOTHYROXINE SODIUM 100 MCG TABLET PO SCH (09:50)
[2019-10-27] MEDS: DOCUSATE SODIUM 100 MG CAPSULE PO SCH ×3 (10:23→18:35)
[2019-10-27] MEDS: SPIRONOLACTONE 25 MG TABLET PO SCH (10:23)
[2019-10-27] MEDS: PANTOPRAZOLE 40 MG TABLET.DR PO SCH (10:23)
--- NOTE | 2019-10-27 11:01 | NUR ---
RN will check with Dialysis before CT NECK W IV test in performed. Please call Radiology at ext. [phone] when ready.
--- NOTE | 2019-10-27 11:42 | NUR ---
MS RN NOTES RECEIVED CALL BACK FROM DR. OLIVARES REGARDING PT'S REQUEST FOR IMITREX. ORDER PLACED ONCE A DAY PRN. RN ALSO MENTIONED REGARDING CONCERNED ABOUT TSH LVL AND PTH, PER MD/ED IT'S UP TO DR. DORANTES IF HE'S ORDERING IT. INFORMED MD THAT IT WAS REQUESTED BY PT WELL THIS MORNING DURING ROUNDS OF DR. DORANTES BUT PER HIM NO NEED AT THIS TIME. WILL CONTINUE TO MONITOR.
[2019-10-27] MEDS: SUMATRIPTAN SUCCINATE 25 MG TABLET PO PRN (12:14)
[2019-10-27] MEDS ORDERED: CT SWABBABLE VALVE TRANS SET 1 EA INFUS.SET MC ONE (12:43)
[2019-10-27] MEDS ORDERED: IOHEXOL-300 100 ML VIAL IV ONE ×2 (12:43→13:14)
[2019-10-27] MEDS ORDERED: IV NS 0.9% 250 ML IV ONE (12:43)
--- NOTE | 2019-10-27 12:45 | NUR ---
MS RN NOTES PT WHEELED DOWN TO CT FOR NECK WITH CONTRAST VIA WHEELCHAIR, CONSENT SIGNED BY PT, WITNESSED BY RN/SHANON. HD NURSE/JASIEL/CHAPIS WILL DO HD AROUND 3PM, PT MADE AWARE. WILL CONTINUE TO MONITOR.
--- NOTE | 2019-10-27 13:25 | NUR ---
MS RN NOTES PT JUST CAME BACK FROM CT. NEW IV SITE TO RAC G22 NOTED, FLUSHED WITH NS, INTACT AND OPERATIONAL. PER PT THE RFA G22, GOT INFILTRATED WITH THE MEDICINE/CONTRAST AT CT, PT ABLE TO TAKE PICTURE HERSELF ON HER PHONE. WILL CONTINUE TO MONITOR.
[2019-10-27 16:10] VITALS: BP 174/71
--- NOTE | 2019-10-27 16:11 | NUR ---
MS RN NOTES PT IS BEING DIALYZE AT THIS TIME. PT MADE AWARE 5PM MED S WILL BE ADMINISTERED LATER AFTER BEING DIALIZE. PT AWARE. WILL CONTINUE TO MONITOR.
[2019-10-27] MEDS: LamoTRIgine 25 MG TABLET PO SCH (18:35)
[2019-10-27] MEDS: LamoTRIgine 100 MG TABLET PO SCH (18:35)
[2019-10-27] MEDS: AZELASTINE NASAL SPRAY 30 ML BOTTLE NS SCH (18:36)
--- NOTE | 2019-10-27 18:55 | NUR ---
MS RN NOTES PT IN BED, AWAKE, A/O X4. PT TOLERATING RA WITH NO ACUTE RESPIRATORY DISTRESS NOTED. PT DENIES ANY PAIN OF DISCOMFORT AT THIS TIME. PIV TO LAC G22, FLUSHED WITH NS, INTACT AND OPERATIONAL. JERRY AV SHUNT FISTULA FOR HD ACCESS. ALL NEEDS AND CARE ATTENDED. PT KEPT COMFORTABLE. CALL LIGHT KEPT WITHIN REACH. PT'S BED IN LOWEST, LOCKED POSITION WITH SRX3. WILL ENDORSE TO INCOMING NIGHT NURSE FOR RICHARD.
--- NOTE | 2019-10-27 19:30 | NUR ---
MS RN OPENING NOTE RECEIVED PATIENT IN BED. A/OX4. TOLERATING ROOM AIR. RESPIRATIONS ARE EVEN AND UNLABORED. NO S/S SOB NOTED. C/O MIGRAINE HEADACHE ASKING FOR EXCEDRIN. INFORMED HER WILL ADMINISTER AFTER OBTAINING REPORT FOR ALL PATIENTS AND REVIEWING MED LIST. IN NO APPARENT DISTRESS. IV ACCESS IN RAC#22 PATENT AND SALINE LOCKED. BED IS LOW AND LOCKED, HOB ELEVATED IN SEMI FOWLERS, SIDE RAILS UP X2. CALL LIGHT WITHIN REACH. WILL CONTINUE TO MONITOR.
[2019-10-27 20:00] VITALS: BP 146/72
[2019-10-27] MEDS: ASPIRIN/ACETAMINOPHEN/CAFFEINE 1 EACH TABLET PO PRN (20:44)
[2019-10-27] MEDS ORDERED: MINERAL OIL 133 ML (PYXIS) 1 EA ENEMA RC ONE (21:00)
[2019-10-27] MEDS: ATORVASTATIN 10 MG TABLET PO SCH (22:33)
[2019-10-27] MEDS: clonazePAM 0.5 MG TABLET PO SCH (22:33)
--- NOTE | 2019-10-27 22:37 | NUR ---
MS RN NOTE PATIENT REFUSED 2200 SCHEDULED ACCU CHECK.. INFORMED OF RISK AND BENEFITS, PATIENT CONTINUES TO REFUSE. WILL CONTINUE TO MONITOR.
--- NOTE | 2019-10-28 04:00 | NUR ---
HOTEL STAFF MEMBER NOTE PATIENT REFUSED 0400 VITAL SIGNS. SHE ALSO REFUSED TO BE CLEANED. SHE IS SOILED AND REFUSES TO BE CLEANED. Addendum: 10/28/19 at 0616 by TARYN PARKER RN PLEASE DISREGARD NOTE, WRONG PATIENT.
--- NOTE | 2019-10-28 06:11 | NUR ---
MS RN CLOSING NOTE PATIENT IN BED. A/OX4. TOLERATING ROOM AIR. RESPIRATIONS ARE EVEN AND UNLABORED. NO SOB NOTED. NO DISTRESS. IV ACCESS MAINTAINED IN RAC#22 PATENT AND SALINE LOCKED. BED REMAINS LOW AND LOCKED, HOB ELEVATED IN SEMI FOWLERS, SIDE RAILS UP X2. CALL LIGHT WITHIN REACH. WILL ENDORSE TO NEXT SHIFT.
[2019-10-28 06:21] LABS: BASOPHILS # (AUTO) 0.1 /CMM (0.0-0.2); BASOPHILS % (AUTO) 1.4 % (0.0-2.0); EOSINOPHILS % (AUTO) 3.1 % (0.0-6.0); HEMATOCRIT 33 % (33-45); HEMOGLOBIN 10.7 g/dL (11.5-14.8); LYMPHOCYTES # (AUTO) 0.8 /CMM (0.8-4.8); MEAN CORPUSCULAR HGB CONC 33 g/dl (31.0-36.0); MEAN CORPUSCULAR VOLUME 107 fL (82-100); MONOCYTES # (AUTO) 0.3 /CMM (0.1-1.30); MONOCYTES % (AUTO) 8.4 % (2.0-12.0); NEUTROPHILS # (AUTO) 2.7 /CMM (1.8-8.9); NEUTROPHILS % (AUTO) 66.1 % (43.0-81.0); PLATELET COUNT (AUTO) 181 /CMM (150-450); RED BLOOD CELL COUNT(AUTO) 3.03 MIL/uL (4.0-5.2)
[2019-10-28 06:41] LABS: ALBUMIN 3.3 g/dL (3.4-5.0); BILIRUBIN,TOTAL 0.8 mg/dL (0.2-1.0); CALCIUM, SERUM 9.7 mg/dL (8.5-10.1); CREATININE 4.3 mg/dL (0.6-1.3); MAGNESIUM 2.6 mg/dL (1.8-2.4); PHOSPHORUS 3.7 mg/dL (2.5-4.9); POTASSIUM 5.1 mmol/L (3.5-5.1); TOTAL PROTEIN, SERUM 6.8 g/dL (6.4-8.2)
[2019-10-28] MEDS: BLOOD SUGAR DIAGNOSTIC 1 EACH STRIP VI SCH ×3 (07:09→16:49)
--- NOTE | 2019-10-28 07:09 | NUR ---
telegraph lineman note patient refused 0730 accuc check. informed of risk and benefits, patient continues to refuse. per rn yesterday md aware, remind md to discontinue. will endorse to am shift.
--- NOTE | 2019-10-28 07:10 | NUR ---
MS RN NOTES RECEIVED PATIENT IN BED ASLEEP, AROUSABLE TO VERBAL AND TACTILE. HOB ELEVATED. NO SOB. DENIES ANY C/O PAIN NOR DISCOMFORT AT THIS TIME. BED IN LOWEST POSITION, LOCKED. BED ALARM ON. CALL LIGHT WITHIN REACH,. ABLE TO VERBALIZE NEEDS.
[2019-10-28] MEDS: SEVELAMER CARBONATE 800 MG TABLET PO SCH ×3 (07:54→17:05)
[2019-10-28] MEDS: LIOTHYRONINE SODIUM (5 MCG/TA 5 MCG TABLET PO SCH (07:55)
[2019-10-28] MEDS: LEVOTHYROXINE SODIUM 100 MCG TABLET PO SCH (07:55)
[2019-10-28] MEDS: PANTOPRAZOLE 40 MG TABLET.DR PO SCH (07:55)
[2019-10-28 08:00] VITALS: BP 160/80
[2019-10-28] MEDS: KETOROLAC EYE 0.5% 3 ML BOTTLE OP SCH (08:25)
[2019-10-28] MEDS: FLUTICASONE PROPIONATE 16 GM BOTTLE NS SCH (08:26)
[2019-10-28] MEDS: CLONIDINE HCL 0.1 MG TABLET PO SCH ×2 (08:27→15:18)
[2019-10-28] MEDS: OLOPATADINE HCL 0.1% OPHTH BOTTLE EACHEYE SCH (08:27)
[2019-10-28] MEDS: HYDROCORTISONE SOD SUCCINATE 100 MG/2 ML VIAL IV SCH (08:28)
[2019-10-28] MEDS: POLYETHYLENE GLYCOL 3350 17 GM POWD.PACK PO SCH ×3 (08:29→16:48)
[2019-10-28] MEDS: LOSARTAN POTASSIUM 50 MG TABLET PO SCH (08:29)
[2019-10-28] MEDS: MINOXIDIL (2.5MG) 2.5 MG TABLET PO SCH (08:29)
[2019-10-28] MEDS: ASPIRIN EC 81 MG TABLET.DR PO SCH (08:29)
[2019-10-28] MEDS: CHOLECALCIFEROL (VITAMIN D 3) 400 UNIT TABLET PO SCH (08:30)
[2019-10-28] MEDS: QUETIAPINE FUMARATE 100 MG TABLET PO SCH (08:30)
[2019-10-28] MEDS: LABETALOL HCL (100MG) 100 MG TABLET PO SCH ×2 (08:30→15:18)
[2019-10-28] MEDS: DOXAZOSIN MESYLATE (1 MG) 1 MG TABLET PO SCH (08:30)
[2019-10-28] MEDS: SPIRONOLACTONE 25 MG TABLET PO SCH (08:30)
[2019-10-28] MEDS: DOCUSATE SODIUM 100 MG CAPSULE PO SCH ×3 (08:30→16:48)
[2019-10-28] MEDS: FOLIC ACID 1 MG TABLET PO SCH (08:30)
[2019-10-28] MEDS: SENNOSIDES 8.6 MG TABLET PO SCH (08:31)
[2019-10-28] MEDS: LACTOBACILLUS RHAMNOSUS GG 1 EACH CAP.SPRINK PO SCH ×2 (08:31→16:48)
--- NOTE | 2019-10-28 09:52 | NUR ---
MS RN NOTES DUPLICATE ORDER FOR MIRALAX. AWAITING FOR MD FOR CLARIFICATION FOR ORDER OF BID OR DAILY.
[2019-10-28] MEDS: SUMATRIPTAN SUCCINATE 25 MG TABLET PO PRN (10:41)
[2019-10-28 10:50] VITALS: BP 140/68
[2019-10-28] MEDS ORDERED: PEG 3350/NA SULF,BICARB,CL/KCL 4,000 ML BOTTLE PO ONE (11:00)
--- NOTE | 2019-10-28 11:00 | NUR ---
RAUL NOTE: After multidisciplinary case management meeting this morning, RAUL consulted with Keg Raiser, Francisca regarding the possibility of pt's psychiatric evaluation. Per Francisca and hospital policy, the pt is not appropriate for GPS due to the fact that she is on dialysis. RAUL contacted MS-3 Charge Nurse, Jennifer regarding pt's status and treatment plan. RAUL offered some insight into this pt's history given familiarity with her case from working with her in a different setting, and inquired about pt's ongoing psychotropic medication regimen. Per Jennifer, pt is currently taking her psychotropic medications, but is still struggling with medical treatment compliance at this time. Per Jennifer, pt's attending physician does not want to proceed with a psych consult at this time and the plan is to discharge her home. Foreign Legal Consultant available for support as needed.
[2019-10-28 12:29] VITALS: BP 156/76
--- NOTE | 2019-10-28 12:45 | NUR ---
MS RN NOTES PATIENT REFUSED TO HAVE BLOOD PRESSURE TO BE CHECKED MANUALLY AND WANTS BP CHECKED WITH AUTOMATIC MACHINE DESPITE EDUCATION GIVEN.
--- NOTE | 2019-10-28 12:47 | NUR ---
MS RN NOTES PATIENT WAS TALKING TO MICHAEL FROM ARU AT [facility], PER ANIBAL SHE WILL RELAY THE CASE TO HER PHYSICIAN BUT PATIENT TOLD ANIBAL SHE DOES NOT WANT TO BE EVALUATED AT THIS TIME TO GO TO ARU.
[2019-10-28 14:50] VITALS: BP 143/67
--- NOTE | 2019-10-28 14:53 | NUR ---
MS RN NOTES PATIENT'S ROOM VERY WARM AND PATIENT IS COVERED WITH 2 BLANKETS AND 2SHEETS, PER PATIENT SHE IS COMFORTABLE WITH THE ROOM TEMP.
[2019-10-28 16:00] VITALS: BP 148/75
--- NOTE | 2019-10-28 16:00 | NUR ---
MS RN NOTES MICHI PT REHAB WELL.
[2019-10-28] MEDS: LamoTRIgine 100 MG TABLET PO SCH (17:05)
[2019-10-28] MEDS: AZELASTINE NASAL SPRAY 30 ML BOTTLE NS SCH (17:06)
[2019-10-28] MEDS: LamoTRIgine 25 MG TABLET PO SCH (17:06)
[2019-10-28 17:07] VITALS: BP 148/75
--- NOTE | 2019-10-28 20:08 | NUR ---
MS RN NOTES PATIENT FOR DISCHARGE TO ARU AT [facility]. CALLED AND SPOKE TO HERBERT MESSINA AND REPORT GIVEN. RIGHT AC # 22 SL LEFT ON PER MAYURI'S REQUEST FOR IV ACCESS. ALERT AND ORIENTED X4. DENIES ANY C/O PAIN NOR DISCOMFORT AT THIS TIME. AMBULATORY WITH ASSIST WITH FWW. LEFT UPPER ARM AV SHUNT WITH GOOD BRUIT/THRILL. ALL BELONGINGS ACCOUNTED FOR. PATIENT HAD A LARGE BM PRIOR TO LEAVING HOSPITAL. PATIENT LEFT VIA GURNEY ACCOMPANIED BY 2 EMT IN STABLE CONDITION.
== END 2019-10-28 20:33 | DRG 291 ==
LOC: TELE 04:33 → MED 10:53
PROC: 5A1D70Z Performance of Urinary Filtration, Intermittent, Less than 6 Hours Per Day (ICD-10-PCS; principal; 2019-10-20)
DX: I13.2 Hypertensive heart and chronic kidney disease with heart failure and with stage 5 chronic kidney disease, or end stage renal disease (principal); N18.6 End stage renal disease; I50.33 Acute on chronic diastolic (congestive) heart failure; I32 Pericarditis in diseases classified elsewhere; E27.40 Unspecified adrenocortical insufficiency; I31.3 Pericardial effusion (noninflammatory); D63.8 Anemia in other chronic diseases classified elsewhere; E03.9 Hypothyroidism, unspecified; E87.5 Hyperkalemia; Z99.2 Dependence on renal dialysis; E78.5 Hyperlipidemia, unspecified; M48.02 Spinal stenosis, cervical region; F31.9 Bipolar disorder, unspecified; F41.9 Anxiety disorder, unspecified; Z79.82 Long term (current) use of aspirin; Z79.899 Other long term (current) drug therapy; D50.9 Iron deficiency anemia, unspecified; M32.0 Drug-induced systemic lupus erythematosus; M50.30 Other cervical disc degeneration, unspecified cervical region; K59.09 Other constipation; K11.8 Other diseases of salivary glands
CPT/HCPCS: 36415; 70491-TC; 71045-TC; 80048-TC; 80053-TC; 80061-TC; 82378; 82962-TC; 83735-TC; 83880; 84100-TC; 84439-TC; 84443-TC; 84481; 84484-TC; 85025-TC; 87081-TC; 90935-TC; 93307-TC; 97110-TC; 97116-TC; 97530-TC; 97535-TC; A6403; G0378; J1720; J1815; J2405; J3490; J7050; Q9967

== ENCOUNTER 2019-11-12 05:34 | Inpatient (IN) | payer MEDICARE, OTHER ==
[~2019-11-12] VITALS: Ht 152.4 cm; Wt 56.2 kg
[~2019-11-12 05:34] MED LIST changes: -AMLO10TA4 PO; -ASPI-1152 PO; -ASPI-992 PO; -ASPI1TAB2 PO; -ATOR10TA PO; -AZEL137S7; -BISA5TAB10 PO; -DEXT155P PO; +DOXA2TAB2 PO; -FLUT16SP; +FOLI0.8C PO; -FOLI1TAB16 PO; -HYDR100T27 PO; -INUL1TAB4 PO; -KETO5DRO OP; -LACT1CAP72 PO; -LINA290C PO; -LIOT5TAB7 PO; -MAGN200T5 PO; +MINO2.5T PO; -OLOP2.5D5 OP; +OMEG1CAP PO; -OMEP20CA15 PO; -ONDA4TAB5 PO; -POLY17PO4 PO; +PRED2.5T PO; -QUET400T PO; -SENN-261 PO; -SIME80TA15 PO; -SUCR1ORA6 GT; -ZINC50TA65 PO; -[UNRECOGNIZED DRUG - CODE] PO
--- NOTE | 2019-11-12 05:45 | NUR ---
PT BIBA FROM HOME C/O MODERATE VAGINAL BLEEDING SINCE MONDAY. +CLOT +DARK RED. PT DENIES ANY PAIN AT THIS TIME. PT AAOX4, VSS, RESPIRATIONS EVEN AND UNLABORED ON RA W/ NAD NOTED. PT CONNECTED TO THE MONITOR AND POX
[2019-11-12] MEDS ORDERED: IV NS 0.9% 500 ML BAG IV ONE (06:00)
--- NOTE | 2019-11-12 06:05 | NUR ---
BLOOD COLLECTED AND SENT TO LAB
[2019-11-12 06:15] LABS: BASOPHILS % (AUTO) 0.8 % (0.0-2.0); EOSINOPHILS % (AUTO) 2.3 % (0.0-6.0); HEMATOCRIT 23 % (33-45); HEMOGLOBIN 7.7 g/dL (11.5-14.8); LYMPHOCYTES # (AUTO) 0.7 /CMM (0.8-4.8); LYMPHOCYTES % (AUTO) 16.4 % (20.0-44.0); MEAN CORPUSCULAR HGB CONC 34 g/dl (31.0-36.0); MEAN CORPUSCULAR VOLUME 104 fL (82-100); MONOCYTES # (AUTO) 0.5 /CMM (0.1-1.30); MONOCYTES % (AUTO) 11.5 % (2.0-12.0); PLATELET COUNT (AUTO) 150 /CMM (150-450); WHITE BLOOD COUNT (AUTO) 4.3 K/uL (4.3-11.0)
--- NOTE | 2019-11-12 06:23 | NUR ---
DR OLIVARES AT BEDSIDE
[2019-11-12 06:30] LABS: ALBUMIN 3.6 g/dL (3.4-5.0); BILIRUBIN,DIRECT 0.3 mg/dL (0.0-0.2); BILIRUBIN,TOTAL 0.9 mg/dL (0.2-1.0); CALCIUM, SERUM 9.3 mg/dL (8.5-10.1); CREATININE 2.9 mg/dL (0.6-1.3); POTASSIUM 4.2 mmol/L (3.5-5.1); TOTAL PROTEIN, SERUM 7.2 g/dL (6.4-8.2)
--- NOTE | 2019-11-12 07:21 | NUR ---
REPORT GIVEN TO HERBERT SOTO FOR RICHARD
--- NOTE | 2019-11-12 07:41 | NUR ---
AM [facility] CALLED. ETA [phone].
--- NOTE | 2019-11-12 09:05 | NUR ---
TRANSPORT AMBULANCE AT BEDSIDE. PT NOW STATING SHE DOES WANT TO BE ADMITTED. DR OLIVARES AWARE. OK TO ADMIT.
--- NOTE | 2019-11-12 09:15 | NUR ---
MOVE SHEET SUBMITTED TO ADMITTING AND CALLED FOR A TELE BED.
[2019-11-12] MEDS ORDERED: LIOT5TAB11 PO (09:28)
[2019-11-12] MEDS ORDERED: SPIR50TA5 PO (09:28)
[2019-11-12] MEDS ORDERED: ASPI-1498 PO (09:28)
[2019-11-12] MEDS ORDERED: AMLO5TAB9 PO (09:28)
[2019-11-12] MEDS ORDERED: LEVO125T8 PO (09:29)
--- NOTE | 2019-11-12 10:01 | NUR ---
covid 19 swab collected and sent to lab
--- NOTE | 2019-11-12 10:05 | NUR ---
[facility] PAGED. AWAITING PILO WEBER CALL BACK.
--- NOTE | 2019-11-12 10:19 | NUR ---
CALLED [facility] [phone] NOT AT OFFICE CALLED CELL# [phone] [place] [facility] [place]
--- NOTE | 2019-11-12 10:28 | NUR ---
COVID TEST NEG(-)
[2019-11-12] MEDS ORDERED: ACETAMINOPHEN 325 MG TABLET PO PRN (10:30)
[2019-11-12] MEDS ORDERED: clonazePAM 0.5 MG TABLET PO PRN (10:30)
[2019-11-12] MEDS ORDERED: ONDANSETRON HCL/PF 4 MG/2 ML VIAL IVP PRN (10:30)
[2019-11-12] MEDS ORDERED: Z GUARD REMEDY 2 OZ OINT TP PRN (10:30)
--- NOTE | 2019-11-12 10:36 | NUR ---
GOT BED 321-2
--- NOTE | 2019-11-12 11:30 | NUR ---
TRANSFERED TO FLOOR. REPORT TO CARLOS GODINEZ.
[2019-11-12 12:00] VITALS: BP 152/62
--- NOTE | 2019-11-12 12:00 | NUR ---
COAGULATING BATH MIXER NOTES PATIENT ADMITTED FROM ER TELE, 64Y/OLD FEMALE ON DX OF VAGINAL BLEEDING. PATIENT HAS NO ACUTE RESPIRATORY DISTRESS, TELE MONITOR ON SR-65. PATIENT A/O X4, REFUSED PAIN, V/S TAKEN BP 152/62, P-64, R-20, T-97.6, O2-2L NC. PATIENT HAS NECK COLLAR WEST BECAUSE OF HAS SURGERYA WEEK AGO FOR PREVENTION. SKIN ASSESSMENT DONE INCISION ON MID NECT, DRESSING INTACT, SURROUNDING DISCOLORATION, PATIENT HAS HD SHUNT ON LEFT UA INTACT, IV ACCESS ON RIGHT FA INTACT, SKIN DISCOLORATION, EDEMA UPPER AND LOWER EXTREMITIES NON-PITTING, DISTENDED ABDOMEN, PATIENT STATE LAST BP HAS FOUR DAYS AGO. PATIENT SEE BY HOSPITALIST. CALL LIGHT WITHIN TO REACH. CONTINUED MONITORING.
[2019-11-12 12:30] VITALS: BP 152/69
[2019-11-12] MEDS: CLONIDINE HCL 0.1 MG TABLET PO SCH ×2 (14:50→16:42)
[2019-11-12] MEDS: SEVELAMER CARBONATE 800 MG TABLET PO SCH ×2 (14:50→16:36)
[2019-11-12] MEDS: LABETALOL HCL (100MG) 100 MG TABLET PO SCH ×2 (14:51→16:42)
[2019-11-12] MEDS ORDERED: BISACODYL SUPP (10 MG) 10 MG/SUPP.RECT SUPP.RECT RC PRN (15:00)
[2019-11-12] MEDS ORDERED: DOCUSATE SODIUM 250 MG CAPSULE PO SCH (15:00)
[2019-11-12] MEDS ORDERED: MAGNESIUM HYDROXIDE 30 ML UDC PO PRN (15:00)
[2019-11-12] MEDS: SOD FERRIC GLUC 125 MG in IV NS 0.9% 100 ML IV SCH (15:03)
[2019-11-12 16:00] VITALS: BP 141/54
[2019-11-12] MEDS: DOCUSATE SODIUM 250 MG CAPSULE PO SCH ×2 (16:35→22:32)
[2019-11-12] MEDS: LIOTHYRONINE SODIUM (5 MCG/TA 5 MCG TABLET PO SCH (16:36)
[2019-11-12] MEDS: MINOXIDIL (2.5MG) 2.5 MG TABLET PO SCH (16:43)
[2019-11-12] MEDS: DOXAZOSIN MESYLATE (1 MG) 1 MG TABLET PO SCH (16:43)
[2019-11-12] MEDS: QUETIAPINE FUMARATE 100 MG TABLET PO SCH (18:28)
[2019-11-12] MEDS: LamoTRIgine 25 MG TABLET PO SCH (18:36)
--- NOTE | 2019-11-12 18:37 | NUR ---
RN NOTES PATIENT STABLE, ADMINISTERED SCHEDULED MEDICATION, TOLERATED DINNER WELL. REFUSED PAIN, ON O22LNC, CALL LIGHT WITHIN TO REACH, ENDORSED ONCOMING NURSE FOLLOW PLAN OF CARE.
--- NOTE | 2019-11-12 19:30 | NUR ---
TELE/RN OPENING NOTES RECEIVED PATIENT RESTING IN BED AWAKE, ALERT AND ORIENTED X 4. TELE READING SR 65. PATIENT STATES NO PAIN AT THE MOMENT. NO SIGNS OF SOB OR RESPIRATORY DISTRESS NOTED. BREATHING IS EVEN AND UNLABORED. PATIENT HAS NECK BRACE ON, INCISION SITE INTACT NO SIGNS OF BLEEDING. PATIENT HAS RIGHT ARM #[address] AND FLUSHING WELL. SAFETY MEASURES ARE IN PLACE BED IS LOCKED AND PLACE IN THE LOW POSITION. SIDE RAILS UP X 2. CALL LIGHT IS WITHIN REACH. WILL CONTINUE TO MONITOR PATIENT.
[2019-11-12 20:00] VITALS: BP 163/80
[2019-11-12] MEDS ORDERED: CYCLOSPORINE EACHEYE SCH (21:00)
[2019-11-12] MEDS ORDERED: HYDR5TAB13 PO (23:29)
[2019-11-13] VITALS: BP 165/74
--- NOTE | 2019-11-13 02:10 | NUR ---
TELE/RN NOTES DR. RUEDA WAS CALLED DO TO PATIENT REQUESTING FOR A STEROID THAT SHE TAKE AT HOME AND WAS NOT BEING GIVING ANY AT THIS TIME. DR. RUEDA ORDERED FOR PREDNISONE 12.5 MG AM, 5 MG NOON AND 2.5 MG PM FOR PATIENT. ORDER HAS BEEN PLACED.
[2019-11-13 04:00] VITALS: BP 157/71
--- NOTE | 2019-11-13 07:15 | NUR ---
TELE/RN CLOSING NOTES PATIENT RESTING IN BED AWAKE, ALERT AND ORIENTED X 4. TELE READING SR 68. PATIENT STATES NO PAIN AT THE MOMENT. NO SIGNS OF SOB OR RESPIRATORY DISTRESS NOTED. BREATHING IS EVEN AND UNLABORED. PATIENT HAS NECK BRACE ON, INCISION SITE INTACT NO SIGNS OF BLEEDING. PATIENT HAS RIGHT ARM #[address] AND FLUSHING WELL. ALL PATIENTS NEEDS HAVE BEEN MET DURING SHIFT. SAFETY MEASURES ARE IN PLACE BED IS LOCKED AND PLACE IN THE LOW POSITION. SIDE RAILS UP X 2. CALL LIGHT IS WITHIN REACH. WILL ENDORSE CARE TO DAY SHIFT.
--- NOTE | 2019-11-13 07:50 | NUR ---
TELE/RN OPENING NOTES RECEIVED PATIENT RESTING IN BED AWAKE, ALERT AND ORIENTED X 4.ON TELE MONITORING. PATIENT STATES NO PAIN AT THE MOMENT. NO SIGNS OF SOB OR RESPIRATORY DISTRESS NOTED. BREATHING IS EVEN AND UNLABORED. PATIENT HAS NECK BRACE ON, INCISION SITE INTACT NO SIGNS OF BLEEDING. PATIENT HAS RIGHT ARM #[address] AND FLUSHING WELL. SAFETY MEASURES ARE IN PLACE BED IS LOCKED AND PLACE IN THE LOW POSITION. SIDE RAILS UP X 2. CALL LIGHT IS WITHIN REACH. WILL CONTINUE TO MONITOR PATIENT.
[2019-11-13 07:51] LABS: BASOPHILS % (AUTO) 1.2 % (0.0-2.0); EOSINOPHILS % (AUTO) 6.3 % (0.0-6.0); HEMATOCRIT 24 % (33-45); HEMOGLOBIN 7.9 g/dL (11.5-14.8); LYMPHOCYTES # (AUTO) 0.7 /CMM (0.8-4.8); LYMPHOCYTES % (AUTO) 19.8 % (20.0-44.0); MEAN CORPUSCULAR HGB CONC 34 g/dl (31.0-36.0); MEAN CORPUSCULAR VOLUME 104 fL (82-100); MONOCYTES # (AUTO) 0.4 /CMM (0.1-1.30); MONOCYTES % (AUTO) 10.8 % (2.0-12.0); NEUTROPHILS # (AUTO) 2.1 /CMM (1.8-8.9); NEUTROPHILS % (AUTO) 61.9 % (43.0-81.0); PLATELET COUNT (AUTO) 148 /CMM (150-450); RED BLOOD CELL COUNT(AUTO) 2.26 MIL/uL (4.0-5.2); WHITE BLOOD COUNT (AUTO) 3.4 K/uL (4.3-11.0)
[2019-11-13 07:56] LABS: CALCIUM, SERUM 9.4 mg/dL (8.5-10.1); CREATININE 4.3 mg/dL (0.6-1.3); MAGNESIUM 2.4 mg/dL (1.8-2.4)
[2019-11-13 08:00] VITALS: BP 159/70
[2019-11-13 08:07] LABS: THYROID STIMULATING HORMONE 2.791 uIU/mL (0.358-3.74)
[2019-11-13] MEDS: LIOTHYRONINE SODIUM (5 MCG/TA 5 MCG TABLET PO SCH ×2 (08:59→17:28)
[2019-11-13] MEDS ORDERED: Medication Not On Formulary EA (Omega-3 Fatty Acids/Fish Oil (Fish Oil 1,000 Mg Capsule) PO SCH (09:00)
[2019-11-13] MEDS: CLONIDINE HCL 0.1 MG TABLET PO SCH ×3 (09:01→17:27)
[2019-11-13] MEDS: AMLODIPINE BESYLATE 5 MG TABLET PO SCH (09:02)
[2019-11-13] MEDS: LABETALOL HCL (100MG) 100 MG TABLET PO SCH ×3 (09:03→17:30)
[2019-11-13] MEDS: SEVELAMER CARBONATE 800 MG TABLET PO SCH ×3 (09:03→18:15)
[2019-11-13] MEDS: DOCUSATE SODIUM 250 MG CAPSULE PO SCH ×2 (09:04→17:27)
[2019-11-13] MEDS: DOXAZOSIN MESYLATE (1 MG) 1 MG TABLET PO SCH ×2 (09:04→17:28)
[2019-11-13] MEDS: VIT B CMPLX 3/FA/VIT C/BIOTIN 1 TAB TABLET PO SCH (09:05)
[2019-11-13] MEDS: CHOLECALCIFEROL (VITAMIN D 3) 400 UNIT TABLET PO SCH (09:05)
[2019-11-13] MEDS: MINOXIDIL (2.5MG) 2.5 MG TABLET PO SCH ×2 (09:05→18:15)
[2019-11-13] MEDS: predniSONE 5 MG TABLET PO SCH ×3 (09:07→22:24)
[2019-11-13] MEDS: PANTOPRAZOLE 40 MG TABLET.DR PO SCH (09:22)
[2019-11-13] MEDS: LEVOTHYROXINE SODIUM 125 MCG TABLET PO SCH (09:22)
[2019-11-13] MEDS: SPIRONOLACTONE 25 MG TABLET PO SCH (10:00)
[2019-11-13] MEDS: SOD FERRIC GLUC 125 MG in IV NS 0.9% 100 ML IV SCH (14:37)
[2019-11-13 16:00] VITALS: BP 160/76
[2019-11-13] MEDS ORDERED: NA PHOS,M-B/NA PHOS,DI-BA 1 EA ENEMA RC ONE (16:30)
[2019-11-13] MEDS: LACTULOSE 10 G/15 ML UDC (PYXIS) PO SCH ×2 (17:24→23:25)
--- NOTE | 2019-11-13 17:45 | NUR ---
PT REFUSED THE LACTOSE AND THE ENEMA ATTEMPT X 3 EXPLAIN THE PROS AND CONS PT CONTINUE TO REFUSED CHARGE NURSE AWARE
[2019-11-13] MEDS: LamoTRIgine 25 MG TABLET PO SCH (18:21)
[2019-11-13] MEDS: QUETIAPINE FUMARATE 100 MG TABLET PO SCH (18:21)
--- NOTE | 2019-11-13 19:00 | NUR ---
TELE/RN CLOSING NOTES PATIENT IN BED AWAKE, ALERT AND ORIENTED X 4. TELE READING SR . PATIENT STATES NO PAIN AT THE MOMENT. NO SIGNS OF SOB OR RESPIRATORY DISTRESS NOTED. BREATHING IS EVEN AND UNLABORED. PATIENT HAS NECK BRACE ON, INCISION SITE INTACT NO SIGNS OF BLEEDING. PATIENT HAS RIGHT ARM #[address] AND FLUSHING WELL JERRY AV SHUNT HAVING HD AT THIS TIME.PT REFUSED TO TAKE THE LACTULOSE AND ENEMA FOR C/O OF NO BM,ATTEMPT x3. ALL PATIENTS NEEDS HAVE BEEN MET DURING SHIFT. SAFETY MEASURES ARE IN PLACE BED IS LOCKED AND PLACE IN THE LOW POSITION. SIDE RAILS UP X 2. CALL LIGHT IS WITHIN REACH. WILL ENDORSE CARE TO SPECIAL DELIVERY CARRIER.
[2019-11-13 20:00] VITALS: BP 146/62
--- NOTE | 2019-11-13 20:00 | NUR ---
MARKETING INTERN NOTES PATIENT IN BED AWAKE, HD TREATMENT ON PROGRESS ALERT AND ORIENTED X 4. TELE READING SR .68 PATIENT STATES NO PAIN AT THE MOMENT. NO SIGNS OF SOB OR RESPIRATORY DISTRESS NOTED. BREATHING IS EVEN AND UNLABORED. PATIENT HAS NECK BRACE ON, INCISION SITE INTACT NO SIGNS OF BLEEDING. PATIENT HAS RIGHT ARM #[address] AND FLUSHING WELL.LEFT UA FISTULA NO BLEEDING NOTED , PTS C/O OF NOT HAVING BOWEL MOVEMENT FOR FIVE DAYS PER DAY SHIFT NURSE NURSE PTS REFUSED FLEET ENEMA . PTS REQUESTING GOLITELY INSTEAD ,WILL CALL MD FOR ORDER . ALL PATIENTS NEEDS HAVE BEEN MET DURING SHIFT. SAFETY MEASURES ARE IN PLACE BED IS LOCKED AND PLACE IN THE LOW POSITION. SIDE RAILS UP X 2. CALL LIGHT IS WITHIN REACH.WILL CONTINUE TO MONITOR PTS.V/S STABLE AFEBRILE
--- NOTE | 2019-11-13 21:45 | NUR ---
TRACK SUPERINTENDENT NOTES HD TREATMENT COMPLETED WITH 1000 CC OUTPUT PER HD NURSE , NO BLEEDING NOTED ON AV FISTULA. WILL CONTINUE TO MONITOR
--- NOTE | 2019-11-13 22:45 | NUR ---
OCCUPATIONAL THERAPY TEACHER NOTES SPOKE TO DOROTHY SOUZA PTS NO BOWEL MOVEMENT WITH ORDER MADE AND CARRIED OUT .
--- NOTE | 2019-11-13 22:50 | NUR ---
HEELER NOTES RECEIVED A CALL FROM DR PITT WITH [facility] PTS REQUEST FOR CONTIPATION ORDER NOTED AND CARRIED OUT.
[2019-11-13] MEDS: SORBITOL SOLUTION 30 ML PO SCH (23:00)
--- NOTE | 2019-11-13 23:00 | NUR ---
BOTTOM LINER NOTES LACTULOSE AND MOM WAS PULLED FROM THE PHYXIS BUT PTS REFUSED MEDICATION SO IT WAS RETURNED
--- NOTE | 2019-11-13 23:05 | NUR ---
MANAGER SPECIAL EVENTS NOTES SORBITOL ALSO WAS NOT GIVEN D/T PTS REFUSAL MADE AWARE
[2019-11-13] MEDS ORDERED: PEG 3350/NA SULF,BICARB,CL/KCL 4,000 ML BOTTLE PO ONE (23:30)
[2019-11-14] VITALS: BP 159/78
--- NOTE | 2019-11-14 01:54 | NUR ---
QUALITY PROJECT MANAGER NOTES ABLE TO FINISHED HALF GALLON OF GOLITELY WAITING FOR EFFECT,WILL CONTINUE TO MONITOR PTS.
[2019-11-14 04:00] VITALS: BP 148/67
[2019-11-14] MEDS: LACTULOSE 10 G/15 ML UDC (PYXIS) PO SCH ×4 (06:00→23:32)
--- NOTE | 2019-11-14 06:00 | NUR ---
supervisor television chassis repair notes Pts had extra large bowel movement ,still noted with small amt of fresh vaginal bleeding . lactulose medication was not given d/t pts refusal md made aware. will endorse to rn day shift for continuity of care , v/s stable afebrile remain on sr 70swill continue to monitor pts.
[2019-11-14 08:00] VITALS: BP 180/72
[2019-11-14 08:02] LABS: BASOPHILS % (AUTO) 0.6 % (0.0-2.0); HEMATOCRIT 24 % (33-45); LYMPHOCYTES # (AUTO) 0.6 /CMM (0.8-4.8); MEAN CORPUSCULAR HGB CONC 34 g/dl (31.0-36.0); MEAN CORPUSCULAR VOLUME 104 fL (82-100); MONOCYTES # (AUTO) 0.4 /CMM (0.1-1.30); MONOCYTES % (AUTO) 11.9 % (2.0-12.0); NEUTROPHILS # (AUTO) 2.6 /CMM (1.8-8.9); NEUTROPHILS % (AUTO) 70.5 % (43.0-81.0); PLATELET COUNT (AUTO) 154 /CMM (150-450); RED BLOOD CELL COUNT(AUTO) 2.28 MIL/uL (4.0-5.2); WHITE BLOOD COUNT (AUTO) 3.7 K/uL (4.3-11.0)
[2019-11-14] MEDS: SEVELAMER CARBONATE 800 MG TABLET PO SCH ×3 (08:26→17:41)
[2019-11-14] MEDS: VIT B CMPLX 3/FA/VIT C/BIOTIN 1 TAB TABLET PO SCH (08:26)
[2019-11-14] MEDS: CHOLECALCIFEROL (VITAMIN D 3) 400 UNIT TABLET PO SCH (08:26)
[2019-11-14] MEDS: DOCUSATE SODIUM 250 MG CAPSULE PO SCH ×2 (08:26→17:41)
[2019-11-14] MEDS: LIOTHYRONINE SODIUM (5 MCG/TA 5 MCG TABLET PO SCH ×2 (08:26→17:41)
[2019-11-14] MEDS: LEVOTHYROXINE SODIUM 125 MCG TABLET PO SCH (08:26)
[2019-11-14] MEDS: SPIRONOLACTONE 25 MG TABLET PO SCH (08:27)
[2019-11-14] MEDS: PANTOPRAZOLE 40 MG TABLET.DR PO SCH (08:27)
[2019-11-14] MEDS: predniSONE 5 MG TABLET PO SCH ×3 (08:27→21:38)
[2019-11-14] MEDS: AMLODIPINE BESYLATE 5 MG TABLET PO SCH (08:28)
[2019-11-14] MEDS: DOXAZOSIN MESYLATE (1 MG) 1 MG TABLET PO SCH ×2 (08:28→17:41)
[2019-11-14] MEDS: LABETALOL HCL (100MG) 100 MG TABLET PO SCH ×3 (08:29→17:41)
[2019-11-14] MEDS: MINOXIDIL (2.5MG) 2.5 MG TABLET PO SCH ×2 (08:29→17:42)
[2019-11-14] MEDS: SORBITOL SOLUTION 30 ML PO SCH (08:31)
[2019-11-14 09:36] LABS: CALCIUM, SERUM 9.6 mg/dL (8.5-10.1); CREATININE 3.3 mg/dL (0.6-1.3); MAGNESIUM 2.5 mg/dL (1.8-2.4); PHOSPHORUS 3.1 mg/dL (2.5-4.9); POTASSIUM 4.1 mmol/L (3.5-5.1)
[2019-11-14] MEDS: CLONIDINE HCL 0.1 MG TABLET PO SCH ×3 (09:49→17:41)
[2019-11-14] MEDS: SOD FERRIC GLUC 125 MG in IV NS 0.9% 100 ML IV SCH ×2 (14:00→14:44)
--- NOTE | 2019-11-14 15:27 | NUR ---
RN NOTES-- PT'S PIV INFILTRATED. INFORMED PT THAT ANOTHER PIV NEEDS TO BE INSERTED FOR EMERGENCY PURPOSES AND TO ADMINISTER FERRELICIT. PT REFUSED AND STATED SHE WOULD RATHER TAKE IRON PILLS. DR. WEBER MADE AWARE.
[2019-11-14 16:00] VITALS: BP 182/76
[2019-11-14] MEDS: QUETIAPINE FUMARATE 100 MG TABLET PO SCH (17:40)
[2019-11-14] MEDS: LamoTRIgine 25 MG TABLET PO SCH (17:40)
--- NOTE | 2019-11-14 18:45 | NUR ---
RN END OF SHIFT SUMMARY PT IS A/OX3, WITH EPISODES CONFUSION. AFEBRILE. RESPIRATIONS ARE EVEN AND UNLABORED, NOT IN ANY ACUTE DISTRESS NOTED. CERVICAL COLLAR IN PLACE FROM S/P NECK SURGERY FROM OSH. PT DENIES ANY PAIN AT THIS TIME, NO C/O OF DIZZINESS, N/V. ABDOMEN IS SOFT AND NONDISTENDED, BOWEL SOUNDS ARE PRESENT IN ALL 4 QUADRANTS UPON AUSCULTATION. +FLATUS, X3 BM DURING SHIFT. VOIDS. CONTINENT. NOTED WITH SCANT VAGINAL BLEEDING. PT SEEN BY PILO WEBER NP AND DR. DORANTES. SAFETY MEASURES ARE IN PLACE. CALL LIGHT IS LEFT WITHIN REACH. WILL MONITOR AND CONTINUE POC.
--- NOTE | 2019-11-14 19:00 | NUR ---
TELE/RN OPENING NOTES: PT IS A/OX3, WITH EPISODES CONFUSION. AFEBRILE. RESPIRATIONS ARE EVEN AND UNLABORED, NOT IN ANY ACUTE DISTRESS NOTED. NOTED WITH CERVICAL COLLAR IN PLACE FROM S/P NECK SURGERY FROM OSH. PT DENIES ANY PAIN AT THIS TIME, NO C/O OF DIZZINESS, N/V. CONTINENT. PT REFUSES IV LINE INSERTION, PER PT I AM GOING HOME SOON SO I DON'T NEED IT." NOTED WITH SCANT VAGINAL BLEEDING. PILO WEBER NP AND DR. DORANTES AWARE. SAFETY MEASURES ARE IN PLACE. CALL LIGHT IS LEFT WITHIN REACH. DIALYSIS NURSE AT BED SIDE. WILL MONITOR ACCORDINGLY.
--- NOTE | 2019-11-14 19:05 | NUR ---
TELE/RN NOTES: ON TELE MONITORING WITH READING OF SR 61. WITH 1ST DEGREE AV BLOCK. PT STABLE. WILL CONTINUE TO MONITOR.
[2019-11-14 20:00] VITALS: BP 175/79
[2019-11-14 20:57] VITALS: BP 175/79
[2019-11-14] MEDS ORDERED: HYDROCODONE/APAP 5/325MG 1 EACH TABLET PO ONE (23:30)
--- NOTE | 2019-11-14 23:30 | NUR ---
TELE/RN NOTES: PT COMPLAINS OF HEADACHE. REFUSES TYLENOL BC IT DOESN'T HELP HER PAIN. REQUESTEWD EXCEDRIN INSTEAD. INFORMED DOROTHY RUEDA. INFORMED PT SHE CAN'T HAVE EXCEDRIN BECAUSE IT CONTAINS ASPIRIN AND IT'S NOT GOOD FOR HER BLEEDING. PT REQUESTED NORCO INSTEAD. INFORMED MOHIT. ORDERED NORCO 5/325. VSS. ADMINISTERED MED ORDERED. TOLERATED WELL. WILL CONTINUE TO MONITOR.
[2019-11-15] VITALS: BP 166/75
[2019-11-15 01:00] VITALS: BP 148/72
[2019-11-15] MEDS: LACTULOSE 10 G/15 ML UDC (PYXIS) PO SCH ×3 (05:57→18:00)
--- NOTE | 2019-11-15 07:28 | NUR ---
TELE/RN CLOSING NOTES: PT IS A/OX3, RESPIRATIONS ARE EVEN AND UNLABORED, NOT IN ANY ACUTE DISTRESS NOTED. PT DENIES ANY PAIN AT THIS TIME, NO C/O OF DIZZINESS, N/V. CONTINENT. IV SITE ON THE RIGHT WRIST #20G SL. TELE READING OF SR 60S. NOTED WITH SCANT VAGINAL BLEEDING. PILO WEBER NP AND DR. DORANTES AWARE. SAFETY MEASURES ARE IN PLACE. CALL LIGHT IS LEFT WITHIN REACH. HD TOTAL OUTPUT OF 1L. ALL NEEDS MET AND RENDERED. WILL ENDORSE TO DAY SHIFT FOR RICHARD.
[2019-11-15 07:41] LABS: BASOPHILS % (AUTO) 0.5 % (0.0-2.0); EOSINOPHILS % (AUTO) 0.5 % (0.0-6.0); HEMATOCRIT 23 % (33-45); HEMOGLOBIN 7.5 g/dL (11.5-14.8); LYMPHOCYTES # (AUTO) 0.6 /CMM (0.8-4.8); LYMPHOCYTES % (AUTO) 14.3 % (20.0-44.0); MEAN CORPUSCULAR HGB CONC 33 g/dl (31.0-36.0); MEAN CORPUSCULAR VOLUME 106 fL (82-100); MONOCYTES # (AUTO) 0.5 /CMM (0.1-1.30); MONOCYTES % (AUTO) 11.3 % (2.0-12.0); NEUTROPHILS # (AUTO) 3.1 /CMM (1.8-8.9); NEUTROPHILS % (AUTO) 73.4 % (43.0-81.0); PLATELET COUNT (AUTO) 158 /CMM (150-450); RED BLOOD CELL COUNT(AUTO) 2.13 MIL/uL (4.0-5.2); WHITE BLOOD COUNT (AUTO) 4.2 K/uL (4.3-11.0)
--- NOTE | 2019-11-15 07:46 | NUR ---
TELE OPENING NOTES: PATIENT IS A/OX3, WITH NO SIGNS OF DISTRESS IN 2L NASAL CANNULA. NOTED WITH CERVICAL COLLAR IN PLACE FROM FROM NECK SURGERY IV R WRIST #20G SL INTACT. SAFETY MEASURES ARE IN PLACE BED IS IN LOW POSITION LOCKED AND SIDE RAILS UP X 2 FOR SAFETY. CALL LIGHT IS WITHIN REACH.WILL CONTINUE TO MONITOR.
[2019-11-15 08:00] VITALS: BP 201/79
[2019-11-15 08:16] LABS: CALCIUM, SERUM 9.4 mg/dL (8.5-10.1); MAGNESIUM 2.7 mg/dL (1.8-2.4); PHOSPHORUS 2.8 mg/dL (2.5-4.9); POTASSIUM 4.6 mmol/L (3.5-5.1)
[2019-11-15] MEDS: CLONIDINE HCL 0.1 MG TABLET PO SCH ×3 (08:20→18:32)
[2019-11-15] MEDS: LABETALOL HCL (100MG) 100 MG TABLET PO SCH ×3 (08:21→18:32)
[2019-11-15] MEDS: DOCUSATE SODIUM 250 MG CAPSULE PO SCH ×2 (08:21→17:00)
[2019-11-15] MEDS: LEVOTHYROXINE SODIUM 125 MCG TABLET PO SCH (08:21)
[2019-11-15] MEDS: PANTOPRAZOLE 40 MG TABLET.DR PO SCH (08:22)
[2019-11-15] MEDS: AMLODIPINE BESYLATE 5 MG TABLET PO SCH (08:23)
[2019-11-15] MEDS: SPIRONOLACTONE 25 MG TABLET PO SCH (08:23)
[2019-11-15] MEDS: VIT B CMPLX 3/FA/VIT C/BIOTIN 1 TAB TABLET PO SCH (08:25)
[2019-11-15] MEDS: CHOLECALCIFEROL (VITAMIN D 3) 400 UNIT TABLET PO SCH (08:25)
[2019-11-15] MEDS: predniSONE 5 MG TABLET PO SCH ×3 (08:25→21:50)
[2019-11-15] MEDS: LIOTHYRONINE SODIUM (5 MCG/TA 5 MCG TABLET PO SCH ×2 (08:25→18:34)
[2019-11-15] MEDS: SEVELAMER CARBONATE 800 MG TABLET PO SCH ×3 (08:26→18:36)
[2019-11-15] MEDS: DOXAZOSIN MESYLATE (1 MG) 1 MG TABLET PO SCH ×2 (08:26→18:34)
[2019-11-15] MEDS: MINOXIDIL (2.5MG) 2.5 MG TABLET PO SCH ×2 (08:26→18:33)
[2019-11-15] MEDS: SORBITOL SOLUTION 30 ML PO SCH (08:27)
[2019-11-15] MEDS: LOSARTAN POTASSIUM 50 MG TABLET PO SCH (12:35)
[2019-11-15] MEDS ORDERED: DOCU250C14 PO (13:16)
[2019-11-15] MEDS ORDERED: LOSA50TA3 PO (13:16)
[2019-11-15] MEDS ORDERED: FERR325T23 PO (13:16)
[2019-11-15] MEDS ORDERED: PROG100C15 PO (13:16)
[2019-11-15] MEDS ORDERED: PANT40TA2 PO (13:16)
[2019-11-15] MEDS: SOD FERRIC GLUC 125 MG in IV NS 0.9% 100 ML IV SCH (15:15)
[2019-11-15 16:00] VITALS: BP 185/77
--- NOTE | 2019-11-15 16:21 | NUR ---
HERBERT JOY PATIENT WAS IN RA FOR 20 MINUTES, TO TEST OXYGEN SATURATION. SPO2 DROPPED TO 88%. 2L NS CANNULA WAS PUT ON HER NEEDED. Addendum: 11/15/19 at 1631 by TA VANEGAS RN HERBERT JOY PATIENT SATURATION SPO2 DROPPED TO 87% WHILE IN ROOM AIR AT REST.
--- NOTE | 2019-11-15 16:31 | NUR ---
RN NOTES PROVIDED 2L NASAL CANNULA.
--- NOTE | 2019-11-15 17:00 | NUR ---
RN NOTES PATIENT REFUSES COLACE AND LACTULOSE. EDUCATED PATIENT ABOUT THE BENEFITS AND RISK IF NOT TAKING MEDICATION, PATIENT REFUSED AGAIN.
[2019-11-15] MEDS: QUETIAPINE FUMARATE 100 MG TABLET PO SCH (18:35)
[2019-11-15] MEDS: LamoTRIgine 25 MG TABLET PO SCH (18:50)
--- NOTE | 2019-11-15 19:10 | NUR ---
MS RN NOTES RECEIVED PT IN BED AWAKE AND ABLE TO MAKE NEEDS KNOWN. PT A/OX3. RESPIRATIONS EVEN AND UNLABORED WITH NO S/S OF ACUTE DISTRESS OR SOB NOTED. PT NOTED WITH IV TO RWRIST #20G PATENT AND INTACT AND SL. NO COMPLAINTS OF PAIN AT THIS TIME. SAFETY MEASURES IN PLACE WITH BED IN LOWEST LOCKED POSITION WITH SIDE RAILS UP X2. CALL LIGHT WITHIN REACH. WILL CONTINUE TO MONITOR.
--- NOTE | 2019-11-15 19:15 | NUR ---
MS RN NOTES PT NOTED WITH CERVICAL COLLAR TAKEN OFF S/P NECK SURGERY, EXPLAINED TO PT ABOUT COLLAR NEEDS TO BED ON AT ALL TIMES. PT STATED "ILL PUT IT BACK ON LATER, I DON'T WANT IT ON AT THIS TIME". WILL CONTINUE TO MONITOR.
--- NOTE | 2019-11-15 19:30 | NUR ---
TELE OPENING NOTES: PATIENT IS A/OX3, WITH NO SIGNS OF DISTRESS IN 2L NASAL CANNULA. NOTED WITH CERVICAL COLLAR IN PLACE FROM FROM NECK SURGERY IV R WRIST #20G SL INTACT. SCHEDULED MEDICATIONS WERE GIVEN AND TOLERATED WELL. SAFETY MEASURES ARE IN PLACE BED IS IN LOW POSITION LOCKED AND SIDE RAILS UP X 2 FOR SAFETY. CALL LIGHT IS WITHIN REACH.WILL ENDORSE TO KNIFE GRINDER NURSE. Addendum: 11/15/19 at 2048 by TA VANEGAS RN RN CLOSING NOTE: PATIENT IS A/OX3, WITH NO SIGNS OF DISTRESS IN 2L NASAL CANNULA. NOTED WITH CERVICAL COLLAR IN PLACE FROM FROM NECK SURGERY IV R WRIST #20G SL INTACT. SCHEDULED MEDICATIONS WERE GIVEN AND TOLERATED WELL. SAFETY MEASURES ARE IN PLACE BED IS IN LOW POSITION LOCKED AND SIDE RAILS UP X 2 FOR SAFETY. CALL LIGHT IS WITHIN REACH.WILL ENDORSE TO KNIFE GRINDER NURSE.
[2019-11-15 20:00] VITALS: BP 141/62
--- NOTE | 2019-11-15 21:06 | NUR ---
MS RN NOTES PT NOTED WITH CERVICAL COLLAR IN PLACE. WILL CONTINUE TO MONITOR.
--- NOTE | 2019-11-15 22:10 | NUR ---
RN NOTES: RECEIVED ENDORSEMENT FROM BARRERA/HERBERT AT 2210, A/OX4, ORIENTED TO UNIT AND STAFF, O2 AT 2L/MIN VIA NC. SHE HAS CERVICAL COLLAR IN PLACE, HAD DIALYSIS TODAY OUTPUT-1.5 LITER, DIALYSIS EVERY -- , JERRY FISTULA, RIGHT WRIST CANNULA G#20 PATENT. CONTINENT AND USING BED SIDE COMMODE WITH ASSISTANCE, PER ENDORSEMENT SHE IS FOR DISCHARGE TOMORROW AT 1000AM BUT PATIENT REFUSED TO GO HOME, SHE VERBALIZED THAT SHE IS NOT YET READY, WILL F/U WITH RAUL, VAMP LINER AND PRIMARY DOCTOR IN THE MORNING, SHE IS DUE FOR DIALYSIS AT 1000 AND AFTER DIALYSIS IF BP IS CONTROLLED SHE CAN BE DISCHARGE, AMBULANCE WILL PICK HER UP PER INSTRUCTION. -NON LABORED BREATHING, NO SOB, ORIENTED TO UNIT AND STAFF, FALL,SAFETY AND ASPIRATION PRECAUTION OBSERVED, BED LOW AND LOCKED, CALL LIGHT WITHIN EASY REACH.
--- NOTE | 2019-11-16 00:15 | NUR ---
RN NOTES: -PATIENT ALREADY INSTRUCTED AND NOTIFIED RN AHEAD OF TIME THAT SHE REFUSE TO TAKE LACTULOSE, RN TRIED AGAIN TO OFFER TO HER DUE AT 0000, AGAIN SHE REFUSED. -ASSISTED BY 2 PRODUCTION LINE MANAGER IN THE COMMODE, NEEDS ATTENDED.
--- NOTE | 2019-11-16 04:02 | NUR ---
RN NOTES: -ABLE TO SLEEP AND REST, AWAKE AT AROUND 330AM, ASSISTED BY RN, SHE BRUSH HER TEETH AND WENT BACK TO BED.
[2019-11-16] MEDS: LACTULOSE 10 G/15 ML UDC (PYXIS) PO SCH ×4 (06:09→13:05)
--- NOTE | 2019-11-16 07:30 | NUR ---
MS/RN OPENING NOTES Patient resting in bed, A&O x4. Breathing even and non-labored on 2L oxygen via NC. No respiratory or cardiac distress noted. Denies any pain/discomfort at this time. Noted with cervical collar in place. IV access noted on R wrist #20 SL, patent and intact, and flushing well. No infection/infiltration/bleeding noted on site. JERRY AV fistula noted, bruit and thrill noted. Fall precautions maintained. Will continue with current medical management.
--- NOTE | 2019-11-16 07:53 | NUR ---
RN NOTES: AWAKE, SITTING COMFORTABLY IN BED, SHE AGREED TO TAKE HER LACTULOSE THIS MORNING, SHE HAS PLEASANT MOOD, SHE EVEN ASK WHICH FACILITY WHERE IS SHE GOING AND WHAT ARE THE PRESCRIBE MEDICATION SHE WILL BRING HOME, ENDORSED FOR CONTINUITY OF CARE, JERRY-AV FISTULA (+)BRUIT AND (+) THRILL, FOR HD TODAY, FOR POSSIBLE DISCHARGE AT 10AM , NO LABS IN THE MORNING, ENDORSED FOR CONTINUITY OF CARE.
[2019-11-16 08:00] VITALS: BP 145/65
--- NOTE | 2019-11-16 08:00 | NUR ---
MS/RN NOTES Patient agrees to get discharge today, states "she feels better" and was able to walk to the commode with assistance. Per overnight stocker nurse, was ordered to get HD before getting discharged.
[2019-11-16] MEDS: SEVELAMER CARBONATE 800 MG TABLET PO SCH ×3 (08:24→17:34)
[2019-11-16] MEDS: LIOTHYRONINE SODIUM (5 MCG/TA 5 MCG TABLET PO SCH ×2 (08:24→17:34)
[2019-11-16] MEDS: predniSONE 5 MG TABLET PO SCH ×3 (08:24→20:55)
[2019-11-16] MEDS: PANTOPRAZOLE 40 MG TABLET.DR PO SCH (08:25)
[2019-11-16] MEDS: SORBITOL SOLUTION 30 ML PO SCH (08:25)
[2019-11-16] MEDS: CHOLECALCIFEROL (VITAMIN D 3) 400 UNIT TABLET PO SCH (08:25)
[2019-11-16] MEDS: LEVOTHYROXINE SODIUM 125 MCG TABLET PO SCH (08:25)
[2019-11-16] MEDS: VIT B CMPLX 3/FA/VIT C/BIOTIN 1 TAB TABLET PO SCH (08:25)
[2019-11-16] MEDS: DOCUSATE SODIUM 250 MG CAPSULE PO SCH ×2 (08:25→17:35)
[2019-11-16] MEDS: DOXAZOSIN MESYLATE (1 MG) 1 MG TABLET PO SCH ×2 (08:38→17:36)
[2019-11-16] MEDS: SPIRONOLACTONE 25 MG TABLET PO SCH (08:38)
[2019-11-16] MEDS: LOSARTAN POTASSIUM 50 MG TABLET PO SCH (08:39)
[2019-11-16] MEDS: AMLODIPINE BESYLATE 5 MG TABLET PO SCH (08:39)
[2019-11-16] MEDS: CLONIDINE HCL 0.1 MG TABLET PO SCH ×3 (08:39→17:37)
[2019-11-16] MEDS: LABETALOL HCL (100MG) 100 MG TABLET PO SCH ×3 (08:39→17:36)
[2019-11-16] MEDS: MINOXIDIL (2.5MG) 2.5 MG TABLET PO SCH ×2 (08:39→17:36)
--- NOTE | 2019-11-16 08:39 | NUR ---
MS/RN NOTES SCHEDULED FOR HEMODIALYSIS TODAY AT 1000, HELD BP MEDICATIONS
--- NOTE | 2019-11-16 10:30 | NUR ---
MS/RN NOTES Ambulance arrived, spoke with Dr. Lutz to clarify the need for hemodialysis before discharged. Doctor clears patient for discharge without hemodialysis today since BP and labs are stable. Notified patient, but is now refusing to get discharged because she "feels weak." Instructed patient that discharge orders were already in yesterday, but patient does not want to leave because she "does not feel physically well." immigration case manager at bedside, instructing patient to call for an appeal.
[2019-11-16] MEDS: SOD FERRIC GLUC 125 MG in IV NS 0.9% 100 ML IV SCH ×2 (14:00→15:03)
--- NOTE | 2019-11-16 15:00 | NUR ---
MS/RN NOTES Patient refuses to take Ferrlecit because she "wants to take medication orders from a doctor rather than a nurse practitioner." Instructed the risks and benefits of refusing the medication, patient insists that she "will only take medications from doctor's orders."
[2019-11-16 15:55] VITALS: BP 145/64
[2019-11-16 16:00] VITALS: BP 140/60
[2019-11-16] MEDS: QUETIAPINE FUMARATE 100 MG TABLET PO SCH (17:35)
[2019-11-16] MEDS: LamoTRIgine 25 MG TABLET PO SCH (17:35)
--- NOTE | 2019-11-16 18:30 | NUR ---
MS/RN OPENING NOTES Patient resting in bed, A&O x4, remains anxious about discharge. No complaints of pain and discomfort noted. Breathing even and non-labored on 2L oxygen via NC. No respiratory or cardiac distress noted. Noted with cervical collar in place. Refused to change dressing on neck. IV access noted on R wrist #20 SL, patent and intact, and flushing well. No infection/infiltration/bleeding noted on site. JERRY AV fistula noted, bruit and thrill noted. Fall precautions maintained. Will endorse to caustic cresylate shift superintendent nurse.
--- NOTE | 2019-11-16 18:55 | NUR ---
MS/RN CLOSING NOTES BELOW (CORRECTION)
--- NOTE | 2019-11-16 19:30 | NUR ---
MS/RN OPENING NOTES RECEIVED PATIENT RESTING IN BED. PATIENT IS ALERT AND ORIENTED X 4. PATIENT STATES NO PAIN AT THIS TIME. NO SOB OR RESPIRATORY DISTRESS NOTED. PATIENT IS ON 2L OF OXYGEN STAT AT 94%. NO DISTRESS NOTED AT THIS TIME. PATIENT HAS JERRY AV FISTULA, BRUIT AND THRILL PRESENT. PATIENT HAS RIGHT WRIST #[address] AND INTACT. PATIENT HAS CERVICAL COLLAR REMOVED AT THIS TIME. SAFETY MEASURES ARE IN PLACE, BED IS LOCKED AND PLACED IN THE LOW POSITION WITH SIDERAILS UP X 2. CALL LIGHT IS WITHIN REACH. WILL CONTINUE TO MONITOR PATIENT THROUGH OUT SHIFT.
[2019-11-16 20:00] VITALS: BP 172/90
--- NOTE | 2019-11-16 20:00 | NUR ---
MS/RN NOTES PATIENT IS REQUESTING FOR A NURSE. WHEN ASKED THE NEEDS OF THE PATIENT AT THIS TIME SHE STATED, "I WANT TO USE THE COMMODE BUT I WANT THE FABRIC NORMALIZER TO HELP ME". I OFFERED MY ASSISTANCE ONCE MORE AND PATIENT REFUSED.
--- NOTE | 2019-11-16 20:05 | NUR ---
MS/RN NOTES FOLDER TIER AND I ARE IN THE ROOM WITH PATIENT. PATIENT IS IN AN AGITATED MOOD AND IS REFUSING CARE AT THIS TIME. PATIENT STATED, "I DO NOT NEED TO USE THE COMMODE ANYMORE." PATIENT SAID THAT THE URGE TO USE THE COMMODE COMES AND GOES AND SHE NEEDS THE FOLDER TIER IN HER ROOM. WHEN ASKED WHAT ELSE WE COULD PROVIDE AT THIS TIME, PATIENT MADE IT KNOWN SHE WANTED A NEW GOWN AND BED LINENS BUT SHE DID NOT WANT THEM AT THIS TIME. PATIENT SAID SHE WOULD CALL WHEN SHE WAS READY.
--- NOTE | 2019-11-16 21:05 | NUR ---
MS/RN NOTES PATIENT TEMP AT 99.1, AND IS REQUESTING TYLENOL. PATIENT WAS GIVEN TYLENOL 650 MG PO. WILL CONTINUE TO MONITOR.
[2019-11-17] MEDS: LACTULOSE 10 G/15 ML UDC (PYXIS) PO SCH ×3 (06:00→12:00)
--- NOTE | 2019-11-17 06:30 | NUR ---
MS/RN CLOSING NOTES PATIENT RESTING IN BED. PATIENT IS ALERT AND ORIENTED X 4. PATIENT STATES NO PAIN AT THIS TIME. NO SOB OR RESPIRATORY DISTRESS NOTED. PATIENT IS ON 2L OF OXYGEN STAT AT 95%. NO DISTRESS NOTED AT THIS TIME. PATIENT HAS JERRY AV FISTULA, BRUIT AND THRILL PRESENT. PATIENT HAS RIGHT WRIST #[address] AND INTACT FLUSHING WELL. PATIENT HAS CERVICAL COLLAR ON AT THIS TIME AND DRESSING HAS BEEN CHANGED. ALL PATIENTS NEEDS HAVE BEEN MET DURING SHIFT. SAFETY MEASURES ARE IN PLACE, BED IS LOCKED AND PLACED IN THE LOW POSITION WITH SIDERAILS UP X 2. CALL LIGHT IS WITHIN REACH. WILL CONTINUE TO MONITOR PATIENT THROUGH OUT SHIFT.
[2019-11-17] MEDS: LEVOTHYROXINE SODIUM 125 MCG TABLET PO SCH (07:30)
[2019-11-17] MEDS: PANTOPRAZOLE 40 MG TABLET.DR PO SCH (07:30)
--- NOTE | 2019-11-17 07:45 | NUR ---
MS/RN OPENING NOTES: PATIENT IS A/OX3, WITH NO SIGNS OF DISTRESS IN 2L NASAL CANNULA. NOTED WITH CERVICAL COLLAR IN PLACE FROM FROM NECK SURGERY. IV R WRIST #20G SL INTACT JERRY AV FISTULA INTACT. SCHEDULED MEDICATION ORDER ABLE TO USE BED SIDE COMMODE WITH ASST. SAFETY MEASURES ARE IN PLACE BED IS IN LOW POSITION LOCKED AND SIDE RAILS UP X 2 FOR SAFETY. CALL LIGHT IS WITHIN REACH.WILL ENDORSE TO PRESENTATION MANAGER NURSE.
[2019-11-17 08:00] VITALS: BP 170/94
[2019-11-17] MEDS: SEVELAMER CARBONATE 800 MG TABLET PO SCH ×2 (09:08→13:00)
[2019-11-17] MEDS: DOXAZOSIN MESYLATE (1 MG) 1 MG TABLET PO SCH (09:08)
[2019-11-17] MEDS: CLONIDINE HCL 0.1 MG TABLET PO SCH ×2 (09:09→13:00)
[2019-11-17] MEDS: LOSARTAN POTASSIUM 50 MG TABLET PO SCH (09:10)
[2019-11-17] MEDS: LIOTHYRONINE SODIUM (5 MCG/TA 5 MCG TABLET PO SCH (09:10)
[2019-11-17] MEDS: LABETALOL HCL (100MG) 100 MG TABLET PO SCH ×2 (09:10→13:00)
[2019-11-17] MEDS: VIT B CMPLX 3/FA/VIT C/BIOTIN 1 TAB TABLET PO SCH (09:10)
[2019-11-17] MEDS: DOCUSATE SODIUM 250 MG CAPSULE PO SCH (09:11)
[2019-11-17] MEDS: AMLODIPINE BESYLATE 5 MG TABLET PO SCH (09:11)
[2019-11-17] MEDS: CHOLECALCIFEROL (VITAMIN D 3) 400 UNIT TABLET PO SCH (09:11)
[2019-11-17] MEDS: SPIRONOLACTONE 25 MG TABLET PO SCH (09:11)
[2019-11-17 09:12] VITALS: BP 190/96
[2019-11-17] MEDS: MINOXIDIL (2.5MG) 2.5 MG TABLET PO SCH (09:12)
[2019-11-17] MEDS: predniSONE 5 MG TABLET PO SCH ×2 (09:21→12:00)
[2019-11-17] MEDS: SORBITOL SOLUTION 30 ML PO SCH (09:22)
--- NOTE | 2019-11-17 14:35 | NUR ---
VP INFORMATICS NOTES: AWAKE ALERT Ox 3, SITTING COMFORTABLY IN BED, SHE REFUSED TO TAKE HER NOON MEDS AND V/S TAKEN STATING SHE IS NOT LONGER A PT HERE, SHE HAS PLEASANT MOOD, SHE AGREE TO BE DISCHARGE HOME AND ASK ARE THE PRESCRIBE MEDICATION READY THAT SHE WILL BRING HOME, JERRY-AV FISTULA (+)BRUIT AND (+) THRILL, PT DISCHARGE AT 14:40 PM , NO S/S OF ANY DISTRESS LEFT VIA CAR ACCOMPANY BY HER PERSONAL PAINT PREP TECHNICIAN ( LINNEA URIARTE)
== END 2019-11-17 14:45 | disposition home or self-care (01) | DRG 760 ==
LOC: ER 05:35 → TELE 11:11 → MED 11-15 10:44
PROVIDERS: ADMIT Registered Nurse; ATTEND Registered Nurse
PROC: 5A1D70Z Performance of Urinary Filtration, Intermittent, Less than 6 Hours Per Day (ICD-10-PCS; principal; 2019-11-13)
DX: N93.9 Abnormal uterine and vaginal bleeding, unspecified (principal); N18.6 End stage renal disease; I13.2 Hypertensive heart and chronic kidney disease with heart failure and with stage 5 chronic kidney disease, or end stage renal disease; I31.9 Disease of pericardium, unspecified; D62 Acute posthemorrhagic anemia; F41.9 Anxiety disorder, unspecified; E03.9 Hypothyroidism, unspecified; E11.22 Type 2 diabetes mellitus with diabetic chronic kidney disease; G40.909 Epilepsy, unspecified, not intractable, without status epilepticus; E78.5 Hyperlipidemia, unspecified; E87.5 Hyperkalemia; K59.09 Other constipation; F31.9 Bipolar disorder, unspecified; Z86.73 Personal history of transient ischemic attack (TIA), and cerebral infarction without residual deficits; Z99.2 Dependence on renal dialysis; I50.9 Heart failure, unspecified
CPT/HCPCS: 36415; 76856-TC; 80048-TC; 80061-TC; 80076-TC; 83540-TC; 83690-TC; 83735-TC; 84100-TC; 84443-TC; 85025-TC; 85730-TC; 86304; 87081-TC; 90935-TC; 93307-TC; 97110-TC; 97116-TC; 97530-TC; A6253; G0378; J2405; J2916; J7030; J7040; J7050; J7512

== ENCOUNTER 2020-01-19 22:34 | Inpatient (IN) | payer MEDICARE, OTHER ==
[~2020-01-19] VITALS: Ht 154.9 cm; Wt 47.6 kg
[~2020-01-19 22:34] MED LIST changes: +AMLO5TAB9 PO; +DOCU250C14 PO; +FERR325T23 PO; -FOLI0.8C PO; +HYDR5TAB13 PO; -LEVO100T9 PO; +LEVO125T8 PO; +LIOT5TAB11 PO; +PANT40TA2 PO; -PRED2.5T PO; +PROG100C15 PO; +SPIR50TA5 PO
--- NOTE | 2020-01-19 22:38 | NUR ---
SHADI FROM [facility] FOR AMS, LAST KNOWN WELL TIME 10PM. FIELD BS 111; pt to bed 6, pt aox0, placed on monitor, not in acute distress, pending er provider xavier
--- NOTE | 2020-01-19 22:40 | NUR ---
pt placed on simple mask per dr. duran
[2020-01-19 23:03] LABS: BASOPHILS % (AUTO) 0.4 % (0.0-2.0); HEMATOCRIT 36 % (33-45); HEMOGLOBIN 11.4 g/dL (11.5-14.8); LYMPHOCYTES # (AUTO) 0.8 /CMM (0.8-4.8); LYMPHOCYTES % (AUTO) 18.1 % (20.0-44.0); MEAN CORPUSCULAR HGB CONC 32 g/dl (31.0-36.0); MEAN CORPUSCULAR VOLUME 109 fL (82-100); MONOCYTES # (AUTO) 0.5 /CMM (0.1-1.30); MONOCYTES % (AUTO) 10.9 % (2.0-12.0); NEUTROPHILS # (AUTO) 3.1 /CMM (1.8-8.9); NEUTROPHILS % (AUTO) 70.6 % (43.0-81.0); PLATELET COUNT (AUTO) 172 /CMM (150-450); RED BLOOD CELL COUNT(AUTO) 3.26 MIL/uL (4.0-5.2); WHITE BLOOD COUNT (AUTO) 4.4 K/uL (4.3-11.0)
[2020-01-19 23:19] LABS: SERUM AMMONIA 32 umol/L (11-32)
[2020-01-19 23:45] LABS: NEUTROPHILS % (MANUAL) 75 (42-76)
[2020-01-19 23:46] LABS: LYMPHOCYTES % (MANUAL) 19 % (16-48)
[2020-01-19 23:47] LABS: MONOCYTES % (MANUAL) 6 % (0-11.0)
[2020-01-20] VITALS (29 sets, daily range): BP systolic 41–248; BP diastolic 20–119
[2020-01-20] MEDS ORDERED: FUROSEMIDE 40 MG/4 ML VIAL IV ONE
[2020-01-20] MEDS ORDERED: IV NS 0.9% 1,000 ML IV PRN ×2
[2020-01-20] MEDS ORDERED: FUROSEMIDE 40 MG/4 ML VIAL ONE
--- NOTE | 2020-01-20 | NUR ---
F/C PLACED PER DR. VASQUEZ FOR URINE COLLECTION, AUGUST D/C IF NO OUTPUT
[2020-01-20] MEDS ORDERED: ASPIRIN 300 MG/SUPP.RECT RC ONE ×2 (00:02)
[2020-01-20 00:03] LABS: CALCIUM, SERUM 9.4 mg/dL (8.5-10.1); CARBON DIOXIDE 14 mmol/L (21-32); CHLORIDE 97 mmol/L (98-107); GLUCOSE 124 mg/dL (74-106); SODIUM SERUM 142 mmol/L (136-145)
[2020-01-20 00:08] LABS: ALANINE AMINOTRANSFERASE 166 U/L (12-78); ALBUMIN 3.8 g/dL (3.4-5.0); ALKALINE PHOSPHATASE 297 U/L (46-116); ASPARTATE AMINOTRANSFERASE 196 U/L (15-37); BILIRUBIN,DIRECT 0.7 mg/dL (0.0-0.2); BILIRUBIN,TOTAL 1.5 mg/dL (0.2-1.0); POTASSIUM 7.4 mmol/L (3.5-5.1); TOTAL PROTEIN, SERUM 7.9 g/dL (6.4-8.2); UREA NITROGEN, BLOOD 138 mg/dL (7-18)
[2020-01-20] MEDS ORDERED: Calcium Gluconate 0.465 MEQ/ML VIAL IV ONE ×3 (00:20→06:02)
[2020-01-20] MEDS ORDERED: DEXTROSE 50%-WATER 50 ML DISP.SYRIN ONE ×2 (00:21→06:04)
[2020-01-20] MEDS ORDERED: Calcium Gluconate 1GM/10ML 4.65 MEQ in IV D5W 50 ML IV ONE ×3 (00:30→06:30)
[2020-01-20] MEDS ORDERED: INSULIN REGULAR, HUMAN 100 UNIT/ML 10 ML VIAL IV ONE ×2 (00:30→06:30)
[2020-01-20] MEDS ORDERED: DEXTROSE 50%-WATER 50 ML DISP.SYRIN IVP ONE ×2 (00:30→06:30)
--- NOTE | 2020-01-20 00:44 | NUR ---
DR. ANGELINE WANG PER DR. VASQUEZ
--- NOTE | 2020-01-20 01:10 | NUR ---
DR. VASQUEZ SPEAKING WITH DR. PRIDE
--- NOTE | 2020-01-20 01:15 | NUR ---
DR. VASQUEZ SPEAKING WITH DR. MARCUS
--- NOTE | 2020-01-20 01:17 | NUR ---
CALLED NURSING SUP FOR BED
[2020-01-20] MEDS ORDERED: Z GUARD REMEDY 2 OZ OINT TP PRN ×2 (01:30→16:30)
[2020-01-20] MEDS ORDERED: ONDANSETRON HCL/PF 4 MG/2 ML VIAL IVP PRN ×2 (01:30→16:30)
[2020-01-20] MEDS ORDERED: IOHEXOL-300 100 ML VIAL IV ONE (01:40)
--- NOTE | 2020-01-20 01:41 | NUR ---
PER DR. VASQUEZ, CANCEL AUTOMATIC LACTIC REFLEX, LAB AWARE
--- NOTE | 2020-01-20 01:45 | NUR ---
NO URINE OUTPUT, F/C DC AT THIS TIME
[2020-01-20] MEDS ORDERED: DEXTROSE 50%-WATER 50 ML DISP.SYRIN IV PRN (02:00)
--- NOTE | 2020-01-20 02:00 | NUR ---
PER [facility]; NO BEDS AVAILABLE IN ICU/[facility] AT THIS TIME
[2020-01-20 04:37] LABS: BASOPHILS % (AUTO) 0.2 % (0.0-2.0); HEMATOCRIT 34 % (33-45); HEMOGLOBIN 10.9 g/dL (11.5-14.8); LYMPHOCYTES # (AUTO) 0.5 /CMM (0.8-4.8); LYMPHOCYTES % (AUTO) 9.3 % (20.0-44.0); MEAN CORPUSCULAR HGB CONC 32 g/dl (31.0-36.0); MEAN CORPUSCULAR VOLUME 106 fL (82-100); MONOCYTES # (AUTO) 0.4 /CMM (0.1-1.30); MONOCYTES % (AUTO) 7.7 % (2.0-12.0); NEUTROPHILS % (AUTO) 82.8 % (43.0-81.0); PLATELET COUNT (AUTO) 169 /CMM (150-450); WHITE BLOOD COUNT (AUTO) 4.9 K/uL (4.3-11.0)
[2020-01-20 04:57] LABS: ALBUMIN 3.7 g/dL (3.4-5.0); BILIRUBIN,TOTAL 1.4 mg/dL (0.2-1.0); CALCIUM, SERUM 9.3 mg/dL (8.5-10.1); MAGNESIUM 3.1 mg/dL (1.8-2.4); TOTAL PROTEIN, SERUM 7.9 g/dL (6.4-8.2)
[2020-01-20 04:59] LABS: POTASSIUM 7.4 mmol/L (3.5-5.1)
[2020-01-20 05:00] LABS: CREATININE 12.2 mg/dL (0.6-1.3); PHOSPHORUS 8.1 mg/dL (2.5-4.9); THYROID STIMULATING HORMONE 38.028 uIU/mL (0.358-3.74)
--- NOTE | 2020-01-20 05:55 | NUR ---
PT NOTED +TACHY 120'S. EKG ORDERED PER PROTOCOL. SENT TO DR. STIVEN CHAVARRIA FOR REVIEW
--- NOTE | 2020-01-20 06:00 | NUR ---
DR. ANGELINE WANG PER DR. VASQUEZ
--- NOTE | 2020-01-20 06:00 | NUR ---
DR VASQUEZ WITH NEW MED ORDERS
[2020-01-20] MEDS ORDERED: INSULIN REGULAR, HUMAN 100 UNIT/ML 10 ML VIAL ONE (06:04)
--- NOTE | 2020-01-20 06:06 | NUR ---
DR. VASQUEZ SPEAKING WITH DR. MARCUS
--- NOTE | 2020-01-20 06:12 | NUR ---
SPOKE WITH DIALYSIS NURSE, CHIARA, EN ROUTE TO HOSPITAL. ETA 30 MINUTES
[2020-01-20] MEDS: BLOOD SUGAR DIAGNOSTIC 1 EACH STRIP IN SCH ×3 (06:24→17:32)
--- NOTE | 2020-01-20 06:43 | NUR ---
PER VERBAL MD ORDER BY DR. PRIDE, WILL ORDER REPEAT BMP
--- NOTE | 2020-01-20 07:00 | NUR ---
PER [facility], ROOM 260.
--- NOTE | 2020-01-20 07:15 | NUR ---
CALLED ICU, INFORMED PATIENT WILL BE GOING UP, BEDSIDE REPORT WILL BE GIVEN
--- NOTE | 2020-01-20 07:22 | NUR ---
PT TRANSPORTED TO ICU 260- BEDISDE REPORT GIVEN TO HERBERT HUITRON FOR RICHARD.
--- NOTE | 2020-01-20 07:30 | NUR ---
ICU/RN PT ADMITTED FROM ER .PT IS ALOC .RESPONSIVE ONLY ON DEEP PAIN STIMULATION.ON 10L SIMPLE MASK ,SAT 100%.IV-HL.ANURIC .ESRD.LEFT UPPER ARM HD FISTULA WITH A GOOD BRUIT AND THRILL NOTED.BP IS 189/98.AFEBRILE.LABS REVIEW. EMERGENCY HD STARTED ORDERED.
[2020-01-20] MEDS: LEVOTHYROXINE INJ 100 MCG VIAL IV SCH (08:00)
[2020-01-20] MEDS: PANTOPRAZOLE 40 MG VIAL IV SCH (08:19)
[2020-01-20] MEDS: HEPARIN SODIUM, PORCINE 5000 UNITS/1 ML VIAL SQ SCH ×2 (08:20→20:30)
[2020-01-20 09:37] LABS: CALCIUM, SERUM 9.7 mg/dL (8.5-10.1); POTASSIUM 4.6 mmol/L (3.5-5.1)
[2020-01-20 09:38] LABS: CREATININE 7.6 mg/dL (0.6-1.3)
--- NOTE | 2020-01-20 11:00 | NUR ---
ICU/RN HD IS OVER .2 L OUTPUT.BP STILL HIGH.PT START OPEN HER EYES NOT FOLLOWS COMMAND.CONTINUE MONITORING.
[2020-01-20 15:45] LABS: ABG OXYGEN SATURATION 99.8 % (92.0-98.5); ABG PO2 299.9 mmHg (75.0-100.0); COHb 0.8 % (0.5-1.5); MetHb 3.3 % (0.0-1.5); O2Hb 95.7 % (94.0-97.0); SITE, ABG Right Radial
[2020-01-20] MEDS ORDERED: MAGNESIUM HYDROXIDE 30 ML UDC PO PRN (16:30)
[2020-01-20] MEDS ORDERED: MAG HYDROX/AL HYDROX/SIMETH 30 ML UDC PO PRN (16:30)
[2020-01-20] MEDS ORDERED: LABETALOL HCL INJ 200 MG/40 ML VIAL IV PRN (18:00)
--- NOTE | 2020-01-20 18:00 | NUR ---
ICU/RN PT IS MORE AWAKE , EYES OPEN NOT FOLLOWS COMMAND,NON-VERBAL.ON 6L N/C .BP203/104. LABETALOL 20MG IV GIVEN ORDERED. PM CARE PROVIDED.CONTINUE MONITORING
[2020-01-20] MEDS: LABETALOL HCL IV 100MG VIAL IV PRN (18:05)
--- NOTE | 2020-01-20 19:30 | NUR ---
RN NOTES RECEIVED PATIENT IN BED OPEN HER EYES NOT FOLLOWING ANY COMMANDS. BREATHING NORMAL NO SOB NOTED. RESPIRATION EVEN NON LABORED. ON OXYGEN 6L VIA SIMPLE MASK SATURATING 99%. NO S/S OF PAIN OR DISTRESS NOTED. LEFT UPPER ARM DIALYSIS FISTULA BRUIT AND THRILL NOTED. CHET MID LINE INTACT PATENT AND FLUSHES WELL. SKIN WARM AND DRY TO TOUCH. ALL SAFETY MEASURES IN PLACE, CALL LIGHT WITHIN REACH. WILL CONT TO MONITOR.
[2020-01-20] MEDS: Z GUARD REMEDY 2 OZ OINT TP SCH (20:31)
[2020-01-20] MEDS: LORAZEPAM INJ 2 MG/ML VIAL IV PRN (21:19)
--- NOTE | 2020-01-20 21:19 | NUR ---
PRN ATIVAN GIVEN ORDERED PATIENT IS VERY ANXIOUS/AGITATED AND RESTLESS. SAFETY MEASURES IN PLACE.
[2020-01-21] VITALS (30 sets, daily range): BP systolic 133–177; BP diastolic 61–92
[2020-01-21] MEDS: BLOOD SUGAR DIAGNOSTIC 1 EACH STRIP IN SCH ×4 (00:32→17:16)
--- NOTE | 2020-01-21 04:03 | NUR ---
BED BATH GIVEN PATIENT TOLERATED WELL.
[2020-01-21] MEDS: NITROGLYCERIN 30 GM TUBE TOP PRN ×2 (04:21→17:25)
[2020-01-21 04:49] LABS: BASOPHILS % (AUTO) 0.2 % (0.0-2.0); HEMATOCRIT 31 % (33-45); HEMOGLOBIN 10.1 g/dL (11.5-14.8); LYMPHOCYTES # (AUTO) 0.9 /CMM (0.8-4.8); LYMPHOCYTES % (AUTO) 12.9 % (20.0-44.0); MEAN CORPUSCULAR HGB CONC 32 g/dl (31.0-36.0); MEAN CORPUSCULAR VOLUME 107 fL (82-100); MONOCYTES # (AUTO) 0.7 /CMM (0.1-1.30); MONOCYTES % (AUTO) 10.9 % (2.0-12.0); NEUTROPHILS # (AUTO) 5.2 /CMM (1.8-8.9); PLATELET COUNT (AUTO) 136 /CMM (150-450); RED BLOOD CELL COUNT(AUTO) 2.91 MIL/uL (4.0-5.2); WHITE BLOOD COUNT (AUTO) 6.8 K/uL (4.3-11.0)
--- NOTE | 2020-01-21 07:16 | NUR ---
RN NOTES NO CHANGES NOTED DURING SHIFT. ROUTINE MEDICATIONS WERE GIVEN ALONG WITH PRN FOR INCREASED B/P NOTED TO BE EFFECTIVE. NO S/S OF DISTRESS NOTED. CHET MIDLINE AND LEFT ARM HD CATH INTACT PATENT, NO S/S OF BLEEDING NOTED. ALL NEEDS ATTENDED. KEPT CLEAN DRY AND COMFORTABLE. SAFETY MEASURES IN PLACE. CALL LIGHT WITHIN REACH. WILL ENDORSE TO AM NURSE FOR RICHARD.
[2020-01-21 08:08] LABS: ALBUMIN 1.7 g/dL (3.4-5.0); BILIRUBIN,TOTAL 0.9 mg/dL (0.2-1.0); CREATININE 1.5 mg/dL (0.6-1.3); MAGNESIUM 1.7 mg/dL (1.8-2.4); PHOSPHORUS 3.3 mg/dL (2.5-4.9); POTASSIUM 3.4 mmol/L (3.5-5.1); TOTAL PROTEIN, SERUM 4.4 g/dL (6.4-8.2)
[2020-01-21] MEDS: PANTOPRAZOLE 40 MG VIAL IV SCH (08:20)
[2020-01-21] MEDS: LEVOTHYROXINE INJ 100 MCG VIAL IV SCH (08:20)
[2020-01-21] MEDS: HEPARIN SODIUM, PORCINE 5000 UNITS/1 ML VIAL SQ SCH ×2 (08:21→21:31)
[2020-01-21] MEDS: Z GUARD REMEDY 2 OZ OINT TP SCH ×2 (08:22→21:32)
--- NOTE | 2020-01-21 09:00 | NUR ---
ICU/RN DUE MEDS ARE GIVEN ORDERED.PT IS AWAKE,ALERT,ORIENTED -1.CONFUSED.IV LEFT UPPER ARM MIDLINE.ANURIC ON HD .LEFT UPPER ARM IV FISTULA.PT HAS VAGINAL BLOODY DISCHARGE.REPOSITION FOR COMFORT.ON 6L SIMPLE MASK ,SAT O2-100%.LABS REVIEW.BP STILL HIGH.
[2020-01-21 11:20] LABS: BAND % (MANUAL) 2 % (0.0-5.0); LYMPHOCYTES % (MANUAL) 17 % (16-48); MONOCYTES % (MANUAL) 10 % (0-11.0); NEUTROPHILS % (MANUAL) 71 (42-76)
[2020-01-21] MEDS ORDERED: POTASSIUM CL. PREMIX PERIPHER. 50 ML IV SCH (12:15)
[2020-01-21] MEDS ORDERED: Magnesium 1GM/D5W 100ML PREMIX 100 ML IV SCH (12:30)
--- NOTE | 2020-01-21 13:00 | NUR ---
ICU/RN HD IS OVER .3L OUTPUT.PT TOLERATED PROCEDURE WELL.RESTING IN THE BED.
[2020-01-21 15:04] LABS: ABG OXYGEN SATURATION 95.7 % (92.0-98.5); ABG PCO2 30.2 mmHg (35.0-45.0); ABG PH 7.475 (7.350-7.450); ABG PO2 85.1 mmHg (75.0-100.0); AaDO2 28.5 mmHg; MetHb 2.9 % (0.0-1.5); SITE, ABG Right Radial; VENT MODE, BG room air
--- NOTE | 2020-01-21 17:00 | NUR ---
ICU/RN BP-178/78.LABETALOL 20MG IV GIVEN ORDERED. PM CARE PROVIDED.PT IS MORE AWAKE,ALERT.NO PAIN REPORTED AT THIS TIME.ON ROOM AIR SAT -96%.
[2020-01-21] MEDS: LABETALOL HCL IV 100MG VIAL IV PRN (17:22)
--- NOTE | 2020-01-21 18:01 | NUR ---
ICU/RN PT IS STABLE TO TRANSFER TO TELE UNIT.BP 133/60. BS-110.
--- NOTE | 2020-01-21 18:10 | NUR ---
RN NOTES GET REPORT FROM CIGARETTE LIGHTER REPAIRERHERBERT HUITRON. PATIENT TELE SR-61 WITH BBB, ON NC, A/O X2/3 V/S TAKEN BP-133/75, R-19, O2-94 NC, T-97.8. P -65. PATIENT REFUSED PAIN, HD SHUNT ON LEFT UA INTACT, MIDLINE IV ACCESS ON RIGHT UA INTACT. PATIENT NPO, SWALLOW EVALUATION SCHEDULED ON TOMORROW. TOTAL CARE, VAGINAL DISCHARGE BROWN COLOR, HOSPITALIST AWARE OF. PATIENT INCONTINENT OF BOWL, ANURIC. HAS HD TODAY OUTPUT WAS 3000L. INCONTINENT. CALL LIGHT WITHIN TO REACH. WILL CONTINUED MONITORING.
[2020-01-21 18:16] LABS: ALBUMIN 3.4 g/dL (3.4-5.0); BILIRUBIN,TOTAL 1.5 mg/dL (0.2-1.0); CALCIUM, SERUM 9.3 mg/dL (8.5-10.1); CREATININE 6.5 mg/dL (0.6-1.3); POTASSIUM 5.1 mmol/L (3.5-5.1); TOTAL PROTEIN, SERUM 7.4 g/dL (6.4-8.2)
--- NOTE | 2020-01-21 18:20 | NUR ---
ICU/RN PT TRANSFERRED TO TELE UNIT IN STABLE CONDITION .REPORT GIVEN TO KARLA/HERBERT
--- NOTE | 2020-01-21 18:44 | NUR ---
RN NOTES PATIENT STABLE, V/S WNL. ENDORSED ONCOMING NURSE FOLLOW RICHARD.
--- NOTE | 2020-01-21 19:40 | NUR ---
TELERN EYES OPENS WHEN CALLED, CONFUSE, COOPERATIVE. NO SOB. REPOSITIONED, KEPT COMFORTABLE. SR ON THE MONITOR, CONTINUED MONITORING. CLOSELY MONITORED.
[2020-01-21] MEDS ORDERED: Z GUARD REMEDY 4 OZ OINT TP ONE (21:27)
--- NOTE | 2020-01-21 23:15 | NUR ---
TELERN SLEEPS ON AND OFF, CONVERSANT AT TIMES, REORIENTED TO PLACE ASKING NAME OF HOSPITAL.. NO RESPIRATORY DISTRESS, TAKES 02 OFF AT TIMES. SATURATION ON RA WAS 95%. KEPT COMFORTABLE, CLOSELY WATCHED.
[2020-01-22] MEDS: BLOOD SUGAR DIAGNOSTIC 1 EACH STRIP IN SCH ×4 (00:01→17:10)
[2020-01-22 00:08] VITALS: BP 170/74
[2020-01-22 04:00] VITALS: BP 173/75
[2020-01-22 04:07] VITALS: BP 173/75
[2020-01-22 08:00] VITALS: BP 175/84
--- NOTE | 2020-01-22 08:00 | NUR ---
USER EXPERIENCE MANAGER AM NOTES RECEIVED PATIENT TELE SR-61 ON ROOM AIR WITH NO SOB, A/O X2/3 AWAKE AND VERBALLY RESPONSIVE.PT KEEPS SAYING SHE WANTS TO SLEEP. PT EVEN TALKS IN HER SLEEP FREQUENTLY.HD SHUNT ON LEFT UA INTACT, MIDLINE IV ACCESS ON RIGHT UA INTACT. PATIENT ON NPO, FOR SWALLOW EVALUATION SCHEDULED TODAY. TOTAL CARE AND BEDBOUND.PATIENT INCONTINENT OF BOWEL, ANURIC. INCONTINENT. CALL LIGHT WITHIN TO REACH. WILL CONTINUE MONITORING.
[2020-01-22 09:30] LABS: CALCIUM, SERUM 8.7 mg/dL (8.5-10.1); MAGNESIUM 2.8 mg/dL (1.8-2.4); POTASSIUM 5.2 mmol/L (3.5-5.1)
[2020-01-22 09:40] LABS: CREATININE 7.5 mg/dL (0.6-1.3)
[2020-01-22] MEDS: MORPHINE SULFATE INJ 2 MG/ML DISP.SYRIN IV PRN ×3 (10:00→21:50)
[2020-01-22] MEDS: PANTOPRAZOLE 40 MG VIAL IV SCH (10:00)
--- NOTE | 2020-01-22 10:00 | NUR ---
SPEECH THERAPISTMICHELLE DID SWALLOW EVAL ON THE PT AND PT PASSED ON PUREED TEXTURED FOOD AND THIN LIQUIDS AND CARRIED OUT. WILL CONTINUE TO MONITOR.
[2020-01-22] MEDS: Z GUARD REMEDY 2 OZ OINT TP SCH ×2 (10:01→21:25)
[2020-01-22] MEDS: HEPARIN SODIUM, PORCINE 5000 UNITS/1 ML VIAL SQ SCH ×2 (10:02→21:25)
[2020-01-22] MEDS: NITROGLYCERIN 30 GM TUBE TOP PRN ×2 (10:25→17:34)
[2020-01-22] MEDS: LEVOTHYROXINE INJ 100 MCG VIAL IV SCH (11:44)
--- NOTE | 2020-01-22 11:45 | NUR ---
administered Levothyroxine IV, pt hasn't eaten breakfast due to NPO earlier.Will administer prior to lunch.
[2020-01-22] MEDS: INSULIN REGULAR, HUMAN 100 UNIT/ML 3 ML VIAL SQ PRN ×2 (11:50→16:56)
[2020-01-22 16:52] LABS: CALCIUM, SERUM 8.4 mg/dL (8.5-10.1); POTASSIUM 5.1 mmol/L (3.5-5.1)
[2020-01-22 16:53] LABS: CREATININE 7.9 mg/dL (0.6-1.3)
[2020-01-22] MEDS: HYDROCODONE/APAP 5/325MG TABLET PO PRN (17:11)
--- NOTE | 2020-01-22 17:16 | NUR ---
STARTED HEMODIALYSIS PROCEDURE AT THIS TIME WITH STABLE V/S.PT AGREED TO HAVE THE PROCEDURE.
--- NOTE | 2020-01-22 18:17 | NUR ---
PT ON/OFF SLEEP AND AWAKE,TALKING AND MOVING HER ARMS EVEN WHILE SLEEPING AND KEEPS SAYING THAT SHE JUST WANTS TO SLEEP. C/O HEADACHE.PAIN MGT GIVEN PRN NEEDED FOR PAIN MGT.STILL WITH ONGOING HEMODIALYSIS PROCEDURE. CALL LIGHT PLACED WITHIN REACH.
--- NOTE | 2020-01-22 19:45 | NUR ---
MS RN NOTES RECEIVED ON BED SOUND ASLEEP,AROUSABLE TO VERBAL STIMULI,BREATHING REGULAR,NOT IN ANY FORM OF DISTRESS.S/P HEMODIALYSIS 2LITERS OUT,HD SITE LEFT UPPER ARM,DRESSING INTACT AND DRY, WITH GOOD BRUIT NOTED.WITH CHET MIDLINE FOR MEDS.FALL PRECAUTION OBSERVED,BED ALARM,BED ON LOWEST POSITION AND LOCKED.CALL LIGHT IN REACH,NEEDS ANTICIPATED.
[2020-01-22 20:00] VITALS: BP 147/71
--- NOTE | 2020-01-22 21:50 | NUR ---
MS RN NOTES PAIN MANAGEMENT C/O HEADACHE AND GENERALIZED BODY ACHE 8/10 ON PAIN SCALE.MEDICATED WITH MORPHINE 2MG IV ORDERED.
[2020-01-23] MEDS: BLOOD SUGAR DIAGNOSTIC 1 EACH STRIP IN SCH ×4 (00:19→17:01)
[2020-01-23] MEDS: INSULIN REGULAR, HUMAN 100 UNIT/ML 3 ML VIAL SQ PRN ×2 (00:25→11:41)
--- NOTE | 2020-01-23 01:00 | NUR ---
MS RN NOTES SOUND ASLEEP,KEPT WARM AND COMFORTABLE.
--- NOTE | 2020-01-23 03:26 | NUR ---
MS RN NOTES ASLEEP.KEPT WARM
--- NOTE | 2020-01-23 03:26 | NUR ---
MS RN NOTES RESTLESS AND ANXIOUS,MEDICATED WITH ATIVAN 2MG IV ORDERED
--- NOTE | 2020-01-23 06:57 | NUR ---
MS HERBERT NOTES SLEEPING,MORNING CARE RENDERED.COLOSTOMY BAG EMPTIED BY X3,WITH LIQUID STOOL.APPEARS HE'S HUNGRY ALL THE TIME,SANDWICH PROVIDED.NO FALL,NO INJURY.MORNING CARE TOLERATED WELL.IN NO ACUTE DISTRESS.ENDORSED TO GILMA GODINEZ FOR RICHARD. Addendum: 01/23/20 at 0706 by RONNA SAMUELS RN NOTES NOT FOR THIS PATIENT
--- NOTE | 2020-01-23 07:06 | NUR ---
MS RN NOTES FAIRLY RESTED WITH ATIVAN.CALM AND QUIET,DRESSING TO LEFT UPPER ARM IN PLACE.NO DISTRESS.ENDORSED TO GILMA GODINEZ FOR RICHARD.
[2020-01-23] MEDS: LEVOTHYROXINE SODIUM 125 MCG TABLET PO SCH (07:29)
--- NOTE | 2020-01-23 07:30 | NUR ---
MS/RN - Assessment Patient in bed awake, A/O X 1-2, forgetful, reality orientation provided, denies chest pain, stable on room air. CHET midline is patent and intact, with no signs of infiltration. No labs ordered for today. Fall and aspiration precautions maintained. All needs attended. Will continue with current medical management.
[2020-01-23 08:00] VITALS: BP 152/87
[2020-01-23] MEDS: PANTOPRAZOLE 40 MG VIAL IV SCH (08:15)
[2020-01-23] MEDS: HEPARIN SODIUM, PORCINE 5000 UNITS/1 ML VIAL SQ SCH ×2 (08:15→21:18)
[2020-01-23] MEDS: Z GUARD REMEDY 2 OZ OINT TP SCH ×2 (08:16→21:21)
--- NOTE | 2020-01-23 09:49 | NUR ---
WOUND CARE CONSULT: PT PRESENTS WITH MULTIPLE AREAS OF SKIN DISCOLORATION INCLUDING ARMS AND RT HIP AREA AND SACRAL SCAR NOTED TO BE PRESENT ON ADMISSION. PT IS VERY THIN AND BONY. RECOMMENDATIONS MADE FOR SKIN PROTECTION. DISCUSSED WITH NURSING STAFF. JENNIFER ISOFLEX LOW AIRLOSS BED TO BE PLACED. MD IN AGREEMENT WITH PLAN OF CARE.
[2020-01-23] MEDS: HYDROCODONE/APAP 5/325MG TABLET PO PRN (12:26)
[2020-01-23] MEDS: CLONIDINE HCL 0.1 MG TABLET PO SCH ×2 (12:28→21:17)
--- NOTE | 2020-01-23 13:00 | NUR ---
MS/RN - Notes Patient remain confused, frequent reorientation given, VSS, c/o headache, [place] 1 tab given with relief, for MRI brain w/o contrast, telephone consent obtained from brother Danny Goodson. Will continue to monitor closely.
[2020-01-23] MEDS: ALBUTEROL FS 2.5 MG/3 ML VIAL.NEB NEB SCH (15:04)
[2020-01-23] MEDS: LORAZEPAM INJ 2 MG/ML VIAL IV PRN (15:22)
--- NOTE | 2020-01-23 15:45 | NUR ---
MS/RN - Notes Patient is awake, alert to self, stable on room air, denies pain, taken via gurney for MRI Brain w/o contrast.
[2020-01-23 16:00] VITALS: BP 159/89
--- NOTE | 2020-01-23 16:26 | NUR ---
MS/RN - Notes Patient returned to room post MRI Brain w/o contrast, awake, no apparent distress seen. All needs attended.
[2020-01-23] MEDS: LamoTRIgine 25 MG TABLET PO SCH (17:04)
--- NOTE | 2020-01-23 18:11 | NUR ---
MS/RN - End of shift summary Patient is awake, still altered, frequent reorientation given, afebrile, uses supplemental oxygen at 2lpm via NC, no c/o pain at this time, MRI brain result is still pending. Continue fall and aspiration precautions. Contact isolation initiated for MRSA nares, on Bactroban ointment. Will continue with current medical management.
--- NOTE | 2020-01-23 19:30 | NUR ---
MS RN NOTES ON BED SLEEPING AROUSABLE TO VERBAL STIMULI,BREATHING EASY,NO SOB.SALINE LOCK RIGHT UPPER ARM MIDLINE INTACT AND PATENT,LEFT UPPER ARM AV SHUNT WITH GOOD THRILL AND BRUIT NOTED.TALKING TO SELF AT TIMES.FALL PRECAUTION OBSERVED,CALL LIGHT IN REACH,NEEDS ANTICIPATED.
[2020-01-23 20:00] VITALS: BP_SYST 106; BP_SYST 188; BP_DIAS 50; BP_DIAS 84
--- NOTE | 2020-01-23 20:00 | NUR ---
MS RN NOTES BP 188/84,DUE CATAPRES 0.3MG PO GIVEN SCHEDULED.
[2020-01-23] MEDS: MUPIROCIN OINT 2% 22 GM TUBE NS SCH (21:21)
[2020-01-24] VITALS: BP 157/79
[2020-01-24] MEDS: BLOOD SUGAR DIAGNOSTIC 1 EACH STRIP IN SCH ×4 (00:04→18:12)
[2020-01-24] MEDS: ALBUTEROL FS 2.5 MG/3 ML VIAL.NEB NEB SCH ×3 (00:08→14:42)
[2020-01-24] MEDS: ACETYLCYSTEINE 10% SOLN 400 MG/4 ML VIAL NEB SCH ×3 (00:08→14:42)
--- NOTE | 2020-01-24 04:00 | NUR ---
MS RN NOTES MORNING CARE RENDERED BY MARY ELLEN CORRALES, TOLERATED WELL.
--- NOTE | 2020-01-24 05:00 | NUR ---
MS RN NOTES BP 174/87,DUE CATAPRES 0.3MG PO GIVEN SCHEDULED.
[2020-01-24] MEDS: CLONIDINE HCL 0.1 MG TABLET PO SCH ×3 (05:16→22:43)
--- NOTE | 2020-01-24 06:00 | NUR ---
MS RN NOTES ACCU-CHECK BLOOD SUGAR CHECK 111,NO INSULIN COVERAGE.
--- NOTE | 2020-01-24 06:10 | NUR ---
MS RN NOTES FAIRLY RESTED,NO FALL,NO INJURY,NEEDS ATTENDED.
--- NOTE | 2020-01-24 07:52 | NUR ---
MS/RN OPENING NOTES RECEIVED PATIENT ON BED. PATIENT COMPLAINED OF HEADACHE, TYLENOL 325MG 2TAB PO WAS GIVEN. PATIENT IN NO APPARENT RESPIRATORY DISTRESS NOTED. WILL CONTINUE TO MONITOR.
[2020-01-24] MEDS: ACETAMINOPHEN 325 MG TABLET PO PRN ×2 (07:57→18:33)
[2020-01-24] MEDS: LEVOTHYROXINE SODIUM 125 MCG TABLET PO SCH (07:57)
[2020-01-24] MEDS: PANTOPRAZOLE 40 MG/PACK PACK PO SCH (07:58)
[2020-01-24 08:00] VITALS: BP 152/72
--- NOTE | 2020-01-24 08:11 | NUR ---
MS/RN NOTES PATIENT IS ON GOING HEMODIALYSIS.
[2020-01-24] MEDS: HEPARIN SODIUM, PORCINE 5000 UNITS/1 ML VIAL SQ SCH ×2 (09:07→22:44)
[2020-01-24] MEDS: MUPIROCIN OINT 2% 22 GM TUBE NS SCH ×2 (09:08→22:43)
[2020-01-24] MEDS: Z GUARD REMEDY 2 OZ OINT TP SCH ×2 (09:08→21:00)
--- NOTE | 2020-01-24 10:02 | NUR ---
MS/RN NOTES PATIENT WITH SIGN AND SYMPTOM OF PAIN, PATIENT IS IRRITABLE, FACIAL GRIMACE WAS NOTED AND MOANING. WILL CONTINUE TO MONITOR.
[2020-01-24] MEDS: HYDROCODONE/APAP 5/325MG TABLET PO PRN (10:06)
[2020-01-24] MEDS: INSULIN REGULAR, HUMAN 100 UNIT/ML 3 ML VIAL SQ PRN (11:42)
--- NOTE | 2020-01-24 12:13 | NUR ---
MS/RN NOTES PATIENT IS OUT IN THE UNIT. CLIP ON SUNGLASSES ASSEMBLER BY PROCESS ASSISTANT.
--- NOTE | 2020-01-24 13:00 | NUR ---
MS/RN NOTES PATIENT CAME BACK FROM RADIOLOGY.
[2020-01-24] MEDS: LORAZEPAM INJ 2 MG/ML VIAL IV PRN (14:23)
--- NOTE | 2020-01-24 14:25 | NUR ---
MS/RN NOTES NOTICED PATIENT WAS ANXIOUS ATIVAN 2M IV WAS GIVEN. WILL CONTINUE TO MONITOR.
[2020-01-24 15:35] LABS: CSF GLUCOSE 79 mg/dL (40-70); CSF PROTEIN 46.2 mg/dL (15-45)
[2020-01-24 16:00] VITALS: BP 148/69
--- NOTE | 2020-01-24 17:02 | NUR ---
MS/RN NOTES DR. OLIVARES ORDER ATIVAN 1 MG IV EVERY 12 HOURS AND PRN FOR SEVERE ANXIETY. NOTED AND CARRIED OUT.
[2020-01-24] MEDS ORDERED: LORAZEPAM INJ 2 MG/ML VIAL IV PRN (17:30)
[2020-01-24 17:54] LABS: BASOPHILS % (AUTO) 0.6 % (0.0-2.0); EOSINOPHILS % (AUTO) 2.7 % (0.0-6.0); HEMATOCRIT 33 % (33-45); HEMOGLOBIN 10.9 g/dL (11.5-14.8); LYMPHOCYTES # (AUTO) 0.6 /CMM (0.8-4.8); LYMPHOCYTES % (AUTO) 11.9 % (20.0-44.0); MEAN CORPUSCULAR HGB CONC 33 g/dl (31.0-36.0); MEAN CORPUSCULAR VOLUME 108 fL (82-100); MONOCYTES # (AUTO) 0.3 /CMM (0.1-1.30); MONOCYTES % (AUTO) 5.8 % (2.0-12.0); PLATELET COUNT (AUTO) 158 /CMM (150-450); RED BLOOD CELL COUNT(AUTO) 3.09 MIL/uL (4.0-5.2)
[2020-01-24] MEDS: LamoTRIgine 25 MG TABLET PO SCH (17:58)
[2020-01-24 18:18] LABS: ALBUMIN 2.9 g/dL (3.4-5.0); BILIRUBIN,TOTAL 2.1 mg/dL (0.2-1.0); CALCIUM, SERUM 8.8 mg/dL (8.5-10.1); MAGNESIUM 2.3 mg/dL (1.8-2.4); PHOSPHORUS 3.7 mg/dL (2.5-4.9); POTASSIUM 4.4 mmol/L (3.5-5.1); TOTAL PROTEIN, SERUM 6.6 g/dL (6.4-8.2)
--- NOTE | 2020-01-24 18:31 | NUR ---
MS/RN NOTES PATIENT COMPLAINED OF HEADACHE. TYLENOL 325MG 2 TAB PO WAS GIVEN. WILL CONTINUE TO MONITOR.
--- NOTE | 2020-01-24 18:43 | NUR ---
PATIENT IS ON BED. PATIENT NO SIGN AND SYMPTOM OF PAIN AT THIS TIME. PATIENT IN NO RESPIRATORY DISTRESS NOTED. IV ACCESS AT RIGHT UPPER ARM MIDLINE PATENT AND INTACT. LEFT UPPER ARM AV SHUNT PATENT AND INTACT HEMODIALYSIS DONE TODAY WITH 2 L OUTPUT. SEEN AND EXAMINED BY MD WITH ORDERS MADE AND CARRIED OUT. ALL DUE MEDICATION WAS GIVEN. SAFETY PRECAUTIONS WAS IN PLACED. BED IN LOWEST POSITION AND LOCKED. SIDE RAILS UP X2. CALL LIGHT WITHIN REACH. WILL ENDORSED TO RAW MILL OPERATOR FOR RAW MILL OPERATOR FOR RICHARD.
--- NOTE | 2020-01-24 19:30 | NUR ---
MS/RN OPENING NOTES RECEIVED PATIENT IS BED RESTING. PATIENT IS ALERT AND ORINETED X 1. NO SIGNS OF SOB OR RESPIRATORY DISTRESS NOTED. PATIENT HAS RIGHT UA MIDLINE IS PLACE AND INTACT. LEFT AV SHUNT IN PLACE, PATIENT HD OUTPUT ON 01/23 2,OOOCC. SAFETY MEASURES ARE IN PLACE, BED IS LOCKED AND PLACED IN THE LOW POSITION, SIDE RAILS UP X3. CALL LIGHT IS WITHIN REACH. WILL CONTINUE TO MONITOR.
[2020-01-24 20:00] VITALS: BP 97/57
[2020-01-24 21:28] LABS: EOSINOPHILS % (MANUAL) 3 % (0-4); LYMPHOCYTES % (MANUAL) 16 % (16-48); MONOCYTES % (MANUAL) 6 % (0-11.0); NEUTROPHILS % (MANUAL) 75 (42-76)
--- NOTE | 2020-01-24 22:50 | NUR ---
MS/RN NOTES PATIENT STATES A FEELING OF BEING ANXIOUS AND RESTLESS. PATIENT GIVEN ATIVAN IVP 1 MG. V/S ARE STABLE WILL CONTINUE TO MONITOR.
[2020-01-25] MEDS: ALBUTEROL FS 2.5 MG/3 ML VIAL.NEB NEB SCH ×4 (00:05→23:40)
[2020-01-25] MEDS: ACETYLCYSTEINE 10% SOLN 400 MG/4 ML VIAL NEB SCH ×4 (00:05→23:40)
[2020-01-25] MEDS: BLOOD SUGAR DIAGNOSTIC 1 EACH STRIP IN SCH ×4 (00:38→17:31)
[2020-01-25] MEDS: HYDROCODONE/APAP 5/325MG TABLET PO PRN ×3 (00:55→22:47)
--- NOTE | 2020-01-25 00:55 | NUR ---
MS/RN NOTES PATIENT COMPLAINED ABOUT GENERALIZED PAIN. PATIENT GIVEN [place] 5-325 PO. V/S ARE STABLE WILL CONTINUE TO MONITOR.
[2020-01-25] MEDS: CLONIDINE HCL 0.1 MG TABLET PO SCH ×3 (05:05→21:08)
--- NOTE | 2020-01-25 06:45 | NUR ---
MS/RN CLOSING NOTES PATIENT IS BED RESTING. PATIENT IS ALERT AND ORIENTED X 1-2. NO SIGNS OF SOB OR RESPIRATORY DISTRESS NOTED. PATIENT HAS RIGHT UA MIDLINE IS PLACE AND INTACT. LEFT AV SHUNT IN PLACE, PATIENT HD OUTPUT ON 01/24/20 2,OOO CC. ALL PATIENTS NEEDS HAVE BEEN MET DURING SHIFT. SAFETY MEASURES ARE IN PLACE, BED IS LOCKED AND PLACED IN THE LOW POSITION, SIDE RAILS UP X3. CALL LIGHT IS WITHIN REACH. WILL ENDORSE CARE TO DAY SHIFT.
--- NOTE | 2020-01-25 07:45 | NUR ---
RN OPENING NOTES RECEIVED PATIENT IN BED. AWAKE ALERT AND ORIENTED X1-2. PT HAS PERIODS OF CONFUSION. SHE TENDS TO RAMBLE ON A LOT OF THINGS. ALTHOUGH SHE IS ABLE TO MAKE NEEDS KNOWN. NO CARDIAC OR RESPIRATORY DSITRESS NOTED. NO SOB NOTED. SATURATING WELL ON R3L OF O2 VIA NC. IV ACCESS NOTED ON R UPPER ARM. INTACT AND PATENT AND FLUSHING WELL. NO S/S OF INFECTION OR INFILTRATION NOTED. SAFETY MEASURES ARE IN PLACE, BED IS LOCKED AND PLACED IN THE LOW POSITION, SIDE RAILS UP X3. CALL LIGHT IS WITHIN REACH. WILL CONTINUE TO MONITOR.
[2020-01-25 08:00] VITALS: BP 129/69
[2020-01-25] MEDS: LEVOTHYROXINE SODIUM 125 MCG TABLET PO SCH (08:45)
[2020-01-25] MEDS: PANTOPRAZOLE 40 MG/PACK PACK PO SCH (08:45)
[2020-01-25] MEDS: HEPARIN SODIUM, PORCINE 5000 UNITS/1 ML VIAL SQ SCH ×2 (08:46→21:10)
[2020-01-25] MEDS: Z GUARD REMEDY 2 OZ OINT TP SCH ×2 (08:46→21:09)
[2020-01-25] MEDS: MUPIROCIN OINT 2% 22 GM TUBE NS SCH ×2 (08:52→21:09)
--- NOTE | 2020-01-25 10:00 | NUR ---
ALL PER DR. DUNCAN AND DR. OLIVARES D/C ALL. MD'S HAVE SEEN PT. PER MDS D/C ALL FOR NOW.
--- NOTE | 2020-01-25 15:30 | NUR ---
EKG EKG RESULTS RELAYED TO DR. MORATAYA.
[2020-01-25 16:00] VITALS: BP 120/70
[2020-01-25] MEDS: LamoTRIgine 25 MG TABLET PO SCH (17:33)
--- NOTE | 2020-01-25 19:30 | NUR ---
MS/RN OPENING NOTES PATIENT IS BED RESTING. PATIENT IS ALERT AND ORIENTED X2-3. NO SIGNS OF SOB OR RESPIRATORY DISTRESS NOTED. BREATHING IS EVEN AND UNLABORED. PATIENT HAS RIGHT UA MIDLINE IS PLACE AND INTACT. LEFT AV SHUNT IN PLACE. SAFETY MEASURES ARE IN PLACE, BED IS LOCKED AND PLACED IN THE LOW POSITION, SIDE RAILS UP X3. CALL LIGHT IS WITHIN REACH. WILL CONTINUE TO MONITOR DURING SHIFT.
[2020-01-25 20:00] VITALS: BP 137/63
[2020-01-25] MEDS: ACETAMINOPHEN 325 MG TABLET PO PRN (20:08)
[2020-01-25 20:09] VITALS: BP 137/63
--- NOTE | 2020-01-25 20:10 | NUR ---
MS/RN NOTES PATIENT REQUESTING MILD PAIN MED FOR GENERAL PAIN. GIVEN TYLENOL 650 MG PO. V/S STABLE, WILL CONTINUE TO MONITOR.
--- NOTE | 2020-01-25 22:50 | NUR ---
MS/RN NOTES PATIENT COMPLAINING OF HEAD AND ABDOMEN PAIN. GIVEN NORCO 5-325 PO. V/S ARE STABLE, WILL CONTINUE TO MONITOR.
[2020-01-26] MEDS: CLONIDINE HCL 0.1 MG TABLET PO SCH ×3 (05:33→21:52)
[2020-01-26] MEDS: ACETAMINOPHEN 325 MG TABLET PO PRN (05:33)
[2020-01-26] MEDS: BLOOD SUGAR DIAGNOSTIC 1 EACH STRIP IN SCH ×5 (06:03→23:05)
--- NOTE | 2020-01-26 06:55 | NUR ---
MS/RN CLOSING NOTES PATIENT IS BED RESTING. PATIENT IS ALERT AND ORIENTED X2-3. NO SIGNS OF SOB OR RESPIRATORY DISTRESS NOTED. BREATHING IS EVEN AND UNLABORED. PATIENT HAS RIGHT UA MIDLINE IS PLACE AND INTACT. LEFT AV SHUNT IN PLACE. ALL PATIENTS NEEDS HAVE BEEN MET DURING SHIFT. SAFETY MEASURES ARE IN PLACE, BED IS LOCKED AND PLACED IN THE LOW POSITION, SIDE RAILS UP X3. CALL LIGHT IS WITHIN REACH. WILL ENDORSE CARE TO DAY SHIFT.
[2020-01-26 07:00] LABS: BASOPHILS % (AUTO) 0.4 % (0.0-2.0); EOSINOPHILS % (AUTO) 3.3 % (0.0-6.0); HEMATOCRIT 30 % (33-45); HEMOGLOBIN 9.8 g/dL (11.5-14.8); LYMPHOCYTES # (AUTO) 1.1 /CMM (0.8-4.8); LYMPHOCYTES % (AUTO) 20.4 % (20.0-44.0); MEAN CORPUSCULAR HGB CONC 33 g/dl (31.0-36.0); MEAN CORPUSCULAR VOLUME 110 fL (82-100); MONOCYTES # (AUTO) 0.4 /CMM (0.1-1.30); MONOCYTES % (AUTO) 8.3 % (2.0-12.0); NEUTROPHILS # (AUTO) 3.5 /CMM (1.8-8.9); NEUTROPHILS % (AUTO) 67.6 % (43.0-81.0); PLATELET COUNT (AUTO) 166 /CMM (150-450); RED BLOOD CELL COUNT(AUTO) 2.72 MIL/uL (4.0-5.2); WHITE BLOOD COUNT (AUTO) 5.1 K/uL (4.3-11.0)
--- NOTE | 2020-01-26 07:30 | NUR ---
RN OPENING NOTES RECEIVED PATIENT IN BED. AWAKE ALERT AND ORIENTED X1-2. PT HAS PERIODS OF CONFUSION. SHE TENDS TO RAMBLE ON A LOT OF THINGS. ALTHOUGH SHE IS ABLE TO MAKE NEEDS KNOWN. NO CARDIAC OR RESPIRATORY DISTRESS NOTED. NO SOB NOTED. SATURATING WELL ON R3L OF O2 VIA NC. IV ACCESS NOTED ON R UPPER ARM. INTACT AND PATENT AND FLUSHING WELL. NO S/S OF INFECTION OR INFILTRATION NOTED. SAFETY MEASURES ARE IN PLACE, BED IS LOCKED AND PLACED IN THE LOW POSITION, SIDE RAILS UP X3. CALL LIGHT IS WITHIN REACH. WILL CONTINUE TO MONITOR.
[2020-01-26 07:34] LABS: ALBUMIN 2.8 g/dL (3.4-5.0); BILIRUBIN,TOTAL 1.5 mg/dL (0.2-1.0); CALCIUM, SERUM 8.7 mg/dL (8.5-10.1); CREATININE 6.6 mg/dL (0.6-1.3); POTASSIUM 5.2 mmol/L (3.5-5.1); TOTAL PROTEIN, SERUM 6.2 g/dL (6.4-8.2)
[2020-01-26] MEDS: ACETYLCYSTEINE 10% SOLN 400 MG/4 ML VIAL NEB SCH ×3 (07:35→23:30)
[2020-01-26] MEDS: ALBUTEROL FS 2.5 MG/3 ML VIAL.NEB NEB SCH ×3 (07:35→23:30)
[2020-01-26 08:00] VITALS: BP 151/72
[2020-01-26] MEDS ORDERED: LamoTRIgine 25 MG TABLET PO SCH (08:00)
[2020-01-26] MEDS: MUPIROCIN OINT 2% 22 GM TUBE NS SCH ×2 (08:15→22:02)
[2020-01-26] MEDS: PANTOPRAZOLE 40 MG/PACK PACK PO SCH (08:15)
[2020-01-26] MEDS: HYDROCODONE/APAP 5/325MG TABLET PO PRN (08:15)
[2020-01-26] MEDS: LEVOTHYROXINE SODIUM 125 MCG TABLET PO SCH (08:15)
[2020-01-26] MEDS: HEPARIN SODIUM, PORCINE 5000 UNITS/1 ML VIAL SQ SCH ×2 (08:16→21:56)
[2020-01-26] MEDS: Z GUARD REMEDY 2 OZ OINT TP SCH ×2 (08:20→21:00)
--- NOTE | 2020-01-26 15:25 | NUR ---
RT NOTE EKG NOT DONE. PATIENT IN DIALYSIS AT THIS TIME. RN CHACORTA DUVAL
[2020-01-26 16:00] VITALS: BP 136/60
--- NOTE | 2020-01-26 16:00 | NUR ---
HEMODIALYSIS PT DIALYZED BY CHAPIS GODINEZMIX HOUSE OPERATOR NURSE. TOLERATED DIALYSIS WELL. 800ML WAS TAKEN OUT.
[2020-01-26] MEDS: FLUOCINONIDE 0.05% CREAM 60 GM TUBE TP SCH ×2 (16:30→17:00)
[2020-01-26] MEDS: diphenhydrAMINE HCL 50 MG/ML VIAL IV PRN (16:36)
--- NOTE | 2020-01-26 17:30 | NUR ---
ITCHINESS PT C/O ITCHYNESS. BENADRYL IVPUSH GIVEN ORDERED. IN ADDITION, MD HAD ALSO ORDERED LIDEX CREAM WHICH WAS APPLIED TO THE PTS AFFECTED AREAS.
[2020-01-26] MEDS: LamoTRIgine 25 MG TABLET PO SCH (18:02)
--- NOTE | 2020-01-26 18:20 | NUR ---
RN CLOSING NOTES PATIENT IN BED. AWAKE ALERT AND ORIENTED X1-2. PT HAS PERIODS OF CONFUSION. SHE TENDS TO RAMBLE ON A LOT OF THINGS. VERY NEEDY. PT STAYS ON THE CALL LIGHT CONSTANTLY EVEN THOUGH NURSING STAFF WAS JUST IN HER ROOM AND JUST PROVIDED HER WITH HER NEEDS. SHE IS VERY FORGETFUL AND FABRICATES STORIES, STATING THAT NOBODY HAS BEEN IN HER ROOM TO HELP HER. THIS IS INCORRECT SINCE NURSING STAFF HAVE BEEN IN AND OUT OF THE ROOM CONSTANTLY TRYING TO PACIFY HER AND HELP HER. NO SOB NOTED. SATURATING WELL ON R3L OF O2 VIA NC. IV ACCESS NOTED ON R UPPER ARM. INTACT AND PATENT AND FLUSHING WELL. NO S/S OF INFECTION OR INFILTRATION NOTED. ALL NEEDS MET AND ATTENDED. ALL DUE MEDS ADMINISTERED. NO ASE NOTED. SAFETY MEASURES ARE IN PLACE, BED IS LOCKED AND PLACED IN THE LOW POSITION, SIDE RAILS UP X3. CALL LIGHT IS WITHIN REACH. WILL CONTINUE TO MONITOR.
[2020-01-26 20:00] VITALS: BP 127/59
--- NOTE | 2020-01-26 20:01 | NUR ---
MS/RN OPENING NOTE Patient awake in bed, A/O x1-2, forgetful/confused, bedbound. Breathing even, clear, unlabored, on 3 LPM NC. No JVD or tracheal deviation. CRP <3seconds. Skin warm, pink, dry appropriate for ethnicity. AV shunt noted on left upper arm. CHET midline noted, patent and intact, no infiltration. Abdomen small, round, non-tender. BS hypoactive. Patient is incontinent. Bed in low position, wheels locked, side rails up x2, call light within reach.
[2020-01-26] MEDS: risperiDONE 0.25 MG TABLET PO SCH (21:53)
--- NOTE | 2020-01-26 22:47 | NUR ---
MS/RN NOTE Patient c/o difficulty sleeping. Notified hospitalist. Received order for ambien 5mg PO PRN. Will continue to monitor.
[2020-01-26 22:50] VITALS: BP 127/59
[2020-01-26] MEDS ORDERED: ZOLPIDEM TARTRATE 5 MG TABLET PO PRN (23:00)
[2020-01-27] MEDS: CLONIDINE HCL 0.1 MG TABLET PO SCH ×2 (04:50→13:11)
[2020-01-27] MEDS: BLOOD SUGAR DIAGNOSTIC 1 EACH STRIP IN SCH ×3 (05:55→17:39)
[2020-01-27] MEDS: PANTOPRAZOLE 40 MG/PACK PACK PO SCH (06:39)
[2020-01-27] MEDS: LEVOTHYROXINE SODIUM 125 MCG TABLET PO SCH (06:39)
--- NOTE | 2020-01-27 07:06 | NUR ---
MS/RN CLOSING NOTE Patient awake in bed, A/O x1-2, forgetful/confused, bedbound. Breathing even, clear, unlabored. Skin warm, pink, dry appropriate for ethnicity. AV shunt noted on left upper arm. CHET midline noted, patent and intact, no infiltration. Patient is incontinent. Patient did not void during the night. Bed in low position, wheels locked, side rails up x2, call light within reach.
[2020-01-27 07:33] LABS: BASOPHILS % (AUTO) 0.7 % (0.0-2.0); EOSINOPHILS % (AUTO) 3.6 % (0.0-6.0); HEMATOCRIT 31 % (33-45); HEMOGLOBIN 9.9 g/dL (11.5-14.8); LYMPHOCYTES # (AUTO) 0.7 /CMM (0.8-4.8); LYMPHOCYTES % (AUTO) 15.9 % (20.0-44.0); MEAN CORPUSCULAR HGB CONC 32 g/dl (31.0-36.0); MEAN CORPUSCULAR VOLUME 110 fL (82-100); MONOCYTES # (AUTO) 0.4 /CMM (0.1-1.30); MONOCYTES % (AUTO) 9.1 % (2.0-12.0); NEUTROPHILS # (AUTO) 3.3 /CMM (1.8-8.9); NEUTROPHILS % (AUTO) 70.7 % (43.0-81.0); PLATELET COUNT (AUTO) 160 /CMM (150-450); RED BLOOD CELL COUNT(AUTO) 2.79 MIL/uL (4.0-5.2); WHITE BLOOD COUNT (AUTO) 4.7 K/uL (4.3-11.0)
[2020-01-27 07:39] LABS: BILIRUBIN,TOTAL 1.4 mg/dL (0.2-1.0); CALCIUM, SERUM 8.8 mg/dL (8.5-10.1); CREATININE 6.3 mg/dL (0.6-1.3); MAGNESIUM 2.1 mg/dL (1.8-2.4); PHOSPHORUS 4.9 mg/dL (2.5-4.9); POTASSIUM 5.9 mmol/L (3.5-5.1); TOTAL PROTEIN, SERUM 6.7 g/dL (6.4-8.2)
--- NOTE | 2020-01-27 07:39 | NUR ---
RN OPEN NOTES PATIENT IS AWAKE A/O X 1-2 EATING BREAKFAST WITH NO SIGNS OF DISTRESS IN ROOM AIR. R UA MIDLINE AND L UA AV SHUNT. NO COMPLAIN OF PAIN AT THIS MOMENT. SAFETY MEASURES ARE APPLIED, BED IS LOW AND LOCKED. SIDE RAILS UP X 2 FOR SAFETY. CALL LIGHT WITHIN REACH. WILL CONTINUE TO MONITOR.
[2020-01-27 08:00] VITALS: BP 148/71
[2020-01-27] MEDS: ALBUTEROL FS 2.5 MG/3 ML VIAL.NEB NEB SCH ×2 (08:26→15:02)
[2020-01-27] MEDS: ACETYLCYSTEINE 10% SOLN 400 MG/4 ML VIAL NEB SCH ×2 (08:26→15:02)
[2020-01-27] MEDS: risperiDONE 0.25 MG TABLET PO SCH (08:40)
[2020-01-27] MEDS: MUPIROCIN OINT 2% 22 GM TUBE NS SCH (08:41)
[2020-01-27] MEDS: HEPARIN SODIUM, PORCINE 5000 UNITS/1 ML VIAL SQ SCH (08:44)
[2020-01-27] MEDS: Z GUARD REMEDY 2 OZ OINT TP SCH (08:46)
[2020-01-27] MEDS: FLUOCINONIDE 0.05% CREAM 60 GM TUBE TP SCH ×2 (08:54→17:39)
[2020-01-27] MEDS: diphenhydrAMINE HCL 50 MG/ML VIAL IV PRN (10:02)
[2020-01-27 16:00] VITALS: BP 151/78
[2020-01-27] MEDS: LamoTRIgine 25 MG TABLET PO SCH (17:21)
--- NOTE | 2020-01-27 18:39 | NUR ---
CALL [facility] . GAVE REPORT AND DISCHARGE INSTRUCTIONS SPOKE TO HERBERT BYERS PATIENT WILL GET PICKED UP AT 2000 GOING TO ROOM 310-A.
--- NOTE | 2020-01-27 18:56 | NUR ---
BROTHER MARICEL AWARE OF DISCHARGE TO ARU.
--- NOTE | 2020-01-27 19:18 | NUR ---
RN CLOSED NOTES PATIENT IS AWAKE A/O X 1-2 WITH NO SIGNS OF DISTRESS IN ROOM AIR. R UA MIDLINE AND L UA AV SHUNT. NO COMPLAIN OF PAIN AT THIS MOMENT. DISCHARGE INSTRUCTIONS WERE GIVEN TO THE PATIENT, BELONGING LIST WAS COMPLETED AND SIGNED. PATIENT REMAINED STABLE THROUGH OUT SHIFT. PATIENT KEPT CLEAN AND DRY. ALL NEEDS, CARE, TREATMENT AND MEDICATIONS ADMINISTERED ANTICIPATED PER ORDER. SAFETY MEASURES ARE APPLIED, BED IS LOW AND LOCKED. SIDE RAILS UP X 2 FOR SAFETY. CALL LIGHT WITHIN REACH. WILL ENDORSE TO THE NEXT ARCHITECTURAL ASSOCIATE.
[2020-01-27 20:00] VITALS: BP 147/54
[2020-01-27 20:10] VITALS: BP 141/54
--- NOTE | 2020-01-27 20:20 | NUR ---
MS RN NOTES DISCHARGE PATIENT IN STABLE CONDITION, ALERT AND ORIENTED X 2-3 WITH EPISODES OF CONFUSION AND FORGETFULNESS. RIGHT UPPER ARM PICC LINE REMOVED AND COVERED WITH DRY DRESSING. LEFT UPPER ARM AV SHUNT POSITIVE FOR BRUIT AND THRILL, NO ACTIVE BLEEDING NOTED. PICKED-UP BY [facility] WITH 2EMT'S. DISCHARGE PACKET GIVEN TO EMT. REPORT GIVEN BY AM SHIFT RN TO ANDREE GODINEZ OF [facility] FOR CONTINUITY OF CARE.
[2020-01-28 11:08] LABS: PTH, INTACT 407 pg/mL (15-65)
[2020-01-29 07:10] LABS: *SPE A/G RATIO 1.1 (0.7-1.7); *SPE ALBUMIN 3.2 g/dL (2.9-4.4); *SPE ALPHA-1-GLOBULIN 0.3 g/dL (0.0-0.4); *SPE ALPHA-2-GLOBULIN 0.5 g/dL (0.4-1.0); *SPE BETA GLOBULIN 0.9 g/dL (0.7-1.3); *SPE GLOBULIN, TOTAL 2.9 g/dL (2.2-3.9); *SPE M-SPIKE Not Observed g/dL (Not Observed); *SPEGAMMA GLOBULIN 1.2 g/dL (0.4-1.8)
== END 2020-01-27 20:15 | DRG 280 ==
LOC: ER 22:35 → ICU 01-20 07:09 → TELE 01-21 18:12 → MED 01-22 11:22
PROVIDERS: ADMIT Nurse Practitioner Acute Care; ATTEND Internal Medicine
PROC: 5A1D70Z Performance of Urinary Filtration, Intermittent, Less than 6 Hours Per Day (ICD-10-PCS; principal; 2020-01-20)
PROC: 05H533Z Insertion of Infusion Device into Right Subclavian Vein, Percutaneous Approach (ICD-10-PCS; 2020-01-20)
PROC: B546ZZA Ultrasonography of Right Subclavian Vein, Guidance (ICD-10-PCS; 2020-01-20)
PROC: 009U3ZX Drainage of Spinal Canal, Percutaneous Approach, Diagnostic (ICD-10-PCS; 2020-01-24)
PROC: B01BYZZ Fluoroscopy of Spinal Cord using Other Contrast (ICD-10-PCS; 2020-01-24)
DX: I13.2 Hypertensive heart and chronic kidney disease with heart failure and with stage 5 chronic kidney disease, or end stage renal disease (principal); N18.6 End stage renal disease; I21.A1 Myocardial infarction type 2; G92 Toxic encephalopathy; J96.01 Acute respiratory failure with hypoxia; R40.2312 Coma scale, best motor response, none, at arrival to emergency department; R40.2112 Coma scale, eyes open, never, at arrival to emergency department; R40.2212 Coma scale, best verbal response, none, at arrival to emergency department; I50.33 Acute on chronic diastolic (congestive) heart failure; J98.11 Atelectasis; K57.92 Diverticulitis of intestine, part unspecified, without perforation or abscess without bleeding; R18.8 Other ascites; E87.5 Hyperkalemia; E11.22 Type 2 diabetes mellitus with diabetic chronic kidney disease; E03.9 Hypothyroidism, unspecified; I50.9 Heart failure, unspecified; E78.5 Hyperlipidemia, unspecified; D53.9 Nutritional anemia, unspecified; F31.9 Bipolar disorder, unspecified; F41.9 Anxiety disorder, unspecified; G40.909 Epilepsy, unspecified, not intractable, without status epilepticus; I25.10 Atherosclerotic heart disease of native coronary artery without angina pectoris; M89.9 Disorder of bone, unspecified; Z86.73 Personal history of transient ischemic attack (TIA), and cerebral infarction without residual deficits; Z99.2 Dependence on renal dialysis; K52.9 Noninfective gastroenteritis and colitis, unspecified; R74.01 Elevation of levels of liver transaminase levels; E83.9 Disorder of mineral metabolism, unspecified; F25.0 Schizoaffective disorder, bipolar type
CPT/HCPCS: 36410; 36415; 36600; 62270; 70450-TC; 70551-TC; 71045-TC; 80048-TC; 80053-TC; 80061-TC; 80076-TC; 82140-TC; 82550-TC; 82962-TC; 83605-TC; 83735-TC; 83880; 83970; 84100-TC; 84155; 84165; 84443-TC; 84484-TC; 85025-TC; 85610-TC; 85730-TC; 86706; 87070-TC; 87081-TC; 87340; 87899; 89051-TC; 90935-TC; 92526; 92611-TC; 94799-TC; 97530-TC; C9113; G0378; J0610; J1200; J1644; J1815; J1940; J2060; J2270; J3475; J3490; J7050; J7060; Q9967; U0003-CS